=== PATIENT | male | born 1930 | race Caucasian/White ===

== ENCOUNTER → 2016-07-23 | Outpatient (CLI) | payer MEDICARE, BC ==
[2016-07-23 09:01] LABS: Basophils % (A) 0 %; CH 31.9; CHCM 34.8; Eosinophils # (A) 0.3 k/uL (0-0.7); Eosinophils % (A) 4 %; HDW 2.54; HGB 10.5 gm/dL (13.0-17.5); Luc # (Auto) 0.16; Luc % (Auto) 3; Lymphocytes # (A) 1.7 k/uL (1.0-4.8); Lymphocytes % (A) 27 %; MCH 31.1 pg (25.0-35.0); MCHC 33.8 g/dL (31.0-37.0); Mean Platelet Volume 7.4; Monocytes # (A) 0.5 k/uL (0-1.0); Monocytes % (A) 8 %; Neutrophils # (A) 3.8 k/uL (1.3-7.7); Neutrophils % (A) 58 %; RBC 3.37 m/uL (4.30-5.90); RDW 11.9 % (11.5-15.5); WBC 6.5 k/uL (3.8-10.6); WBC (Perox) 6.16
[2016-07-23 13:14] LABS: Calcium 9.3 mg/dL (8.4-10.2); Magnesium 2.8 mg/dL (1.6-2.3); Phosphorous 4.6 mg/dL (2.5-4.5); Potassium 5.2 mmol/L (3.5-5.1); Uric Acid 7.5 mg/dL (3.5-8.5)
[2016-07-23 15:35] LABS: % Iron Saturation 24.5 % (20-50)
== END | disposition home or self-care (01) ==
LOC: LABWHC1 08:16
PROVIDERS: ATTEND Nurse Practitioner Family
DX: N18.4 Chronic kidney disease, stage 4 (severe) (principal); D64.9 Anemia, unspecified; E55.9 Vitamin D deficiency, unspecified; E21.3 Hyperparathyroidism, unspecified; M10.9 Gout, unspecified
CPT/HCPCS: 36415; 80048; 82306; 82728; 83540; 83550; 83735; 83970; 84100; 84550; 85025

== ENCOUNTER → 2016-08-23 | Outpatient (CLI) | payer MEDICARE, BC ==
[2016-08-23 12:37] LABS: Calcium 9.4 mg/dL (8.4-10.2); Potassium 4.9 mmol/L (3.5-5.1); Total Bilirubin 0.6 mg/dL (0.2-1.3); Total Protein 7.2 g/dL (6.3-8.2)
== END | disposition home or self-care (01) ==
LOC: LABWHC1 11:37
PROVIDERS: ATTEND Family Medicine
DX: N19 Unspecified kidney failure (principal)
CPT/HCPCS: 36415; 80053

== ENCOUNTER → 2017-03-30 | Outpatient (CLI) | payer MEDICARE, BC ==
[2017-03-30 10:37] LABS: Basophils % (A) 0 %; CH 31.3; CHCM 32.9; Eosinophils # (A) 0.3 k/uL (0-0.7); Eosinophils % (A) 5 %; HGB 10.8 gm/dL (13.0-17.5); Luc # (Auto) 0.12; Luc % (Auto) 2; Lymphocytes # (A) 1.1 k/uL (1.0-4.8); Lymphocytes % (A) 18 %; MCH 32.3 pg (25.0-35.0); MCHC 33.8 g/dL (31.0-37.0); MCV 95.5 fL (80.0-100.0); Mean Platelet Volume 7.5; Monocytes # (A) 0.4 k/uL (0-1.0); Monocytes % (A) 7 %; Neutrophils % (A) 67 %; RBC 3.35 m/uL (4.30-5.90); RDW 12.5 % (11.5-15.5); WBC 5.9 k/uL (3.8-10.6); WBC (Perox) 6.12
[2017-03-30 12:15] LABS: Appearance,Urine Clear (Clear); Bilirubin,Urine Negative (Negative); Glucose,Urine (UA) Negative (Negative); Ketones,Urine Negative (Negative); Leukocyte Esterase,Urine Negative (Negative); Nitrite,Urine Negative (Negative); PH, Urine 5.5 (5.0-8.0); Particle Count 828; Protein,Urine 1+ (Negative); Specific Gravity,Urine 1.008 (1.001-1.035); UA Billing (MACRO vs. MICRO) MICRO; Urobilinogen,Urine <2.0 mg/dL (<2.0); WBC,Urine 1 /hpf (0-5)
== END | disposition home or self-care (01) ==
LOC: LABPAT 09:59
PROVIDERS: ATTEND Urology
DX: Z01.810 Encounter for preprocedural cardiovascular examination (principal); N28.9 Disorder of kidney and ureter, unspecified; R35.0 Frequency of micturition; I10 Essential (primary) hypertension
CPT/HCPCS: 81001; 85025; 87086; 93005

== ENCOUNTER 2017-08-12 13:21 | Inpatient (IN) | payer MEDICARE, BC ==
--- NOTE | 2017-08-12 14:07 | ED ---
General Adult HPI - General Chief complaint: Fall Stated complaint: Knee pain/ Fall Time Seen by Provider: 08/12/17 13:50 Source: patient, EMS, RN notes reviewed Mode of arrival: EMS Limitations: physical limitation - History of Present Illness Initial comments: Patient 87-year-old male who presents emergency room today with multiple complaints. Patient does admit that he's had some right knee and right hip pain over the last 3 weeks since a fall. States he fell coming out of her house missing a step falling down onto the right knee jamming it back up into the right hip area. He does admit that he saw orthopedics had x-rays obtained week ago. States he still experiencing the pain. He states is worse with movements. He states he was walking with a walker prior to the fall. The last few weeks she's had to use a walker and feels that he's having a difficult time with any ambulation at this time. Patient also admits that he's had some thoughts of hurting himself. He does admit that he has a shot, house. He states that his 3 years ago cancer. States another son at the age 21 from a car accident. States the main reason that keeps him from the doing anything is acting as an insurance policy that will not pale to his living son committed suicide. Patient denies any other complaints or symptoms. Patient denies any recent fever, chills, shortness of breath, chest pain, back pain, abdominal pain, nausea or vomiting, headaches or visual changes, or any other complaints. - Related Data Home Medications Medication Instructions Recorded Confirmed ALPRAZolam [Xanax] 0.5 mg PO QID@,,,09/23/14 08/12/17 Aspirin EC [Ecotrin] 325 mg PO DAILY 09/23/14 08/12/17 Clopidogrel [Plavix] 75 mg PO DAILY@1600 08/06/15 08/12/17 Isosorbide Mononitrate ER [Imdur] 60 mg PO BID@09/01/15 08/12/17 Docusate [Colace] 50 mg PO BID@04/01/17 08/12/17 Gabapentin [Neurontin] 300 mg PO TID 04/01/17 08/12/17 Ipratropium-Albuterol Nebulize 3 ml INHALATION RT-QID PRN 04/01/17 08/12/17 [Duoneb 0.5 mg-3 mg/3 ml Soln] Loratadine [Claritin] 10 mg PO QAM 04/01/17 08/12/17 amLODIPine [Norvasc] 10 mg PO DAILY@1200 04/01/17 08/12/17 Colace 50mg 50 mg PO TID PRN 08/12/17 08/12/17 Pravastatin Sodium [Pravachol] 40 mg PO HS 08/12/17 08/12/17 hydrALAZINE HCL [Apresoline] 25 mg PO TID@05,16,20 08/12/17 08/12/17 Allergies Allergy/AdvReac Type Severity Reaction Status Date / Time No Known Allergies Allergy Verified 08/12/17 14:14 Review of Systems ROS Statement: Those systems with pertinent positive or pertinent negative responses have been documented in the HPI. ROS Other: All systems not noted in ROS Statement are negative. Past Medical History Past Medical History: Coronary Artery Disease (CAD), Chest Pain / Angina, Heart Failure, COPD, Hypertension, Myocardial Infarction ([place]), Osteoarthritis (OA), Pneumonia, Sleep Apnea/CPAP/BIPAP Additional Past Medical History / Comment(s): NSTEMI, EF 50% Last Myocardial Infarction Date:: 2010 History of Any Multi-Drug Resistant Organisms: None Reported Past Surgical History: Heart Catheterization With Stent, Joint Replacement, Tonsillectomy Additional Past Surgical History / Comment(s): Rt carotid [id number], cataract removed with lens implant bilat., Rt. knee replacement Past Anesthesia/Blood Transfusion Reactions: No Reported Reaction Date of Last Stent Placement:: 2010, ( OM) Past Psychological History: Anxiety, Depression Smoking Status: Never smoker Past Alcohol Use History: None Reported Past Drug Use History: None Reported - Past Family History Father Family Medical History: Chest Pain / Angina, Coronary Artery Disease (CAD), Myocardial Infarction ([place]) Mother Family Medical History: Dementia General Exam - General Exam Comments Initial Comments: General: The patient is awake and alert, in no distress, and does not appear acutely ill. Eye: Pupils are equal, round and reactive to light, extra-ocular movements are intact. No nystagmus. There is normal conjunctiva bilaterally. No signs of icterus. Ears, nose, mouth and throat: There are moist mucous membranes and no oral lesions. Neck: The neck is supple, there is no tenderness or JVD. Cardiovascular: There is a regular rate and rhythm. No murmur, rub or gallop is appreciated. Respiratory: Lungs are clear to auscultation, respirations are non-labored, breath sounds are equal. No wheezes, stridor, rales, or rhonchi. Musculoskeletal: Patient shows limited range of motion of the right knee, right hip. Does have tenderness over the both lateral and medial aspect of the right hip. Tender with a logroll maneuver. Does have mild tenderness to the anterior aspect of the right knee. There is mild effusion to the right knee. Strength 5/5. Sensation intact. Pulses equal bilaterally 2+. Neurological: A&O x 3. CN II-XII intact, There are no obvious motor or sensory deficits. Coordination appears grossly intact. Speech is normal. Skin: Skin is warm and dry and no rashes or lesions are noted. Psychiatric: Cooperative, appropriate mood & affect. Limitations: physical limitation Course Vital Signs 08/12/17 08/12/17 08/12/17 13:24 14:44 15:19 Temperature 97.4 F L Pulse Rate 72 72 72 Respiratory 19 19 Rate Blood Pressure 205/93 186/107 175/72 O2 Sat by Pulse 95 95 Oximetry Medical Decision Making - Medical Decision Making Patient's labs been reviewed. Creatinine elevated shows similar findings on previous labs. Patient's x-rays reviewed show a right femoral neck fracture. 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 Orellana. Will be admitted to his service with consults medicine and also psych services for thoughts of hurting himself - Lab Data Result diagrams: 08/12/17 14:14 08/12/17 14:14 Lab Results 08/12/17 08/12/17 08/12/17 Range/Units 14:14 14:14 14:14 WBC 8.7 (3.8-10.6) k/uL RBC 3.60 L (4.30-5.90) m/uL Hgb 10.8 L (13.0-17.5) gm/dL Hct 32.6 L (39.0-53.0) % MCV 90.3 (80.0-100.0) fL MCH 29.9 (25.0-35.0) pg MCHC 33.2 (31.0-37.0) g/dL RDW 12.5 (11.5-15.5) % Plt Count 174 (150-450) k/uL Neutrophils % 80 % Lymphocytes % 12 % Monocytes % 5 % Eosinophils % 1 % Basophils % 0 % Neutrophils # 7.0 (1.3-7.7) k/uL Lymphocytes # 1.1 (1.0-4.8) k/uL Monocytes # 0.5 (0-1.0) k/uL Eosinophils # 0.1 (0-0.7) k/uL Basophils # 0.0 (0-0.2) k/uL PT 10.4 (9.0-12.0) sec INR 1.1 (<1.2) APTT 23.4 (22.0-30.0) sec Sodium 142 (137-145) mmol/L Potassium 5.0 (3.5-5.1) mmol/L Chloride 109 H (98-107) mmol/L Carbon Dioxide 20 L (22-30) mmol/L Anion Gap 13 mmol/L BUN 52 H (9-20) mg/dL Creatinine 3.02 H (0.66-1.25) mg/dL Est GFR (MDRD) Af Amer 24 (>60 ml/min/1.73 sqM) Est GFR (MDRD) Non-Af 20 (>60 ml/min/1.73 sqM) Glucose 104 H (74-99) mg/dL Calcium 9.2 (8.4-10.2) mg/dL Total Bilirubin 0.4 (0.2-1.3) mg/dL AST 15 L (17-59) U/L ALT 26 (21-72) U/L Alkaline Phosphatase 76 (38-126) U/L Total Protein 6.6 (6.3-8.2) g/dL Albumin 3.8 (3.5-5.0) g/dL Urine Opiates Screen (NotDetected) Ur Oxycodone Screen (NotDetected) Urine Methadone Screen (NotDetected) Ur Propoxyphene Screen (NotDetected) Ur Barbiturates Screen (NotDetected) U Tricyclic Antidepress (NotDetected) Ur Phencyclidine Scrn (NotDetected) Ur Amphetamines Screen (NotDetected) U Methamphetamines Scrn (NotDetected) U Benzodiazepines Scrn (NotDetected) Urine Cocaine Screen (NotDetected) U Marijuana (THC) Screen (NotDetected) 08/12/17 Range/Units 14:42 WBC (3.8-10.6) k/uL RBC (4.30-5.90) m/uL Hgb (13.0-17.5) gm/dL Hct (39.0-53.0) % MCV (80.0-100.0) fL MCH (25.0-35.0) pg MCHC (31.0-37.0) g/dL RDW (11.5-15.5) % Plt Count (150-450) k/uL Neutrophils % % Lymphocytes % % Monocytes % % Eosinophils % % Basophils % % Neutrophils # (1.3-7.7) k/uL Lymphocytes # (1.0-4.8) k/uL Monocytes # (0-1.0) k/uL Eosinophils # (0-0.7) k/uL Basophils # (0-0.2) k/uL PT (9.0-12.0) sec INR (<1.2) APTT (22.0-30.0) sec Sodium (137-145) mmol/L Potassium (3.5-5.1) mmol/L Chloride (98-107) mmol/L Carbon Dioxide (22-30) mmol/L Anion Gap mmol/L BUN (9-20) mg/dL Creatinine (0.66-1.25) mg/dL Est GFR (MDRD) Af Amer (>60 ml/min/1.73 sqM) Est GFR (MDRD) Non-Af (>60 ml/min/1.73 sqM) Glucose (74-99) mg/dL Calcium (8.4-10.2) mg/dL Total Bilirubin (0.2-1.3) mg/dL AST (17-59) U/L ALT (21-72) U/L Alkaline Phosphatase (38-126) U/L Total Protein (6.3-8.2) g/dL Albumin (3.5-5.0) g/dL Urine Opiates Screen Detected H (NotDetected) Ur Oxycodone Screen Not Detected (NotDetected) Urine Methadone Screen Not Detected (NotDetected) Ur Propoxyphene Screen Not Detected (NotDetected) Ur Barbiturates Screen Not Detected (NotDetected) U Tricyclic Antidepress Not Detected (NotDetected) Ur Phencyclidine Scrn Not Detected (NotDetected) Ur Amphetamines Screen Not Detected (NotDetected) U Methamphetamines Scrn Not Detected (NotDetected) U Benzodiazepines Scrn Detected H (NotDetected) Urine Cocaine Screen Not Detected (NotDetected) U Marijuana (THC) Screen Not Detected (NotDetected) Disposition Clinical Impression: Closed right hip fracture Disposition: [facility] Condition: Stable Referrals: Benoit Fatima MD [Primary Care Provider] - 1-2 days Time of Disposition: 16:02
[2017-08-12] MEDS ORDERED: hydrALAZINE HCL 20 MG/ML 1 ML VIAL IVP STA (14:18)
[2017-08-12 14:33] LABS: Partial Thromboplastin Time 23.4 sec (22.0-30.0)
[2017-08-12 14:35] LABS: Albumin 3.8 g/dL (3.5-5.0); Calcium 9.2 mg/dL (8.4-10.2); Total Bilirubin 0.4 mg/dL (0.2-1.3); Total Protein 6.6 g/dL (6.3-8.2)
[2017-08-12 14:36] LABS: INR 1.1 (<1.2); Prothrombin Time 10.4 sec (9.0-12.0)
[2017-08-12 14:43] LABS: Basophils % (A) 0 %; Eosinophils # (A) 0.1 k/uL (0-0.7); Eosinophils % (A) 1 %; HCT 32.6 % (39.0-53.0); HGB 10.8 gm/dL (13.0-17.5); Lymphocytes # (A) 1.1 k/uL (1.0-4.8); Lymphocytes % (A) 12 %; MCH 29.9 pg (25.0-35.0); MCHC 33.2 g/dL (31.0-37.0); MCV 90.3 fL (80.0-100.0); Mean Platelet Volume 7.4; Monocytes # (A) 0.5 k/uL (0-1.0); Monocytes % (A) 5 %; Neutrophils % (A) 80 %; Platelet Count 174 k/uL (150-450); RDW 12.5 % (11.5-15.5); WBC 8.7 k/uL (3.8-10.6)
[2017-08-12 15:00] LABS: Amphetamine Screen,Urine Not Detected (NotDetected); Barbiturate Screen,Urine Not Detected (NotDetected); Benzodiazepines Screen,Urine Detected (NotDetected); Cocaine Screen,Urine Not Detected (NotDetected); Methadone Screen, Urine Not Detected (NotDetected); Opiate Screen,Urine Detected (NotDetected); Oxycodone Screen, Urine Not Detected (NotDetected); Phencyclidine Screen,Urine Not Detected (NotDetected); Tricyclic Antidepressant,Urine Not Detected (NotDetected); Urn Cannabinoid Scrn Not Detected (NotDetected)
[2017-08-12] MEDS ORDERED: HYDROmorphone 0.5 MG/0.5 ML SYRINGE IVP STA ×2 (15:10→17:33)
--- NOTE | 2017-08-12 15:16 | XR ---
EXAMINATION TYPE: XR Hip RT and AP Pelvis DATE OF EXAM: 08/12/2017 COMPARISON: NONE HISTORY: Pain, fall TECHNIQUE: AP pelvis and right hip FINDINGS: There is a right femoral neck fracture which is nearly intertrochanteric. There is some sli ght angulation. Femoral heads articulate with the acetabulum. No additional fractures are evident. Nonspecific bowel gas present. IMPRESSION: 1. Right femoral neck fracture
--- NOTE | 2017-08-12 15:17 | XR ---
EXAMINATION TYPE: XR knee limited RT DATE OF EXAM: 08/12/2017 COMPARISON: NONE HISTORY: Pain, fall TECHNIQUE: 2 views right knee FINDINGS: Tibial and femoral components are present. No joint effusion is evident. No acute fractures are evident. IMPRESSION: 1. No fractures right knee
[2017-08-12] MEDS ORDERED: ONDANSETRON 4 MG/2 ML VIAL IVP STA (15:23)
[2017-08-12] MEDS ORDERED: ONDANSETRON 4 MG/2 ML VIAL IVP PRN (16:17)
[2017-08-12] MEDS ORDERED: NALOXONE 0.4 MG/ML 1 ML VIAL IV PRN (16:17)
--- NOTE | 2017-08-12 16:37 | CT ---
EXAMINATION TYPE: CT hip RT wo con DATE OF EXAM: 08/12/2017 COMPARISON: Right hip images same date HISTORY: 609 CT DLP: Fall x3 weeks ago, right hip pain. mGycm Automated exposure control for dose reduction was used. FINDINGS: There is a lucency within the femoral neck. Femoral neck fracture is evident. There is some rotation of the femoral head in relation to the femoral neck. No additional fractures are evident. This may b e a pathologic fracture, correlation with the patient's history is recommended. Three-D reconstructed images through the right hip fracture are performed separately on the dateIITiansuter by the technologist and presented. IMPRESSION: RIGHT FEMORAL NECK FRACTURE MAY BE A PATHOLOGIC FRACTURE. CORRELATE WITH HISTORY.
[2017-08-12] MEDS ORDERED: HYDROcodone/APAP 5-325MG 1 EACH TAB PO PRN (17:28)
--- NOTE | 2017-08-12 17:43 | XR ---
EXAMINATION TYPE: XR chest 1V portable DATE OF EXAM: 08/12/2017 COMPARISON: 09/01/2015 INDICATION: Preop evaluation TECHNIQUE: Single frontal view of the chest is obtained. FINDINGS: The heart size is normal. The pulmonary vasculature is somewhat prominent. There is mild increased lung markings into the right upper lung field. Correlate for atelectasis. Dane e volume overload may be present IMPRESSION: 1. Right upper lobe atelectasis and/or volume overload with cephalization vascular structures. Overt pulmonary edema is not present.
[2017-08-12] MEDS ORDERED: DOCUSATE ORAL SOLN 100 MG/10 ML CUP PO PRN (20:54)
[2017-08-12] MEDS ORDERED: IPRATROPIUM-ALBUTEROL 3 ML NEB INHALATION PRN (20:54)
[2017-08-12] MEDS ORDERED: amLODIPine 10 MG TAB PO STA (20:58)
[2017-08-12] MEDS: PRAVASTATIN SODIUM 40 MG TAB PO SCH (21:12)
[2017-08-12] MEDS: GABAPENTIN 300 MG CAP PO SCH (21:12)
[2017-08-12] MEDS: HYDROmorphone 0.5 MG/0.5 ML SYRINGE IVP PRN (22:57)
[2017-08-12 23:15] LABS: Appearance,Urine Clear (Clear); Bacteria,Urine Rare /hpf; Bilirubin,Urine Negative (Negative); Blood,Urine Negative (Negative); Color,Urine Light Yellow; Glucose,Urine (UA) Negative (Negative); Ketones,Urine Negative (Negative); Leukocyte Esterase,Urine Negative (Negative); Nitrite,Urine Negative (Negative); PH, Urine 5.5 (5.0-8.0); Protein,Urine 2+ (Negative); RBC,Urine 1 /hpf (0-5); Urobilinogen,Urine <2.0 mg/dL (<2.0); WBC,Urine 4 /hpf (0-5)
--- NOTE | 2017-08-13 00:09 | CT ---
EXAMINATION TYPE: CT chest wo con DATE OF EXAM: 08/12/2017 COMPARISON: 06/27/2015 HISTORY: f/u abnormal CXR CT DLP: 656.20 mGycm. Automated Exposure Control for Dose Reduction was Utilized. TECHNIQUE: CT scan of the thorax is performed without IV contrast. FINDINGS: The heart is enlarged. There is small pericardial effusion. There are small bilateral pleural effusio ns. Thoracic aorta is atheromatous. There is no evidence of aortic aneurysm. There are paratracheal l ymph nodes that measure up to 1.8 cm. There are atherosclerotic vascular calcifications in the great vessels. There is coronary artery calcification. I see no evidence of a pulmonary mass. Exam is limit ed by lack of contrast. I see no bony destructive process. There are some spondylotic changes in the thoracic spine. There is some fluid in the right major fissure. There is some mild atelectasis at the posterior lung bases. CONCLUSION: Cardiomegaly. Atherosclerotic vascular disease. Heart is increased in size compared to old exam. Ther e is decrease in the pericardial effusion compared to old exam. There are new bilateral pleural effus ions. This could relate to mild heart failure. There are nonspecific mediastinal paratracheal lymph n odes that are increased very slightly compared to old exam. Mild atelectasis noted at the lung bases.
[2017-08-13] MEDS: HYDROmorphone 0.5 MG/0.5 ML SYRINGE IVP PRN ×5 (01:53→23:55)
[2017-08-13] MEDS: hydrALAZINE HCL 25 MG TAB PO SCH ×3 (05:25→20:23)
[2017-08-13] MEDS: ISOSORBIDE MONONITRATE ER 60 MG TAB.ER.24H PO SCH ×2 (05:25→20:23)
[2017-08-13] MEDS: DOCUSATE ORAL SOLN 100 MG/10 ML CUP PO SCH ×2 (05:26→20:22)
[2017-08-13] MEDS: ALPRAZolam 0.5 MG TAB PO SCH ×4 (05:26→20:23)
[2017-08-13 07:38] LABS: Basophils % (A) 0 %; Eosinophils # (A) 0.1 k/uL (0-0.7); Eosinophils % (A) 2 %; HCT 29.5 % (39.0-53.0); HGB 9.4 gm/dL (13.0-17.5); Lymphocytes # (A) 1.2 k/uL (1.0-4.8); Lymphocytes % (A) 19 %; MCH 30.1 pg (25.0-35.0); MCHC 31.7 g/dL (31.0-37.0); MCV 94.9 fL (80.0-100.0); Mean Platelet Volume 7.8; Monocytes # (A) 0.6 k/uL (0-1.0); Monocytes % (A) 9 %; Neutrophils # (A) 4.4 k/uL (1.3-7.7); Neutrophils % (A) 69 %; Platelet Count 143 k/uL (150-450); RBC 3.11 m/uL (4.30-5.90); RDW 12.7 % (11.5-15.5); WBC 6.4 k/uL (3.8-10.6)
[2017-08-13 07:45] LABS: Albumin 3.1 g/dL (3.5-5.0); Calcium 8.6 mg/dL (8.4-10.2); Potassium 5.2 mmol/L (3.5-5.1); Total Bilirubin 0.3 mg/dL (0.2-1.3); Total Protein 5.6 g/dL (6.3-8.2)
[2017-08-13] MEDS: HYDROcodone/APAP 5-325MG 1 EACH TAB PO PRN ×2 (08:16→13:43)
[2017-08-13] MEDS: GABAPENTIN 300 MG CAP PO SCH ×3 (08:17→22:47)
[2017-08-13] MEDS: LORATADINE 10 MG TAB PO SCH (08:17)
--- NOTE | 2017-08-13 09:17 | P.HPOR ---
History of Present Illness H&P Date: 08/13/17 Chief Complaint: Right hip fracture The patient is an 87-year-old male with multiple medical problems who presented to the emergency department yesterday with ongoing right hip pain. The patient was seen in our office by Dr. Orellana last week after sustaining a fall at home, x -rays were taken and no fracture was seen. The patient was encouraged to walk with a walker with protective weightbearing to the right lower extremity. The patient continued to have right hip pain and he presented to the emergency department for further evaluation. X-rays were taken and he was found to have a displaced femoral neck fracture right. He was admitted to orthopedics for surgical intervention. A hip CT was obtained due to irregularity in the intertrochanteric area. CT revealed possible pathologic etiology with the fracture. Internal medicine has been consulted for surgical clearance and further evaluation for metastatic disease. Today, the patient states that he is having right hip pain as expected. He is also experiencing right foot pain. He states that he does have numbness and tingling to the bilateral feet which is chronic in nature. He denies fever, chills, rigors, abdominal pain, shortness of breath, and chest pain at this time. The patient did express some depression and suicidal thoughts in the emergency department. The patient will also be evaluated by psychiatry. Review of Systems Constitutional: Denies chills, Denies fever, Denies lethargy Cardiovascular: Denies chest pain, Denies shortness of breath Respiratory: Reports sleep apnea, Denies cough Gastrointestinal: Denies diarrhea, Denies nausea, Denies vomiting Musculoskeletal: Reports leg numbness/tingling Musculoskeletal: right: foot pain, hip pain, hip stiffness Past Medical History Past Medical History: Coronary Artery Disease (CAD), Chest Pain / Angina, Heart Failure, COPD, Hypertension, Myocardial Infarction ([place]), Osteoarthritis (OA), Pneumonia, Sleep Apnea/CPAP/BIPAP Additional Past Medical History / Comment(s): NSTEMI, EF 50% Last Myocardial Infarction Date:: 2010 History of Any Multi-Drug Resistant Organisms: None Reported Past Surgical History: Heart Catheterization With Stent, Joint Replacement, Tonsillectomy Additional Past Surgical History / Comment(s): Rt carotid [id number], cataract removed with lens implant bilat., Rt. 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 PT STATES HE'S DEPRESSED EVERY DAY BUT NOT SUICIDAL-NO THOUGHTS OF HARMING HIMSELF. APPETITE GOOD, NOT SLEPING WELL D/T NOSIE OF CPAP MACHINE- FEELS TIRED ALL THE TIME. DENIES LOSS OF INTEREST IN THINGS. Smoking Status: Never smoker Past Alcohol Use History: None Reported Past Drug Use History: None Reported - Past Family History Father Family Medical History: Chest Pain / Angina, Coronary Artery Disease (CAD), Myocardial Infarction ([place]) Mother Family Medical History: Dementia Medications and Allergies Home Medications Medication Instructions Recorded Confirmed Type ALPRAZolam [Xanax] 0.5 mg PO QID@05,12,,09/23/14 08/12/17 History Aspirin EC [Ecotrin] 325 mg PO DAILY 09/23/14 08/12/17 History Clopidogrel [Plavix] 75 mg PO DAILY@1600 08/06/15 08/12/17 History Isosorbide Mononitrate ER [Imdur] 60 mg PO BID@,09/01/15 08/12/17 History Docusate [Colace] 50 mg PO BID@,04/01/17 08/12/17 History Gabapentin [Neurontin] 300 mg PO TID 04/01/17 08/12/17 History Ipratropium-Albuterol Nebulize 3 ml INHALATION RT-QID PRN 04/01/17 08/12/17 History [Duoneb 0.5 mg-3 mg/3 ml Soln] Loratadine [Claritin] 10 mg PO QAM 04/01/17 08/12/17 History amLODIPine [Norvasc] 10 mg PO DAILY@1200 04/01/17 08/12/17 History Colace 50mg 50 mg PO TID PRN 08/12/17 08/12/17 History Pravastatin Sodium [Pravachol] 40 mg PO HS 08/12/17 08/12/17 History hydrALAZINE HCL [Apresoline] 25 mg PO TID@05,16,20 08/12/17 08/12/17 History Allergies Allergy/AdvReac Type Severity Reaction Status Date / Time No Known Allergies Allergy Verified 08/12/17 14:14 Physical Examination The patient is an 87 year old male that is no acute distress. He is alert and oriented x3. The patient's head is normocephalic and atraumatic. Exam of the cervical spine reveals no pain upon palpation or range of motion. Exam of the bilateral upper extremities reveal no obvious deformities or pain upon range of motion. Exam of the left lower extremity reveals no pain upon palpation. Exam of the right lower extremity reveals a externally rotated and shortened leg. There is pain upon palpation to the lateral hip. There is pain upon logrolling and any range of motion of the leg. Bilateral calves are soft and nontender. Patient has good foot and ankle motion bilaterally. There is numbness to the bilateral feet which is chronic in nature. Patient states there is pain the dorsal aspect of the right foot. No pain to palpation. Circulatory status is intact. Results - Labs Labs: Abnormal Lab Results - Last 24 Hours (Table) 08/12/17 08/12/17 08/12/17 Range/Units 14:14 14:14 14:42 RBC 3.60 L (4.30-5.90) m/uL Hgb 10.8 L (13.0-17.5) gm/dL Hct 32.6 L (39.0-53.0) % Plt Count (150-450) k/uL Potassium (3.5-5.1) mmol/L Chloride 109 H (98-107) mmol/L Carbon Dioxide 20 L (22-30) mmol/L BUN 52 H (9-20) mg/dL Creatinine 3.02 H (0.66-1.25) mg/dL Glucose 104 H (74-99) mg/dL AST 15 L (17-59) U/L Total Protein (6.3-8.2) g/dL Albumin (3.5-5.0) g/dL Urine Protein (Negative) Urine Bacteria (None) /hpf Urine Opiates Screen Detected H (NotDetected) U Benzodiazepines Scrn Detected H (NotDetected) 08/12/17 08/13/17 08/13/17 Range/Units 23:00 07:19 07:19 RBC 3.11 L (4.30-5.90) m/uL Hgb 9.4 L (13.0-17.5) gm/dL Hct 29.5 L (39.0-53.0) % Plt Count 143 L (150-450) k/uL Potassium 5.2 H (3.5-5.1) mmol/L Chloride 109 H (98-107) mmol/L Carbon Dioxide (22-30) mmol/L BUN 49 H (9-20) mg/dL Creatinine 3.00 H (0.66-1.25) mg/dL Glucose (74-99) mg/dL AST 13 L (17-59) U/L Total Protein 5.6 L (6.3-8.2) g/dL Albumin 3.1 L (3.5-5.0) g/dL Urine Protein 2+ H (Negative) Urine Bacteria Rare H (None) /hpf Urine Opiates Screen (NotDetected) U Benzodiazepines Scrn (NotDetected) H & H 08/12/17 08/13/17 Range/Units 14:14 07:19 Hgb 10.8 L 9.4 L (13.0-17.5) gm/dL Hct 32.6 L 29.5 L (39.0-53.0) % Coagulation 08/12/17 Range/Units 14:14 INR 1.1 (<1.2) Result Diagrams: 08/13/17 07:19 08/13/17 07:19 - Diagnostic results Hip x-ray: image reviewed (Displaced femoral neck fracture) Hip CT: image reviewed (Confirmed femoral neck fracture with possible pathologic etiology. No other fractures seen.) Assessment and Plan (1) Closed right hip fracture Current Visit: Yes Status: Acute Code(s): S72.001A - FRACTURE OF UNSP PART OF NECK OF RIGHT FEMUR, INIT SNOMED Code(s): 445637038 Plan: The clinical and x-ray findings were discussed with the patient. No family is at the bedside today. The case was also discussed with Dr. Orellana. The patient will undergo a right hip hemiarthroplasty tomorrow at 8 AM. The patient will be nothing by mouth at midnight tonight. We will await internal medicine clearance. We will obtain full femur x-rays and right foot x-rays. The patient will also be evaluated by psych for suicidal ideations. Surgical risks were discussed at length with the patient. Possible risks and complications including but not limited to risk of bleeding, infection, dislocation, DVT, stroke, heart attack, and were discussed. We will continue to follow patient closely and make further recommendations as needed.
--- NOTE | 2017-08-13 09:38 | XR ---
EXAMINATION TYPE: XR femur RT , 2 VIEWS DATE OF EXAM ORDERED: 08/13/2017 HISTORY: rule out fracture. COMPARISON: None. FINDINGS: There is a right knee arthroplasty in place. The entire femur is not visualized on this dawood dy. Visualized portions of the femur show no fracture or dislocation.. IMPRESSION: 1. INCOMPLETE STUDY. 2. STATUS POST RIGHT KNEE ARTHROPLASTY.
--- NOTE | 2017-08-13 09:39 | XR ---
EXAMINATION TYPE: XR foot limited RT , 2 VIEWS DATE OF EXAM ORDERED: 08/13/2017 HISTORY: foot pain. COMPARISON: None. FINDINGS: There has been a previous amputation of the right second digit at the metatarsophalangeal joint. No fracture, dislocation or other acute osseous lesion is seen. There are degenerative changes in the intertarsal and tarsometatarsal joints. There is a small, plantar calcaneal spur. IMPRESSION: 1. NO ACUTE OSSEOUS LESION. 2. POSTSURGICAL CHANGE. 3. DEGENERATIVE CHANGE. 4. SMALL, PLANTAR CALCANEAL SPUR.
[2017-08-13] MEDS: amLODIPine 10 MG TAB PO SCH (11:51)
--- NOTE | 2017-08-13 14:47 | CONS ---
CONSULTATION Zen Leonardo is an 87-year-old male who presented to the ED when he fell down. He fell down, fell on the concrete, injured his right hip. He was seen 4 days ago as an outpatient, was thought to not have a fracture. He subsequently came back into the hospital because of right hip pain and was found to have a fracture of the right hip. He is to undergo surgery tomorrow. He denies any fever, chills or rigors. He did not have any dizziness, but fell when he had an unexpected step that he had encountered. PAST MEDICAL HISTORY: Positive for coronary artery disease, congestive heart failure, COPD, osteoarthritis, sleep apnea for which he is on CPAP, non-STEMI with an ejection fraction of 50% in the past, history of cardiac cath with stent placement, right carotid endarterectomy, cataract removal, right knee replacement, previous lens implants, anxiety, depression. FAMILY HISTORY: Positive for coronary artery disease and MT in his father, dementia in his mother. SOCIAL HISTORY: Patient is a never smoker. 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 H MEDICATIONS: Prior to admission were hydralazine, Norvasc, Pravachol, Claritin, Imdur, DuoNeb, Neurontin, Colace, Plavix, Ecotrin, Xanax. REVIEW OF SYSTEMS: Positive for obesity. PHYSICAL EXAMINATION: Temperature is 99.3, respiratory rate is 17, pulse rate of 60, blood pressure 146/61, O2 sat on room air is 97%. HEENT reveals redundant tissue in the posterior pharynx. Chest reveals decreased breath sounds. No clear wheeze. Cardiovascular system is S1, S2. Abdomen is soft, there is shortening of the right lower extremity. There is trace edema. White count of 6.4, hemoglobin of 9.4, platelet count of 143,000, sodium 139, potassium 5.2, chloride 109, bicarb 23, BUN 49, creatinine of 3. Urine opiates and benzodiazepines are positive. Chest CT shows cardiomegaly with small pleural effusions, nonspecific mediastinal, paratracheal lymph nodes. Foot x-ray shows a small plantar calcaneal spur. Hip CT shows right femoral neck fracture, which may be pathologic. IMPRESSION: 1. Right hip fracture. 2. Chronic kidney disease. 3. Obstructive sleep apnea. 4. Doubt chronic obstructive pulmonary disease. 5. Coronary artery disease. 6. Carotid artery disease. 7. Obesity. At this point in time from a pulmonary standpoint, the patient is at slightly higher risk for proposed surgery. Would recommend Cardiology evaluation, would watch his electrolytes closely. Would keep him on GI and DVT prophylaxis. Have him seen by Cardiology prior to his surgery. Depending on how he does, we should make further changes to his care. He was counseled regarding his condition and this approach. SANTO / IJN: [id number] /
--- NOTE | 2017-08-13 15:16 | ECHOF ---
Referral Reason:surgery MEASUREMENTS -------- HEIGHT: 188.0 cm WEIGHT: 113.4 kg BP: 146/61 IVSd: 2.1 cm (0.6 - 1.1) LVIDd: 4.5 cm (3.9 - 5.3) LVPWd: 2.0 cm (0.6 - 1.1) IVSs: 2.9 cm LVIDs: 2.7 cm LVPWs: 2.5 cm LAESV Index (A-L): 50.88 ml/m Ao Diam: 4.3 cm (2.0 - 3.7) AV Cusp: 1.2 cm (1.5 - 2.6) LA Diam: 4.4 cm (2.7 - 3.8) MV EXCURSION: 13.189 mm (> 18.000) MV EF SLOPE: 72 mm/s (70 - 150) EPSS: 0.7 cm MV E Kee: 1.39 m/s MV DecT: 240 ms MV A Kee: 0.56 m/s MV E/A Ratio: 2.47 AV maxP.59 mmHg AV meanP.00 mmHg AR PHT: 373 ms RAP: 5.00 mmHg RVSP: 41.84 mmHg FINDINGS -------- Sinus rhythm. This was a technically good study. The left ventricular size is normal. There is severe concentric left ventricular hypertrophy. Ove rall left ventricular systolic function is low-normal with, an EF between 50 - 55 %. The right ventricle is normal in size and function. LA is severely dilated >40 ml/m2 The right atrium is normal in size. Aortic valve is trileaflet and is moderately thickened. There is mild aortic regurgitation. There is moderate aortic stenosis present. The mitral valve leaflets are mildly thickened. Exxg-[id number] mitral regurgitation is present. Mild tricuspid regurgitation present. There is mild pulmonary hypertension. The right ventricular systolic pressure, as measured by Doppler, is 41.84mmHg. Pulmonic valve appears structurally normal. The aortic root is mildy dilated. The pericardium is normal. CONCLUSIONS -------- 1. Sinus rhythm. 2. This was a technically good study. 3. The left ventricular size is normal. 4. There is severe concentric left ventricular hypertrophy. 5. Overall left ventricular systolic function is low-normal with, an EF between 50 - 55 %. 6. The right ventricle is normal in size and function. 7. LA is severely dilated >40 ml/m2 8. The right atrium is normal in size. 9. Aortic valve is trileaflet and is moderately thickened. 10. There is mild aortic regurgitation. 11. There is moderate aortic stenosis present. 12. The mitral valve leaflets are mildly thickened. 13. Louo-zw-lvxwdfie mitral regurgitation is present. 14. Mild tricuspid regurgitation present. 15. There is mild pulmonary hypertension. 16. The right ventricular systolic pressure, as measured by Doppler, is 41.84mmHg. 17. Pulmonic valve appears structurally normal. 18. The aortic root is mildy dilated. 19. The pericardium is normal. RURAL SERVICE ENGINEER: Jessica Mancera RDCS
--- NOTE | 2017-08-13 15:26 | CONS ---
CONSULTATION DATE OF SERVICE: 08/13/2017 IDENTIFYING DATA: This patient is an 87-year-old who was admitted to the surgical floor after discovering he has a fracture of his right femoral neck. HISTORY OF PRESENT ILLNESS: The patient apparently made a statement that he had suicidal ideation at times when he was asked in the emergency room. He currently is on the surgical floor with a sitter at bedside. The patient states that he was asked questions about depression and suicidal ideation in the emergency room. He indicated that he will have a suicidal thought at times. When asked what he would do, he told them he would shoot himself, but he indicates he has no plan or intent of acting on those thoughts. He states he has had thoughts of not wanting to live for numerous years ever since the loss of his 5 years ago and his son being killed numerous years ago. He states that he would never kill himself because then his surviving son would not get life insurance money as it would void the policy. The patient states that he also answered that question in the emergency room while experiencing significant pain in his hip. He is scheduled to undergo surgery tomorrow. It appears there is some concern that it may be a pathologic fracture. The patient states that his sleep has been off and on. Appetite is adequate. Energy level is low. He attributes that to his age. He states that he does have good days. He does have a significant other who resides with him and he feels that she helps oversee his care. No history of hypomanic or manic episodes. No reported symptoms of psychosis. He is in endorsing a long history of anxiety. Apparently, he is prescribed Xanax. PAST PSYCHIATRIC HISTORY: No prior inpatient psychiatric admissions. No suicide attempts. He does not work with a therapist or psychiatrist as an. OUTPATIENT: He is currently on Xanax 0.5 mg 4 times daily and he states he is on Prozac, but he is unsure of the dose. PAST MEDICAL HISTORY: Coronary artery disease. He states he has suffered three myocardial infarctions and has two stents, heart failure, COPD, hypertension, osteoarthritis, sleep apnea. ALLERGIES: No known drug allergies. CHEMICAL DEPENDENCY HISTORY: He states he does have a history of heavily drinking alcohol, but he quit several years ago. He now will have 1 glass of wine in the evening. He has never been placed in residential treatment for chemical dependency reasons. He reports no use of other illicit drugs. SOCIAL HISTORY: The patient is 87 years old. He resides with a Ms. Maryanne Zapata, a registered nurse. He has one living son. He is a retired mechanical engineering draftsperson. He graduated high school and earned his bachelor's from [employer]. He served in the [employer] for 4 years and was honorably discharged. MENTAL STATUS EXAM: The patient is a male appearing his stated age. She is lying in bed. He is alert. He is dressed in hospital attire. Eye contact is appropriate. He reports that he chronically has good days and bad days. He states he has no intent or plan of harming himself and he feels that this was all taken out of context. He is endorsing no homicidal ideation. He reports no auditory or visual hallucinations or specific delusions. There is no observed evidence of psychosis. He does not appear hypomanic or manic. He is oriented to person, place, and date. He is aware of his hip fracture and the plan of undergoing surgery tomorrow. He demonstrates no abnormal involuntary movements. He demonstrates no verbal or physical aggressiveness. IMPRESSIONS: 1. Depression, unspecified. Rule out major depressive disorder versus ongoing complicated bereavement, anxiety unspecified. 2. Medical comorbidities include recent fracture of his right femoral neck. 3. History of coronary artery disease, status post myocardial infarction and stent placement. 4. Hypertension,. 5. Heart failure. 6. Chronic obstructive pulmonary disease. 7. Osteoarthritis. 8. Sleep apnea. PLAN: The patient is not felt to be at acute risk for suicide. It appears he was expressing feelings of grief. He did give me permission to speak to his significant other, Ms Zapata; however. the phone call could not be completed despite several attempts. He does indicate that he has firearms at home and it would be our recommendation that the firearms be removed or secured from him. Nursing was asked to relay this to Social Work, so this can be addressed prior to his discharge from the hospital. Also speaking with her, it would be beneficial to clarify if he is in fact on Prozac and at what dose, so that we can continue the medication. The patient does not require admission to the mental health unit. Please call with any other questions or concerns. MMODL / IJN: [id number] /
--- NOTE | 2017-08-13 15:31 | P.CRDCN ---
History of Present Illness Consult date: 08/13/17 History of present illness: This is a 87-year-old gentleman with a history of ischemic heart disease and multiple stent placements in the LAD and also circumflex circumflex distribution. The last circumflex stent placement was done in 2014. Since then patient hasn't had any follow-up with gate person. For the last previous patient has had occasional chest pains. Patient has taken occasional nitroglycerin as needed. He claims that he did not have any chest pain over the last few weeks. Patient is now admitted to the hospital with a fracture of the hip. He was on aspirin and Plavix. He is also found to be in atrial fibrillation which seemed to be there since 2017. He was not on long-term anticoagulation. He seemed to be comfortable at rest without any orthopnea or paroxysmal nocturnal dyspnea. An echocardiogram showed good LV function with evidence of sclerosis of the right coronary leaflets which seemed to moderately stenotic. A mean gradient of about 27 was obtained on the Doppler study. Given his age, history of ischemic heart disease with ongoing angina, aortic stenosis, his risk for surgery is high. However, patient wants to undergo surgery and he understands the risks involved including myocardial infarction, congestive heart failure and cardiac arrhythmias. I'll continue his beta blockers. Close hemodynamic monitoring and avoiding hypotension and fluid overload are essential. Prognosis is guarded. Patient is also seen by medical technologist generalist and was cleared for the procedure Past Medical History Past Medical History: Coronary Artery Disease (CAD), Chest Pain / Angina, Heart Failure, COPD, Hypertension, Myocardial Infarction (ME), Osteoarthritis (OA), Pneumonia, Sleep Apnea/CPAP/BIPAP Additional Past Medical History / Comment(s): NSTEMI, EF 50% Last Myocardial Infarction Date:: 2010 History of Any Multi-Drug Resistant Organisms: None Reported Past Surgical History: Heart Catheterization With Stent, Joint Replacement, Tonsillectomy Additional Past Surgical History / Comment(s): Rt carotid [id number], cataract removed with lens implant bilat., Rt. 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 PT STATES HE'S DEPRESSED EVERY DAY BUT NOT SUICIDAL-NO THOUGHTS OF HARMING HIMSELF. APPETITE GOOD, NOT SLEPING WELL D/T NOSIE OF CPAP MACHINE- FEELS TIRED ALL THE TIME. DENIES LOSS OF INTEREST IN THINGS. Smoking Status: Never smoker Past Alcohol Use History: None Reported Past Drug Use History: None Reported - Past Family History Father Family Medical History: Chest Pain / Angina, Coronary Artery Disease (CAD), Myocardial Infarction (ME) Mother Family Medical History: Dementia Medications and Allergies Home Medications Medication Instructions Recorded Confirmed Type ALPRAZolam [Xanax] 0.5 mg PO QID@05,,,09/23/14 08/12/17 History Aspirin EC [Ecotrin] 325 mg PO DAILY 09/23/14 08/12/17 History Clopidogrel [Plavix] 75 mg PO DAILY@1600 08/06/15 08/12/17 History Isosorbide Mononitrate ER [Imdur] 60 mg PO BID@,09/01/15 08/12/17 History Docusate [Colace] 50 mg PO BID@,04/01/17 08/12/17 History Gabapentin [Neurontin] 300 mg PO TID 04/01/17 08/12/17 History Ipratropium-Albuterol Nebulize 3 ml INHALATION RT-QID PRN 04/01/17 08/12/17 History [Duoneb 0.5 mg-3 mg/3 ml Soln] Loratadine [Claritin] 10 mg PO QAM 04/01/17 08/12/17 History amLODIPine [Norvasc] 10 mg PO DAILY@1200 04/01/17 08/12/17 History Colace 50mg 50 mg PO TID PRN 08/12/17 08/12/17 History Pravastatin Sodium [Pravachol] 40 mg PO HS 08/12/17 08/12/17 History hydrALAZINE HCL [Apresoline] 25 mg PO TID@,,08/12/17 08/12/17 History Allergies Allergy/AdvReac Type Severity Reaction Status Date / Time No Known Allergies Allergy Verified 08/12/17 14:14 Physical Exam Vitals: Vital Signs Temp Pulse Pulse Resp BP BP Pulse Ox 08/13/17 08:00 60 08/13/17 07:00 99.3 F 60 17 146/61 97 08/13/17 00:30 98.1 F 79 18 155/74 93 L 08/12/17 20:30 98.1 F 74 18 176/73 95 08/12/17 18:12 98.6 F 71 20 168/71 95 08/12/17 16:15 75 20 165/79 94 L Intake and Output 08/13/17 08/13/17 08/13/17 06:59 14:59 22:59 Intake Total 480 840 Output Total 2500 Balance -2019 840 Intake: Oral 480 840 Output: Urine 1250 Uretheral (Costello) 1250 Post Void Residual 1250 GENERAL EXAM: Patient is alert and oriented and doesn't appear to be in any acute distress HEENT: Normocephalic. Normal reaction of pupils, equal size, normal range of extraocular motion. No erythema or exudates in the throat. NECK: No masses, no nuchal rigidity. CHEST: No chest wall deformity. LUNGS: Diminished breath sounds. HEART: S1 and S2 normal. Distant heart sounds. No significant murmur could be appreciated ABDOMEN: No hepatosplenomegaly, normal bowel sounds, no guarding or rigidity. SKIN: No rashes CENTRAL NERVOUS SYSTEM: No focal deficits. EXTREMITIES: No cyanosis, clubbing or edema. Results 08/13/17 07:19 08/13/17 07:19 Cardiac Enzymes 08/13/17 Range/Units 07:19 AST 13 L (17-59) U/L CBC 08/13/17 Range/Units 07:19 WBC 6.4 (3.8-10.6) k/uL RBC 3.11 L (4.30-5.90) m/uL Hgb 9.4 L (13.0-17.5) gm/dL Hct 29.5 L (39.0-53.0) % Plt Count 143 L (150-450) k/uL Comprehensive Metabolic Panel 08/13/17 Range/Units 07:19 Sodium 139 (137-145) mmol/L Potassium 5.2 H (3.5-5.1) mmol/L Chloride 109 H (98-107) mmol/L Carbon Dioxide 23 (22-30) mmol/L BUN 49 H (9-20) mg/dL Creatinine 3.00 H (0.66-1.25) mg/dL Glucose 84 (74-99) mg/dL Calcium 8.6 (8.4-10.2) mg/dL AST 13 L (17-59) U/L ALT 21 (21-72) U/L Alkaline Phosphatase 63 (38-126) U/L Total Protein 5.6 L (6.3-8.2) g/dL Albumin 3.1 L (3.5-5.0) g/dL Current Medications Generic Name Dose Route Start Last Admin Trade Name Freq PRN Reason Stop Dose Admin Hydrocodone Bitart/Acetaminophen 1 each 08/12/17 17:28 [place] 5-325 PO Q4HR PRN Pain Scale 1 to 5 Hydrocodone Bitart/Acetaminophen 2 each 08/12/17 17:28 08/13/17 13:43 [place] 5-325 PO 2 each Q6HR PRN Administration Pain Scale 6 to 10 Albuterol/Ipratropium 3 ml 08/12/17 20:54 Duoneb 0.5 Mg-3 Mg/3 Ml Soln INHALATION RT-QID PRN Shortness Of Breath Alprazolam 0.5 mg 08/13/17 05:00 08/13/17 11:39 Xanax PO 0.5 mg QID@05,12,16,20 ALICIA Administration Amlodipine Besylate 10 mg 08/13/17 12:00 08/13/17 11:51 Norvasc PO 10 mg DAILY@1200 ALICIA Administration Docusate Sodium 50 mg 08/12/17 20:54 Colace Oral Soln PO TID PRN Constipation Docusate Sodium 50 mg 08/13/17 05:00 08/13/17 05:26 Colace Oral Soln PO 50 mg BID@05,20 ALICIA Administration Famotidine 20 mg 08/13/17 21:00 Pepcid PO HS ALICIA Gabapentin 300 mg 08/12/17 22:00 08/13/17 08:17 Neurontin PO 300 mg TID ALICIA Administration Hydralazine HCl 25 mg 08/13/17 05:00 08/13/17 05:25 Apresoline PO 25 mg TID@05,16,20 ALICIA Administration Hydromorphone HCl 0.5 mg 08/12/17 16:17 08/13/17 09:23 Dilaudid IVP 0.5 mg Q3HR PRN Administration Moderate Pain Isosorbide Mononitrate 60 mg 08/13/17 05:00 08/13/17 05:25 Imdur PO 60 mg BID@05,20 ALICIA Administration Loratadine 10 mg 08/13/17 09:00 08/13/17 08:17 Claritin PO 10 mg QAM ALICIA Administration Naloxone HCl 0.2 mg 08/12/17 16:17 Narcan IV Q2M PRN Opioid Reversal Ondansetron HCl 4 mg 08/12/17 16:17 Zofran IVP Q8HR PRN Nausea And Vomiting Pravastatin Sodium 40 mg 08/12/17 21:00 08/12/17 21:12 Pravachol PO 40 mg HS ALICIA Administration Intake and Output 08/13/17 08/13/17 08/13/17 06:59 14:59 22:59 Intake Total 480 840 Output Total 2500 Balance -2019 840 Intake: Oral 480 840 Output: Urine 1250 Uretheral (Costello) 1250 Post Void Residual 1250 08/13/17 07:19 08/13/17 07:19 EKG Interpretations (text) Atrial fibrillation with controlled and corresponds Assessment and Plan (1) Closed right hip fracture Current Visit: Yes Status: Acute Code(s): S72.001A - FRACTURE OF UNSP PART OF NECK OF RIGHT FEMUR, INIT SNOMED Code(s): 242480218 (2) CAD (coronary artery disease) Current Visit: No Status: Acute Code(s): I25.10 - ATHSCL HEART DISEASE OF CIRCLE CORONARY ARTERY W/O ANG PCTRS SNOMED Code(s): 15429702 (3) Chest pain Current Visit: No Status: Acute Code(s): R07.9 - CHEST PAIN, UNSPECIFIED SNOMED Code(s): 39791777 (4) HTN (hypertension) Current Visit: No Status: Acute Code(s): I10 - ESSENTIAL (PRIMARY) HYPERTENSION SNOMED Code(s): 19753655 (5) Renal insufficiency Current Visit: No Status: Acute Code(s): N28.9 - DISORDER OF KIDNEY AND URETER, UNSPECIFIED SNOMED Code(s): 360120518 Plan: This patient is admitted with a hip fracture requiring surgery. He has multiple comorbidities including coronary artery disease, atrial fibrillation, renal failure, chronic angina and anemia. His risk for surgery is definitely high. Patient fully understands but wants to proceed with surgery. I will continue current medical therapy. Close hemodynamic monitoring and avoiding hypotension and also fluid overloaded are suggested. Prognosis is guarded
[2017-08-13] MEDS: FAMOTIDINE 20 MG TAB PO SCH (20:22)
[2017-08-13] MEDS: METOPROLOL TARTRATE 12.5 MG TAB PO SCH (20:22)
[2017-08-13] MEDS: PRAVASTATIN SODIUM 40 MG TAB PO SCH (20:23)
[2017-08-13] MEDS ORDERED: FAMOTIDINE 20 MG TAB PO SCH (21:00)
[2017-08-14] MEDS: ISOSORBIDE MONONITRATE ER 60 MG TAB.ER.24H PO SCH ×2 (05:29→21:26)
[2017-08-14] MEDS: DOCUSATE ORAL SOLN 100 MG/10 ML CUP PO SCH ×2 (05:29→21:27)
[2017-08-14] MEDS: HYDROmorphone 0.5 MG/0.5 ML SYRINGE IVP PRN ×3 (05:29→21:26)
[2017-08-14] MEDS: hydrALAZINE HCL 25 MG TAB PO SCH ×3 (05:29→21:26)
[2017-08-14] MEDS: ALPRAZolam 0.5 MG TAB PO SCH ×3 (05:30→22:37)
[2017-08-14] MEDS ORDERED: fentaNYL (PF) 50 MCG/ML 2 ML AMP ONE (08:33)
[2017-08-14] MEDS ORDERED: PROPOFOL 10 MG/ML 20 ML VIAL IV ONE (08:33)
[2017-08-14] MEDS ORDERED: ceFAZolin 1,000 MG/50 ML BAG (PMX) ONE (08:33)
[2017-08-14] MEDS ORDERED: SODIUM CHLORIDE 0.9% 100 ML BAG ONE (08:33)
[2017-08-14] MEDS ORDERED: SODIUM CHLORIDE 0.9% 1,000 ML BAG ONE (08:33)
[2017-08-14] MEDS ORDERED: SUCCINYLCHOLINE CHLORIDE 100 MG/5 ML SYR IV ONE (08:33)
[2017-08-14] MEDS ORDERED: LACTATED RINGERS 1,000 ML BAG IV ONE (08:33)
[2017-08-14] MEDS ORDERED: ceFAZolin 1,000 MG VIAL ONE (08:33)
[2017-08-14] MEDS ORDERED: PHENYLEPHRINE-0.9% NACL SYG 1 MG/10 ML SYRINGE ONE (08:33)
[2017-08-14] MEDS ORDERED: TRANEXAMIC ACID 1,000 MG/10 ML VIAL ONE (08:33)
[2017-08-14] MEDS ORDERED: TRANEXAMIC ACID 1,000 MG in SODIUM CHLORIDE 0.9% 50 ML IVPB ONE ×4 (09:00)
[2017-08-14] MEDS ORDERED: hydrOXYzine PAMOATE 25 MG CAP PO PRN (09:04)
[2017-08-14] MEDS ORDERED: HYDROmorphone 0.5 MG/0.5 ML SYRINGE IVP PRN ×2 (09:04)
--- NOTE | 2017-08-14 10:19 | P.OP ---
Date of Procedure: 08/14/17 Procedure(s) Performed: PREOPERATIVE DIAGNOSIS: Right hip femoral neck fracture POSTOPERATIVE DIAGNOSIS: Right hip femoral neck fracture OPERATION: Right hip cemented unipolar hemiarthroplasty. ANESTHESIA: Gen. ESTIMATED BLOOD LOSS: 200 ml. BANK COURIER: Beverly Landeros PA-C (assistance with: patient positioning, retraction , exposure, hemostasis, leg positioning, implantation, irrigation, closure, dressing) COMPLICATIONS: None apparent. COMPONENTS IMPLANTED: Yobani LDFx cemented femoral stem; unipolar femoral head; neck extension augments as needed. INDICATIONS: Mr. Leonardo is an 87-year-old male with multiple medical problems with a history of falling and sustaining a femoral neck fracture. I have recommended surgical treatment with a cemented unipolar hemiarthroplasty. I have discussed this procedure in detail and explained the potential risks and complications as being inclusive of, but not limited to: Bleeding, infection, scarring, discomfort, blood vessel and/or nerve damage, limb length inequality, gait disturbance, blood clot, pulmonary embolism, , and other risks. The consent form has been signed. PROCEDURE: After appropriate consent was obtained, the patient was taken to the operating room and placed in supine position. General anesthetic was administered and after confirmation of adequate anesthesia, the patient was placed into the lateral decubitus position with the affected side up. Care was taken to make sure that all pressure points were adequately padded and a Víctor hip positioner was utilized for positioning. The hip was prepped and draped in the usual aseptic fashion using a combination of Chloraprep and alcohol. [place]an drape was used for the case and the patient received intravenous antibiotics prior to the incision. 1 g intravenous tranexamic acid was administered around the time of the prepping and draping, and another 1 g was administered at the time of closure. The incision was created directly over the greater trochanter and carried slightly posteriorly for a posterior approach to the hip. The incision was then deepened down to subcutaneous tissue and fascia alba. Fascia alba was split in line with the incision and split proximally along the fibers of the gluteus [id number]. The underlying fibers of the muscle were teased apart using finger dissection and bleeding vessels were picked up and coagulated. Retractor was then placed posteriorly consisting of a blunt [place]. The short external rotators and capsule were exposed and good visualization of the attachment of the external rotators to the femur was established. The short external rotators and capsule were released using electrocautery from their femoral attachments. A hockey stick shaped incision was created in the capsule. Joint fluid and hemarthrosis was evacuated and the patient's hip was internally rotated to expose the fracture site. The femoral neck cut was created approximately 1 cm superior to the lesser trochanter using a reciprocating saw. The femoral head and neck fragment was removed and visualization and palpation of the acetabular vault showed intact hyaline cartilage with no bone exposure or significant degeneration. Attention was then directed back to the proximal femur. Retractors were placed around the proximal femur and box osteotome was used followed by canal finder and trochanteric reamer. Cylindrical reaming was performed. Progressive broaching was then performed starting with a #10 broach and progressing final size, in a position of 10-15 degrees anteversion. [place] anteversion was within 5 degrees of stem position. The final size broach had excellent fit and fill of the patient's metaphysis and diaphysis. Calcar planing was performed. Trial reduction was then performed starting with appropriately sized femoral head and various neck extensions to evaluate stability, limb length equality, and soft tissue tension. Once these parameters were satisfactory, the corresponding final components were then called for. Trial components were removed. The femoral canal was sized for the centralizer and cement plug. Once the cement plug had been inserted distal to the planned length of the femoral component, the canal was pulse lavaged and brushed to remove any unstable bone. It was then dried with a lap sponge. Antibiotic containing cement was mixed under vacuum conditions to decrease porosity and inserted into a cement gun. Distal centralizer was placed onto the femoral component with a bit of cement. The cement was allowed to reach a slightly doughy consistency and then the canal was filled retrograde with the cement gun. Thumb pressurization was performed three times. The femoral component was then inserted with the previously determined degree of anteversion. Excess cement was removed before it hardened completely. The femoral head was then impacted onto the Cohen taper. Blood and debris were removed from the acetabular socket and the hip was then reduced and checked for stability, limb length and soft tissue tension. These parameters were found to be satisfactory; the wound was then thoroughly irrigated with normal saline. Final hemostasis was obtained using electrocautery. Closure of the capsule was performed meticulously using #3 Vicryl suture. Four [id number] sutures were placed in the posterior capsule along with repair of the external rotators. The fascia alba was then repaired using combination of #3 Vicryl suture in interrupted fashion and Quill in running fashion. 2-0 Vicryl suture was used for the subcutaneous tissues and 3-0 Quill for the skin. Dermabond tape was then applied. The patient tolerated the procedure well. There were no complications and the wound bed was dry and there was no need for drain placement. Sterile dressing was then applied and the patient was carefully removed from the operating room table, placed on the stretcher and was taken to the recovery room in stable condition. Sponge and needle counts were correct.
--- NOTE | 2017-08-14 11:08 | XR ---
EXAMINATION TYPE: XR Hip Limited RT , ONE VIEW DATE OF EXAM ORDERED: 08/14/2017 HISTORY: Status post hip surgery, assess surgical alignment. COMPARISON: None. FINDINGS: The right hip hemiarthroplasty has been performed. Prosthetic elements appear in good posi tion in this single frontal projection. IMPRESSION: STATUS POST RIGHT HIP HEMIARTHROPLASTY.
[2017-08-14] MEDS: LORATADINE 10 MG TAB PO SCH (13:26)
[2017-08-14] MEDS: METOPROLOL TARTRATE 12.5 MG TAB PO SCH ×2 (13:26→21:26)
[2017-08-14] MEDS: amLODIPine 10 MG TAB PO SCH (13:26)
[2017-08-14] MEDS: HYDROcodone/APAP 5-325MG 1 EACH TAB PO PRN (14:27)
[2017-08-14 16:44] LABS: INR 1.1 (<1.2)
[2017-08-14] MEDS: GABAPENTIN 300 MG CAP PO SCH ×3 (16:54→21:26)
[2017-08-14] MEDS: ceFAZolin IN SWFI 2 GM/20 ML SYRINGE IVP SCH (16:55)
[2017-08-14] MEDS: LACTATED RINGERS 1,000 ML IV SCH ×2 (17:03→22:38)
[2017-08-14] MEDS ORDERED: WARFARIN 5 MG TAB PO ONE (18:00)
[2017-08-14 18:11] LABS: Glucose,Whole Blood 115 mg/dL (75-99)
[2017-08-14] MEDS ORDERED: traMADol 50 MG TAB PO PRN (18:33)
[2017-08-14] MEDS: PRAVASTATIN SODIUM 40 MG TAB PO SCH (21:26)
[2017-08-14] MEDS: FAMOTIDINE 20 MG TAB PO SCH (21:27)
[2017-08-14] MEDS: SENNOSIDES-DOCUSATE SODIUM 1 EACH TAB PO SCH (22:37)
[2017-08-15] MEDS: TEMAZEPAM 15 MG CAP PO PRN ×2 (00:12→21:43)
[2017-08-15] MEDS: traMADol 50 MG TAB PO PRN ×3 (00:13→21:43)
[2017-08-15] MEDS: ALPRAZolam 0.5 MG TAB PO SCH ×5 (00:19→21:43)
[2017-08-15] MEDS: ceFAZolin IN SWFI 2 GM/20 ML SYRINGE IVP SCH (01:30)
[2017-08-15] MEDS: DOCUSATE ORAL SOLN 100 MG/10 ML CUP PO SCH ×2 (05:08→21:44)
[2017-08-15] MEDS: ISOSORBIDE MONONITRATE ER 60 MG TAB.ER.24H PO SCH ×2 (05:08→21:43)
[2017-08-15] MEDS: hydrALAZINE HCL 25 MG TAB PO SCH ×3 (05:09→21:43)
[2017-08-15 06:49] LABS: Basophils % (A) 0 %; Eosinophils % (A) 1 %; HCT 25.9 % (39.0-53.0); HGB 8.2 gm/dL (13.0-17.5); Lymphocytes # (A) 0.9 k/uL (1.0-4.8); Lymphocytes % (A) 10 %; MCH 29.5 pg (25.0-35.0); MCHC 31.6 g/dL (31.0-37.0); MCV 93.1 fL (80.0-100.0); Monocytes # (A) 0.8 k/uL (0-1.0); Monocytes % (A) 9 %; Neutrophils % (A) 79 %; Platelet Count 131 k/uL (150-450); RBC 2.78 m/uL (4.30-5.90); RDW 12.3 % (11.5-15.5); WBC 8.9 k/uL (3.8-10.6)
--- NOTE | 2017-08-15 06:58 | P.CONS ---
History of Present Illness - Chief Complaint Walking difficulty and confusion - History of Present Illness I had the opportunity to see patient for inpatient rehab consultation with regard to walking difficulty. He was admitted to [facility] August 12 with right hip pain. X-ray and CT demonstrated femoral neck fracture. Evaluated by Dr. Orellana and underwent right SELIN. Seen by Dr. Morgan for known cardiac disease and hypertension. Chest x-ray demonstrates right upper lobe atelectasis. Chest CT with cardiomegaly and a stage II. Femur x-ray demonstrates right TKA. 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 A follow-up hip x-ray demonstrated hemiarthroplasty. PT and OT prescribed and I have added [employer]. Previous functional history as elicited from patient: 87-year-old right-handed white male who is single and lives in one floor home alone. Retired. Describes independent with own cooking, laundry, driving, sitdown shower. Unsure who his regular doctor is but may be Dr. Acosta. Review of Systems Review of systems: ENT: Denies sneezes or discharge. Eyes: Denies discharge or photophobia. Cardiac: Denies chest pain or palpitation. Pulmonary: Denies cough or shortness of breath. Gastrointestinal: Denies nausea, emesis, constipation, diarrhea. Genitourinary: Denies discharge or frequency. Musculoskeletal: Discomfort and right hip Neurologic: Weakness in legs due to discomfort and right hip Endocrine: Denies shakes or sweats. Oncology: Denies cancers. Dermatologic: Denies rash, itching, pruritus. ALLERGY/immunology: Denies sneezes, rashes. Past Medical History Past Medical History: Coronary Artery Disease (CAD), Chest Pain / Angina, Heart Failure, COPD, Hypertension, Myocardial Infarction (PR), Osteoarthritis (OA), Pneumonia, Sleep Apnea/CPAP/BIPAP Additional Past Medical History / Comment(s): NSTEMI, EF 50% Last Myocardial Infarction Date:: 2010 History of Any Multi-Drug Resistant Organisms: None Reported Past Surgical History: Heart Catheterization With Stent, Joint Replacement, Tonsillectomy Additional Past Surgical History / Comment(s): Rt carotid [id number], cataract removed with lens implant bilat., Rt. 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 PT STATES HE'S DEPRESSED EVERY DAY BUT NOT SUICIDAL-NO THOUGHTS OF HARMING HIMSELF. APPETITE GOOD, NOT SLEPING WELL D/T NOSIE OF CPAP MACHINE- FEELS TIRED ALL THE TIME. DENIES LOSS OF INTEREST IN THINGS. Smoking Status: Never smoker Past Alcohol Use History: None Reported Past Drug Use History: None Reported - Past Family History Father Family Medical History: Chest Pain / Angina, Coronary Artery Disease (CAD), Myocardial Infarction (PR) Mother Family Medical History: Dementia Medications and Allergies Home Medications Medication Instructions Recorded Confirmed Type ALPRAZolam [Xanax] 0.5 mg PO QID@05,12,,09/23/14 08/12/17 History Aspirin EC [Ecotrin] 325 mg PO DAILY 09/23/14 08/12/17 History Clopidogrel [Plavix] 75 mg PO DAILY@1600 08/06/15 08/12/17 History Isosorbide Mononitrate ER [Imdur] 60 mg PO BID@,09/01/15 08/12/17 History Docusate [Colace] 50 mg PO BID@,04/01/17 08/12/17 History Gabapentin [Neurontin] 300 mg PO TID 04/01/17 08/12/17 History Ipratropium-Albuterol Nebulize 3 ml INHALATION RT-QID PRN 04/01/17 08/12/17 History [Duoneb 0.5 mg-3 mg/3 ml Soln] Loratadine [Claritin] 10 mg PO QAM 04/01/17 08/12/17 History amLODIPine [Norvasc] 10 mg PO DAILY@1200 04/01/17 08/12/17 History Colace 50mg 50 mg PO TID PRN 08/12/17 08/12/17 History Pravastatin Sodium [Pravachol] 40 mg PO HS 08/12/17 08/12/17 History hydrALAZINE HCL [Apresoline] 25 mg PO TID@05,16,20 08/12/17 08/12/17 History Allergies Allergy/AdvReac Type Severity Reaction Status Date / Time No Known Allergies Allergy Verified 08/12/17 14:14 Physical Exam Vitals: Vital Signs Temp Pulse Resp BP Pulse Ox 08/15/17 01:30 98.9 F 75 17 145/70 95 08/14/17 19:13 99.5 F 75 16 155/67 97 08/14/17 16:51 99.4 F 78 22 163/68 96 08/14/17 15:00 97.6 F 72 20 157/72 95 08/14/17 13:31 72 20 157/72 95 08/14/17 13:00 66 20 149/73 92 L 08/14/17 12:45 63 20 165/70 97 08/14/17 12:30 64 20 169/75 93 L 08/14/17 12:15 73 20 149/71 86 L 08/14/17 12:00 67 20 167/74 88 L 08/14/17 11:45 66 20 153/68 94 L 08/14/17 11:30 98.6 F 71 18 170/71 89 L 08/14/17 07:46 99.1 F 60 20 128/54 92 L 08/14/17 07:00 99.1 F 62 20 128/54 93 L Intake and Output 08/14/17 08/14/17 08/15/17 14:59 22:59 06:59 Intake Total 1520 650 Output Total 250 800 325 Balance 1270 -800 325 Intake: Intake, IV Titration 560 170 Amount Lactated Ringers 1,000 ml 560 170 @ 70 mls/hr IV .[id number] [facility] Rx#:[id number] Oral 960 480 Output: Urine 250 800 325 Other: Voiding Method Indwelling Catheter Indwelling Catheter Skin: Atrophic, intact. General: Medium build and comfortable appearance. Head: Normocephalic, atraumatic. Eyes: Symmetric. Pupils equal round. Ears: Symmetric. Hearing within normal limits. Mouth: Clear. Neck: Supple. Carotid without bruit. Cardiac: Regular rate and rhythm. Lungs: Clear anteriorly and posteriorly. Abdomen: Soft active nontender. Extremities: Normal tone. Mild edema lowers. Arthritic changes throughout. Did not examine right hip closely is currently followed by surgeon. Neurological: Mental status: Alert, cooperative, pleasant. Cranial nerves: Symmetric facial tone and trapezius. Motor: Can actively elevate arms off of bed but poor movement in legs and more so right. Sensation: Intact throughout. DTRs: Symmetric and equal throughout. Mobility: Would require definite physical assistance for bed mobility and sitting. Results CBC & Chem 7: 08/15/17 06:28 08/13/17 07:19 Labs: Abnormal Lab Results - Last 24 Hours (Table) 08/14/17 08/15/17 Range/Units 18:07 06:28 RBC 2.78 L (4.30-5.90) m/uL Hgb 8.2 L (13.0-17.5) gm/dL Hct 25.9 L (39.0-53.0) % Plt Count 131 L (150-450) k/uL Lymphocytes # 0.9 L (1.0-4.8) k/uL POC Glucose (mg/dL) 115 H (75-99) mg/dL Chest x-ray: report reviewed (Right upper lobe atelectasis) CT scan - chest: report reviewed (Cardiomegaly and ASHD.) Assessment and Plan (1) Closed right hip fracture Current Visit: Yes Status: Acute Code(s): S72.001A - FRACTURE OF UNSP PART OF NECK OF RIGHT FEMUR, INIT SNOMED Code(s): 773194130 Plan: Impression: 1. Walking ability. 2. Right hip fracture status post hemiarthroplasty.. 3. Non-STEMI. 4. Confusion. Comments and plan: At this time PT and OT prescribed and I have added [employer]. We will follow closely with yourself. Unsure of a supports for discharge planning. Noted rehab unit fall today.
[2017-08-15 07:00] LABS: INR 1.2 (<1.2); Prothrombin Time 11.3 sec (9.0-12.0)
--- NOTE | 2017-08-15 08:15 | P.PN ---
Subjective Progress Note Date: 08/15/17 Principal diagnosis: Right femoral neck fracture. Status post hemiarthroplasty right hip. This is an 87-year-old male who is status post hemiarthroplasty of the right hip for femoral neck fracture. He is stable from an orthopedic standpoint. He has no new complaints or concerns today. He does have slight confusion this morning according to his son. Objective - Vital Signs Vital signs: Vital Signs Temp 98.6 F 08/15/17 07:00 Pulse 69 08/15/17 07:00 Resp 18 08/15/17 07:00 BP 132/61 08/15/17 07:00 Pulse Ox 95 08/15/17 07:05 Intake & Output 08/14/17 08/15/17 08/15/17 18:59 06:59 18:59 Intake Total 1520 650 Output Total 250 1125 Balance 1270 -475 Intake: Intake, IV Titration 560 170 Amount Lactated Ringers 1,000 ml 560 170 @ 70 mls/hr IV .[id number] [facility] Rx#:[id number] Oral 960 480 Output: Urine 250 1125 Other: Voiding Method Indwelling Catheter Indwelling Catheter - Exam This is a pleasant 87-year-old male in no acute distress. He is alert with slight confusion as to where he is this morning. Exam of the right hip reveals that the dressing is clean, dry and intact. He has difficulty lifting the right leg off the bed independently. He has full foot and ankle motion and toe motion without difficulty or pain. Neurovascular status to the lower extremity is intact. - Labs CBC & Chem 7: 08/15/17 06:28 08/13/17 07:19 Labs: Abnormal Lab Results - Last 24 Hours (Table) 08/14/17 08/15/17 08/15/17 Range/Units 18:07 06:28 06:28 RBC 2.78 L (4.30-5.90) m/uL Hgb 8.2 L (13.0-17.5) gm/dL Hct 25.9 L (39.0-53.0) % Plt Count 131 L (150-450) k/uL Lymphocytes # 0.9 L (1.0-4.8) k/uL INR 1.2 H (<1.2) POC Glucose (mg/dL) 115 H (75-99) mg/dL Assessment and Plan (1) Closed right hip fracture Current Visit: Yes Status: Acute Code(s): S72.001A - FRACTURE OF UNSP PART OF NECK OF RIGHT FEMUR, INIT SNOMED Code(s): 688769181 (2) History of right hip hemiarthroplasty Current Visit: Yes Status: Acute Code(s): Z96.641 - PRESENCE OF RIGHT ARTIFICIAL HIP JOINT SNOMED Code(s): 799441753 Plan: The clinical findings are discussed the patient and his son. We will begin physical therapy today. We are planning inpatient rehab at discharge.
[2017-08-15] MEDS: LORATADINE 10 MG TAB PO SCH (08:33)
[2017-08-15] MEDS: GABAPENTIN 300 MG CAP PO SCH ×3 (08:33→21:43)
[2017-08-15] MEDS: METOPROLOL TARTRATE 12.5 MG TAB PO SCH ×2 (08:33→21:43)
[2017-08-15] MEDS: amLODIPine 10 MG TAB PO SCH (12:23)
--- NOTE | 2017-08-15 13:31 | P.PN ---
Subjective Progress Note Date: 08/15/17 Mr. Leonardo is a pleasant 87-year-old male past medical history significant for coronary artery disease, ischemic cardiomyopathy, paroxysmal atrial fibrillation, COPD, hypertension, right carotid endarterectomy and sleep apnea. He underwent right hip hemiarthroplasty yesterday for a right femoral neck fracture. He was seen and examined this morning resting comfortably in bed. He denies symptoms of chest pain, shortness of breath, palpitations, dizziness, nausea or vomiting. He continues to be in atrial fibrillation with controlled ventricular response. Home medications have all been resumed with the exception of aspirin and Plavix. He was also started on Coumadin. Prior to this admission he was not taking any anticoagulation for his A. fib. Coumadin can be used for dual purpose in this instance. Objective - Vital Signs Vital signs: Vital Signs Temp 98.6 F 08/15/17 07:00 Pulse 69 08/15/17 07:00 Resp 18 08/15/17 07:00 BP 132/61 08/15/17 07:00 Pulse Ox 95 08/15/17 07:05 Intake & Output 08/14/17 08/15/17 08/15/17 18:59 06:59 18:59 Intake Total 2571.5 650 Output Total 600 1125 Balance 1971.5 -475 Intake: IV 1051.5 Intake, IV Titration 560 170 Amount Lactated Ringers 1,000 ml 560 170 @ 70 mls/hr IV .[id number] [facility] Rx#:[id number] Oral 960 480 Output: Urine 400 1125 Estimated Blood Loss 200 Other: Voiding Method Indwelling Catheter Indwelling Catheter - Labs CBC & Chem 7: 08/15/17 06:28 08/13/17 07:19 Labs: Abnormal Lab Results - Last 24 Hours (Table) 08/14/17 08/15/17 08/15/17 Range/Units 18:07 06:28 06:28 RBC 2.78 L (4.30-5.90) m/uL Hgb 8.2 L (13.0-17.5) gm/dL Hct 25.9 L (39.0-53.0) % Plt Count 131 L (150-450) k/uL Lymphocytes # 0.9 L (1.0-4.8) k/uL INR 1.2 H (<1.2) POC Glucose (mg/dL) 115 H (75-99) mg/dL Assessment and Plan Assessment: ASSESSMENT 1. Right hip fracture status post right hip hemiarthroplasty postoperative day #1 2. History of coronary artery disease, most recent cardiac catheterization 2014 where he underwent stenting of the LAD and circumflex. 3. Atrial fibrillation with controlled ventricular response 4. Hypertension 5. Chronic kidney disease PLAN Continue current medications as was previously ordered with exception of plavix. Coumadin to be utilized for anti-coagulation for atrial fibrillation. We will continue to see him as needed. Please feel free to call with questions or concerns. Follow-up in 2-3 weeks. Nurse Practitioner note has been reviewed, I agree with a documented findings and plan of care. Patient was seen and examined.
--- NOTE | 2017-08-15 14:31 | CDI ---
Last Revision, June 2017 Documentation Clarification Form Date: 08/15/2017 2:18:00 PM From: Tabatha BrownCollinsEZIO gil, CCDS Admit Date: 08/12/2017 4:02:00 PM Patient Name: Zen Leonardo Visit Number: [id number] Discharge Date: ATTENTION: The Clinical Documentation Specialists (CDI) and [facility] Coding Staff appreciate your assistance in clarifying documentation. Please respond to the clarification below the line at the bottom and electronically sign. The CDI & [facility] Coding staff will review the response and follow-up if needed. Please note: Queries are made part of the Legal Health Record. If you have any questions, please contact the author of this message via ITS. Dr. Elidia Morgan: History/Risk Factors: CAD, Ischemic cardiomyopathy, Paroxysmal Atrial fibrillation, COPD, Hypertension and Heart Failure. Clinical Indicators: Presented after a fall at home with a right hip fracture, found to be in Atrial Fib. VS: P 72, BP 205/93, PO 95 ra Echocardiogram Results (08/13): EF 50-55% systolic low normal, severe LVH, Mild AR, Mod aortic stenosis, Mild-mod MR, Mild TR, Mild pulmonary hypertension Chest X Ray: RUL atelectasis and/or volume overload. CT Chest: Cardiomegaly, Atherosclerotic vascular disease, new bilateral pleural effusions, could relate to mild heart failure. Treatment: IV Apresoline, Albuterol INH, O2 2Lnc, IV Pain meds Home meds: Apresoline, Norvasc, Imdur, Duoneg txs, Colace, Plavix, Ecotrin In your professional opinion, can you please clarify if there is CHF present & if so please document the acuity and type of CHF if known? Systolic Heart Failure: Acute Chronic Acute on Chronic Diastolic Heart Failure: Acute Chronic Acute on Chronic Systolic & Diastolic Heart Failure: Acute Chronic Acute on Chronic Heart Failure Unable to Determine Other, please specify Please continue to document in your progress notes and discharge summary in order to capture severity of illness and risk of mortality. Include clinical findings that support your diagnosis. MTDD
--- NOTE | 2017-08-15 14:43 | CDI ---
Last Revision, June 2017 Documentation Clarification Form Date: 08/15/2017 2:34:00 PM From: Tabatha BrownCollinsEZIO gil, CCDS Admit Date: 08/12/2017 4:02:00 PM Patient Name: Zen Leonardo Visit Number: [id number] Discharge Date: ATTENTION: The Clinical Documentation Specialists (CDI) and [facility] Coding Staff appreciate your assistance in clarifying documentation. Please respond to the clarification below the line at the bottom and electronically sign. The CDI & [facility] Coding staff will review the response and follow-up if needed. Please note: Queries are made part of the Legal Health Record. If you have any questions, please contact the author of this message via ITS. Dr. Lorne Borges: History/Risk Factors: CAD, CHF, COPD, OA, Sleep Apnea, AK and Chronic Kidney Disease. Clinical Indicators: Presented with a right hip fracture after a fall at home. CXR: Possible fluid overload Admission BUN 52, Creatinine 3.02, GFR 20 Current BUN 49, Creatinine 3.00, GFR 20 Treatment: IV Dilaudid, IV Zofran, IV Apresoline, Albuterol INH, O2 2Lnc In your professional opinion, please clarify the patient's renal failure including the severity of condition: Acute Renal Failure Acute on Chronic Renal Failure If Chronic, please specify the stage if known: CKD Stage 1 (GFR > 90) CKD Stage 2 (GFR 60-89) CKD Stage 3 (GFR 30-59) CKD Stage 4 (GFR 15-29) CKD Stage 5 (GFR <15) ESRD Other, please specify Unable to determine Please continue to document in your progress notes and discharge summary in order to capture severity of illness and risk of mortality. Include clinical findings that support your diagnosis. MTDD
[2017-08-15] MEDS: LACTATED RINGERS 1,000 ML IV SCH (15:22)
[2017-08-15] MEDS ORDERED: WARFARIN 5 MG TAB PO ONE (18:00)
[2017-08-15] MEDS: PRAVASTATIN SODIUM 40 MG TAB PO SCH (21:43)
[2017-08-15] MEDS: FAMOTIDINE 20 MG TAB PO SCH (21:43)
[2017-08-15] MEDS: SENNOSIDES-DOCUSATE SODIUM 1 EACH TAB PO SCH (21:44)
[2017-08-16] MEDS: LACTATED RINGERS 1,000 ML IV SCH ×2 (03:37→18:44)
[2017-08-16] MEDS: ALPRAZolam 0.5 MG TAB PO SCH ×4 (04:19→21:04)
[2017-08-16] MEDS: traMADol 50 MG TAB PO PRN (04:19)
[2017-08-16] MEDS: ISOSORBIDE MONONITRATE ER 60 MG TAB.ER.24H PO SCH ×2 (04:19→21:10)
[2017-08-16] MEDS: hydrALAZINE HCL 25 MG TAB PO SCH ×3 (04:19→21:10)
[2017-08-16] MEDS: DOCUSATE ORAL SOLN 100 MG/10 ML CUP PO SCH ×2 (04:20→21:10)
--- NOTE | 2017-08-16 07:04 | PN ---
PROGRESS NOTE SUBJECTIVE: An 87-year-old white male admitted to the hospital with status post right hip fracture. Postop day 3. Cleared for cardiology on discharge. VITAL SIGNS: Stable, Afebrile. CARDIOVASCULAR: S1, S2. LUNGS: Clear. GI: Soft. HEMATOLOGY: Negative Homans. ASSESSMENT: 1. Status post right hip fracture. 2. History of coronary artery disease. 3. Atrial fibrillation. 4. Hypertension. Continue current treatments. Follow up in next 24 to 48 hours. MMODL / IJN: [id number] /
--- NOTE | 2017-08-16 09:18 | P.PN ---
Subjective Progress Note Date: 08/16/17 Principal diagnosis: Right hip hemiarthroplasty This is a 87 year-old male post right hip hemiarthroplasty. This is post-op day 2. The patient was evaluated at the bedside today. The patient denies nausea, vomiting, abdominal pain, shortness of breath, and chest pain this morning. He states his pain is controlled at this time. The patient has been up with physical therapy but is moving. Objective - Vital Signs Vital signs: Vital Signs Temp 98.2 F 08/16/17 07:47 Pulse 63 08/16/17 07:47 Resp 20 08/16/17 07:47 BP 145/67 08/16/17 07:47 Pulse Ox 96 08/16/17 08:02 Intake & Output 08/15/17 08/16/17 08/16/17 18:59 06:59 18:59 Intake Total 1500 120 Output Total 400 500 Balance 1100 -380 Intake: Oral 1500 120 Output: Urine 400 500 Uretheral (Costello) 400 500 Other: Voiding Method Indwelling Catheter - Exam The patient does not appear in acute distress. Alert and orientated x3. Dressing is clean dry and intact. Incision appears fine with no erythema or active drainage. Calf is soft and nontender. Good foot and ankle motion without difficulty. Sensation and circulatory status is intact. - Labs CBC & Chem 7: 08/15/17 06:28 08/13/17 07:19 Assessment and Plan (1) Closed right hip fracture Current Visit: Yes Status: Acute Code(s): S72.001A - FRACTURE OF UNSP PART OF NECK OF RIGHT FEMUR, INIT SNOMED Code(s): 722145082 (2) S/P hip hemiarthroplasty Current Visit: Yes Status: Acute Code(s): Z96.649 - PRESENCE OF UNSPECIFIED ARTIFICIAL HIP JOINT SNOMED Code(s): 958046679 Plan: 1. Continue pain control 2. Anticoagulation with Coumadin per internal medicine 3. Continue physical therapy and ambulation 4. Anticipate discharge to skilled rehab when medically cleared.
[2017-08-16] MEDS: METOPROLOL TARTRATE 12.5 MG TAB PO SCH ×2 (10:02→21:10)
[2017-08-16] MEDS: GABAPENTIN 300 MG CAP PO SCH ×3 (10:02→21:06)
[2017-08-16] MEDS: LORATADINE 10 MG TAB PO SCH (10:02)
[2017-08-16] MEDS: amLODIPine 10 MG TAB PO SCH (13:05)
[2017-08-16 15:01] LABS: Appearance,Urine Turbid (Clear); Bacteria,Urine Rare /hpf; Bilirubin,Urine Negative (Negative); Blood,Urine Small (Negative); Color,Urine Yellow; Glucose,Urine (UA) Negative (Negative); Ketones,Urine Negative (Negative); Leukocyte Esterase,Urine Large (Negative); Mucus,Urine Rare /hpf; Nitrite,Urine Negative (Negative); PH, Urine 5.5 (5.0-8.0); Protein,Urine 2+ (Negative); RBC,Urine 30 /hpf (0-5); Specific Gravity,Urine 1.013 (1.001-1.035); Urobilinogen,Urine <2.0 mg/dL (<2.0); WBC,Urine 130 /hpf (0-5)
[2017-08-16 15:20] LABS: INR 1.4 (<1.2)
[2017-08-16 15:27] LABS: Albumin 2.8 g/dL (3.5-5.0); Basophils % (A) 0 %; Calcium 8.1 mg/dL (8.4-10.2); Eosinophils # (A) 0.1 k/uL (0-0.7); Eosinophils % (A) 1 %; HCT 22.6 % (39.0-53.0); HGB 7.4 gm/dL (13.0-17.5); Lymphocytes # (A) 1.1 k/uL (1.0-4.8); Lymphocytes % (A) 12 %; MCH 29.7 pg (25.0-35.0); MCHC 32.6 g/dL (31.0-37.0); MCV 91.1 fL (80.0-100.0); Magnesium 2.6 mg/dL (1.6-2.3); Mean Platelet Volume 7.9; Monocytes # (A) 0.9 k/uL (0-1.0); Monocytes % (A) 10 %; Neutrophils # (A) 7.1 k/uL (1.3-7.7); Neutrophils % (A) 75 %; Platelet Count 148 k/uL (150-450); Potassium 5.1 mmol/L (3.5-5.1); RBC 2.48 m/uL (4.30-5.90); RDW 12.6 % (11.5-15.5); Total Bilirubin 0.3 mg/dL (0.2-1.3); Total Protein 5.2 g/dL (6.3-8.2); WBC 9.4 k/uL (3.8-10.6)
[2017-08-16] MEDS: SODIUM CHLORIDE 0.9% 1,000 ML IV SCH (17:01)
[2017-08-16] MEDS: cefTRIAXone IN SWFI 1,000 MG/10 ML SYRINGE IVP SCH (18:23)
[2017-08-16] MEDS: PRAVASTATIN SODIUM 40 MG TAB PO SCH (21:10)
[2017-08-16] MEDS: FAMOTIDINE 20 MG TAB PO SCH (21:10)
[2017-08-16] MEDS: SENNOSIDES-DOCUSATE SODIUM 1 EACH TAB PO SCH (21:10)
--- NOTE | 2017-08-17 01:22 | PN ---
PROGRESS NOTE SUBJECTIVE: 87-year-old white male, right hip fracture. He is more confused today. Electrolytes have been drawn. He has got elevated BUN 30 up to 80. We will start IV fluids at this time normal saline at 75 mL an hour overnight and increase his hydration. He probably has some confusion from anesthesia and pain medications due to worsening creatinine may be prolonging medication time in his system. PHYSICAL EXAM: Vital signs reviewed. Cardiovascular S1-S2. Lungs clear. GI soft. Psych: He is giving appropriate answers to me. Appears a little groggy. ASSESSMENT: 1. Acute delirium secondary to possibly anesthesia pain medications with worsening renal function. 2. Dehydration, status post surgery. 3. Anemia, status post surgery, possible transfusion 1 unit of blood. Increase fluid, now with normal saline at 75 mL an hour. Possible blood transfusion. 4. If confusion clears up we will check an UA for urinary tract infection and possible treatment for UTI. Possible send him to [facility] in the next few days. MMODL / IJN: [id number] /
[2017-08-17] MEDS: ALPRAZolam 0.5 MG TAB PO SCH ×4 (05:10→21:58)
[2017-08-17] MEDS: DOCUSATE ORAL SOLN 100 MG/10 ML CUP PO SCH ×2 (05:11→21:58)
[2017-08-17] MEDS: hydrALAZINE HCL 25 MG TAB PO SCH ×3 (05:11→21:59)
[2017-08-17] MEDS: ISOSORBIDE MONONITRATE ER 60 MG TAB.ER.24H PO SCH ×2 (05:12→21:59)
[2017-08-17 07:46] LABS: Basophils % (A) 0 %; Eosinophils # (A) 0.2 k/uL (0-0.7); Eosinophils % (A) 2 %; HGB 8.2 gm/dL (13.0-17.5); Lymphocytes # (A) 1.1 k/uL (1.0-4.8); Lymphocytes % (A) 11 %; MCH 29.9 pg (25.0-35.0); MCHC 31.7 g/dL (31.0-37.0); MCV 94.3 fL (80.0-100.0); Mean Platelet Volume 8.1; Monocytes # (A) 0.9 k/uL (0-1.0); Monocytes % (A) 9 %; Neutrophils # (A) 7.5 k/uL (1.3-7.7); Neutrophils % (A) 77 %; Platelet Count 152 k/uL (150-450); RBC 2.76 m/uL (4.30-5.90); RDW 12.9 % (11.5-15.5); WBC 9.7 k/uL (3.8-10.6)
[2017-08-17] MEDS: cefTRIAXone IN SWFI 1,000 MG/10 ML SYRINGE IVP SCH (09:07)
[2017-08-17] MEDS: GABAPENTIN 300 MG CAP PO SCH ×3 (09:08→21:59)
[2017-08-17] MEDS: METOPROLOL TARTRATE 12.5 MG TAB PO SCH ×2 (09:08→21:59)
[2017-08-17] MEDS: LORATADINE 10 MG TAB PO SCH (09:08)
--- NOTE | 2017-08-17 10:29 | P.PN ---
Subjective Progress Note Date: 08/17/17 Principal diagnosis: Right femoral neck fracture. Status post hemiarthroplasty right hip. This is an 87-year-old male who is status post hemiarthroplasty of the right hip for femoral neck fracture. He is stable from an orthopedic standpoint. He continues to have confusion. His is present at bedside. Objective - Vital Signs Vital signs: Vital Signs Temp 98.2 F 08/17/17 02:28 Pulse 62 08/17/17 02:28 Resp 18 08/17/17 02:28 BP 121/66 08/17/17 02:28 Pulse Ox 93 L 08/17/17 02:28 Intake & Output 08/16/17 08/17/17 08/17/17 18:59 06:59 18:59 Intake Total 200 1510 Output Total 400 150 Balance 200 1110 -150 Intake: Intake, IV Titration 1200 Amount Sodium Chloride 0.9% 1, 1200 000 ml @ 75 mls/hr IV . [id number] [facility] Rx#:[id number] Oral 200 Blood Product 310 Rc As-3 Unit 310 [id number] Output: Urine 400 150 Uretheral (Costello) 400 150 Other: Voiding Method Indwelling Catheter Indwelling Catheter - Exam This is a pleasant 87-year-old male in no acute distress. He is alert with confusion. Exam of the right hip reveals that the dressing is clean, dry and intact. He has difficulty lifting the right leg off the bed independently. He has full foot and ankle motion and toe motion without difficulty or pain. Neurovascular status to the lower extremity is intact. - Labs CBC & Chem 7: 08/17/17 07:15 08/16/17 14:53 Labs: Abnormal Lab Results - Last 24 Hours (Table) 08/16/17 08/16/17 08/16/17 Range/Units 14:45 14:53 14:53 RBC 2.48 L (4.30-5.90) m/uL Hgb 7.4 L (13.0-17.5) gm/dL Hct 22.6 L (39.0-53.0) % Plt Count 148 L (150-450) k/uL PT (9.0-12.0) sec INR (<1.2) Sodium 131 L (137-145) mmol/L Carbon Dioxide 19 L (22-30) mmol/L BUN 78 H (9-20) mg/dL Creatinine 4.20 H (0.66-1.25) mg/dL Glucose 115 H (74-99) mg/dL Calcium 8.1 L (8.4-10.2) mg/dL Magnesium 2.6 H (1.6-2.3) mg/dL ALT 15 L (21-72) U/L Total Protein 5.2 L (6.3-8.2) g/dL Albumin 2.8 L (3.5-5.0) g/dL Urine Protein 2+ H (Negative) Urine Blood Small H (Negative) Ur Leukocyte Esterase Large H (Negative) Urine RBC 30 H (0-5) /hpf Urine WBC 130 H (0-5) /hpf Urine Bacteria Rare H (None) /hpf Urine Mucus Rare H (None) /hpf Crossmatch 08/16/17 08/16/17 08/17/17 Range/Units 15:00 17:43 07:15 RBC 2.76 L (4.30-5.90) m/uL Hgb 8.2 L (13.0-17.5) gm/dL Hct 26.0 L (39.0-53.0) % Plt Count (150-450) k/uL PT 13.0 H (9.0-12.0) sec INR 1.4 H (<1.2) Sodium (137-145) mmol/L Carbon Dioxide (22-30) mmol/L BUN (9-20) mg/dL Creatinine (0.66-1.25) mg/dL Glucose (74-99) mg/dL Calcium (8.4-10.2) mg/dL Magnesium (1.6-2.3) mg/dL ALT (21-72) U/L Total Protein (6.3-8.2) g/dL Albumin (3.5-5.0) g/dL Urine Protein (Negative) Urine Blood (Negative) Ur Leukocyte Esterase (Negative) Urine RBC (0-5) /hpf Urine WBC (0-5) /hpf Urine Bacteria (None) /hpf Urine Mucus (None) /hpf Crossmatch See Detail Microbiology - Last 24 Hours (Table) 08/16/17 14:45 Urine Culture - Preliminary Urine,Catheterized Assessment and Plan (1) Closed right hip fracture Current Visit: Yes Status: Acute Code(s): S72.001A - FRACTURE OF UNSP PART OF NECK OF RIGHT FEMUR, INIT SNOMED Code(s): 238430532 (2) History of right hip hemiarthroplasty Current Visit: Yes Status: Acute Code(s): Z96.641 - PRESENCE OF RIGHT ARTIFICIAL HIP JOINT SNOMED Code(s): 698798244 Plan: The clinical findings are discussed the patient and his . Continue current care. Physical therapy as tolerated. We are planning inpatient rehab at discharge.
--- NOTE | 2017-08-17 12:03 | CDI ---
Last Revision, June 2017 Documentation Clarification Form Date: 08/15/2017 2:34:00 PM From: Tabatha BrownCollinsEZIO gil, CCDS Admit Date: 08/12/2017 4:02:00 PM Patient Name: Zen Leonardo Visit Number: [id number] Discharge Date: ATTENTION: The Clinical Documentation Specialists (CDI) and [facility] Coding Staff appreciate your assistance in clarifying documentation. Please respond to the clarification below the line at the bottom and electronically sign. The CDI & [facility] Coding staff will review the response and follow-up if needed. Please note: Queries are made part of the Legal Health Record. If you have any questions, please contact the author of this message via ITS. Dr. Lorne Borges: History/Risk Factors: CAD, CHF, COPD, OA, Sleep Apnea, PR and Chronic Kidney Disease. Clinical Indicators: Presented with a right hip fracture after a fall at home. Admission BUN 52, Creatinine 3.02, GFR 20 Current BUN 49, Creatinine 3.00, GFR 20 Treatment: IV Dilaudid, IV Zofran, IV Apresoline, Albuterol INH, O2 2Lnc In your professional opinion, please clarify the patient's renal failure including the severity of condition: Acute Renal Failure Acute on Chronic Renal Failure If Chronic, please speficy the stage if known: CKD Stage 1 (GFR > 90) CKD Stage 2 (GFR 60-89) CKD Stage 3 (GFR 30-59) CKD Stage 4 (GFR 15-29) CKD Stage 5 (GFR <15) ESRD Other, please specify Unable to determine Please continue to document in your progress notes and discharge summary in order to capture severity of illness and risk of mortality. Include clinical findings that support your diagnosis. _acute on chronic stage 4 MTDD
--- NOTE | 2017-08-17 12:14 | CDI ---
Last Revision, June 2017 Documentation Clarification Form Date: 08/17/2017 12:04:00 PM From: Tabatha Collins Admit Date: 08/12/2017 4:02:00 PM Patient Name: Zen Leonardo Visit Number: [id number] Discharge Date: ATTENTION: The Clinical Documentation Specialists (CDI) and [facility] Coding Staff appreciate your assistance in clarifying documentation. Please respond to the clarification below the line at the bottom and electronically sign. The CDI & [facility] Coding staff will review the response and follow-up if needed. Please note: Queries are made part of the Legal Health Record. If you have any questions, please contact the author of this message via ITS. Dr. Benoit Fatima: Per the 08/17 progress note: " Anemia, status post surgery, possible transfusion 1 unit of blood. Increase fluid, now with normal saline at 75 mL an hour. Possible blood transfusion. Patients Admitting Diagnosis: Right Displaced Femoral Neck Fracture Post-Operative Diagnosis: Same. Documented anemia. Procedure performed: Rt Hip Hemiarthroplasty on 06/14. History/Risk Factors: CAD, CHF, COPD, CKD (per pulmonary), Hypertension, Sleep Apnea, Previous MS & right knee replacement. Clinical Indicators: Presented after a fall & right hip pain, diagnosed with rt hip fracture. Treatment: Rt hip surgery as above. Transfused 1 unit PRBCs, Coumadin resumed, IV fluid rate 75, IV Rocephin. Consults: Pulmonary, Psych, Cardiology, Medical management. In order to accurately reflect this patients severity of illness, please clarify if the post-operative diagnosis, anemia is: An expected post-procedural or post-surgical condition; Integral to the procedure Inherent to the procedure An unexpected post-procedural or post-surgical condition related to surgical care; Other, please specify Unable to determine Please continue to document in your progress notes and discharge summary in order to capture severity of illness and risk of mortality. Include clinical findings that support your diagnosis. MTDD
[2017-08-17] MEDS ORDERED: FUROSEMIDE 10 MG/ML 4 ML VIAL IV STA (12:39)
[2017-08-17 13:02] LABS: Calcium 8.6 mg/dL (8.4-10.2); Potassium 5.4 mmol/L (3.5-5.1)
--- NOTE | 2017-08-17 13:12 | XR ---
EXAMINATION TYPE: XR chest 1V portable DATE OF EXAM: 08/17/2017 COMPARISON: Prior chest x-ray and chest CT 08/12/2017 HISTORY: Shortness of breath TECHNIQUE: Single frontal view of the chest is obtained. FINDINGS: The heart is enlarged. Patient is rotated in technique is apical lordotic. No evident airs pace disease, pneumothorax, or pleural effusion. Widened mediastinum is again noted. Aorta is aneurys mal and dense as noted on prior exam. Perihilar patchy density on the right shows a similar appearanc e, there may be some local atelectasis or scarring. IMPRESSION: Cardiomegaly, aortic aneurysm, rotated exam. Consider follow-up PA and lateral chest x-r ay.
[2017-08-17 13:24] LABS: Albumin 2.9 g/dL (3.5-5.0); Total Bilirubin 0.3 mg/dL (0.2-1.3); Total Protein 5.6 g/dL (6.3-8.2)
[2017-08-17] MEDS: IPRATROPIUM-ALBUTEROL 3 ML NEB INHALATION SCH ×3 (14:16→19:32)
[2017-08-17] MEDS: amLODIPine 10 MG TAB PO SCH (14:18)
--- NOTE | 2017-08-17 14:26 | P.CNPUL ---
History of Present Illness Consult date: 08/17/17 Reason for consult: dyspnea, cough, hypoxemia, pneumonia, obstructive sleep apnea Chief complaint: Shortness of breath History of present illness: I was asked to evaluate Mr. Zen simon who is a 87-year-old male seen and evaluated examined on third floor, patient has been on his CPAP which he uses at home for obstructive sleep apnea not much history history can be obtained from the patient as patient is confused state of predominantly has been obtained from the chart as well as the RN, this patient has been admitted into the hospital after a fall and right hip fracture which was closed patient underwent right hip hemiarthroplasty and he is postop day # 3, patient has been short of breath has been confused I was asked to evaluate this patient further His past medical history is significant for coronary artery disease ischemic cardiomyopathy proximal atrial fibrillation severe COPD hypertension hypertensive cardiovascular disease right carotid artery stenosis status post endarterectomy as well as obstructive sleep apnea, Data has been obtained that patient has been confused off all along also has been developed been progressive renal failure prior to the surgery mental status was fairly clear him a chest x-ray performed today reviewed cardiomegaly is seen along with aortic aneurysm otherwise no active infiltrate identified Review of Systems ROS unobtainable: due to mental status All systems: negative Past Medical History Past Medical History: Coronary Artery Disease (CAD), Chest Pain / Angina, Heart Failure, COPD, Hypertension, Myocardial Infarction (OR), Osteoarthritis (OA), Pneumonia, Sleep Apnea/CPAP/BIPAP Additional Past Medical History / Comment(s): NSTEMI, EF 50% Last Myocardial Infarction Date:: 2010 History of Any Multi-Drug Resistant Organisms: None Reported Past Surgical History: Heart Catheterization With Stent, Joint Replacement, Tonsillectomy Additional Past Surgical History / Comment(s): Rt carotid [id number], cataract removed with lens implant bilat., Rt. 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 PT STATES HE'S DEPRESSED EVERY DAY BUT NOT SUICIDAL-NO THOUGHTS OF HARMING HIMSELF. APPETITE GOOD, NOT SLEPING WELL D/T NOSIE OF CPAP MACHINE- FEELS TIRED ALL THE TIME. DENIES LOSS OF INTEREST IN THINGS. Smoking Status: Never smoker Past Alcohol Use History: None Reported Past Drug Use History: None Reported - Past Family History Father Family Medical History: Chest Pain / Angina, Coronary Artery Disease (CAD), Myocardial Infarction (OR) Mother Family Medical History: Dementia Medications and Allergies Home Medications Medication Instructions Recorded Confirmed Type ALPRAZolam [Xanax] 0.5 mg PO QID@05,12,16,20 09/23/14 08/12/17 History Aspirin EC [Ecotrin] 325 mg PO DAILY 09/23/14 08/12/17 History Clopidogrel [Plavix] 75 mg PO DAILY@1600 08/06/15 08/12/17 History Isosorbide Mononitrate ER [Imdur] 60 mg PO BID@,09/01/15 08/12/17 History Docusate [Colace] 50 mg PO BID@,04/01/17 08/12/17 History Gabapentin [Neurontin] 300 mg PO TID 04/01/17 08/12/17 History Ipratropium-Albuterol Nebulize 3 ml INHALATION RT-QID PRN 04/01/17 08/12/17 History [Duoneb 0.5 mg-3 mg/3 ml Soln] Loratadine [Claritin] 10 mg PO QAM 04/01/17 08/12/17 History amLODIPine [Norvasc] 10 mg PO DAILY@1200 04/01/17 08/12/17 History Colace 50mg 50 mg PO TID PRN 08/12/17 08/12/17 History Pravastatin Sodium [Pravachol] 40 mg PO HS 08/12/17 08/12/17 History hydrALAZINE HCL [Apresoline] 25 mg PO TID@,,08/12/17 08/12/17 History Sennosides-Docusate Sodium 2 tab PO DAILY #30 tablet 08/16/17 Rx [Senokot-S] traMADol HCl [Ultram] 50 - 100 mg PO Q4-6H PRN #90 tab 08/16/17 Rx Allergies Allergy/AdvReac Type Severity Reaction Status Date / Time No Known Allergies Allergy Verified 08/12/17 14:14 Physical Exam Vitals: Vital Signs Temp Pulse Pulse Resp BP BP Pulse Ox 08/17/17 02:28 98.2 F 62 18 121/66 93 L 08/16/17 23:41 98.2 F 60 18 132/70 08/16/17 23:11 98.3 F 61 18 123/60 08/16/17 23:01 98.3 F 63 16 111/63 92 L 08/16/17 20:00 97.8 F 68 16 134/67 92 L 08/16/17 19:19 60 08/16/17 14:59 97.4 F L 53 L 15 130/67 96 Intake and Output 08/16/17 08/17/17 08/17/17 22:59 06:59 14:59 Intake Total 600 910 Output Total 400 150 Balance 600 510 -150 Intake: Intake, IV Titration 600 600 Amount Sodium Chloride 0.9% 1, 600 600 000 ml @ 75 mls/hr IV . [id number] [facility] Rx#:[id number] Blood Product 310 Rc As-3 Unit 310 [id number] Output: Urine 400 150 Uretheral (Costello) 400 150 Other: Voiding Method Indwelling Catheter - Constitutional General appearance: disheveled, morbidly obese - EENT Eyes: PERRLA, normal appearance ENT: hard of hearing, normal oropharynx Ears: bilateral: normal - Neck Neck: normal ROM Thyroid: bilateral: normal size - Respiratory Respiratory: bilateral: diminished, negative: dullness, rales, rhonchi, wheezing , prolonged expiration, prolonged inspiration - Cardiovascular Rhythm: regular Heart sounds: normal: S1, S2 - Gastrointestinal General gastrointestinal: decreased bowel sounds, normal bowel sounds, soft - Integumentary Integumentary: normal, normal turgor - Neurologic Neurologic: CNII-XII intact - Musculoskeletal Musculoskeletal: generalized weakness, strength equal bilaterally Patient is awake but oriented 1 only does follow simple commands moving extremity mumbles cannot give a detailed description Results - Laboratory Findings CBC and BMP: 08/17/17 07:15 08/17/17 07:15 PT/INR, D-dimer PT 13.0 sec (9.0-12.0) H 08/16/17 15:00 INR 1.4 (<1.2) H 08/16/17 15:00 Abnormal lab findings: Abnormal Labs 08/12/17 08/12/17 08/12/17 14:14 14:14 14:42 RBC 3.60 L Hgb 10.8 L Hct 32.6 L Plt Count Lymphocytes # PT INR Sodium Potassium Chloride 109 H Carbon Dioxide 20 L BUN 52 H Creatinine 3.02 H Glucose 104 H POC Glucose (mg/dL) Calcium Magnesium AST 15 L ALT Total Protein Albumin Urine Protein Urine Blood Ur Leukocyte Esterase Urine RBC Urine WBC Urine Bacteria Urine Mucus Urine Opiates Screen Detected H U Benzodiazepines Scrn Detected H Crossmatch 08/12/17 08/13/17 08/13/17 23:00 07:19 07:19 RBC 3.11 L Hgb 9.4 L Hct 29.5 L Plt Count 143 L Lymphocytes # PT INR Sodium Potassium 5.2 H Chloride 109 H Carbon Dioxide BUN 49 H Creatinine 3.00 H Glucose POC Glucose (mg/dL) Calcium Magnesium AST 13 L ALT Total Protein 5.6 L Albumin 3.1 L Urine Protein 2+ H Urine Blood Ur Leukocyte Esterase Urine RBC Urine WBC Urine Bacteria Rare H Urine Mucus Urine Opiates Screen U Benzodiazepines Scrn Crossmatch 08/14/17 08/15/17 08/15/17 18:07 06:28 06:28 RBC 2.78 L Hgb 8.2 L Hct 25.9 L Plt Count 131 L Lymphocytes # 0.9 L PT INR 1.2 H Sodium Potassium Chloride Carbon Dioxide BUN Creatinine Glucose POC Glucose (mg/dL) 115 H Calcium Magnesium AST ALT Total Protein Albumin Urine Protein Urine Blood Ur Leukocyte Esterase Urine RBC Urine WBC Urine Bacteria Urine Mucus Urine Opiates Screen U Benzodiazepines Scrn Crossmatch 08/16/17 08/16/17 08/16/17 14:45 14:53 14:53 RBC 2.48 L Hgb 7.4 L Hct 22.6 L Plt Count 148 L Lymphocytes # PT INR Sodium 131 L Potassium Chloride Carbon Dioxide 19 L BUN 78 H Creatinine 4.20 H Glucose 115 H POC Glucose (mg/dL) Calcium 8.1 L Magnesium 2.6 H AST ALT 15 L Total Protein 5.2 L Albumin 2.8 L Urine Protein 2+ H Urine Blood Small H Ur Leukocyte Esterase Large H Urine RBC 30 H Urine WBC 130 H Urine Bacteria Rare H Urine Mucus Rare H Urine Opiates Screen U Benzodiazepines Scrn Crossmatch 08/16/17 08/16/17 08/17/17 15:00 17:43 07:15 RBC 2.76 L Hgb 8.2 L Hct 26.0 L Plt Count Lymphocytes # PT 13.0 H INR 1.4 H Sodium Potassium Chloride Carbon Dioxide BUN Creatinine Glucose POC Glucose (mg/dL) Calcium Magnesium AST ALT Total Protein Albumin Urine Protein Urine Blood Ur Leukocyte Esterase Urine RBC Urine WBC Urine Bacteria Urine Mucus Urine Opiates Screen U Benzodiazepines Scrn Crossmatch See Detail 08/17/17 07:15 RBC Hgb Hct Plt Count Lymphocytes # PT INR Sodium 132 L Potassium 5.4 H Chloride Carbon Dioxide 17 L BUN 89 H* Creatinine 4.58 H Glucose 100 H POC Glucose (mg/dL) Calcium Magnesium AST ALT 16 L Total Protein 5.6 L Albumin 2.9 L Urine Protein Urine Blood Ur Leukocyte Esterase Urine RBC Urine WBC Urine Bacteria Urine Mucus Urine Opiates Screen U Benzodiazepines Scrn Crossmatch - Diagnostic Findings Chest x-ray: report reviewed, image reviewed Assessment and Plan Assessment: Postoperative delirium with altered mental status and confusion Evaluated for hypercapnic hypoxic respirator failure Severe COPD emphysema Acute renal failure Status post fall with right hip close fracture Electrolyte imbalance with hyponatremia and hyperkalemia Severe morbid obesity Coronary artery disease and acute on chronic systolic heart failure Plan: Continue breathing treatments Continue CPAP Optimize cardiac medications Agree with antibiotics for now Maintain patient on DVT and peptic ulcer disease prophylaxis Avoid narcotics and benzodiazepine as best possible Will get a ABG patient might need a BiPAP support Continue gentle hydration If arterial blood gas are abnormal consider moving patient to selective or ICU we'll follow closely Time with Patient: Greater than 30
[2017-08-17 14:33] LABS: ABG Base Excess -10.2 mmol/L; ABG HCO3 18 mmol/L (21-25); ABG Oxygen Saturation 93.3 % (94-97); ABG PCO2 48 mmHg (35-45); ABG PO2 73 mmHg (83-108); ABG TCO2 20 mmol/L (19-24)
[2017-08-17 14:37] LABS: ABG PH 7.19 (7.35-7.45)
[2017-08-17 15:18] LABS: Amorphous Sediment,Urine Moderate /hpf; Appearance,Urine Turbid (Clear); Bilirubin,Urine Negative (Negative); Blood,Urine Small (Negative); Color,Urine Yellow; Glucose,Urine (UA) Negative (Negative); Granular Casts,Urine 38 /lpf (0); Hyaline Casts,Urine 30 /lpf (0-2); Ketones,Urine Negative (Negative); Leukocyte Esterase,Urine Large (Negative); Nitrite,Urine Negative (Negative); PH, Urine 5.5 (5.0-8.0); Protein,Urine 2+ (Negative); RBC,Urine 30 /hpf (0-5); Specific Gravity,Urine 1.012 (1.001-1.035); Squamous Epithelial Cell,Urine 2 /hpf (0-4); Urobilinogen,Urine <2.0 mg/dL (<2.0); WBC,Urine >182 /hpf (0-5)
[2017-08-17] MEDS ORDERED: IPRATROPIUM-ALBUTEROL 3 ML NEB INHALATION SCH (16:00)
[2017-08-17 16:02] LABS: INR 1.6 (<1.2); Prothrombin Time 14.8 sec (9.0-12.0)
[2017-08-17 16:36] LABS: Magnesium 2.8 mg/dL (1.6-2.3); Potassium 5.3 mmol/L (3.5-5.1)
[2017-08-17 16:49] LABS: Phosphorus 8.1 mg/dL (2.5-4.5)
[2017-08-17 16:51] LABS: Glucose,Whole Blood 139 mg/dL (75-99)
[2017-08-17] MEDS: SODIUM CHLORIDE 0.9% 1,000 ML IV SCH (17:00)
[2017-08-17] MEDS ORDERED: Potassium Replacement Protocol 1 EACH MISC MISCELLANE PRN (17:13)
[2017-08-17] MEDS ORDERED: Phosphorus Replacement Protoco 1 EACH MISC MISCELLANE PRN (17:13)
[2017-08-17] MEDS ORDERED: Magnesium Replacement Protocol 1 EACH MISC MISCELLANE PRN (17:13)
[2017-08-17] MEDS ORDERED: IPRATROPIUM-ALBUTEROL 3 ML NEB INHALATION PRN (17:13)
[2017-08-17 17:39] LABS: Albumin 3.1 g/dL (3.5-5.0); Calcium 8.4 mg/dL (8.4-10.2); Total Bilirubin 0.3 mg/dL (0.2-1.3); Total Protein 5.7 g/dL (6.3-8.2)
[2017-08-17 17:50] LABS: Basophils % (A) 0 %; Eosinophils # (A) 0.1 k/uL (0-0.7); Eosinophils % (A) 1 %; HCT 27.2 % (39.0-53.0); HGB 8.8 gm/dL (13.0-17.5); Lymphocytes # (A) 0.9 k/uL (1.0-4.8); Lymphocytes % (A) 9 %; MCH 29.6 pg (25.0-35.0); MCHC 32.3 g/dL (31.0-37.0); MCV 91.5 fL (80.0-100.0); Mean Platelet Volume 7.8; Monocytes # (A) 0.9 k/uL (0-1.0); Monocytes % (A) 9 %; Neutrophils % (A) 79 %; Platelet Count 172 k/uL (150-450); RBC 2.97 m/uL (4.30-5.90); RDW 12.9 % (11.5-15.5)
[2017-08-17] MEDS ORDERED: DEXTROSE 5% IN WATER 1,000 ML with SODIUM BICARB (1 MEQ/ML) 150 ML IV SCH (19:00)
[2017-08-17] MEDS ORDERED: ACETAMINOPHEN IV (For NPO) 1,000 MG in EMPTY BAG 1 BAG IVPB ONE (19:00)
[2017-08-17] MEDS: DEXTROSE 5% IN WATER 1,000 ML with SODIUM BICARB (1 MEQ/ML) 150 ML IV SCH (19:00)
[2017-08-17] MEDS ORDERED: ACETAMINOPHEN IV (For NPO) 1,000 MG in EMPTY BAG 1 BAG IVPB PRN (19:30)
[2017-08-17] MEDS: LACTATED RINGERS 1,000 ML IV SCH (20:18)
[2017-08-17] MEDS: CALCIUM ACETATE 667 MG CAP PO SCH (20:18)
[2017-08-17] MEDS: INSULIN ASPART 100 UNIT/ML 1 ML 10 ML VIAL SQ SCH (20:19)
[2017-08-17 21:03] LABS: ABG Base Excess -10.8 mmol/L; ABG HCO3 18 mmol/L (21-25); ABG Oxygen Saturation 96.7 % (94-97); ABG PCO2 49 mmHg (35-45); ABG PO2 107 mmHg (83-108); ABG TCO2 19 mmol/L (19-24)
[2017-08-17 21:07] LABS: ABG PH 7.17 (7.35-7.45)
[2017-08-17] MEDS: PRAVASTATIN SODIUM 40 MG TAB PO SCH (21:59)
[2017-08-17] MEDS: SENNOSIDES-DOCUSATE SODIUM 1 EACH TAB PO SCH (21:59)
--- NOTE | 2017-08-17 22:32 | CONS ---
CONSULTATION DATE OF SERVICE: 08/17/2017 REASON FOR CONSULTATION: Urinary tract infection. HISTORY OF PRESENT ILLNESS: The patient is an 87-year-old male who was brought into the ER at [facility] on August 12, 2017, after apparently the patient had a fall. He was noted to have a right hip fracture. The patient was taken to the OR by Orthopedics and is status post right hip hemiarthroplasty. Since then the patient has been on the surgical floor. Patient did have a Costello catheter post surgery. It was discontinued this morning. Prior to discontinuation of the Costello catheter, a UA was obtained which is significantly positive. He was started on Rocephin. ID was consulted for further recommendations regarding antibiotic therapy. Apparently per Nursing the patient seems to have been getting more lethargic and confused. He was more confused yesterday compared to today, as the patient was able to answer some simple questions. He knows he is in the hospital. Denied any headache. No nausea or vomiting. No chest pain. Some shortness of breath but no cough. No abdominal pain. No diarrhea. Apparently the patient has not voided since the Costello catheter was removed, and RN was in the process of checking a residual and possible reinsertion of the Costello if the patient did have retention. The patient overall remains to be not a very good historian, so most of the information has been obtained from review of the chart and talking to nursing staff. REVIEW OF SYSTEMS: Review of systems could not be reliably obtained because of his mental status. PAST MEDICAL HISTORY: 1. Coronary artery disease. 2. COPD. 3. Hypertension. 4. SD. 5. Osteoarthritis. 6. Pneumonia. 7. Sleep apnea. PAST SURGICAL HISTORY: 1. PTCA with stent. 2. Joint replacement. 3. Tonsillectomy. 4. Right carotid endarterectomy. 5. Cataract removal. 6. Right knee replacement. SOCIAL HISTORY: No history of smoking, drinking or drug use. FAMILY HISTORY: Father with a history of colon disease. Mother with history of dementia. ALLERGIES: NO KNOWN DRUG ALLERGIES. CURRENT MEDICATIONS: 1. Tylenol. 2. DuoNeb. 3. Xanax. 4. Norvasc. 5. PhosLo. 6. Rocephin. 7. Colace. 8. Neurontin. 9. Hydralazine. 10.Dilaudid. 11.Restoril. 12.NovoLog. 13.Imdur. 14.Lactated Ringer. 15.Milk of Magnesia. 16.Lopressor. 17.Narcan. 18.Zofran. 19.Protonix. 20.Pravachol. 21.Senokot. PHYSICAL EXAMINATION: Blood pressure is 135/65 with a pulse of 50, temperature of 98. He is 99% on BiPAP. General description is an elderly male lying in bed in no distress. No tachypnea or accessory muscle of respiration use. HEENT examination shows slight pallor. There is no scleral icterus. Oral mucosa membrane is dry. No pharyngeal erythema or thrush. NECK: Trachea is central. No thyromegaly. LUNGS: Unlabored breathing with decreased intensity of breath sounds. No wheeze or crackle noted. HEART: S1, S2. Regular rate and rhythm. No loud murmur. ABDOMEN: Soft. No tenderness. No organomegaly. EXTREMITIES: Some trace edema of feet. SKIN EXAMINATION: No rash or mass palpable. Neurologically patient is awake, alert, oriented x2. Mood and affect normal. LABS: Hemoglobin 8.8 with a white count of 10.0. BUN of 95, creatinine 4.80. Potassium was 5.3. Urine has been positive with large leukocyte esterase, with 130 WBCs with bacteruria. Patient did have a chest x-ray that shows cardiomegaly with no active infiltrate. DIAGNOSTIC IMPRESSION AND PLAN: Patient with a significantly positive UA in a patient who has been admitted to hospital after he did have a fall with a right hip fracture. Sample has been obtained from the Costello catheter that was there for more than 72 hours with subsequent removal of the same in a patient who did not have any fever or elevated white count. He did have some mental status changes and lethargy which could be related to his worsening kidney failure plus or minus underlying COPD exacerbation with CO2 narcosis, for which the patient is currently being evaluated by Pulmonary Services. However, UTI is not entirely excluded. PLAN: 1. RN has been advised to repeat UA and culture, especially straight catheterization if the patient needs to be. 2. We will keep the patient on Rocephin at this point while waiting for the cultures to finalize. 3. Gentle IV fluid. 4. We will follow up on the clinical condition and cultures to further adjust medication if needed. Thank you for this consultation. Will follow this patient along with you. MMODL / IJN: [id number] / MTDReza
--- NOTE | 2017-08-17 23:26 | PN ---
PROGRESS NOTE SUBJECTIVE: Dyspnea, cough, hypoxemia, pneumonia, obstructive sleep apnea, worsening mental status and confusion. Worsening renal function. Creatinine is up to 4. BUN is up to 87. Status post right hip vanessa arthroscopy, right hip fracture. Ischemic cardiomyopathy. CARDIOVASCULAR: S1 and S2. OPHTHALMOLOGIC: Pupils equal, round and reactive to light and accommodation. INTEGUMENT: Normal turgor. Cranial nerves intact. Sodium 132, potassium 5.4, hemoglobin 8.2, white count 9.7. Hemoglobin was 9.4. BUN 78, creatinine 4.2. ASSESSMENT: 1. Postoperative delirium. 2. Altered mental status. 3. Hypercapnic hypoxemic respiratory failure, on 4 L oxygen. 4. Severe chronic obstructive pulmonary disease. 5. Emphysema. 6. Acute on chronic renal insufficiency. 7. Status post fall with right hip closed fracture. 8. Electrolyte imbalance. 9. Hyponatremia. 10.Hyperkalemia. 11.Severe morbid obesity. 12.Coronary artery disease. 13.Chronic systolic heart failure. Patient on CPAP, breathing treatments, IV Lasix, IV antibiotics for UTI. Infectious disease consultation, pulmonary consultation. Suspect worsening confusion is due to worsening renal function. Gentle rehydration. Await pulmonary and infectious disease consultations. MMODL / IJN: [id number] /
--- NOTE | 2017-08-18 00:12 | CT ---
EXAMINATION TYPE: CT brain wo con DATE OF EXAM: 08/18/2017 COMPARISON: 09/01/2015 HISTORY: ams confusion CT DLP: 1106.90 mGycm Automated exposure control for dose reduction was used. FINDINGS: There is some cerebral cortical atrophy. There is no mass effect nor midline shift. There is no sign of intracranial hemorrhage. The calvarium is intact. IMPRESSION: MILD ATROPHY. NO ACUTE INTRACRANIAL ABNORMALITY. NO CHANGE.
[2017-08-18] MEDS: INSULIN ASPART 100 UNIT/ML 1 ML 10 ML VIAL SQ SCH ×4 (01:00→18:38)
[2017-08-18 01:03] LABS: Glucose,Whole Blood 124 mg/dL (75-99)
[2017-08-18] MEDS: SODIUM CHLORIDE 0.9% 1,000 ML IV SCH ×2 (04:50→08:32)
[2017-08-18] MEDS: DOCUSATE ORAL SOLN 100 MG/10 ML CUP PO SCH ×2 (04:51→20:04)
[2017-08-18] MEDS: hydrALAZINE HCL 25 MG TAB PO SCH ×3 (04:51→20:08)
[2017-08-18] MEDS: ALPRAZolam 0.5 MG TAB PO SCH ×4 (04:51→21:48)
[2017-08-18] MEDS: ISOSORBIDE MONONITRATE ER 60 MG TAB.ER.24H PO SCH ×2 (04:54→20:08)
[2017-08-18 05:20] LABS: Basophils % (A) 0 %; Eosinophils # (A) 0.1 k/uL (0-0.7); Eosinophils % (A) 2 %; HCT 25.5 % (39.0-53.0); HGB 8.2 gm/dL (13.0-17.5); Lymphocytes # (A) 0.9 k/uL (1.0-4.8); Lymphocytes % (A) 13 %; MCH 29.4 pg (25.0-35.0); MCHC 32.1 g/dL (31.0-37.0); MCV 91.7 fL (80.0-100.0); Monocytes # (A) 0.7 k/uL (0-1.0); Monocytes % (A) 10 %; Neutrophils # (A) 5.2 k/uL (1.3-7.7); Neutrophils % (A) 73 %; Platelet Count 158 k/uL (150-450); RBC 2.78 m/uL (4.30-5.90); RDW 12.8 % (11.5-15.5); WBC 7.1 k/uL (3.8-10.6)
[2017-08-18 05:36] LABS: Albumin 2.9 g/dL (3.5-5.0); Calcium 8.3 mg/dL (8.4-10.2); Magnesium 2.7 mg/dL (1.6-2.3); Potassium 5.2 mmol/L (3.5-5.1); Total Bilirubin 0.2 mg/dL (0.2-1.3); Total Protein 5.3 g/dL (6.3-8.2)
[2017-08-18 05:37] LABS: Phosphorus 8.3 mg/dL (2.5-4.5)
[2017-08-18 05:54] LABS: Glucose,Whole Blood 119 mg/dL (75-99)
[2017-08-18 07:24] LABS: ABG Base Excess -9.3 mmol/L; ABG HCO3 18 mmol/L (21-25); ABG Oxygen Saturation 98.5 % (94-97); ABG PCO2 45 mmHg (35-45); ABG PH 7.22 (7.35-7.45); ABG PO2 99 mmHg (83-108); ABG TCO2 20 mmol/L (19-24)
[2017-08-18] MEDS: IPRATROPIUM-ALBUTEROL 3 ML NEB INHALATION SCH ×4 (07:27→21:31)
[2017-08-18] MEDS: HYDROmorphone 0.5 MG/0.5 ML SYRINGE IVP PRN (08:31)
[2017-08-18] MEDS: GABAPENTIN 300 MG CAP PO SCH (08:32)
[2017-08-18] MEDS: LORATADINE 10 MG TAB PO SCH (08:32)
[2017-08-18] MEDS: CALCIUM ACETATE 667 MG CAP PO SCH ×3 (08:32→14:41)
[2017-08-18] MEDS: PANTOPRAZOLE 40 MG/10 ML VIAL IV SCH (08:32)
[2017-08-18] MEDS: METOPROLOL TARTRATE 12.5 MG TAB PO SCH ×2 (08:32→21:48)
[2017-08-18] MEDS: cefTRIAXone IN SWFI 1,000 MG/10 ML SYRINGE IVP SCH (08:35)
--- NOTE | 2017-08-18 09:08 | XR ---
EXAMINATION TYPE: XR chest 1V DATE OF EXAM: 08/18/2017 COMPARISON: 08/17/2017 HISTORY: Shortness of breath TECHNIQUE: Single frontal view of the chest is obtained. FINDINGS: Bilateral infiltrate and small effusion. Atherosclerotic change aorta. Arthropathy of the right shoulder. No pneumothorax. Heart is enlarged. IMPRESSION: Bilateral infiltrate and small effusion. Mild central venous congestion not excluded.
[2017-08-18 09:40] VITALS: BMI 30.7
[2017-08-18] MEDS: FUROSEMIDE 10 MG/ML 4 ML VIAL IV SCH ×2 (10:28→22:39)
--- NOTE | 2017-08-18 10:51 | P.PN ---
Subjective Progress Note Date: 08/18/17 Principal diagnosis: Right femoral neck fracture. Status post hemiarthroplasty right hip. This is an 87-year-old male who is status post hemiarthroplasty of the right hip for femoral neck fracture. He has been transferred to intensive care unit for altered mental status and respiratory distress. The patient is alert at this time but continues to have confusion. Objective - Vital Signs Vital signs: Vital Signs Temp 97.4 F L 08/18/17 08:00 Pulse 52 L 08/18/17 10:00 Resp 14 08/18/17 10:00 BP 127/56 08/18/17 10:00 Pulse Ox 99 08/18/17 10:00 Intake & Output 08/17/17 08/18/17 08/18/17 18:59 06:59 18:59 Intake Total 300 1725 375 Output Total 315 880 120 Balance -15 845 255 Weight 114.4 kg 114.4 kg Intake: IV 1450 375 Dextrose 5% in Water 1, 550 150 000 ml @ 50 mls/hr IV . Q23H ALICIA with Sodium Bicarb (1 Meq/ml) 150 ml Rx#:[id number] Sodium Chloride 0.9% 1, 900 225 000 ml @ 75 mls/hr IV . [id number] ALICIA Rx#:[id number] Intake, IV Titration 300 225 Amount Dextrose 5% in Water 1, 75 150 000 ml @ 50 mls/hr IV . Q23H ALICIA with Sodium Bicarb (1 Meq/ml) 150 ml Rx#:[id number] Sodium Chloride 0.9% 1, 225 75 000 ml @ 75 mls/hr IV . [id number] ALICIA Rx#:[id number] Lipid 50 Dextrose 5% in Water 1, 50 000 ml @ 50 mls/hr IV . Q23H ALICIA with Sodium Bicarb (1 Meq/ml) 150 ml Rx#:[id number] Output: Urine 315 880 120 Uretheral (Costello) 300 150 Other: Voiding Method Indwelling Catheter Indwelling Catheter Indwelling Catheter # Voids 400 - Exam This is a pleasant 87-year-old male in no acute distress. He is on O2 per mask. He is alert with confusion. Exam of the right hip reveals that the dressing is clean, dry and intact. He has difficulty lifting the right leg off the bed independently. He has full foot and ankle motion and toe motion without difficulty or pain. Neurovascular status to the lower extremity is intact. - Labs CBC & Chem 7: 08/18/17 04:51 08/18/17 04:51 Labs: Abnormal Lab Results - Last 24 Hours (Table) 08/17/17 08/17/17 08/17/17 Range/Units 07:15 13:24 13:24 RBC (4.30-5.90) m/uL Hgb (13.0-17.5) gm/dL Hct (39.0-53.0) % Neutrophils # (1.3-7.7) k/uL Lymphocytes # (1.0-4.8) k/uL PT 14.8 H (9.0-12.0) sec INR 1.6 H (<1.2) ABG pH (7.35-7.45) ABG pCO2 (35-45) mmHg ABG pO2 (83-108) mmHg ABG HCO3 (21-25) mmol/L ABG O2 Saturation (94-97) % Sodium 132 L (137-145) mmol/L Potassium 5.4 H (3.5-5.1) mmol/L Carbon Dioxide 17 L (22-30) mmol/L BUN 89 H* (9-20) mg/dL Creatinine 4.58 H (0.66-1.25) mg/dL Glucose 100 H (74-99) mg/dL POC Glucose (mg/dL) (75-99) mg/dL Plasma Lactic Acid Keshawn (0.7-2.0) mmol/L Calcium (8.4-10.2) mg/dL Phosphorus (2.5-4.5) mg/dL Magnesium (1.6-2.3) mg/dL ALT 16 L (21-72) U/L Troponin I 0.038 H* (0.000-0.034) ng/mL Total Protein 5.6 L (6.3-8.2) g/dL Albumin 2.9 L (3.5-5.0) g/dL Urine Protein (Negative) Urine Blood (Negative) Ur Leukocyte Esterase (Negative) Urine RBC (0-5) /hpf Urine WBC (0-5) /hpf Urine WBC Clumps (None) /hpf Amorphous Sediment (None) /hpf Hyaline Casts (0-2) /lpf 08/17/17 08/17/17 08/17/17 Range/Units 14:25 14:58 16:02 RBC (4.30-5.90) m/uL Hgb (13.0-17.5) gm/dL Hct (39.0-53.0) % Neutrophils # (1.3-7.7) k/uL Lymphocytes # (1.0-4.8) k/uL PT (9.0-12.0) sec INR (<1.2) ABG pH 7.19 L* (7.35-7.45) ABG pCO2 48 H (35-45) mmHg ABG pO2 73 L (83-108) mmHg ABG HCO3 18 L (21-25) mmol/L ABG O2 Saturation 93.3 L (94-97) % Sodium 131 L (137-145) mmol/L Potassium 5.3 H (3.5-5.1) mmol/L Carbon Dioxide 17 L (22-30) mmol/L BUN 95 H* (9-20) mg/dL Creatinine 4.80 H (0.66-1.25) mg/dL Glucose 121 H (74-99) mg/dL POC Glucose (mg/dL) (75-99) mg/dL Plasma Lactic Acid Keshawn (0.7-2.0) mmol/L Calcium (8.4-10.2) mg/dL Phosphorus 8.1 H* (2.5-4.5) mg/dL Magnesium 2.8 H (1.6-2.3) mg/dL ALT 16 L (21-72) U/L Troponin I (0.000-0.034) ng/mL Total Protein 5.7 L (6.3-8.2) g/dL Albumin 3.1 L (3.5-5.0) g/dL Urine Protein 2+ H (Negative) Urine Blood Small H (Negative) Ur Leukocyte Esterase Large H (Negative) Urine RBC 30 H (0-5) /hpf Urine WBC >182 H (0-5) /hpf Urine WBC Clumps Many H (None) /hpf Amorphous Sediment Moderate H (None) /hpf Hyaline Casts 30 H (0-2) /lpf 08/17/17 08/17/17 08/17/17 Range/Units 16:02 16:02 16:47 RBC 2.97 L (4.30-5.90) m/uL Hgb 8.8 L (13.0-17.5) gm/dL Hct 27.2 L (39.0-53.0) % Neutrophils # 8.0 H (1.3-7.7) k/uL Lymphocytes # 0.9 L (1.0-4.8) k/uL PT (9.0-12.0) sec INR (<1.2) ABG pH (7.35-7.45) ABG pCO2 (35-45) mmHg ABG pO2 (83-108) mmHg ABG HCO3 (21-25) mmol/L ABG O2 Saturation (94-97) % Sodium (137-145) mmol/L Potassium (3.5-5.1) mmol/L Carbon Dioxide (22-30) mmol/L BUN (9-20) mg/dL Creatinine (0.66-1.25) mg/dL Glucose (74-99) mg/dL POC Glucose (mg/dL) 139 H (75-99) mg/dL Plasma Lactic Acid Keshawn <0.5 L (0.7-2.0) mmol/L Calcium (8.4-10.2) mg/dL Phosphorus (2.5-4.5) mg/dL Magnesium (1.6-2.3) mg/dL ALT (21-72) U/L Troponin I (0.000-0.034) ng/mL Total Protein (6.3-8.2) g/dL Albumin (3.5-5.0) g/dL Urine Protein (Negative) Urine Blood (Negative) Ur Leukocyte Esterase (Negative) Urine RBC (0-5) /hpf Urine WBC (0-5) /hpf Urine WBC Clumps (None) /hpf Amorphous Sediment (None) /hpf Hyaline Casts (0-2) /lpf 08/17/17 08/17/17 08/18/17 Range/Units 19:58 20:40 01:00 RBC (4.30-5.90) m/uL Hgb (13.0-17.5) gm/dL Hct (39.0-53.0) % Neutrophils # (1.3-7.7) k/uL Lymphocytes # (1.0-4.8) k/uL PT (9.0-12.0) sec INR (<1.2) ABG pH 7.17 L* (7.35-7.45) ABG pCO2 49 H (35-45) mmHg ABG pO2 (83-108) mmHg ABG HCO3 18 L (21-25) mmol/L ABG O2 Saturation (94-97) % Sodium (137-145) mmol/L Potassium (3.5-5.1) mmol/L Carbon Dioxide (22-30) mmol/L BUN (9-20) mg/dL Creatinine (0.66-1.25) mg/dL Glucose (74-99) mg/dL POC Glucose (mg/dL) 124 H (75-99) mg/dL Plasma Lactic Acid Keshawn (0.7-2.0) mmol/L Calcium (8.4-10.2) mg/dL Phosphorus (2.5-4.5) mg/dL Magnesium (1.6-2.3) mg/dL ALT (21-72) U/L Troponin I 0.038 H* (0.000-0.034) ng/mL Total Protein (6.3-8.2) g/dL Albumin (3.5-5.0) g/dL Urine Protein (Negative) Urine Blood (Negative) Ur Leukocyte Esterase (Negative) Urine RBC (0-5) /hpf Urine WBC (0-5) /hpf Urine WBC Clumps (None) /hpf Amorphous Sediment (None) /hpf Hyaline Casts (0-2) /lpf 08/18/17 08/18/17 08/18/17 Range/Units 01:54 04:51 04:51 RBC 2.78 L (4.30-5.90) m/uL Hgb 8.2 L (13.0-17.5) gm/dL Hct 25.5 L (39.0-53.0) % Neutrophils # (1.3-7.7) k/uL Lymphocytes # 0.9 L (1.0-4.8) k/uL PT (9.0-12.0) sec INR (<1.2) ABG pH (7.35-7.45) ABG pCO2 (35-45) mmHg ABG pO2 (83-108) mmHg ABG HCO3 (21-25) mmol/L ABG O2 Saturation (94-97) % Sodium 132 L (137-145) mmol/L Potassium 5.2 H (3.5-5.1) mmol/L Carbon Dioxide 19 L (22-30) mmol/L BUN 98 H* (9-20) mg/dL Creatinine 4.80 H (0.66-1.25) mg/dL Glucose 105 H (74-99) mg/dL POC Glucose (mg/dL) (75-99) mg/dL Plasma Lactic Acid Keshawn (0.7-2.0) mmol/L Calcium 8.3 L (8.4-10.2) mg/dL Phosphorus 8.3 H* (2.5-4.5) mg/dL Magnesium 2.7 H (1.6-2.3) mg/dL ALT 17 L (21-72) U/L Troponin I 0.044 H* (0.000-0.034) ng/mL Total Protein 5.3 L (6.3-8.2) g/dL Albumin 2.9 L (3.5-5.0) g/dL Urine Protein (Negative) Urine Blood (Negative) Ur Leukocyte Esterase (Negative) Urine RBC (0-5) /hpf Urine WBC (0-5) /hpf Urine WBC Clumps (None) /hpf Amorphous Sediment (None) /hpf Hyaline Casts (0-2) /lpf 08/18/17 08/18/17 Range/Units 05:52 07:21 RBC (4.30-5.90) m/uL Hgb (13.0-17.5) gm/dL Hct (39.0-53.0) % Neutrophils # (1.3-7.7) k/uL Lymphocytes # (1.0-4.8) k/uL PT (9.0-12.0) sec INR (<1.2) ABG pH 7.22 L (7.35-7.45) ABG pCO2 (35-45) mmHg ABG pO2 (83-108) mmHg ABG HCO3 18 L (21-25) mmol/L ABG O2 Saturation 98.5 H (94-97) % Sodium (137-145) mmol/L Potassium (3.5-5.1) mmol/L Carbon Dioxide (22-30) mmol/L BUN (9-20) mg/dL Creatinine (0.66-1.25) mg/dL Glucose (74-99) mg/dL POC Glucose (mg/dL) 119 H (75-99) mg/dL Plasma Lactic Acid Keshawn (0.7-2.0) mmol/L Calcium (8.4-10.2) mg/dL Phosphorus (2.5-4.5) mg/dL Magnesium (1.6-2.3) mg/dL ALT (21-72) U/L Troponin I (0.000-0.034) ng/mL Total Protein (6.3-8.2) g/dL Albumin (3.5-5.0) g/dL Urine Protein (Negative) Urine Blood (Negative) Ur Leukocyte Esterase (Negative) Urine RBC (0-5) /hpf Urine WBC (0-5) /hpf Urine WBC Clumps (None) /hpf Amorphous Sediment (None) /hpf Hyaline Casts (0-2) /lpf Microbiology - Last 24 Hours (Table) 08/17/17 14:52 Urine Culture - Preliminary Urine,Catheterized 08/16/17 14:45 Urine Culture - Final Urine,Catheterized Assessment and Plan (1) Closed right hip fracture Current Visit: Yes Status: Acute Code(s): S72.001A - FRACTURE OF UNSP PART OF NECK OF RIGHT FEMUR, INIT SNOMED Code(s): 270039391 (2) History of right hip hemiarthroplasty Current Visit: Yes Status: Acute Code(s): Z96.641 - PRESENCE OF RIGHT ARTIFICIAL HIP JOINT SNOMED Code(s): 442000234 Plan: The clinical findings are discussed the patient and his family. Continue current care. Physical therapy as tolerated. I recommend transferring attending to internal medicine at this point.
--- NOTE | 2017-08-18 11:07 | CDI ---
Last Revision, June 2017 Documentation Clarification Form Date: 08/17/2017 12:04:00 PM From: Tabatha BrownCollinsEZIO gil, CCDS Admit Date: 08/12/2017 4:02:00 PM Patient Name: Zen Leonardo Visit Number: [id number] Discharge Date: ATTENTION: The Clinical Documentation Specialists (CDI) and [facility] Coding Staff appreciate your assistance in clarifying documentation. Please respond to the clarification below the line at the bottom and electronically sign. The CDI & [facility] Coding staff will review the response and follow-up if needed. Please note: Queries are made part of the Legal Health Record. If you have any questions, please contact the author of this message via ITS. Dr. Benoit Fatima: Per the 08/17 progress note: " Anemia, status post surgery, possible transfusion 1 unit of blood. Increase fluid, now with normal saline at 75 mL an hour. Possible blood transfusion. Patients Admitting Diagnosis: Right Displaced Femoral Neck Fracture Post-Operative Diagnosis: Same. Documented anemia. Procedure performed: Rt Hip Hemiarthroplasty on 06/14. History/Risk Factors: CAD, CHF, COPD, CKD (per pulmonary), Hypertension, Sleep Apnea, Previous ME & right knee replacement. Clinical Indicators: Presented after a fall & right hip pain, diagnosed with rt hip fracture. Treatment: Rt hip surgery as above. Transfused 1 unit PRBCs, Coumadin resumed, IV fluid rate 75, IV Rocephin. Consults: Pulmonary, Psych, Cardiology, Medical management. In order to accurately reflect this patients severity of illness, please clarify if the post-operative diagnosis, anemia is: An expected post-procedural or post-surgical condition; Integral to the procedure; Inherent to the procedure; An unexpected post-procedural or post-surgical condition related to surgical care; Other, please specify Unable to determine Please continue to document in your progress notes and discharge summary in order to capture severity of illness and risk of mortality. Include clinical findings that support your diagnosis. MTDD
--- NOTE | 2017-08-18 11:10 | CDI ---
Last Revision, June 2017 Documentation Clarification Form Date: 08/15/2017 2:34:00 PM From: Tabatha BrownCollinsEZIO, CCDS Admit Date: 08/12/2017 4:02:00 PM Patient Name: Zen Leonardo Visit Number: [id number] Discharge Date: ATTENTION: The Clinical Documentation Specialists (CDI) and [facility] Coding Staff appreciate your assistance in clarifying documentation. Please respond to the clarification below the line at the bottom and electronically sign. The CDI & [facility] Coding staff will review the response and follow-up if needed. Please note: Queries are made part of the Legal Health Record. If you have any questions, please contact the author of this message via ITS. Dr. Lorne Borges: History/Risk Factors: CAD, CHF, COPD, OA, Sleep Apnea, PR and Chronic Kidney Disease. Clinical Indicators: Presented with a right hip fracture after a fall at home. Admission BUN 52, Creatinine 3.02, GFR 20 Current BUN 49, Creatinine 3.00, GFR 20 Treatment: IV Dilaudid, IV Zofran, IV Apresoline, Albuterol INH, O2 2Lnc In your professional opinion, please clarify the patient's renal failure including the severity of condition: Acute Renal Failure (per Dr. Watts in 08/17 critical care consult)* Acute on Chronic Renal Failure If Chronic, please speficy the stage if known: CKD Stage 1 (GFR > 90) CKD Stage 2 (GFR 60-89) CKD Stage 3 (GFR 30-59) CKD Stage 4 (GFR 15-29) CKD Stage 5 (GFR <15) ESRD Other, please specify Unable to determine Please continue to document in your progress notes and discharge summary in order to capture severity of illness and risk of mortality. Include clinical findings that support your diagnosis. __acute on chronic stage 4 MTDD
[2017-08-18] MEDS: LACTATED RINGERS 1,000 ML IV SCH (11:17)
[2017-08-18 12:04] LABS: Glucose,Whole Blood 119 mg/dL (75-99)
--- NOTE | 2017-08-18 14:15 | CONS ---
CONSULTATION REASONS FOR CONSULT: Renal failure. HISTORY OF PRESENT ILLNESS: Patient is an 87-year-old man who has a history of chronic kidney disease, NKF stage IV, secondary to nephrosclerosis with baseline creatinine about 3 mg/dL. He was admitted to the hospital on 08/12/2017 with a history of falls. He was found to have a displaced femoral neck fracture on the right hip. Patient had right hip hemiarthroplasty on 08/15/2017. It appears that his mentation has slowly declined over the last 2 to 3 days. Patient was also increasingly short of breath. Yesterday , he was transferred to the ICU. His renal function has been deteriorating. His serum creatinine was at 3.02 mg/dL on initial admission. It did go up to 4.5 yesterday and it is at 4.8 mg/dL now. Blood pressure has not been significantly low. Patient was maintained on IV fluids yesterday. However, x-ray this morning shows some pulmonary vascular congestion and pleural effusion. Patient has also been on BiPAP. He was quite acidotic with pH of 7.19 on blood gases. The CO2 is 19 on electrolytes today. The patient was started on a bicarb drip yesterday. He is running D5W with 3 amps at 50 mL an hour, along with normal saline. He remains with much decreased mentation and requiring the bypass. Urine output has pain at about 40 to 60 mL an hours. Patient has an indwelling Costello catheter. PAST MEDICAL HISTORY: CKD stage 4, being considered for peritoneal dialysis; however, review of office records shows that patient was not to keen on hemodialysis. Past medical history is also significant for CKD mineral bone disorder, anemia of chronic disease, coronary artery disease, COPD, osteoarthritis, obstructive sleep apnea, cardiomyopathy, history of NV, ejection fraction about 60%, cataracts, anxiety, depression. PAST SURGICAL HISTORY: Right carotid endarterectomy, cataracts removed, right knee arthroplasty. SOCIAL HISTORY: Negative for smoking, drug abuse or alcohol abuse. MEDICATIONS: Medications at home include Xanax, Ecotrin, Plavix, Imdur, Colace, Neurontin, Claritin, Norvasc, Colace, Pravachol, hydralazine, Senokot, tramadol. ALLERGIES: None. REVIEW OF SYSTEMS: Negative for fevers, chills. No drainage from wounds. No diarrhea. No bleeding. Rest of review of systems negative, others as per HPI. PHYSICAL EXAMINATION: Currently, patient is arousable. He remains on BiPAP. Blood pressure was 127/56 , heart rate of 53 per minute, patient is afebrile. Examination of the heart, S1, S2. Examination of the lungs, bilateral breath sounds are heard. Decreased breath sounds at the bases. No wheezing is heard, occasional crackles are heard. Abdomen is soft, nontender, obese. Examination of the lower extremities shows no significant edema. The right hip wound is currently dressed. LABS: Show sodium 132, potassium 5.2, chloride 101, CO2 is 19, BUN 98, serum creatinine 4.8, calcium was 8.3, magnesium 2.7. UA shows 2+ protein, large leukocyte esterase, WBC clumps were noted. Chest x-ray from today shows pulmonary vascular congestion and bilateral infiltrates. ASSESSMENT: 1. Acute kidney injury, most likely acute tubular necrosis, currently nonoliguric. Patient has not been hypotensive, he appears to be mildly fluid overloaded. I will give him 2 doses of Lasix today, there are no nephrotoxic agents on board and if his renal function does not improve,we will need to consider renal replacement therapy. 2. Encephalopathy may be a component of uremia. The Neurontin will be discontinued. However, patient has not been getting it because recently with decreased mentation and we will discuss with the family regarding starting dialysis if renal function continues to deteriorate. 3. CKD mineral bone disorder maintained on PhosLo, but patient is not eating currently. 4. Non gap metabolic acidosis secondary to renal failure, maintained on IV bicarb, which could be discontinued. 5. Status post right hip arthroplasty for fracture after a fall. 6. Pyuria, with urine cultures currently negative. Currently maintained on Rocephin being followed by ID. PLAN: DC normal saline 2 doses of Lasix today. Repeat labs in a.m. If renal function continues to deteriorate with decreased mentation, we will need to start renal replacement therapy. It appears that as outpatient, patient did not want hemodialysis but was more interested in peritoneal dialysis. However, at this time we decided to proceed with dialysis. We will need to start with hemodialysis. We will discuss this further with the family as well. Thank you for this consultation. Will continue to follow the patient with you during his hospitalization. MMODL / IJN: [id number] / ALEX
[2017-08-18] MEDS: amLODIPine 10 MG TAB PO SCH (14:40)
[2017-08-18 16:06] LABS: Hemoglobin A1C 5.1 % (4.0-6.0)
[2017-08-18 16:56] LABS: ABG Base Excess -7.4 mmol/L; ABG HCO3 20 mmol/L (21-25); ABG Oxygen Saturation 98.4 % (94-97); ABG PCO2 48 mmHg (35-45); ABG PH 7.23 (7.35-7.45); ABG PO2 112 mmHg (83-108); ABG TCO2 22 mmol/L (19-24)
[2017-08-18] MEDS: DEXTROSE 5% IN WATER 1,000 ML with SODIUM BICARB (1 MEQ/ML) 150 ML IV SCH (17:41)
[2017-08-18] MEDS: SENNOSIDES-DOCUSATE SODIUM 1 EACH TAB PO SCH (20:07)
[2017-08-18] MEDS: PRAVASTATIN SODIUM 40 MG TAB PO SCH (20:08)
--- NOTE | 2017-08-18 21:36 | PN ---
PROGRESS NOTE DATE OF SERVICE: 08/18/2017. REASON FOR FOLLOW UP: Urinary tract infection. INTERVAL HISTORY: The patient is afebrile. He seems to be improving, stable. Still remains to be lethargic and was on BiPAP when he was seen on rounds this morning. Unable to provide any history. No nausea, vomiting or any diarrhea present as per nursing staff. EXAMINATION: Blood pressure is 150/70 with a pulse of 59, temperature of 97.4. He is 99% on BiPAP. General description is an elderly male in the bed, up in no distress. RESPIRATORY SYSTEM: Unlabored breathing with decreased breath sounds. No wheeze. HEART: S1, S2. Regular rate and rhythm. ABDOMEN: Soft. No tenderness. LABS: Hemoglobin 8.2, white count 7 point: Blood culture so far negative. Urine is currently pending. DIAGNOSTIC IMPRESSION AND PLAN: Patient with a urinary tract infection, significantly positive UA. Costello has been discontinued. Keep the patient on Rocephin while waiting for the culture to finalize. Continue supportive care. MMODL / IJN: [id number] /
[2017-08-18 23:59] LABS: Glucose,Whole Blood 114 mg/dL (75-99)
--- NOTE | 2017-08-19 00:09 | PN ---
PROGRESS NOTE SUBJECTIVE: This is an 87-year-old white male with history of chronic kidney disease stage 4 with creatinine baseline around 3. His creatinine is up to 4.88 today with a BUN in the high 80s to low 90s. He is status post hip arthroscopy, still in place on BiPAP with some improvement with his ABGs, as he had CO2 retention. Chest x-ray did show some pleural effusion and pulmonary vascular congestion. He was acidotic on admit to the ICU at 7.19 on blood gas, CO2 of 19 today. Bicarb drip yesterday. He is on D5W with 3 amps at 50 mL an hour. He has decreased mentation. Urine output is 40-60 mL an hour. CARDIOVASCULAR: S1-S2. LUNGS: Decreased breath sounds at the bases. GI is soft, nontender. HEMATOLOGY: Negative Homans'. NEURO: He is responding to questions, but very limited. He is very sleepy, but he is arousable. Blood pressure 120s/50s, heart rate in the 50s. Right hip wound was dressed. ASSESSMENT: 1. Acute kidney injury, possible congestive heart failure. He is given 2 doses of Lasix today. Bicarb has been continued. 2. Encephalopathy due to uremia. Neurontin is discontinued. Possible dialysis will be needed if he continues to worsen with his renal function. 3. Chronic kidney disease stage 4. 4. Metabolic acidosis. IV bicarb has been given. 5. Status post hip arthroscopy. 6. Pyuria. Continue on Rocephin per Dr. Gomez's recommendation. Lasix is being given x2. Possible dialysis if the patient does not improve. MMODL / IJN: [id number] /
--- NOTE | 2017-08-19 01:09 | CONS ---
CONSULTATION DATE OF CONSULTATION: 08/18/2017. CHIEF COMPLAINT: Altered mental status. HISTORY OF PRESENT ILLNESS: The patient is a 87-year-old male, who is being evaluated by the neurology service per the request of Dr. Fatima for altered mental status. The patient was initially brought into [facility] on 08/12/2017 due to a recent fall. He was complaining of right hip pain. X-rays were done and he was found to have a displaced femoral neck fracture on the right side. He did undergo orthopedic surgery on 08/15/2017. Since the surgery, he has been having worsening shortness of breath and worsening mental status. He was initially placed on oxygen supplementation and then on a non-rebreather. He then was placed on BiPAP and transferred to the intensive care unit. The patient was quite drowsy but these symptoms would wax and wane in intensity. A CT scan of the brain was done, which showed generalized atrophy and no acute intracranial abnormalities. His CBC showed a significant anemia with a hemoglobin of 8.2 and hematocrit of 25% Blood gases were done yesterday and his PO2 was quite low at 73 and his pH was acidic at 7.19. Today, these numbers have improved to 99 and 7.22 respectively. His comprehensive metabolic profile showed hyponatremia at 132 and significant renal insufficiency with a BUN of 98 and creatinine of 4.8. He also had hypocalcemia at 8.3. The patient does have history of a chronic renal failure and has been seeing nephrology prior to this admission. Nephrology did evaluate the patient which recommended discontinuing IV hydration and starting the patient on Lasix. He is still producing a good amount of urine. At the time of my evaluation, the patient is lying in his bed and continues to be on BiPAP. He is awake and follows commands appropriately. He also answers questions appropriately. He denies any pain at this time. The rest of his laboratory workup was reviewed and a urinalysis showed greater than 182 WBCs with large leukocyte esterase. The patient has been started on Rocephin IV. PAST MEDICAL HISTORY: Chronic renal insufficiency, chronic obstructive pulmonary disease, chronic anemia, coronary artery disease, arthritis, obstructive sleep apnea, cardiomyopathy, history of myocardial infarction, cataracts, anxiety disorder, depression, history of right carotid endarterectomy, cataract surgery, knee surgery. SOCIAL HISTORY: He denies any tobacco or alcohol or drug use. FAMILY HISTORY: Noncontributory. HOME MEDICATIONS: Reviewed in the chart. ALLERGIES: No known drug allergies. REVIEW OF SYSTEM: CONSTITUTIONAL: Positive for fatigue. EYES: Negative. ENT: Negative. CARDIOVASCULAR: As mentioned above. RESPIRATORY: As mentioned above. NEUROLOGICAL: As mentioned above. GASTROINTESTINAL: Negative. GENITOURINARY: As mentioned above. PSYCHIATRIC: Positive for history of depression and anxiety disorder. DERMATOLOGICAL: Negative. MUSCULOSKELETAL: Positive for frequent joint pain. ENDOCRINE: Negative. PHYSICAL EXAM: Vital signs show a temperature of 97.4, pulse 64, respiration 13, blood pressure 127/60. GENERAL APPEARANCE: The patient is a mildly obese male who appears to be in no acute distress. HEENT: Normocephalic, atraumatic, BiPAP mask is intact, no obvious facial asymmetry is seen. NECK: Supple with no masses felt. CARDIOVASCULAR: Regular rate and rhythm, S2. ABDOMEN: Nontender nondistended. Extremities showed edema with no clubbing seen. Neurological exam the patient is awake, alert, and oriented x3. He does appear to be drowsy. He does move all 4 extremities to command with no lateralizing weakness is seen. Sensory exam appears to be normal to light touch in all 4 extremities. No tremors or seizure-like activity is seen. No obvious facial asymmetry is seen on cranial nerve testing. IMPRESSION: 1. Altered mental status. 2. Acute multifactorial encephalopathy. 3. Chronic renal failure. 4. Acute urinary tract infection. 5. Hypoxia. RECOMMENDATION: The patient was having significant drowsiness and altered mental status which is likely multifactorial, given his renal status, respiratory status, and infectious status. Nephrology is following the patient and if his kidney function does not improve over the next 24 hours, they are contemplating starting hemodialysis. Continue antibiotic therapy for his urinary tract infection. The patient's oxygen saturation is improving on BiPAP as well. An EEG could not be performed due to his continued need of BiPAP. I did review his CT scan of the brain which showed no acute abnormalities. Continue neuro checks. I will continue to follow with you. Further recommendations to follow. Thank you, Dr. Fatima, for allowing me to participate in the care of your patient. If you have any questions, please feel free to contact me. Please send a copy this dictation to Dr. Fatima. MMODL / IJN: [id number] /
[2017-08-19 05:15] LABS: Basophils % (A) 0 %; Eosinophils # (A) 0.2 k/uL (0-0.7); Eosinophils % (A) 3 %; HCT 24.1 % (39.0-53.0); HGB 7.9 gm/dL (13.0-17.5); Lymphocytes # (A) 0.7 k/uL (1.0-4.8); Lymphocytes % (A) 10 %; MCH 29.7 pg (25.0-35.0); MCHC 32.7 g/dL (31.0-37.0); MCV 90.8 fL (80.0-100.0); Mean Platelet Volume 7.8; Monocytes # (A) 0.6 k/uL (0-1.0); Monocytes % (A) 10 %; Neutrophils # (A) 4.7 k/uL (1.3-7.7); Neutrophils % (A) 75 %; Platelet Count 173 k/uL (150-450); RBC 2.65 m/uL (4.30-5.90); RDW 12.7 % (11.5-15.5); WBC 6.3 k/uL (3.8-10.6)
[2017-08-19] MEDS: ALPRAZolam 0.5 MG TAB PO SCH ×4 (05:21→20:59)
[2017-08-19] MEDS: DOCUSATE ORAL SOLN 100 MG/10 ML CUP PO SCH ×2 (05:21→20:59)
[2017-08-19] MEDS: hydrALAZINE HCL 25 MG TAB PO SCH ×3 (05:22→20:58)
[2017-08-19] MEDS: ISOSORBIDE MONONITRATE ER 60 MG TAB.ER.24H PO SCH ×2 (05:22→20:59)
[2017-08-19 05:26] LABS: Albumin 2.7 g/dL (3.5-5.0); Calcium 7.9 mg/dL (8.4-10.2); Magnesium 2.6 mg/dL (1.6-2.3); Phosphorus 7.5 mg/dL (2.5-4.5); Potassium 4.5 mmol/L (3.5-5.1); Total Bilirubin 0.3 mg/dL (0.2-1.3)
[2017-08-19 06:44] LABS: Glucose,Whole Blood 114 mg/dL (75-99)
--- NOTE | 2017-08-19 07:54 | XR ---
EXAMINATION TYPE: XR chest 1V DATE OF EXAM: 08/19/2017 COMPARISON: Prior chest x-ray 08/18/2017 HISTORY: Difficulty breathing TECHNIQUE: Single frontal view of the chest is obtained. FINDINGS: The heart remains enlarged. Interval improved visualization of the right hemidiaphragm not ed. No pneumothorax. There are overlying cardiac leads. IMPRESSION: There is some improvement in aeration. Marked cardiomegaly. Follow-up PA and lateral addy st x-ray recommended.
--- NOTE | 2017-08-19 08:54 | P.PN ---
Subjective Progress Note Date: 08/18/17 (Late entry note, critical care time 35 minutes) Principal diagnosis: Altered mental status encephalopathy, acute hypoxic and hypercapnic respiratory failure, severe COPD and likely component of severe obstructive sleep apnea, status post fall with right hip fracture status post hemiarthroplasty 08/18/2017, patient transferred to the ICU because of altered mental status confusion and increased lethargy patient has been placed on BiPAP 50% oxygen with IPAP of 15 and EPAP of 10 multiple gas on obtained for details please effort to the laboratory data slight improvement in oxygenation ventilation and pH has been noted patient remains nothing by mouth as cannot take by mouth given her poor mental status patient is being kept off of benzodiazepine and narcotics neurology consultation has been initiated given that patient has prior history of TIA, care plan discussed with the primary service as well as staff at length given slight improvement will hold on intubation continue BiPAP keep nothing by mouth and observe patient closely in ICU, laboratory and radiographic studies reviewed X-ray appeared to have chronic bilateral nodularity, basal atelectasis noted as well I was asked to evaluate Mr. Zen simon who is a 87-year-old male seen and evaluated examined on third floor, patient has been on his CPAP which he uses at home for obstructive sleep apnea not much history history can be obtained from the patient as patient is confused state of predominantly has been obtained from the chart as well as the RN, this patient has been admitted into the hospital after a fall and right hip fracture which was closed patient underwent right hip hemiarthroplasty and he is postop day # 3, patient has been short of breath has been confused I was asked to evaluate this patient further His past medical history is significant for coronary artery disease ischemic cardiomyopathy proximal atrial fibrillation severe COPD hypertension hypertensive cardiovascular disease right carotid artery stenosis status post endarterectomy as well as obstructive sleep apnea, Data has been obtained that patient has been confused off all along also has been developed been progressive renal failure prior to the surgery mental status was fairly clear him a chest x-ray performed today reviewed cardiomegaly is seen along with aortic aneurysm otherwise no active infiltrate identified Objective - Vital Signs Vital signs: Vital Signs Temp 99.1 F 08/19/17 04:00 Pulse 71 08/19/17 07:00 Resp 16 08/19/17 07:00 BP 120/58 08/19/17 07:00 Pulse Ox 97 08/19/17 07:00 Intake & Output 08/18/17 08/19/17 08/19/17 18:59 06:59 18:59 Intake Total 925 1100 50 Output Total 810 1325 125 Balance 115 -225 -75 Weight 114.4 kg 116.4 kg Intake: IV 925 600 50 Dextrose 5% in Water 1, 550 600 50 000 ml @ 50 mls/hr IV . Q23H ALICIA with Sodium Bicarb (1 Meq/ml) 150 ml Rx#:[id number] Sodium Chloride 0.9% 1, 375 000 ml @ 75 mls/hr IV . [id number] ALICIA Rx#:[id number] Oral 500 Output: Urine 810 1325 125 Other: Voiding Method Indwelling Catheter Indwelling Catheter - Exam - Constitutional General appearance: disheveled, morbidly obese - EENT Eyes: PERRLA, normal appearance ENT: hard of hearing, normal oropharynx Ears: bilateral: normal - Neck Neck: normal ROM Thyroid: bilateral: normal size - Respiratory Respiratory: bilateral: diminished, negative: dullness, rales, rhonchi, wheezing , prolonged expiration, prolonged inspiration - Cardiovascular Rhythm: regular Heart sounds: normal: S1, S2 - Gastrointestinal General gastrointestinal: decreased bowel sounds, normal bowel sounds, soft - Integumentary Integumentary: normal, normal turgor - Neurologic Neurologic: CNII-XII intact - Musculoskeletal Musculoskeletal: generalized weakness, strength equal bilaterally Patient is awake but oriented 1 only does follow simple commands moving extremity mumbles cannot give a detailed description, patient appears to be tolerating BiPAP machine very well he is slightly more responsive arousable compared to yesterday exam - Labs CBC & Chem 7: 08/19/17 04:27 08/19/17 04:27 Labs: Abnormal Lab Results - Last 24 Hours (Table) 08/18/17 08/18/17 08/18/17 Range/Units 12:02 16:55 23:40 RBC (4.30-5.90) m/uL Hgb (13.0-17.5) gm/dL Hct (39.0-53.0) % Lymphocytes # (1.0-4.8) k/uL ABG pH 7.23 L (7.35-7.45) ABG pCO2 48 H (35-45) mmHg ABG pO2 112 H (83-108) mmHg ABG HCO3 20 L (21-25) mmol/L ABG O2 Saturation 98.4 H (94-97) % Sodium (137-145) mmol/L BUN (9-20) mg/dL Creatinine (0.66-1.25) mg/dL Glucose (74-99) mg/dL POC Glucose (mg/dL) 119 H 114 H (75-99) mg/dL Calcium (8.4-10.2) mg/dL Phosphorus (2.5-4.5) mg/dL Magnesium (1.6-2.3) mg/dL ALT (21-72) U/L Total Protein (6.3-8.2) g/dL Albumin (3.5-5.0) g/dL 08/19/17 08/19/17 08/19/17 Range/Units 04:27 04:27 06:33 RBC 2.65 L (4.30-5.90) m/uL Hgb 7.9 L (13.0-17.5) gm/dL Hct 24.1 L (39.0-53.0) % Lymphocytes # 0.7 L (1.0-4.8) k/uL ABG pH (7.35-7.45) ABG pCO2 (35-45) mmHg ABG pO2 (83-108) mmHg ABG HCO3 (21-25) mmol/L ABG O2 Saturation (94-97) % Sodium 133 L (137-145) mmol/L BUN 106 H* (9-20) mg/dL Creatinine 4.80 H (0.66-1.25) mg/dL Glucose 111 H (74-99) mg/dL POC Glucose (mg/dL) 114 H (75-99) mg/dL Calcium 7.9 L (8.4-10.2) mg/dL Phosphorus 7.5 H (2.5-4.5) mg/dL Magnesium 2.6 H (1.6-2.3) mg/dL ALT 19 L (21-72) U/L Total Protein 5.0 L (6.3-8.2) g/dL Albumin 2.7 L (3.5-5.0) g/dL Microbiology - Last 24 Hours (Table) 08/17/17 14:52 Urine Culture - Final Urine,Catheterized 08/17/17 16:02 Blood Culture - Preliminary Blood No Growth after 24 hours Assessment and Plan Assessment: Postoperative delirium with altered mental status and confusion Altered mental status Acute hypercapnic hypoxic respirator failure Severe COPD emphysema Acute renal failure Status post fall with right hip close fracture Electrolyte imbalance with hyponatremia and hyperkalemia Severe morbid obesity Coronary artery disease and acute on chronic systolic heart failure Plan: Continue breathing treatments Continue BiPAP 15/10 with oxygen to keep saturation 88% Optimize cardiac medications Agree with antibiotics for now Maintain patient on DVT and peptic ulcer disease prophylaxis Avoid narcotics and benzodiazepine as best possible Will get a ABG as needed Continue gentle hydration Observe and monitor patient in ICU Time with Patient: Greater than 30 (Critical care time spent 35 minutes)
--- NOTE | 2017-08-19 08:58 | P.PN ---
Subjective Progress Note Date: 08/19/17 Principal diagnosis: Altered mental status encephalopathy, acute hypoxic and hypercapnic respiratory failure, severe COPD and likely component of severe obstructive sleep apnea, status post fall with right hip fracture status post hemiarthroplasty 08/19/2017, patient seen and evaluated examined in the ICU compared to yesterday mental status and weakness and alert masses improved however patient remains confused he is sitting upright on the bed he is on supplemental oxygen he has been on BiPAP 15/10 all night along with 50% oxygen, chest x-ray from today reviewed and compared with the prior x-ray the radiation has improved basal atelectasis has improved as well Ammann labs from today reviewed and compared with the prior significant improvement and oxygenation ventilation and pH has been noted however BUN continued to rise creatinine is higher range but stable, patient sitting upright on the bed oriented 1-2 fully awake though, patient has been asking for family members especially not fully aware about orientation in time and place 08/18/2017, patient transferred to the ICU because of altered mental status confusion and increased lethargy patient has been placed on BiPAP 50% oxygen with IPAP of 15 and EPAP of 10 multiple gas on obtained for details please effort to the laboratory data slight improvement in oxygenation ventilation and pH has been noted patient remains nothing by mouth as cannot take by mouth given her poor mental status patient is being kept off of benzodiazepine and narcotics neurology consultation has been initiated given that patient has prior history of TIA, care plan discussed with the primary service as well as staff at length given slight improvement will hold on intubation continue BiPAP keep nothing by mouth and observe patient closely in ICU, laboratory and radiographic studies reviewed X-ray appeared to have chronic bilateral nodularity, basal atelectasis noted as well I was asked to evaluate Mr. Zen simon who is a 87-year-old male seen and evaluated examined on third floor, patient has been on his CPAP which he uses at home for obstructive sleep apnea not much history history can be obtained from the patient as patient is confused state of predominantly has been obtained from the chart as well as the RN, this patient has been admitted into the hospital after a fall and right hip fracture which was closed patient underwent right hip hemiarthroplasty and he is postop day # 3, patient has been short of breath has been confused I was asked to evaluate this patient further His past medical history is significant for coronary artery disease ischemic cardiomyopathy proximal atrial fibrillation severe COPD hypertension hypertensive cardiovascular disease right carotid artery stenosis status post endarterectomy as well as obstructive sleep apnea, Data has been obtained that patient has been confused off all along also has been developed been progressive renal failure prior to the surgery mental status was fairly clear him a chest x-ray performed today reviewed cardiomegaly is seen along with aortic aneurysm otherwise no active infiltrate identified Objective - Vital Signs Vital signs: Vital Signs Temp 99.1 F 08/19/17 04:00 Pulse 71 08/19/17 07:00 Resp 16 08/19/17 07:00 BP 120/58 08/19/17 07:00 Pulse Ox 97 08/19/17 07:00 Intake & Output 08/18/17 08/19/17 08/19/17 18:59 06:59 18:59 Intake Total 925 1100 50 Output Total 810 1325 125 Balance 115 -225 -75 Weight 114.4 kg 116.4 kg Intake: IV 925 600 50 Dextrose 5% in Water 1, 550 600 50 000 ml @ 50 mls/hr IV . Q23H ALICIA with Sodium Bicarb (1 Meq/ml) 150 ml Rx#:[id number] Sodium Chloride 0.9% 1, 375 000 ml @ 75 mls/hr IV . [id number] ALICIA Rx#:[id number] Oral 500 Output: Urine 810 1325 125 Other: Voiding Method Indwelling Catheter Indwelling Catheter - Exam - Constitutional General appearance: disheveled, morbidly obese - EENT Eyes: PERRLA, normal appearance ENT: hard of hearing, normal oropharynx Ears: bilateral: normal - Neck Neck: normal ROM Thyroid: bilateral: normal size - Respiratory Respiratory: bilateral: diminished, negative: dullness, rales, rhonchi, wheezing , prolonged expiration, prolonged inspiration, wheezing as noted previously has improved significantly - Cardiovascular Rhythm: regular Heart sounds: normal: S1, S2 - Gastrointestinal General gastrointestinal: decreased bowel sounds, normal bowel sounds, soft - Integumentary Integumentary: normal, normal turgor - Neurologic Neurologic: CNII-XII intact - Musculoskeletal Musculoskeletal: generalized weakness, strength equal bilaterally Patient is awake much alert than previous exam but oriented 1 only does follow simple commands moving extremity mumbles cannot give a detailed description, patient appears to be tolerating BiPAP machine very well he is slightly more responsive arousable compared to yesterday exam - Labs CBC & Chem 7: 08/19/17 04:27 08/19/17 04:27 Labs: Abnormal Lab Results - Last 24 Hours (Table) 08/18/17 08/18/17 08/18/17 Range/Units 12:02 16:55 23:40 RBC (4.30-5.90) m/uL Hgb (13.0-17.5) gm/dL Hct (39.0-53.0) % Lymphocytes # (1.0-4.8) k/uL ABG pH 7.23 L (7.35-7.45) ABG pCO2 48 H (35-45) mmHg ABG pO2 112 H (83-108) mmHg ABG HCO3 20 L (21-25) mmol/L ABG O2 Saturation 98.4 H (94-97) % Sodium (137-145) mmol/L BUN (9-20) mg/dL Creatinine (0.66-1.25) mg/dL Glucose (74-99) mg/dL POC Glucose (mg/dL) 119 H 114 H (75-99) mg/dL Calcium (8.4-10.2) mg/dL Phosphorus (2.5-4.5) mg/dL Magnesium (1.6-2.3) mg/dL ALT (21-72) U/L Total Protein (6.3-8.2) g/dL Albumin (3.5-5.0) g/dL 08/19/17 08/19/17 08/19/17 Range/Units 04:27 04:27 06:33 RBC 2.65 L (4.30-5.90) m/uL Hgb 7.9 L (13.0-17.5) gm/dL Hct 24.1 L (39.0-53.0) % Lymphocytes # 0.7 L (1.0-4.8) k/uL ABG pH (7.35-7.45) ABG pCO2 (35-45) mmHg ABG pO2 (83-108) mmHg ABG HCO3 (21-25) mmol/L ABG O2 Saturation (94-97) % Sodium 133 L (137-145) mmol/L BUN 106 H* (9-20) mg/dL Creatinine 4.80 H (0.66-1.25) mg/dL Glucose 111 H (74-99) mg/dL POC Glucose (mg/dL) 114 H (75-99) mg/dL Calcium 7.9 L (8.4-10.2) mg/dL Phosphorus 7.5 H (2.5-4.5) mg/dL Magnesium 2.6 H (1.6-2.3) mg/dL ALT 19 L (21-72) U/L Total Protein 5.0 L (6.3-8.2) g/dL Albumin 2.7 L (3.5-5.0) g/dL Microbiology - Last 24 Hours (Table) 08/17/17 14:52 Urine Culture - Final Urine,Catheterized 08/17/17 16:02 Blood Culture - Preliminary Blood No Growth after 24 hours Assessment and Plan Assessment: Postoperative delirium with altered mental status and confusion Altered mental status Acute hypercapnic hypoxic respirator failure Severe COPD emphysema Acute renal failure Status post fall with right hip close fracture Electrolyte imbalance with hyponatremia and hyperkalemia Severe morbid obesity Coronary artery disease and acute on chronic systolic heart failure Plan: Continue breathing treatments Continue BiPAP 15/10 with oxygen to keep saturation 88% Optimize cardiac medications Agree with antibiotics for now Maintain patient on DVT and peptic ulcer disease prophylaxis Avoid narcotics and benzodiazepine as best possible Will get a ABG as needed Continue gentle hydration Observe and monitor patient in ICU Time with Patient: Greater than 30 (Critical care time spent 35 minutes)
[2017-08-19] MEDS: IPRATROPIUM-ALBUTEROL 3 ML NEB INHALATION SCH ×4 (09:17→21:16)
[2017-08-19] MEDS: METOPROLOL TARTRATE 12.5 MG TAB PO SCH ×2 (09:33→20:59)
[2017-08-19] MEDS: PANTOPRAZOLE 40 MG/10 ML VIAL IV SCH (09:33)
[2017-08-19] MEDS: CALCIUM ACETATE 667 MG CAP PO SCH ×3 (09:34→17:01)
[2017-08-19] MEDS: FUROSEMIDE 10 MG/ML 4 ML VIAL IV SCH (09:35)
[2017-08-19] MEDS: LORATADINE 10 MG TAB PO SCH (09:35)
[2017-08-19] MEDS: cefTRIAXone IN SWFI 1,000 MG/10 ML SYRINGE IVP SCH (09:36)
--- NOTE | 2017-08-19 09:55 | P.PN ---
Subjective Progress Note Date: 08/19/17 Principal diagnosis: Right hip hemiarthroplasty This is an 87 year-old male post right hip hemiarthroplasty. This is post-op day 5. The patient was evaluated at the bedside today in ICU. The patient was transferred to ICU due to altered mental status and abnormal ABGs. His mental status has improved and he will most likely be transferred out of ICU today. The patient denies nausea, vomiting, abdominal pain, shortness of breath , and chest pain this morning. He states his pain is controlled at this time. Objective - Vital Signs Vital signs: Vital Signs Temp 99.2 F 08/19/17 08:00 Pulse 73 08/19/17 09:28 Resp 19 08/19/17 09:00 BP 122/55 08/19/17 09:00 Pulse Ox 96 08/19/17 09:00 Intake & Output 08/18/17 08/19/17 08/19/17 18:59 06:59 18:59 Intake Total 925 1100 150 Output Total 810 1325 385 Balance 115 -225 -235 Weight 114.4 kg 116.4 kg Intake: IV 925 600 150 Dextrose 5% in Water 1, 550 600 150 000 ml @ 50 mls/hr IV . Q23H ALICIA with Sodium Bicarb (1 Meq/ml) 150 ml Rx#:[id number] Sodium Chloride 0.9% 1, 375 000 ml @ 75 mls/hr IV . [id number] ALICIA Rx#:[id number] Oral 500 Output: Urine 810 1325 385 Other: Voiding Method Indwelling Catheter Indwelling Catheter Indwelling Catheter - Exam The patient does not appear in acute distress. Alert and orientated x3. Dressing is clean dry and intact. Incision appears fine with no erythema or active drainage. Calf is soft and nontender. Good foot and ankle motion without difficulty. Sensation and circulatory status is intact. - Labs CBC & Chem 7: 08/19/17 04:27 08/19/17 04:27 Labs: Abnormal Lab Results - Last 24 Hours (Table) 08/18/17 08/18/17 08/18/17 Range/Units 12:02 16:55 23:40 RBC (4.30-5.90) m/uL Hgb (13.0-17.5) gm/dL Hct (39.0-53.0) % Lymphocytes # (1.0-4.8) k/uL ABG pH 7.23 L (7.35-7.45) ABG pCO2 48 H (35-45) mmHg ABG pO2 112 H (83-108) mmHg ABG HCO3 20 L (21-25) mmol/L ABG O2 Saturation 98.4 H (94-97) % Sodium (137-145) mmol/L BUN (9-20) mg/dL Creatinine (0.66-1.25) mg/dL Glucose (74-99) mg/dL POC Glucose (mg/dL) 119 H 114 H (75-99) mg/dL Calcium (8.4-10.2) mg/dL Phosphorus (2.5-4.5) mg/dL Magnesium (1.6-2.3) mg/dL ALT (21-72) U/L Total Protein (6.3-8.2) g/dL Albumin (3.5-5.0) g/dL 08/19/17 08/19/17 08/19/17 Range/Units 04:27 04:27 06:33 RBC 2.65 L (4.30-5.90) m/uL Hgb 7.9 L (13.0-17.5) gm/dL Hct 24.1 L (39.0-53.0) % Lymphocytes # 0.7 L (1.0-4.8) k/uL ABG pH (7.35-7.45) ABG pCO2 (35-45) mmHg ABG pO2 (83-108) mmHg ABG HCO3 (21-25) mmol/L ABG O2 Saturation (94-97) % Sodium 133 L (137-145) mmol/L BUN 106 H* (9-20) mg/dL Creatinine 4.80 H (0.66-1.25) mg/dL Glucose 111 H (74-99) mg/dL POC Glucose (mg/dL) 114 H (75-99) mg/dL Calcium 7.9 L (8.4-10.2) mg/dL Phosphorus 7.5 H (2.5-4.5) mg/dL Magnesium 2.6 H (1.6-2.3) mg/dL ALT 19 L (21-72) U/L Total Protein 5.0 L (6.3-8.2) g/dL Albumin 2.7 L (3.5-5.0) g/dL Microbiology - Last 24 Hours (Table) 08/17/17 14:52 Urine Culture - Final Urine,Catheterized 08/17/17 16:02 Blood Culture - Preliminary Blood No Growth after 24 hours Assessment and Plan (1) Closed right hip fracture Current Visit: Yes Status: Acute Code(s): S72.001A - FRACTURE OF UNSP PART OF NECK OF RIGHT FEMUR, INIT SNOMED Code(s): 042301988 (2) S/P hip hemiarthroplasty Current Visit: Yes Status: Acute Code(s): Z96.649 - PRESENCE OF UNSPECIFIED ARTIFICIAL HIP JOINT SNOMED Code(s): 103775526 Plan: 1. Continue pain control 2. Anticoagulation with Coumadin per internal medicine 3. Continue physical therapy and ambulation 4. Anticipate discharge to skilled rehab when medically cleared.
[2017-08-19 12:14] LABS: Glucose,Whole Blood 118 mg/dL (75-99)
[2017-08-19] MEDS: amLODIPine 10 MG TAB PO SCH (12:33)
--- NOTE | 2017-08-19 16:10 | PN ---
PROGRESS NOTE Patient is seen for followup for chronic kidney disease and acute kidney injury. His mentation has improved since yesterday. He did recognize me as well. Renal function is about the same with creatinine staying at 4.8. Patient has good urine output. He is currently maintained on Lasix 40 mg IV q.12 hours. The patient's respiratory status has improved as well. He is not on the BiPAP anymore and there are plans to move him down to the surgical floor from the ICU. I did discuss again renal replacement therapy with the patient and he states that he prefers PD, but if he has to start hemodialysis initially he is agreeable to it. At this time, I have told him that I have discussed with him that his renal function is stable and in view of improving mentation, there is no need to initiate dialysis. We will continue to monitor on a daily basis. PHYSICAL EXAMINATION: On examination today, blood pressure is 120/55, heart rate 70 per minute. Patient is afebrile. Examination of the heart: S1, S2. Examination lungs: Bilateral breath sounds are heard. Decreased breath sounds at bases. Abdomen is soft, morbidly obese. Examination lower extremity shows trace edema bilaterally. [employer] exam is grossly intact. Patient moving all 4 extremities. Right hip wound is currently dressed. LAB: Show sodium 133, potassium 4.5, BUN 106, serum creatinine 4.8, glucose of 111, hemoglobin 7.9 g/dL. ASSESSMENT: 1. Acute kidney injury on top of chronic kidney disease, most likely acute tubular necrosis, currently nonoliguric and may be a component of cardiorenal syndrome as well. The patient is currently maintained on Lasix. His respiratory status has improved. I will decrease the Lasix to once a day. There is improvement on his chest x-ray as well. No need to start renal replacement therapy. We will continue to monitor on a daily basis particularly in view of improved mentation. 2. Encephalopathy, currently improved. 3. 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 4. Non gap metabolic acidosis secondary to renal failure, currently on IV bicarb which can be discontinued. 5. Status post right hip arthroplasty for fracture after a fall. 6. Chronic kidney disease and NKF stage IV secondary to nephrosclerosis with baseline creatinine about 3 mg/dL with plans for peritoneal dialysis down the road. 7. Coronary artery disease with ejection fraction 60%. 8. Obstructive sleep apnea. PLAN: Decrease Lasix. DC IV bicarb. Will maintain patient on Aranesp and continue with the PhosLo. Patient is stable for transfer out of the ICU. ROMAL / IJN: [id number] /
--- NOTE | 2017-08-19 16:41 | P.PN ---
Subjective Progress Note Date: 08/19/17 Principal diagnosis: Altered mental status This is an 87-year-old male continuing to be evaluated by the neurology service for altered mental status. Recall that he is status post right sided orthopedic surgery for a hip fracture. Since the surgery he had been having worsening shortness of breath and mental status changes. He was transferred to the intensive care unit and placed on BiPAP. Computed tomography scan of the brain was done and showed generalized atrophy and no acute intracranial abnormalities. He did have some significant anemia. He also had some fairly significant metabolic abnormalities which are being reversed. He had a creatinine of 4.8 and BUN of 98 and this is improving. He has a history of chronic renal.. At the time of my evaluation he is laying in the ICU bed in no acute distress. Objective - Vital Signs Vital signs: Vital Signs Temp 99.1 F 08/19/17 16:00 Pulse 76 08/19/17 16:02 Resp 17 08/19/17 16:00 BP 142/62 08/19/17 16:00 Pulse Ox 100 08/19/17 16:00 Intake & Output 08/18/17 08/19/17 08/19/17 18:59 06:59 18:59 Intake Total 925 1100 400 Output Total 810 1325 1045 Balance 115 -225 -645 Weight 114.4 kg 116.4 kg Intake: IV 925 600 400 Dextrose 5% in Water 1, 550 600 400 000 ml @ 50 mls/hr IV . Q23H ALICIA with Sodium Bicarb (1 Meq/ml) 150 ml Rx#:[id number] Sodium Chloride 0.9% 1, 375 000 ml @ 75 mls/hr IV . [id number] ALICIA Rx#:[id number] Oral 500 Output: Urine 810 1325 1045 Other: Voiding Method Indwelling Catheter Indwelling Catheter Indwelling Catheter - Constitutional General appearance: Present: cooperative, mild distress, obese - EENT Eyes: Present: EOMI, PERRLA. Absent: abnormal pupil, ptosis ENT: Present: hearing grossly normal - Neck Neck: Present: normal ROM. Absent: rigidity - Respiratory Respiratory: negative: prolonged expiration, prolonged inspiration - Cardiovascular Rhythm: regular - Gastrointestinal General gastrointestinal: Absent: distended, tenderness - Neurologic Neurologic Comment(s): Is alert awake and oriented 3. Speech and language are normal. There is no facial asymmetry. There is no lateralizing weakness. There is no sensory deficit in any extremity. No tremors or seizure-like activities are seen. - Labs CBC & Chem 7: 08/19/17 04:27 08/19/17 04:27 Labs: Abnormal Lab Results - Last 24 Hours (Table) 08/18/17 08/18/17 08/19/17 Range/Units 16:55 23:40 04:27 RBC 2.65 L (4.30-5.90) m/uL Hgb 7.9 L (13.0-17.5) gm/dL Hct 24.1 L (39.0-53.0) % Lymphocytes # 0.7 L (1.0-4.8) k/uL ABG pH 7.23 L (7.35-7.45) ABG pCO2 48 H (35-45) mmHg ABG pO2 112 H (83-108) mmHg ABG HCO3 20 L (21-25) mmol/L ABG O2 Saturation 98.4 H (94-97) % Sodium (137-145) mmol/L BUN (9-20) mg/dL Creatinine (0.66-1.25) mg/dL Glucose (74-99) mg/dL POC Glucose (mg/dL) 114 H (75-99) mg/dL Calcium (8.4-10.2) mg/dL Phosphorus (2.5-4.5) mg/dL Magnesium (1.6-2.3) mg/dL ALT (21-72) U/L Total Protein (6.3-8.2) g/dL Albumin (3.5-5.0) g/dL 08/19/17 08/19/17 08/19/17 Range/Units 04:27 06:33 11:54 RBC (4.30-5.90) m/uL Hgb (13.0-17.5) gm/dL Hct (39.0-53.0) % Lymphocytes # (1.0-4.8) k/uL ABG pH (7.35-7.45) ABG pCO2 (35-45) mmHg ABG pO2 (83-108) mmHg ABG HCO3 (21-25) mmol/L ABG O2 Saturation (94-97) % Sodium 133 L (137-145) mmol/L BUN 106 H* (9-20) mg/dL Creatinine 4.80 H (0.66-1.25) mg/dL Glucose 111 H (74-99) mg/dL POC Glucose (mg/dL) 114 H 118 H (75-99) mg/dL Calcium 7.9 L (8.4-10.2) mg/dL Phosphorus 7.5 H (2.5-4.5) mg/dL Magnesium 2.6 H (1.6-2.3) mg/dL ALT 19 L (21-72) U/L Total Protein 5.0 L (6.3-8.2) g/dL Albumin 2.7 L (3.5-5.0) g/dL Microbiology - Last 24 Hours (Table) 08/17/17 14:52 Urine Culture - Final Urine,Catheterized 08/17/17 16:02 Blood Culture - Preliminary Blood No Growth after 24 hours Assessment and Plan (1) Altered mental status Current Visit: Yes Status: Acute Code(s): R41.82 - ALTERED MENTAL STATUS, UNSPECIFIED SNOMED Code(s): 419972368 (2) Metabolic encephalopathy Current Visit: Yes Status: Acute Code(s): G93.41 - METABOLIC ENCEPHALOPATHY SNOMED Code(s): 53490157 (3) Hypoxemia Current Visit: Yes Status: Acute Code(s): R09.02 - HYPOXEMIA SNOMED Code(s ): 074644490 (4) Closed right hip fracture Current Visit: Yes Status: Acute Code(s): S72.001A - FRACTURE OF UNSP PART OF NECK OF RIGHT FEMUR, INIT SNOMED Code(s): 688829662 (5) Dyspnea Current Visit: No Status: Resolved Code(s): R06.00 - DYSPNEA, UNSPECIFIED SNOMED Code(s): 498005399 (6) Renal insufficiency Current Visit: No Status: Chronic Code(s): N28.9 - DISORDER OF KIDNEY AND URETER, UNSPECIFIED SNOMED Code(s): 855264451 Plan: His mental status is likely from multifactorial encephalopathy. Mostly from his hypoxemia, renal status, and possible infectious etiology. He is improving. Nephrology will continue to follow. Orthopedics will continue to follow. Continue antibiotics. Recall that an EEG cannot be performed due to his BiPAP. They did retry in were able to complete the test. We will see if on data was obtained for interpretation. Continue neurological checks. No further neurological workup is warranted at this time. Barring any unforeseen abnormalities on his EEG he would be cleared from a neurological standpoint, and we can be contacted on as-needed basis for any changes in his neurological status. I have performed a history and physical on the above patient. I have reviewed the above note, and agree.
[2017-08-19] MEDS: WARFARIN 5 MG TAB PO SCH (17:01)
[2017-08-19] MEDS ORDERED: DARBEPOETIN ALFA 40 MCG/0.4 ML SYRINGE SQ SCH (18:00)
--- NOTE | 2017-08-19 20:07 | PN ---
PROGRESS NOTE DATE OF SERVICE: 08/19/2017 REASON FOR FOLLOW UP: Urinary tract infection. INTERVAL HISTORY: The patient is afebrile. He seems to be more awake alert today. He is breathing comfortably. Denies having any chest pain. No cough. No abdominal pain or any diarrhea. PHYSICAL EXAMINATION: Blood pressure is 152/82 with a pulse of 81, temperature of 97. He is 96% on 2 L nasal cannula. General description is an elderly male lying in bed in no distress. RESPIRATORY SYSTEM: Unlabored breathing. Clear to auscultation anteriorly. HEART: S1, S2. Regular rate and rhythm. ABDOMEN: Soft. No tenderness. LABS: Hemoglobin is 7.9, white count 6.3 with a BUN of 106, creatinine 4.80. UA is so far negative. DIAGNOSTIC IMPRESSION AND PLAN: Patient with mental status changes, likely multifactorial, in this patient who did have evidence of acute renal failure in addition to the chronic obstructive pulmonary disease exacerbation plus-minus a component of urinary tract infection, currently covered with Rocephin. Cultures have been negative so far. Hopefully will continue with a short course of antibiotic therapy ,while waiting for his condition to stabilize. Continue supportive care. Family present at bedside. Their questions were answered. MMODL / IJN: [id number] / ALEX
[2017-08-19] MEDS: PRAVASTATIN SODIUM 40 MG TAB PO SCH (20:59)
[2017-08-19] MEDS: SENNOSIDES-DOCUSATE SODIUM 1 EACH TAB PO SCH (21:03)
[2017-08-20] MEDS: SODIUM FERRIC GLUCONAT-SUCROSE 125 MG in SODIUM CHLORIDE 0.9% 100 ML IVPB SCH ×2 (00:15→10:07)
--- NOTE | 2017-08-20 02:42 | PN ---
PROGRESS NOTE ICU time: 30 minutes. SUBJECTIVE: 87-year-old, white male admitted to the hospital with right hip fracture, delirium due to worsening renal function, acute hypoxemic respiratory failure secondary to CO2 retention is improving with BiPAP. He is more alert today and will be able to be transferred out of the ICU today. His hemoglobin is 7.9, white count 6.3, sodium was 133, BUN 106, creatinine is 4.8. His sugars are low 100s. Albumin is 2.7. ASSESSMENT: 1. End-stage renal failure, chronic kidney disease stage 4. Plan: The patient is refusing dialysis. He is more alert, improving. He is recognizing people today. 2. Acute tubular necrosis. 3. Cardiorenal syndrome. He is on Lasix. His Lasix is being cut down to once a day from twice a day. Chest x-ray shows improvement. Continue to monitor current mentation and possible rehab next 24 to 48 hours over to the rehab unit. 4. Encephalopathy is improved. 5. Possible for chronic kidney disease. 6. Non-anion gap metabolic acidosis secondary to renal failure, on IV bicarb. 7. Status post right hip arthroscopy. 8. Chronic kidney disease stage 4. 9. Coronary artery disease, ejection fraction 60%. 10.Obstructive sleep apnea. The patient will be improved to get PT, OT, and possible discharge home. Hemoglobin is stabilized. Some iron infusion will be given today. ICU time 30 minutes. MMWESTL / HELEN: [id number] /
[2017-08-20] MEDS: ALPRAZolam 0.5 MG TAB PO SCH ×4 (05:36→20:47)
[2017-08-20] MEDS: ISOSORBIDE MONONITRATE ER 60 MG TAB.ER.24H PO SCH ×2 (05:36→20:47)
[2017-08-20] MEDS: hydrALAZINE HCL 25 MG TAB PO SCH ×3 (05:36→20:47)
[2017-08-20] MEDS: DOCUSATE ORAL SOLN 100 MG/10 ML CUP PO SCH ×2 (05:36→20:46)
[2017-08-20] MEDS: IPRATROPIUM-ALBUTEROL 3 ML NEB INHALATION SCH ×4 (07:12→19:58)
--- NOTE | 2017-08-20 07:29 | XR ---
EXAMINATION TYPE: XR chest 1V DATE OF EXAM: 08/20/2017 HISTORY: difficulty breathing. REFERENCE: Previous study dated 08/19/2017. FINDINGS: The heart is enlarged. The study is rotated. This gives increased opacity to the right ches t. The lungs appear clear. Pleural spaces are clear. IMPRESSION: 1. ROTATED STUDY. 2. CARDIOMEGALY.
[2017-08-20 08:11] LABS: Basophils % (A) 0 %; Eosinophils # (A) 0.2 k/uL (0-0.7); Eosinophils % (A) 3 %; HCT 26.1 % (39.0-53.0); HGB 8.1 gm/dL (13.0-17.5); Lymphocytes # (A) 0.8 k/uL (1.0-4.8); Lymphocytes % (A) 11 %; MCH 28.7 pg (25.0-35.0); MCHC 30.9 g/dL (31.0-37.0); MCV 93.1 fL (80.0-100.0); Mean Platelet Volume 7.2; Monocytes # (A) 0.8 k/uL (0-1.0); Monocytes % (A) 11 %; Neutrophils # (A) 5.5 k/uL (1.3-7.7); Neutrophils % (A) 73 %; Platelet Count 202 k/uL (150-450); RDW 12.6 % (11.5-15.5); WBC 7.5 k/uL (3.8-10.6)
[2017-08-20 08:13] LABS: INR 1.5 (<1.2); Prothrombin Time 13.7 sec (9.0-12.0)
[2017-08-20 08:33] LABS: Albumin 2.8 g/dL (3.5-5.0); Calcium 8.3 mg/dL (8.4-10.2); Magnesium 2.5 mg/dL (1.6-2.3); Phosphorus 6.7 mg/dL (2.5-4.5); Potassium 4.4 mmol/L (3.5-5.1); Total Bilirubin 0.3 mg/dL (0.2-1.3); Total Protein 5.2 g/dL (6.3-8.2)
--- NOTE | 2017-08-20 09:11 | DS ---
DISCHARGE SUMMARY ADDENDUM: DIAGNOSES: 1. Severe anemia. Postoperative anemia as expected postprocedural postsurgical anemia combined with worsening renal failure, anemia secondary to worsening renal failure. MMODL / IJN: [id number] / [facility]#: [id number]
[2017-08-20] MEDS: FUROSEMIDE 10 MG/ML 4 ML VIAL IV SCH (09:22)
[2017-08-20] MEDS: CALCIUM ACETATE 667 MG CAP PO SCH ×3 (09:22→17:36)
[2017-08-20] MEDS: LORATADINE 10 MG TAB PO SCH (09:22)
[2017-08-20] MEDS: METOPROLOL TARTRATE 12.5 MG TAB PO SCH ×2 (09:23→20:46)
[2017-08-20] MEDS: PANTOPRAZOLE 40 MG/10 ML VIAL IV SCH (09:23)
[2017-08-20] MEDS: cefTRIAXone IN SWFI 1,000 MG/10 ML SYRINGE IVP SCH (10:07)
--- NOTE | 2017-08-20 12:13 | P.PN ---
Subjective Progress Note Date: 08/20/17 Principal diagnosis: Altered mental status encephalopathy, acute delirium postoperative, acute hypoxic and hypercapnic respiratory failure, severe COPD and likely component of severe obstructive sleep apnea, status post fall with right hip fracture status post hemiarthroplasty 08/20/2017, patient seen and evaluated examined in fourth floor patient is out of ICU now slightly more awake today oriented almost 2 now able to follow simple commands moving all 4 extremity but however does get anxious and slightly agitated breathing relatively more comfortably off note that patient did not use the BiPAP machine last night I feel that patient would be better off using the BiPAP is slight less pressure compared to used in ICU will use 10/ 5 BiPAP with supplemental oxygen keep saturation over 88-90% each night and when necessary during the day care plan discussed with the respiratory therapy as well as RN at length, maintain patient on DVT prophylaxis and peptic ulcer disease prophylaxis in addition patient will benefit off getting up and moving around with aggressive physical therapy but needs to be monitor observe for fall precautions 08/19/2017, patient seen and evaluated examined in the ICU compared to yesterday mental status and weakness and alert masses improved however patient remains confused he is sitting upright on the bed he is on supplemental oxygen he has been on BiPAP 15/10 all night along with 50% oxygen, chest x-ray from today reviewed and compared with the prior x-ray the radiation has improved basal atelectasis has improved as well Ammann labs from today reviewed and compared with the prior significant improvement and oxygenation ventilation and pH has been noted however BUN continued to rise creatinine is higher range but stable, patient sitting upright on the bed oriented 1-2 fully awake though, patient has been asking for family members especially not fully aware about orientation in time and place 08/18/2017, patient transferred to the ICU because of altered mental status confusion and increased lethargy patient has been placed on BiPAP 50% oxygen with IPAP of 15 and EPAP of 10 multiple gas on obtained for details please effort to the laboratory data slight improvement in oxygenation ventilation and pH has been noted patient remains nothing by mouth as cannot take by mouth given her poor mental status patient is being kept off of benzodiazepine and narcotics neurology consultation has been initiated given that patient has prior history of TIA, care plan discussed with the primary service as well as staff at length given slight improvement will hold on intubation continue BiPAP keep nothing by mouth and observe patient closely in ICU, laboratory and radiographic studies reviewed X-ray appeared to have chronic bilateral nodularity, basal atelectasis noted as well I was asked to evaluate Mr. Zen simon who is a 87-year-old male seen and evaluated examined on third floor, patient has been on his CPAP which he uses at home for obstructive sleep apnea not much history history can be obtained from the patient as patient is confused state of predominantly has been obtained from the chart as well as the RN, this patient has been admitted into the hospital after a fall and right hip fracture which was closed patient underwent right hip hemiarthroplasty and he is postop day # 3, patient has been short of breath has been confused I was asked to evaluate this patient further His past medical history is significant for coronary artery disease ischemic cardiomyopathy proximal atrial fibrillation severe COPD hypertension hypertensive cardiovascular disease right carotid artery stenosis status post endarterectomy as well as obstructive sleep apnea, Data has been obtained that patient has been confused off all along also has been developed been progressive renal failure prior to the surgery mental status was fairly clear him a chest x-ray performed today reviewed cardiomegaly is seen along with aortic aneurysm otherwise no active infiltrate identified Objective - Vital Signs Vital signs: Vital Signs Temp 97.5 F L 08/20/17 06:15 Pulse 68 08/20/17 11:24 Resp 16 08/20/17 06:15 BP 171/72 08/20/17 06:15 Pulse Ox 95 08/20/17 06:15 Intake & Output 08/19/17 08/20/17 08/20/17 18:59 06:59 18:59 Intake Total 400 Output Total 1045 2500 Balance -645 -2500 Intake: IV 400 Dextrose 5% in Water 1, 400 000 ml @ 50 mls/hr IV . Q23H ALICIA with Sodium Bicarb (1 Meq/ml) 150 ml Rx#:[id number] Output: Urine 1045 2500 Other: Voiding Method Indwelling Catheter Indwelling Catheter Indwelling Catheter - Exam - Constitutional General appearance: disheveled, morbidly obese - EENT Eyes: PERRLA, normal appearance ENT: hard of hearing, normal oropharynx Ears: bilateral: normal - Neck Neck: normal ROM Thyroid: bilateral: normal size - Respiratory Respiratory: bilateral: diminished, negative: dullness, rales, rhonchi, wheezing , prolonged expiration, prolonged inspiration, wheezing as noted previously has improved significantly - Cardiovascular Rhythm: regular Heart sounds: normal: S1, S2 - Gastrointestinal General gastrointestinal: decreased bowel sounds, normal bowel sounds, soft - Integumentary Integumentary: normal, normal turgor - Neurologic Neurologic: CNII-XII intact - Musculoskeletal Musculoskeletal: generalized weakness, strength equal bilaterally Patient is awake much alert than previous exam but oriented 2 only does follow simple commands moving extremity mumbles cannot give a detailed description, patient appears to be tolerating current therapy and interventions very well he is slightly more responsive arousable compared to yesterday exam - Labs CBC & Chem 7: 08/20/17 07:20 08/20/17 07:20 Labs: Abnormal Lab Results - Last 24 Hours (Table) 08/19/17 08/20/17 08/20/17 Range/Units 11:54 07:20 07:20 RBC 2.80 L (4.30-5.90) m/uL Hgb 8.1 L (13.0-17.5) gm/dL Hct 26.1 L (39.0-53.0) % MCHC 30.9 L (31.0-37.0) g/dL Lymphocytes # 0.8 L (1.0-4.8) k/uL PT (9.0-12.0) sec INR (<1.2) Sodium 136 L (137-145) mmol/L BUN 108 H* (9-20) mg/dL Creatinine 4.47 H (0.66-1.25) mg/dL Glucose 104 H (74-99) mg/dL POC Glucose (mg/dL) 118 H (75-99) mg/dL Calcium 8.3 L (8.4-10.2) mg/dL Phosphorus 6.7 H (2.5-4.5) mg/dL Magnesium 2.5 H (1.6-2.3) mg/dL Total Protein 5.2 L (6.3-8.2) g/dL Albumin 2.8 L (3.5-5.0) g/dL 08/20/17 Range/Units 07:20 RBC (4.30-5.90) m/uL Hgb (13.0-17.5) gm/dL Hct (39.0-53.0) % MCHC (31.0-37.0) g/dL Lymphocytes # (1.0-4.8) k/uL PT 13.7 H (9.0-12.0) sec INR 1.5 H (<1.2) Sodium (137-145) mmol/L BUN (9-20) mg/dL Creatinine (0.66-1.25) mg/dL Glucose (74-99) mg/dL POC Glucose (mg/dL) (75-99) mg/dL Calcium (8.4-10.2) mg/dL Phosphorus (2.5-4.5) mg/dL Magnesium (1.6-2.3) mg/dL Total Protein (6.3-8.2) g/dL Albumin (3.5-5.0) g/dL Microbiology - Last 24 Hours (Table) 08/17/17 16:02 Blood Culture - Preliminary Blood No Growth after 48 hours - Imaging and Cardiology Chest x-ray: report reviewed, image reviewed (Cardiomegaly along with COPD-like changes, renal functions overall remains stable renal failure is stage V) Assessment and Plan Assessment: Postoperative delirium with altered mental status and confusion Altered mental status Acute hypercapnic hypoxic respirator failure Severe COPD emphysema Acute renal failure stage V overall stable at the start no further worsening has been noted Status post fall with right hip close fracture Electrolyte imbalance with hyponatremia and hyperkalemia Severe morbid obesity Coronary artery disease and acute on chronic systolic heart failure Plan: Continue breathing treatments Continue BiPAP 10/5 with oxygen to keep saturation 88% each night and when necessary during the day Optimize cardiac medications Agree with antibiotics for now Maintain patient on DVT and peptic ulcer disease prophylaxis Avoid narcotics and benzodiazepine as best possible Increase physical activity as tolerated Observe and monitor patient in medical floor Time with Patient: Greater than 30
[2017-08-20] MEDS: amLODIPine 10 MG TAB PO SCH (12:41)
[2017-08-20] MEDS: MAGNESIUM HYDROXIDE 2,400 MG/10 ML CUP PO PRN (12:54)
[2017-08-20] MEDS ORDERED: traMADol 50 MG TAB PO PRN (14:23)
[2017-08-20] MEDS: WARFARIN 5 MG TAB PO SCH (17:36)
--- NOTE | 2017-08-20 17:41 | PN ---
PROGRESS NOTE DATE OF SERVICE: 08/20/2017. REASON FOR FOLLOWUP: Possible UTI. INTERVAL HISTORY: The patient is afebrile. He is currently seems more sleepy today per the family members present at bedside. However, easily arousable, seemed to be pleasantly confused. No nausea or vomiting has been noticed or any diarrhea. EXAMINATION: Blood pressure 140/70 with a pulse of 58, temperature 97.1. He is 96% on 2 L nasal cannula. General description is a elderly male lying in bed in no distress. RESPIRATORY SYSTEM: Unlabored breathing. Clear to auscultation anteriorly. HEART: S1, S2. Regular rate and rhythm. ABDOMEN: Soft, no tenderness. LABS: Hemoglobin 8.1, white count 7.5 with a BUN of 108, creatinine 4.47. DIAGNOSTIC IMPRESSION AND PLAN: Patient with mental status changes multifactorial in this patient with possible urinary tract infection. Underlying infection has been adequately treated with repeat urinalysis so far negative. Recommend to discontinue Rocephin at time of discharge. Continue supportive care. Son was present at bedside. His questions were answered. MMODL / IJN: [id number] /
--- NOTE | 2017-08-20 18:38 | PN ---
PROGRESS NOTE Patient is seen for followup for chronic kidney disease and acute kidney injury. Patient's serum creatinine is slightly better with creatinine down to 4.47 from 4.8 yesterday. He has been transferred out of the ICU. His mentation has also improved. EXAMINATION: Blood pressure is 140/70, heart rate 68 per minute. He is afebrile. Examination of the heart S1, S2. Examination of the lungs bilateral breath sounds are heard. ABDOMEN: Soft, nontender, distended. Examination lower extremities shows no significant edema. LAB: Show sodium 136, potassium 4.4, chloride 100, BUN 108, serum creatinine 4.47, phosphorus is 6.7 mg/dL. ASSESSMENT: 1. Chronic kidney disease, NKF stage IV secondary to diabetic nephropathy and nephrosclerosis. 2. Acute kidney injury. Nonoliguric acute tubular necrosis with some improvement in serum creatinine today. Patient has good urine output. He is maintained on Lasix, which was decreased to once a day yesterday. 3. Volume overload, currently improved. 4. Metabolic acidosis, now resolved. 5. Status post right hip arthroplasty for fracture after a fall. 6. Coronary artery disease with ejection fraction 60%. 7. Obstructive sleep apnea. 8. Chronic kidney disease mineral bone disorder and hyperphosphatemia, maintained on PhosLo. 9. Iron deficiency currently on IV iron. PLAN: 1. No plans for initiating dialysis this admission unless mentation worsens again or renal function deteriorates. 2. Continue to encourage increased oral intake. 3. Continue current dose of Lasix. MMODL / IJN: [id number] /
--- NOTE | 2017-08-20 20:03 | P.PN ---
Subjective Progress Note Date: 08/20/17 Principal diagnosis: s/p right hip fracture repair with hemiarthroplasty This is an 87 year-old male post right hip hemiarthroplasty. This is post-op day 6. The patient was evaluated at the bedside today. His mental status has improved but continues to have some confusion. He denies new complaints. The patient denies nausea, vomiting, abdominal pain, shortness of breath, and chest pain this morning. He states his pain is controlled at this time. Objective - Vital Signs Vital signs: Vital Signs Temp 97.1 F L 08/20/17 15:00 Pulse 71 08/20/17 16:47 Resp 16 08/20/17 16:47 BP 140/70 08/20/17 15:00 Pulse Ox 98 08/20/17 16:36 Intake & Output 08/20/17 08/20/17 08/21/17 06:59 18:59 06:59 Intake Total 1000 Output Total 2500 2450 Balance -2500 -1450 Intake: Oral 1000 Output: Urine 2500 2450 Other: Voiding Method Indwelling Catheter Indwelling Catheter # Voids 2 - Exam Inspection reveals a benign surgical wound. There is no active bleeding or drainage. Neurovascular status is intact throughout the lower extremity with motor and sensation fully intact. Calf is soft and nontender. 2+ dorsalis pedis pulse and less than 2 second cap refill is present - Constitutional General appearance: Present: no acute distress - Labs CBC & Chem 7: 08/20/17 07:20 08/20/17 07:20 Labs: Abnormal Lab Results - Last 24 Hours (Table) 08/20/17 08/20/17 08/20/17 Range/Units 07:20 07:20 07:20 RBC 2.80 L (4.30-5.90) m/uL Hgb 8.1 L (13.0-17.5) gm/dL Hct 26.1 L (39.0-53.0) % MCHC 30.9 L (31.0-37.0) g/dL Lymphocytes # 0.8 L (1.0-4.8) k/uL PT 13.7 H (9.0-12.0) sec INR 1.5 H (<1.2) Sodium 136 L (137-145) mmol/L BUN 108 H* (9-20) mg/dL Creatinine 4.47 H (0.66-1.25) mg/dL Glucose 104 H (74-99) mg/dL Calcium 8.3 L (8.4-10.2) mg/dL Phosphorus 6.7 H (2.5-4.5) mg/dL Magnesium 2.5 H (1.6-2.3) mg/dL Total Protein 5.2 L (6.3-8.2) g/dL Albumin 2.8 L (3.5-5.0) g/dL Microbiology - Last 24 Hours (Table) 08/17/17 16:02 Blood Culture - Preliminary Blood No Growth after 72 hours Assessment and Plan (1) S/P hip hemiarthroplasty Narrative/Plan: He will continue with routine postop orthopedic protocol including pain management, wound care, physical therapy, DVT prophylaxis and medical management. He may be transferred to an ECF from an orthopedic standpoint Current Visit: Yes Status: Acute Priority: Medium Code(s): Z96.649 - PRESENCE OF UNSPECIFIED ARTIFICIAL HIP JOINT SNOMED Code(s): 613068456 Time with Patient: Less than 30
--- NOTE | 2017-08-20 20:38 | PN ---
PROGRESS NOTE SUBJECTIVE: This is an 87-year-old white male status post right hip fracture, right hip arthroscopy. With delirium postop with acute hypoxemic respiratory failure and CO2 retention, obstructive sleep apnea, improved with BiPAP. Creatinine is improving and he is more alert. He has been treated with IV antibiotics for UTI. His creatinine dropped from 4.8 down to 4.22 today. His BUN shows over 100. Cardiovascular S1-S2. Neurologic alert and oriented x3. Psych he is alert, mood and affect. GI soft, distended. Hematology negative Homans. ASSESSMENT: 1. Acute on chronic hypoxemic respiratory failure. 2. Acute on chronic renal failure. 3. Systolic congestive heart failure. 4. Chronic obstructive pulmonary disease. Continue current treatments. Lasix has been decreased. Fluids are continuing. Diet will be advanced. Physical therapy will advanced. Possible discharge home to rehab center on Tuesday in 2 days. MMODL / IJN: [id number] /
[2017-08-20] MEDS: PRAVASTATIN SODIUM 40 MG TAB PO SCH (20:46)
[2017-08-20] MEDS: SENNOSIDES-DOCUSATE SODIUM 1 EACH TAB PO SCH (22:13)
[2017-08-21] MEDS: DOCUSATE ORAL SOLN 100 MG/10 ML CUP PO SCH ×2 (05:54→20:13)
[2017-08-21] MEDS: ISOSORBIDE MONONITRATE ER 60 MG TAB.ER.24H PO SCH ×2 (05:54→20:15)
[2017-08-21] MEDS: ALPRAZolam 0.5 MG TAB PO SCH ×4 (05:54→20:15)
[2017-08-21] MEDS: hydrALAZINE HCL 25 MG TAB PO SCH ×3 (05:54→20:15)
[2017-08-21] MEDS: PANTOPRAZOLE 40 MG TABLET PO SCH (08:14)
[2017-08-21] MEDS: CALCIUM ACETATE 667 MG CAP PO SCH ×3 (08:14→16:24)
[2017-08-21] MEDS: LORATADINE 10 MG TAB PO SCH (08:15)
[2017-08-21] MEDS: METOPROLOL TARTRATE 12.5 MG TAB PO SCH ×2 (08:15→22:11)
[2017-08-21] MEDS: cefTRIAXone IN SWFI 1,000 MG/10 ML SYRINGE IVP SCH (08:15)
[2017-08-21] MEDS: FUROSEMIDE 10 MG/ML 4 ML VIAL IV SCH (08:15)
[2017-08-21] MEDS: traMADol 50 MG TAB PO PRN ×2 (08:16→20:14)
[2017-08-21] MEDS: MAGNESIUM HYDROXIDE 2,400 MG/10 ML CUP PO PRN ×2 (08:17→20:13)
[2017-08-21] MEDS: IPRATROPIUM-ALBUTEROL 3 ML NEB INHALATION SCH ×4 (08:30→19:56)
[2017-08-21 09:16] LABS: Basophils % (A) 0 %; Eosinophils # (A) 0.3 k/uL (0-0.7); Eosinophils % (A) 4 %; HCT 24.8 % (39.0-53.0); Lymphocytes % (A) 12 %; MCHC 32.1 g/dL (31.0-37.0); MCV 90.4 fL (80.0-100.0); Mean Platelet Volume 7.2; Monocytes % (A) 12 %; Neutrophils # (A) 5.9 k/uL (1.3-7.7); Neutrophils % (A) 71 %; Platelet Count 223 k/uL (150-450); RBC 2.74 m/uL (4.30-5.90); RDW 12.4 % (11.5-15.5); WBC 8.3 k/uL (3.8-10.6)
[2017-08-21 09:33] LABS: INR 1.9 (<1.2); Prothrombin Time 17.4 sec (9.0-12.0)
[2017-08-21 09:43] LABS: Albumin 2.7 g/dL (3.5-5.0); Calcium 8.5 mg/dL (8.4-10.2); Magnesium 2.5 mg/dL (1.6-2.3); Potassium 4.5 mmol/L (3.5-5.1); Total Bilirubin 0.4 mg/dL (0.2-1.3); Total Protein 5.3 g/dL (6.3-8.2)
[2017-08-21] MEDS: SODIUM FERRIC GLUCONAT-SUCROSE 125 MG in SODIUM CHLORIDE 0.9% 100 ML IVPB SCH (10:23)
[2017-08-21] MEDS: amLODIPine 10 MG TAB PO SCH (13:39)
--- NOTE | 2017-08-21 13:42 | P.PN ---
Subjective Progress Note Date: 08/21/17 Principal diagnosis: s/p right hip fracture repair with hemiarthroplasty This is an 87 year-old male post right hip hemiarthroplasty. This is post-op day 7. The patient was evaluated at the bedside today. His mental status has improved. He denies new complaints. The patient denies nausea, vomiting, abdominal pain, shortness of breath, and chest pain this morning. He states his pain is controlled at this time. Objective - Vital Signs Vital signs: Vital Signs Temp 98.2 F 08/21/17 05:30 Pulse 88 08/21/17 12:17 Resp 16 08/21/17 12:17 BP 151/66 08/21/17 05:30 Pulse Ox 95 08/21/17 08:32 Intake & Output 08/20/17 08/21/17 08/21/17 18:59 06:59 18:59 Intake Total 1000 240 Output Total 2450 1600 Balance -1450 -1360 Intake: Oral 1000 240 Output: Urine 2450 1600 Other: Voiding Method Indwelling Catheter Indwelling Catheter Indwelling Catheter # Voids 2 - Exam Inspection reveals a benign surgical wound. There is no active bleeding or drainage. Neurovascular status is intact throughout the lower extremity with motor and sensation fully intact. Calf is soft and nontender. 2+ dorsalis pedis pulse and less than 2 second cap refill is present - Constitutional General appearance: Present: no acute distress - Psychiatric Psychiatric: Present: A&O x's 3, appropriate affect, intact judgment & insight - Labs CBC & Chem 7: 08/21/17 08:04 08/21/17 08:04 Labs: Abnormal Lab Results - Last 24 Hours (Table) 08/21/17 08/21/17 08/21/17 Range/Units 08:04 08:04 08:04 RBC 2.74 L (4.30-5.90) m/uL Hgb 8.0 L (13.0-17.5) gm/dL Hct 24.8 L (39.0-53.0) % PT 17.4 H (9.0-12.0) sec INR 1.9 H (<1.2) BUN 110 H* (9-20) mg/dL Creatinine 3.99 H (0.66-1.25) mg/dL Phosphorus 6.0 H (2.5-4.5) mg/dL Magnesium 2.5 H (1.6-2.3) mg/dL ALT 20 L (21-72) U/L Total Protein 5.3 L (6.3-8.2) g/dL Albumin 2.7 L (3.5-5.0) g/dL Microbiology - Last 24 Hours (Table) 08/17/17 16:02 Blood Culture - Preliminary Blood No Growth after 72 hours Assessment and Plan (1) S/P hip hemiarthroplasty Narrative/Plan: He will continue with routine postop orthopedic protocol including pain management, wound care, physical therapy, DVT prophylaxis and medical management. He may be transferred to an ECF from an orthopedic standpoint. Current Visit: Yes Status: Acute Priority: Medium Code(s): Z96.649 - PRESENCE OF UNSPECIFIED ARTIFICIAL HIP JOINT SNOMED Code(s): 182924713 Time with Patient: Less than 30
--- NOTE | 2017-08-21 14:55 | PN ---
PROGRESS NOTE SUBJECTIVE: 87-year-old white male status post right hip surgery, CO2 narcosis, obstructive sleep apnea, acute on chronic renal failure. His creatinine continues to improve. His diet is fair. His PT mobility is very poor. He is to going to rehab in the morning. His creatinine is down to 3.99, BUN of 110. CARDIOVASCULAR: S1, S2. His phosphorus is down from 6.7 to 6. ASSESSMENT: 1. 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 2. Hyperphosphatemia. 3. Status post right hip fracture. 4. History of coronary artery disease. 5. Chronic obstructive pulmonary disease. 6. Protein calorie malnutrition, moderate. 7. Obesity. 8. Hypertension. PLAN: Continue with [facility] for hypertension, PhosLo 667 t.i.d. for his renal function. Aranesp shots every week, Lasix 40 mg daily, hydralazine 25 mg t.i.d., DuoNeb updrafts q.2 hours p.r.n. otherwise q.i.d. Continue on Lopressor 12.5 b.i.d. Possible discharge home tomorrow to a half-way. MMODL / IJN: [id number] /
[2017-08-21] MEDS: WARFARIN 5 MG TAB PO SCH (16:25)
--- NOTE | 2017-08-21 16:46 | PN ---
PROGRESS NOTE Patient is seen for followup for chronic kidney disease and acute kidney injury. He had developed mental status changes and significant encephalopathy post right hip arthroplasty. Serum creatinine had peaked about 4.4 to about 4.8 mg/dL. However, his renal function started to improve and serum creatinine is now down to 3.9 mg/dL. The patient was diuresed gently. He remains on Lasix 40 mg IV daily. EXAMINATION: Blood pressure is 150/70, heart rate 88 per minute. Patient is afebrile. Examination of the heart: S1, S2. Examination lungs: Bilateral breath sounds are heard. Abdomen is soft, non-tender, obese. Examination lower extremity shows trace edema bilaterally. COMMUNICATION ANALYST exam is grossly intact. LABS: Sodium 137, potassium 4.5, chloride 110, CO2 is 24, serum creatinine 3.99, hemoglobin 8.0 g/dL. ASSESSMENT: 1. Acute kidney injury on top of chronic kidney disease, acute tubular necrosis, currently nonoliguric. Patient with improving renal function. Continue with current dose of Lasix. We can switch to p.o. Lasix in a.m. 2. Volume overload, currently improved. 3. Metabolic acidosis, now resolved. 4. Chronic kidney disease stage IV secondary to diabetic nephropathy and nephrosclerosis with baseline creatinine close to 3-3.5 mg/dL. 5. CKD mineral bone disorder and hyperphosphatemia, maintained on PhosLo. 6. Iron deficiency currently on IV iron. 7. Coronary artery disease with ejection fraction 60%. 8. Status post fall and fracture of right hip status post right hip arthroplasty this admission. PLAN: The plan is to switch to oral Lasix in a.m. Repeat labs in a.m. Avoid nephrotoxic agents. MMODL / IJN: [id number] /
[2017-08-21] MEDS: SENNOSIDES-DOCUSATE SODIUM 1 EACH TAB PO SCH (20:13)
[2017-08-21] MEDS: PRAVASTATIN SODIUM 40 MG TAB PO SCH (20:15)
--- NOTE | 2017-08-21 23:16 | PN ---
PROGRESS NOTE DATE OF SERVICE: 08/21/2017. REASON FOR FOLLOWUP: Urinary tract infection. INTERVAL HISTORY: The patient is afebrile. He has been breathing comfortably. He seems to be slightly weak, lethargic and sleepy though responds to the questions appropriately. Denies significant chest pain. No cough, No diarrhea per RN. EXAMINATION: Blood pressure is 151/60 with a pulse of 70, temperature of 98. He is 95% on 2 L nasal cannula. GENERAL DESCRIPTION: An elderly male when lying in bed in no distress. RESPIRATORY SYSTEM: Unlabored breathing. Clear to auscultation anteriorly. HEART: S1, S2. Regular rate and rhythm., ABDOMEN: No tenderness. LABS: Hemoglobin 8, white count 8.3, BUN of 110, creatinine 3.9. Cultures remain negative. DIAGNOSTIC IMPRESSION AND PLAN: Patient with a urinary tract infection, adequately treated. He did have significant positive UA, but the culture has been negative,. Afebrile. White count normal. RECOMMEND: Discontinuation of Rocephin and watch closely off antibiotic therapy. Continue supportive care. MMODL / IJN: [id number] /
[2017-08-22] MEDS: ISOSORBIDE MONONITRATE ER 60 MG TAB.ER.24H PO SCH ×2 (06:20→20:16)
[2017-08-22] MEDS: DOCUSATE ORAL SOLN 100 MG/10 ML CUP PO SCH ×2 (06:20→20:16)
[2017-08-22] MEDS: hydrALAZINE HCL 25 MG TAB PO SCH ×3 (06:20→20:16)
[2017-08-22] MEDS: ALPRAZolam 0.5 MG TAB PO SCH ×4 (06:20→20:16)
[2017-08-22 08:30] LABS: INR 2.8 (<1.2); Prothrombin Time 24.9 sec (9.0-12.0)
[2017-08-22 08:40] LABS: Albumin 2.9 g/dL (3.5-5.0); Calcium 8.6 mg/dL (8.4-10.2); Potassium 4.5 mmol/L (3.5-5.1); Total Bilirubin 0.3 mg/dL (0.2-1.3); Total Protein 5.4 g/dL (6.3-8.2)
[2017-08-22] MEDS: FUROSEMIDE 10 MG/ML 4 ML VIAL IV SCH (08:42)
[2017-08-22] MEDS: CALCIUM ACETATE 667 MG CAP PO SCH ×3 (08:42→17:36)
[2017-08-22] MEDS: PANTOPRAZOLE 40 MG TABLET PO SCH (08:42)
[2017-08-22] MEDS: LORATADINE 10 MG TAB PO SCH (08:42)
[2017-08-22] MEDS: METOPROLOL TARTRATE 12.5 MG TAB PO SCH ×2 (08:43→20:16)
[2017-08-22] MEDS: SODIUM FERRIC GLUCONAT-SUCROSE 125 MG in SODIUM CHLORIDE 0.9% 100 ML IVPB SCH (08:49)
[2017-08-22] MEDS: IPRATROPIUM-ALBUTEROL 3 ML NEB INHALATION SCH ×4 (09:03→19:30)
[2017-08-22 09:12] LABS: Basophils % (A) 0 %; Eosinophils # (A) 0.3 k/uL (0-0.7); Eosinophils % (A) 3 %; HCT 25.9 % (39.0-53.0); HGB 8.6 gm/dL (13.0-17.5); Lymphocytes # (A) 0.9 k/uL (1.0-4.8); Lymphocytes % (A) 10 %; MCH 29.9 pg (25.0-35.0); MCHC 33.1 g/dL (31.0-37.0); MCV 90.4 fL (80.0-100.0); Mean Platelet Volume 7.1; Monocytes # (A) 0.9 k/uL (0-1.0); Monocytes % (A) 10 %; Neutrophils # (A) 6.4 k/uL (1.3-7.7); Neutrophils % (A) 75 %; Platelet Count 238 k/uL (150-450); RBC 2.86 m/uL (4.30-5.90); RDW 12.3 % (11.5-15.5); WBC 8.6 k/uL (3.8-10.6)
--- NOTE | 2017-08-22 09:35 | P.PN ---
Subjective Progress Note Date: 08/22/17 Principal diagnosis: Right hip hemiarthroplasty This is an 87 year-old male post right hip hemiarthroplasty. This is post-op day 9. The patient was evaluated at the bedside today. His mental status has improved but does have some confusion at times. The patient denies nausea, vomiting, abdominal pain, shortness of breath, and chest pain this morning. He states his pain is controlled at this time. Nursing states that nephrology is now on consult due to an increase in BUN and creatinine. Objective - Vital Signs Vital signs: Vital Signs Temp 97.7 F 08/22/17 06:30 Pulse 76 08/22/17 09:14 Resp 16 08/22/17 06:30 BP 163/73 08/22/17 06:30 Pulse Ox 92 L 08/22/17 06:30 Intake & Output 08/21/17 08/22/17 08/22/17 18:59 06:59 18:59 Intake Total 750 Output Total 1500 1150 Balance -750 -1150 Intake: Oral 750 Output: Urine 1500 1150 Other: Voiding Method Indwelling Catheter Indwelling Catheter - Exam The patient does not appear in acute distress. Alert and orientated x3. Dressing is clean dry and intact. Incision appears fine with no erythema or active drainage. Calf is soft and nontender. Good foot and ankle motion without difficulty. Sensation and circulatory status is intact. - Labs CBC & Chem 7: 08/22/17 08:02 08/22/17 08:02 Labs: Abnormal Lab Results - Last 24 Hours (Table) 08/21/17 08/21/17 08/22/17 Range/Units 08:04 08:04 08:02 RBC (4.30-5.90) m/uL Hgb (13.0-17.5) gm/dL Hct (39.0-53.0) % Lymphocytes # (1.0-4.8) k/uL PT 17.4 H 24.9 H (9.0-12.0) sec INR 1.9 H 2.8 H (<1.2) BUN 110 H* (9-20) mg/dL Creatinine 3.99 H (0.66-1.25) mg/dL Glucose (74-99) mg/dL Phosphorus 6.0 H (2.5-4.5) mg/dL Magnesium 2.5 H (1.6-2.3) mg/dL ALT 20 L (21-72) U/L Total Protein 5.3 L (6.3-8.2) g/dL Albumin 2.7 L (3.5-5.0) g/dL 08/22/17 08/22/17 Range/Units 08:02 08:02 RBC 2.86 L (4.30-5.90) m/uL Hgb 8.6 L (13.0-17.5) gm/dL Hct 25.9 L (39.0-53.0) % Lymphocytes # 0.9 L (1.0-4.8) k/uL PT (9.0-12.0) sec INR (<1.2) BUN 105 H* (9-20) mg/dL Creatinine 3.83 H (0.66-1.25) mg/dL Glucose 129 H (74-99) mg/dL Phosphorus (2.5-4.5) mg/dL Magnesium (1.6-2.3) mg/dL ALT (21-72) U/L Total Protein 5.4 L (6.3-8.2) g/dL Albumin 2.9 L (3.5-5.0) g/dL Microbiology - Last 24 Hours (Table) 08/17/17 16:02 Blood Culture - Preliminary Blood No Growth after 96 hours Assessment and Plan (1) Closed right hip fracture Current Visit: Yes Status: Acute Code(s): S72.001A - FRACTURE OF UNSP PART OF NECK OF RIGHT FEMUR, INIT SNOMED Code(s): 224920172 (2) S/P hip hemiarthroplasty Current Visit: Yes Status: Acute Priority: Medium Code(s): Z96.649 - PRESENCE OF UNSPECIFIED ARTIFICIAL HIP JOINT SNOMED Code(s): 398056723 Plan: 1. Continue pain control 2. Anticoagulation with Coumadin per internal medicine 3. Continue physical therapy and ambulation 4. Discontinue honeycutt catheter 5. Anticipate discharge to skilled rehab when medically cleared.
--- NOTE | 2017-08-22 10:39 | P.PN ---
Subjective Patient is seen in follow-up for acute kidney injury on chronic kidney disease. 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 Renal function has been improving with creatinine down to 3.83 today. He is nonoliguric. Oral intake is good. No vomiting or diarrhea. Denies chest pain or shortness of breath. Vital signs are stable. General: The patient appeared well nourished and normally developed. HEENT: Head exam is unremarkable. Neck is without jugular venous distension. LUNGS: Lungs are clear to auscultation and percussion. Breath sounds decreased. HEART: Rate and Rhythm are regular. First and second heart sounds normal. No murmurs, rubs or gallops. ABDOMEN: Abdominal exam reveals normal bowel sounds. Non-tender and non- distended. No evidence of peritonitis. EXTREMITITES: No clubbing, cyanosis, or edema. Objective - Vital Signs Vital signs: Vital Signs Temp 97.7 F 08/22/17 06:30 Pulse 76 08/22/17 09:14 Resp 16 08/22/17 06:30 BP 163/73 08/22/17 06:30 Pulse Ox 92 L 08/22/17 06:30 Intake & Output 08/21/17 08/22/17 08/22/17 18:59 06:59 18:59 Intake Total 750 Output Total 1500 1150 Balance -750 -1150 Intake: Oral 750 Output: Urine 1500 1150 Other: Voiding Method Indwelling Catheter Indwelling Catheter - Labs CBC & Chem 7: 08/22/17 08:02 08/22/17 08:02 Labs: Abnormal Lab Results - Last 24 Hours (Table) 08/22/17 08/22/17 08/22/17 Range/Units 08:02 08:02 08:02 RBC 2.86 L (4.30-5.90) m/uL Hgb 8.6 L (13.0-17.5) gm/dL Hct 25.9 L (39.0-53.0) % Lymphocytes # 0.9 L (1.0-4.8) k/uL PT 24.9 H (9.0-12.0) sec INR 2.8 H (<1.2) BUN 105 H* (9-20) mg/dL Creatinine 3.83 H (0.66-1.25) mg/dL Glucose 129 H (74-99) mg/dL Total Protein 5.4 L (6.3-8.2) g/dL Albumin 2.9 L (3.5-5.0) g/dL Microbiology - Last 24 Hours (Table) 08/17/17 16:02 Blood Culture - Preliminary Blood No Growth after 96 hours Assessment and Plan Plan: Assessment: #1. Nonoliguric acute kidney injury secondary to ATN secondary to cardiorenal syndrome. Renal function improved with creatinine down to 3.83 today. #2. 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 #3. Volume overload. Improving. #4. Anemia of chronic kidney disease maintained on Aranesp. Also on IV iron for iron deficiency. #5. Chronic kidney disease mineral bone disease maintained on PhosLo. Plan: I will change Lasix to 40 mg orally once daily. Avoid nephrotoxic agents and hypotensive episodes. Encourage oral intake. Repeat electrolytes the morning.
[2017-08-22] MEDS ORDERED: BISACODYL 10 MG SUPP RECTAL STA (10:59)
[2017-08-22] MEDS: FUROSEMIDE 40 MG TAB PO SCH (11:12)
[2017-08-22] MEDS: amLODIPine 10 MG TAB PO SCH (11:29)
--- NOTE | 2017-08-22 12:49 | P.PN ---
Subjective Progress Note Date: 08/21/17 (Late entry note) Principal diagnosis: Altered mental status encephalopathy, acute delirium postoperative, acute hypoxic and hypercapnic respiratory failure, severe COPD and likely component of severe obstructive sleep apnea, status post fall with right hip fracture status post hemiarthroplasty 08/21/2017, patient seen eval examined during the rounds on fourth floor from respiratory standpoint overall doing well but has not been using BiPAP machine cuff congestion shortness of breath is stable patient has been getting breathing treatments however he has declined the BiPAP machine he, he remains a oriented 2 confused but fairly awake, he is undergoing physical therapy 08/20/2017, patient seen and evaluated examined in fourth floor patient is out of ICU now slightly more awake today oriented almost 2 now able to follow simple commands moving all 4 extremity but however does get anxious and slightly agitated breathing relatively more comfortably off note that patient did not use the BiPAP machine last night I feel that patient would be better off using the BiPAP is slight less pressure compared to used in ICU will use 10/ 5 BiPAP with supplemental oxygen keep saturation over 88-90% each night and when necessary during the day care plan discussed with the respiratory therapy as well as RN at length, maintain patient on DVT prophylaxis and peptic ulcer disease prophylaxis in addition patient will benefit off getting up and moving around with aggressive physical therapy but needs to be monitor observe for fall precautions 08/19/2017, patient seen and evaluated examined in the ICU compared to yesterday mental status and weakness and alert masses improved however patient remains confused he is sitting upright on the bed he is on supplemental oxygen he has been on BiPAP 15/10 all night along with 50% oxygen, chest x-ray from today reviewed and compared with the prior x-ray the radiation has improved basal atelectasis has improved as well Ammann labs from today reviewed and compared with the prior significant improvement and oxygenation ventilation and pH has been noted however BUN continued to rise creatinine is higher range but stable, patient sitting upright on the bed oriented 1-2 fully awake though, patient has been asking for family members especially not fully aware about orientation in time and place 08/18/2017, patient transferred to the ICU because of altered mental status confusion and increased lethargy patient has been placed on BiPAP 50% oxygen with IPAP of 15 and EPAP of 10 multiple gas on obtained for details please effort to the laboratory data slight improvement in oxygenation ventilation and pH has been noted patient remains nothing by mouth as cannot take by mouth given her poor mental status patient is being kept off of benzodiazepine and narcotics neurology consultation has been initiated given that patient has prior history of TIA, care plan discussed with the primary service as well as staff at length given slight improvement will hold on intubation continue BiPAP keep nothing by mouth and observe patient closely in ICU, laboratory and radiographic studies reviewed X-ray appeared to have chronic bilateral nodularity, basal atelectasis noted as well I was asked to evaluate Mr. Zen simon who is a 87-year-old male seen and evaluated examined on third floor, patient has been on his CPAP which he uses at home for obstructive sleep apnea not much history history can be obtained from the patient as patient is confused state of predominantly has been obtained from the chart as well as the RN, this patient has been admitted into the hospital after a fall and right hip fracture which was closed patient underwent right hip hemiarthroplasty and he is postop day # 3, patient has been short of breath has been confused I was asked to evaluate this patient further His past medical history is significant for coronary artery disease ischemic cardiomyopathy proximal atrial fibrillation severe COPD hypertension hypertensive cardiovascular disease right carotid artery stenosis status post endarterectomy as well as obstructive sleep apnea, Data has been obtained that patient has been confused off all along also has been developed been progressive renal failure prior to the surgery mental status was fairly clear him a chest x-ray performed today reviewed cardiomegaly is seen along with aortic aneurysm otherwise no active infiltrate identified Objective - Vital Signs Vital signs: Vital Signs Temp 97.7 F 08/22/17 06:30 Pulse 76 08/22/17 09:14 Resp 16 08/22/17 06:30 BP 163/73 08/22/17 06:30 Pulse Ox 92 L 08/22/17 06:30 Intake & Output 08/21/17 08/22/17 08/22/17 18:59 06:59 18:59 Intake Total 750 Output Total 1500 1150 Balance -750 -1150 Intake: Oral 750 Output: Urine 1500 1150 Other: Voiding Method Indwelling Catheter Indwelling Catheter - Exam - Constitutional General appearance: disheveled, morbidly obese - EENT Eyes: PERRLA, normal appearance ENT: hard of hearing, normal oropharynx Ears: bilateral: normal - Neck Neck: normal ROM Thyroid: bilateral: normal size - Respiratory Respiratory: bilateral: diminished, negative: dullness, rales, rhonchi, wheezing , prolonged expiration, prolonged inspiration, wheezing as noted previously has improved significantly - Cardiovascular Rhythm: regular Heart sounds: normal: S1, S2 - Gastrointestinal General gastrointestinal: decreased bowel sounds, normal bowel sounds, soft - Integumentary Integumentary: normal, normal turgor - Neurologic Neurologic: CNII-XII intact - Musculoskeletal Musculoskeletal: generalized weakness, strength equal bilaterally Patient is awake much alert than previous exam but oriented 2 only does follow simple commands moving extremity tolerating food well able to swallow fairly well, mumbles cannot give a detailed description, patient appears to be tolerating current therapy and interventions very well he is slightly more responsive arousable compared to yesterday exam - Labs CBC & Chem 7: 08/22/17 08:02 08/22/17 08:02 Labs: Abnormal Lab Results - Last 24 Hours (Table) 08/22/17 08/22/17 08/22/17 Range/Units 08:02 08:02 08:02 RBC 2.86 L (4.30-5.90) m/uL Hgb 8.6 L (13.0-17.5) gm/dL Hct 25.9 L (39.0-53.0) % Lymphocytes # 0.9 L (1.0-4.8) k/uL PT 24.9 H (9.0-12.0) sec INR 2.8 H (<1.2) BUN 105 H* (9-20) mg/dL Creatinine 3.83 H (0.66-1.25) mg/dL Glucose 129 H (74-99) mg/dL Total Protein 5.4 L (6.3-8.2) g/dL Albumin 2.9 L (3.5-5.0) g/dL Microbiology - Last 24 Hours (Table) 08/17/17 16:02 Blood Culture - Preliminary Blood No Growth after 96 hours Assessment and Plan Assessment: Postoperative delirium with altered mental status and confusion Altered mental status Acute hypercapnic hypoxic respirator failure Severe COPD emphysema Acute renal failure stage V overall stable at the start no further worsening has been noted Status post fall with right hip close fracture Electrolyte imbalance with hyponatremia and hyperkalemia Severe morbid obesity Coronary artery disease and acute on chronic systolic heart failure Plan: Continue breathing treatments Continue BiPAP 10/5 with oxygen to keep saturation 88% each night and when necessary during the day Optimize cardiac medications Agree with antibiotics for now Maintain patient on DVT and peptic ulcer disease prophylaxis Avoid narcotics and benzodiazepine as best possible Increase physical activity as tolerated Observe and monitor patient in medical floor Time with Patient: Greater than 30
--- NOTE | 2017-08-22 12:52 | P.PN ---
Subjective Progress Note Date: 08/22/17 Principal diagnosis: Altered mental status encephalopathy, acute delirium postoperative, acute hypoxic and hypercapnic respiratory failure, severe COPD and likely component of severe obstructive sleep apnea, status post fall with right hip fracture status post hemiarthroplasty 08/22/2017, patient seen eval examined during the round on fourth floor care plan discussed with the RN overall patient remains oriented and awake 2 but however remains confused family is present at the bedside patient is still not using the BiPAP machine have discussed with the RN as well as the respiratory therapist and family the BiPAP as patient was on CPAP at home that should improve the quality of sleep and daytime alertness and orientation, neurology is also following no evidence of stroke or TIA however has been noted 08/21/2017, patient seen eval examined during the rounds on fourth floor from respiratory standpoint overall doing well but has not been using BiPAP machine cuff congestion shortness of breath is stable patient has been getting breathing treatments however he has declined the BiPAP machine he, he remains a oriented 2 confused but fairly awake, he is undergoing physical therapy 08/20/2017, patient seen and evaluated examined in fourth floor patient is out of ICU now slightly more awake today oriented almost 2 now able to follow simple commands moving all 4 extremity but however does get anxious and slightly agitated breathing relatively more comfortably off note that patient did not use the BiPAP machine last night I feel that patient would be better off using the BiPAP is slight less pressure compared to used in ICU will use 10/ 5 BiPAP with supplemental oxygen keep saturation over 88-90% each night and when necessary during the day care plan discussed with the respiratory therapy as well as RN at length, maintain patient on DVT prophylaxis and peptic ulcer disease prophylaxis in addition patient will benefit off getting up and moving around with aggressive physical therapy but needs to be monitor observe for fall precautions 08/19/2017, patient seen and evaluated examined in the ICU compared to yesterday mental status and weakness and alert masses improved however patient remains confused he is sitting upright on the bed he is on supplemental oxygen he has been on BiPAP 15/10 all night along with 50% oxygen, chest x-ray from today reviewed and compared with the prior x-ray the radiation has improved basal atelectasis has improved as well Ammann labs from today reviewed and compared with the prior significant improvement and oxygenation ventilation and pH has been noted however BUN continued to rise creatinine is higher range but stable, patient sitting upright on the bed oriented 1-2 fully awake though, patient has been asking for family members especially not fully aware about orientation in time and place 08/18/2017, patient transferred to the ICU because of altered mental status confusion and increased lethargy patient has been placed on BiPAP 50% oxygen with IPAP of 15 and EPAP of 10 multiple gas on obtained for details please effort to the laboratory data slight improvement in oxygenation ventilation and pH has been noted patient remains nothing by mouth as cannot take by mouth given her poor mental status patient is being kept off of benzodiazepine and narcotics neurology consultation has been initiated given that patient has prior history of TIA, care plan discussed with the primary service as well as staff at length given slight improvement will hold on intubation continue BiPAP keep nothing by mouth and observe patient closely in ICU, laboratory and radiographic studies reviewed X-ray appeared to have chronic bilateral nodularity, basal atelectasis noted as well I was asked to evaluate Mr. Zne simon who is a 87-year-old male seen and evaluated examined on third floor, patient has been on his CPAP which he uses at home for obstructive sleep apnea not much history history can be obtained from the patient as patient is confused state of predominantly has been obtained from the chart as well as the RN, this patient has been admitted into the hospital after a fall and right hip fracture which was closed patient underwent right hip hemiarthroplasty and he is postop day # 3, patient has been short of breath has been confused I was asked to evaluate this patient further His past medical history is significant for coronary artery disease ischemic cardiomyopathy proximal atrial fibrillation severe COPD hypertension hypertensive cardiovascular disease right carotid artery stenosis status post endarterectomy as well as obstructive sleep apnea, Data has been obtained that patient has been confused off all along also has been developed been progressive renal failure prior to the surgery mental status was fairly clear him a chest x-ray performed today reviewed cardiomegaly is seen along with aortic aneurysm otherwise no active infiltrate identified Objective - Vital Signs Vital signs: Vital Signs Temp 97.7 F 08/22/17 06:30 Pulse 76 08/22/17 09:14 Resp 16 08/22/17 06:30 BP 163/73 08/22/17 06:30 Pulse Ox 92 L 08/22/17 06:30 Intake & Output 08/21/17 08/22/17 08/22/17 18:59 06:59 18:59 Intake Total 750 Output Total 1500 1150 Balance -750 -1150 Intake: Oral 750 Output: Urine 1500 1150 Other: Voiding Method Indwelling Catheter Indwelling Catheter - Exam - Constitutional General appearance: disheveled, morbidly obese - EENT Eyes: PERRLA, normal appearance ENT: hard of hearing, normal oropharynx Ears: bilateral: normal - Neck Neck: normal ROM Thyroid: bilateral: normal size - Respiratory Respiratory: bilateral: diminished, negative: dullness, rales, rhonchi, wheezing , prolonged expiration, prolonged inspiration, wheezing as noted previously has improved significantly - Cardiovascular Rhythm: regular Heart sounds: normal: S1, S2 - Gastrointestinal General gastrointestinal: decreased bowel sounds, normal bowel sounds, soft - Integumentary Integumentary: normal, normal turgor - Neurologic Neurologic: CNII-XII intact - Musculoskeletal Musculoskeletal: generalized weakness, strength equal bilaterally Patient is awake much alert than previous exam but oriented 2 only does follow simple commands moving extremity tolerating food well able to swallow fairly well, mumbles cannot give a detailed description, patient appears to be tolerating current therapy and interventions very well he is slightly more responsive arousable compared to yesterday exam - Labs CBC & Chem 7: 08/22/17 08:02 08/22/17 08:02 Labs: Abnormal Lab Results - Last 24 Hours (Table) 08/22/17 08/22/17 08/22/17 Range/Units 08:02 08:02 08:02 RBC 2.86 L (4.30-5.90) m/uL Hgb 8.6 L (13.0-17.5) gm/dL Hct 25.9 L (39.0-53.0) % Lymphocytes # 0.9 L (1.0-4.8) k/uL PT 24.9 H (9.0-12.0) sec INR 2.8 H (<1.2) BUN 105 H* (9-20) mg/dL Creatinine 3.83 H (0.66-1.25) mg/dL Glucose 129 H (74-99) mg/dL Total Protein 5.4 L (6.3-8.2) g/dL Albumin 2.9 L (3.5-5.0) g/dL Microbiology - Last 24 Hours (Table) 08/17/17 16:02 Blood Culture - Preliminary Blood No Growth after 96 hours Assessment and Plan Assessment: Postoperative delirium with altered mental status and confusion, patient is more awake oriented 2 now Altered mental status Acute hypercapnic hypoxic respirator failure Severe COPD emphysema Acute renal failure stage V overall stable at the start no further worsening has been noted, in fact renal function continued to improve progressively, also appeared to be contributing for mental status changes Status post fall with right hip close fracture Electrolyte imbalance with hyponatremia and hyperkalemia Severe morbid obesity Coronary artery disease and acute on chronic systolic heart failure Plan: Continue breathing treatments Continue BiPAP 10/5 with oxygen to keep saturation 88% each night and when necessary during the day Optimize cardiac medications Agree with antibiotics for now Maintain patient on DVT and peptic ulcer disease prophylaxis Avoid narcotics and benzodiazepine as best possible Increase physical activity as tolerated Observe and monitor patient in medical floor, maintain fall and aspiration precautions Time with Patient: Greater than 30
[2017-08-22] MEDS: WARFARIN 5 MG TAB PO SCH (17:36)
--- NOTE | 2017-08-22 19:59 | EEG ---
ELECTROENCEPHALOGRAM REPORT DATE OF SERVICE: 08/19/2017 REASON FOR TESTING: Altered mental status. DESCRIPTION OF THE PROCEDURE: This EEG was performed using a 21-channel digital electroencephalograph, following international 10-20 system. DESCRIPTION OF THE RECORDING: From the beginning of the tracing, and with patient's eyes closed, the background rhythm was mostly consisting of 7 Hz theta frequency in the posterior occipital leads. No obvious asymmetry is seen. Photic stimulation was performed with no driving response seen. No pathological waves were elicited. Hyperventilation was not performed. Occasional movement and lead artifacts are seen. No epileptiform discharges were seen. The patient remains awake throughout the tracing. INTERPRETATION: This awake EEG is abnormal due to the presence of generalized slowing of the background rhythm, mostly in the theta range. This is consistent with mild encephalopathy. No epileptiform discharges were seen. The absence of epileptiform discharges does not rule out the diagnosis of epilepsy; therefore clinical correlation is recommended. MMWESTL / IJN: [id number] /
[2017-08-22] MEDS: SENNOSIDES-DOCUSATE SODIUM 1 EACH TAB PO SCH (20:16)
[2017-08-22] MEDS: PRAVASTATIN SODIUM 40 MG TAB PO SCH (20:16)
--- NOTE | 2017-08-22 22:38 | PN ---
PROGRESS NOTE SUBJECTIVE: This is a white male, status post right hip fracture, status post right hip ORIF, acute on chronic renal failure. Creatinine is 3.88, down from 4.2. Still remains confused with some delirium. He has been getting Lasix for systolic CHF and COPD treatment. CARDIOVASCULAR: S1, S2. Lungs show scattered wheeze x4. HEMATOLOGY: Negative Homans. VASCULAR: Normal dorsalis pedis, posterior tibial and radial pulses. ASSESSMENT: 1. Right hip fracture. 2. Delirium, slowly improving. 3. Acute on chronic hypoxemic respiratory failure. 4. Obstructive sleep apnea. 5. Systolic congestive heart failure. 6. Acute on chronic renal failure, improving. Please see further orders. Possible discharge to the long term in the next 24-48 hours. MMODL / IJN: [id number] /
--- NOTE | 2017-08-22 22:53 | PN ---
PROGRESS NOTE DATE OF SERVICE: 08/22/2017 REASON FOR FOLLOWUP: UTI. INTERVAL HISTORY: The patient is afebrile. He seems to be awake and alert today. He is breathing comfortably. No chest pain or cough. No abdominal pain. No diarrhea has been noted. PHYSICAL EXAMINATION: Blood pressure is 165/72 with a pulse of 72, temperature of 98. He is 93% on 2 L nasal cannula. General description is an elderly male up in the chair in no distress. RESPIRATORY SYSTEM: Unlabored breathing. Clear to auscultation anteriorly. HEART: S1, S2. Regular rate and rhythm. ABDOMEN: Soft. No tenderness. LABS: Hemoglobin 8.6, white count of 8.6 with a BUN of 105, creatinine 3.83. Blood and urine cultures have been negative. DIAGNOSTIC IMPRESSION AND PLAN: Patient with mild urinary tract infection, adequately treated, currently off antibiotic therapy. We will monitor him closely for any signs or symptoms of infection and need for antibiotic therapy. Continue with supportive care. MMODL / IJN: [id number] /
[2017-08-23] MEDS: ALPRAZolam 0.5 MG TAB PO SCH ×3 (04:15→15:40)
[2017-08-23] MEDS: hydrALAZINE HCL 25 MG TAB PO SCH ×2 (04:15→15:40)
[2017-08-23] MEDS: ISOSORBIDE MONONITRATE ER 60 MG TAB.ER.24H PO SCH (04:15)
[2017-08-23] MEDS: DOCUSATE ORAL SOLN 100 MG/10 ML CUP PO SCH (04:34)
[2017-08-23] MEDS: PANTOPRAZOLE 40 MG TABLET PO SCH (08:04)
[2017-08-23] MEDS: CALCIUM ACETATE 667 MG CAP PO SCH ×3 (08:04→17:33)
[2017-08-23] MEDS: METOPROLOL TARTRATE 12.5 MG TAB PO SCH (08:04)
[2017-08-23] MEDS: FUROSEMIDE 40 MG TAB PO SCH (08:04)
[2017-08-23] MEDS: LORATADINE 10 MG TAB PO SCH (08:04)
[2017-08-23] MEDS: IPRATROPIUM-ALBUTEROL 3 ML NEB INHALATION SCH ×3 (08:37→15:03)
[2017-08-23 08:51] LABS: INR 2.9 (<1.2); Prothrombin Time 26.1 sec (9.0-12.0)
[2017-08-23 09:12] LABS: Calcium 8.7 mg/dL (8.4-10.2); Magnesium 2.7 mg/dL (1.6-2.3); Potassium 4.5 mmol/L (3.5-5.1)
[2017-08-23] MEDS: SODIUM FERRIC GLUCONAT-SUCROSE 125 MG in SODIUM CHLORIDE 0.9% 100 ML IVPB SCH (09:18)
[2017-08-23] MEDS: amLODIPine 10 MG TAB PO SCH (11:12)
[2017-08-23] MEDS ORDERED: LACTULOSE 20 GM/30 ML CUP PO PRN (11:59)
--- NOTE | 2017-08-23 12:36 | P.PN ---
Subjective Patient is seen in follow-up for acute kidney injury on chronic kidney disease. 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 Renal function has been improving with creatinine down to 3.58 today. He is nonoliguric. Oral intake is good. No vomiting or diarrhea. Denies chest pain or shortness of breath. Vital signs are stable. General: The patient appeared well nourished and normally developed. HEENT: Head exam is unremarkable. Neck is without jugular venous distension. LUNGS: Lungs are clear to auscultation and percussion. Breath sounds decreased. HEART: Rate and Rhythm are regular. First and second heart sounds normal. No murmurs, rubs or gallops. ABDOMEN: Abdominal exam reveals normal bowel sounds. Non-tender and non- distended. No evidence of peritonitis. EXTREMITITES: No clubbing, cyanosis, or edema. Objective - Vital Signs Vital signs: Vital Signs Temp 96.6 F L 08/23/17 07:00 Pulse 76 08/23/17 08:51 Resp 18 08/23/17 07:00 BP 153/67 08/23/17 07:00 Pulse Ox 93 L 08/23/17 07:00 Intake & Output 08/22/17 08/23/17 08/23/17 18:59 06:59 18:59 Other: Voiding Method Indwelling Catheter Urinal Urinal Diaper Diaper Incontinent Incontinent # Voids 1 # Bowel Movements 1 1 - Labs CBC & Chem 7: 08/22/17 08:02 08/23/17 07:56 Labs: Abnormal Lab Results - Last 24 Hours (Table) 08/23/17 08/23/17 Range/Units 07:56 07:56 PT 26.1 H (9.0-12.0) sec INR 2.9 H (<1.2) BUN 100 H* (9-20) mg/dL Creatinine 3.58 H (0.66-1.25) mg/dL Glucose 109 H (74-99) mg/dL Magnesium 2.7 H (1.6-2.3) mg/dL Microbiology - Last 24 Hours (Table) 08/17/17 16:02 Blood Culture - Preliminary Blood No Growth after 120 hours Assessment and Plan Plan: Assessment: #1. Nonoliguric acute kidney injury secondary to ATN secondary to cardiorenal syndrome. Renal function improved with creatinine down to 3.58 today. #2. 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 #3. Volume overload. Improving. #4. Anemia of chronic kidney disease maintained on Aranesp. Also on IV iron for iron deficiency. #5. Chronic kidney disease mineral bone disease maintained on PhosLo. Plan: Maintain Lasix 40 mg orally once daily. Avoid nephrotoxic agents and hypotensive episodes. Encourage oral intake. Repeat electrolytes the morning. Anticipated discharge to rehab soon. He will need to follow-up as an outpatient in the next 1-2 weeks. He will need a basic metabolic panel checked within 2-3 days of discharge.
--- NOTE | 2017-08-23 14:25 | P.PN ---
Subjective Progress Note Date: 08/23/17 Principal diagnosis: Altered mental status encephalopathy, acute delirium postoperative, acute hypoxic and hypercapnic respiratory failure, severe COPD and likely component of severe obstructive sleep apnea, status post fall with right hip fracture status post hemiarthroplasty 08/23/2017, patient seen eval reexamined during the rounds confusion is slightly better patient remains oriented 2 but very awake tolerating by mouth well no obvious distress present patient is recovering from hip surgery fairly well undergoing physical therapy patient has Using BiPAP but however agree able for a CPAP machine patient likely will be placed at the [facility], for respiratory standpoint would continue CPAP machine along with bronchodilators 08/22/2017, patient seen eval examined during the round on fourth floor care plan discussed with the RN overall patient remains oriented and awake 2 but however remains confused family is present at the bedside patient is still not using the BiPAP machine have discussed with the RN as well as the respiratory therapist and family the BiPAP as patient was on CPAP at home that should improve the quality of sleep and daytime alertness and orientation, neurology is also following no evidence of stroke or TIA however has been noted 08/21/2017, patient seen eval examined during the rounds on fourth floor from respiratory standpoint overall doing well but has not been using BiPAP machine cuff congestion shortness of breath is stable patient has been getting breathing treatments however he has declined the BiPAP machine he, he remains a oriented 2 confused but fairly awake, he is undergoing physical therapy 08/20/2017, patient seen and evaluated examined in fourth floor patient is out of ICU now slightly more awake today oriented almost 2 now able to follow simple commands moving all 4 extremity but however does get anxious and slightly agitated breathing relatively more comfortably off note that patient did not use the BiPAP machine last night I feel that patient would be better off using the BiPAP is slight less pressure compared to used in ICU will use 10/ 5 BiPAP with supplemental oxygen keep saturation over 88-90% each night and when necessary during the day care plan discussed with the respiratory therapy as well as RN at length, maintain patient on DVT prophylaxis and peptic ulcer disease prophylaxis in addition patient will benefit off getting up and moving around with aggressive physical therapy but needs to be monitor observe for fall precautions 08/19/2017, patient seen and evaluated examined in the ICU compared to yesterday mental status and weakness and alert masses improved however patient remains confused he is sitting upright on the bed he is on supplemental oxygen he has been on BiPAP 15/10 all night along with 50% oxygen, chest x-ray from today reviewed and compared with the prior x-ray the radiation has improved basal atelectasis has improved as well Ammann labs from today reviewed and compared with the prior significant improvement and oxygenation ventilation and pH has been noted however BUN continued to rise creatinine is higher range but stable, patient sitting upright on the bed oriented 1-2 fully awake though, patient has been asking for family members especially not fully aware about orientation in time and place 08/18/2017, patient transferred to the ICU because of altered mental status confusion and increased lethargy patient has been placed on BiPAP 50% oxygen with IPAP of 15 and EPAP of 10 multiple gas on obtained for details please effort to the laboratory data slight improvement in oxygenation ventilation and pH has been noted patient remains nothing by mouth as cannot take by mouth given her poor mental status patient is being kept off of benzodiazepine and narcotics neurology consultation has been initiated given that patient has prior history of TIA, care plan discussed with the primary service as well as staff at length given slight improvement will hold on intubation continue BiPAP keep nothing by mouth and observe patient closely in ICU, laboratory and radiographic studies reviewed X-ray appeared to have chronic bilateral nodularity, basal atelectasis noted as well I was asked to evaluate Mr. Zen simon who is a 87-year-old male seen and evaluated examined on third floor, patient has been on his CPAP which he uses at home for obstructive sleep apnea not much history history can be obtained from the patient as patient is confused state of predominantly has been obtained from the chart as well as the RN, this patient has been admitted into the hospital after a fall and right hip fracture which was closed patient underwent right hip hemiarthroplasty and he is postop day # 3, patient has been short of breath has been confused I was asked to evaluate this patient further His past medical history is significant for coronary artery disease ischemic cardiomyopathy proximal atrial fibrillation severe COPD hypertension hypertensive cardiovascular disease right carotid artery stenosis status post endarterectomy as well as obstructive sleep apnea, Data has been obtained that patient has been confused off all along also has been developed been progressive renal failure prior to the surgery mental status was fairly clear him a chest x-ray performed today reviewed cardiomegaly is seen along with aortic aneurysm otherwise no active infiltrate identified Objective - Vital Signs Vital signs: Vital Signs Temp 96.6 F L 08/23/17 07:00 Pulse 76 08/23/17 08:51 Resp 18 08/23/17 07:00 BP 153/67 08/23/17 07:00 Pulse Ox 93 L 08/23/17 07:00 Intake & Output 08/22/17 08/23/17 08/23/17 18:59 06:59 18:59 Intake Total 100 Balance 100 Intake: Intake, IV Titration 100 Amount Sodium Ferric Gluconat- 100 Sucrose 125 mg In Sodium Chloride 0.9% 100 ml @ 100 mls/hr IVPB DAILY [facility] Rx#:[id number] Other: Voiding Method Indwelling Catheter Urinal Urinal Diaper Diaper Incontinent Incontinent # Voids 1 # Bowel Movements 1 1 - Exam - Constitutional General appearance: disheveled, morbidly obese - EENT Eyes: PERRLA, normal appearance ENT: hard of hearing, normal oropharynx Ears: bilateral: normal - Neck Neck: normal ROM Thyroid: bilateral: normal size - Respiratory Respiratory: bilateral: diminished, negative: dullness, rales, rhonchi, wheezing , prolonged expiration, prolonged inspiration, wheezing as noted previously has improved significantly - Cardiovascular Rhythm: regular Heart sounds: normal: S1, S2 - Gastrointestinal General gastrointestinal: decreased bowel sounds, normal bowel sounds, soft - Integumentary Integumentary: normal, normal turgor - Neurologic Neurologic: CNII-XII intact - Musculoskeletal Musculoskeletal: generalized weakness, strength equal bilaterally Patient is awake much alert than previous exam but oriented 2 only does follow simple commands moving extremity tolerating food well able to swallow fairly well, mumbles cannot give a detailed description, patient appears to be tolerating current therapy and interventions very well he is slightly more responsive arousable compared to yesterday exam - Labs CBC & Chem 7: 08/22/17 08:02 08/23/17 07:56 Labs: Abnormal Lab Results - Last 24 Hours (Table) 08/23/17 08/23/17 Range/Units 07:56 07:56 PT 26.1 H (9.0-12.0) sec INR 2.9 H (<1.2) BUN 100 H* (9-20) mg/dL Creatinine 3.58 H (0.66-1.25) mg/dL Glucose 109 H (74-99) mg/dL Magnesium 2.7 H (1.6-2.3) mg/dL Microbiology - Last 24 Hours (Table) 08/17/17 16:02 Blood Culture - Preliminary Blood No Growth after 120 hours Assessment and Plan Assessment: Postoperative delirium with altered mental status and confusion, patient is more awake oriented 2 now Altered mental status Acute hypercapnic hypoxic respirator failure Severe COPD emphysema Acute renal failure stage V overall stable at the start no further worsening has been noted, in fact renal function continued to improve progressively, also appeared to be contributing for mental status changes Status post fall with right hip close fracture Electrolyte imbalance with hyponatremia and hyperkalemia Severe morbid obesity Coronary artery disease and acute on chronic systolic heart failure Plan: Continue breathing treatments Continue BiPAP 10/5 with oxygen to keep saturation 88% each night and when necessary during the day, if continued to decline BiPAP can be placed back on CPAP machine as using at home Optimize cardiac medications Agree with observing off of antibiotics for now Maintain patient on DVT and peptic ulcer disease prophylaxis Avoid narcotics and benzodiazepine as best possible Increase physical activity as tolerated Observe and monitor patient in medical floor, maintain fall and aspiration precautions Okay to be placed in extended care facility follow-up in outpatient setting Time with Patient: Greater than 30
--- NOTE | 2017-08-23 15:33 | DS ---
DISCHARGE SUMMARY DISCHARGE DIAGNOSES: 1. Right hip fracture. 2. CO2 retention. 3. Obstructive sleep apnea. 4. Acute on chronic diastolic heart failure. 5. Systolic heart failure. 6. Congestive heart failure. 7. Delirium. 8. Acute on chronic renal insufficiency. 9. End-stage renal disease stage IV. HOME MEDICATIONS: 1. Senokot 2 tabs daily. 2. Tramadol 50 mg q.6 4-6 hours. 3. PhosLo 667 t.i.d. 4. Lasix 40 mg daily. 5. DuoNeb q.i.d. for COPD. 6. Lopressor 12.5 b.i.d. 7. Coumadin 2.5 mg daily. 8. Aspirin 325 daily. 9. Plavix 75 mg daily. 10.Xanax 0.5 mg q.i.d. 11.Imdur 60 mg b.i.d. 12.Norvasc 10 mg daily. 13.Claritin 10 mg daily. 14.Colace 50 mg b.i.d. 15.Pravachol 40 daily. 16.Apresoline 25 t.i.d. 17.Colace 50 b.i.d. CONDITION: Stable. PROGNOSIS: Guarded. Ambulate as tolerated. HOSPITAL COURSE OF EVENTS: 87-year-old white male came to the hospital with right hip fracture, underwent surgery. Postop, he had delirium, worsening renal function and CO2 retention and he had respiratory distress and was placed in ICU for the night and is improved with BiPAP and Lasix. His renal function, creatinine went up to mid 4's on the creatinine and slowly improved to the mid threes on discharge. He is stable. Will follow up as an outpatient at Dr. Benoit Fatima at rehab for rehabilitation and monitoring of his renal function at [facility]. MMODL / IJN: [id number] /
[2017-08-23 15:44] VITALS: BP 149/68; PULSE 71; RESP 20; TEMP 96.9
--- NOTE | 2017-08-23 16:51 | PN ---
PROGRESS NOTE DATE OF SERVICE: 08/23/2017. REASON FOR FOLLOWUP VISIT: UTI. INTERVAL HISTORY: The patient is afebrile. He has been more awake, alert, however, the family members did mentioned he still has some confusion. Denies any chest pain, abdominal pain and no diarrhea. EXAMINATION: Blood pressure 149/68 with a pulse of 71, temperature 96.9. He is 95% on 2 L nasal cannula. General description is an elderly male lying in bed in no distress. Respiratory system: Unlabored breathing. Clear to auscultation anteriorly. HEART: S1, S2. Regular rate and rhythm. Abdomen soft, no tenderness. LABS: No CBC was done today. His creatinine is down to 3.5. DIAGNOSTIC IMPRESSION AND PLAN: Patient with confusion, mental status changes, multifactorial with question of possible urinary tract infection that has been adequately treated. Repeat culture has been negative. He is off antibiotic therapy for the last 48 hours and no changes in clinical condition and no fever. Hence, we will continue monitoring closely off antibiotic therapy. Family present at bedside, their questions were answered. MMODL / IJN: [id number] /
[2017-08-23] MEDS: WARFARIN 5 MG TAB PO SCH (17:33)
== END 2017-08-23 19:45 | DRG 469 ==
LOC: EC 13:21 → 3SUR 16:02 → 6ICU 08-17 16:45 → 4MS4W 08-19 17:35
PROVIDERS: ADMIT Orthopaedic Surgery; ATTEND Family Medicine
PROC: 0SRR0J9 Replacement of Right Hip Joint, Femoral Surface with Synthetic Substitute, Cemented, Open Approach (ICD-10-PCS; principal; 2017-08-14 08:00)
DX: S72.001A Fracture of unspecified part of neck of right femur, initial encounter for closed fracture (principal); I50.23 Acute on chronic systolic (congestive) heart failure; N17.0 Acute kidney failure with tubular necrosis; J96.21 Acute and chronic respiratory failure with hypoxia; G93.41 Metabolic encephalopathy; I13.2 Hypertensive heart and chronic kidney disease with heart failure and with stage 5 chronic kidney disease, or end stage renal disease; E44.0 Moderate protein-calorie malnutrition; I48.0 Paroxysmal atrial fibrillation; E11.21 Type 2 diabetes mellitus with diabetic nephropathy; E66.01 Morbid (severe) obesity due to excess calories; J96.22 Acute and chronic respiratory failure with hypercapnia; N18.5 Chronic kidney disease, stage 5; R45.851 Suicidal ideations; N39.0 Urinary tract infection, site not specified; F05 Delirium due to known physiological condition; E87.1 Hypo-osmolality and hyponatremia; E87.2 Acidosis; J98.11 Atelectasis; M25.00 Hemarthrosis, unspecified joint; J43.9 Emphysema, unspecified; E11.22 Type 2 diabetes mellitus with diabetic chronic kidney disease; F32.9 Major depressive disorder, single episode, unspecified; M19.90 Unspecified osteoarthritis, unspecified site; G47.33 Obstructive sleep apnea (adult) (pediatric); F41.9 Anxiety disorder, unspecified; M77.30 Calcaneal spur, unspecified foot; D63.1 Anemia in chronic kidney disease; E61.1 Iron deficiency; M89.9 Disorder of bone, unspecified; E87.5 Hyperkalemia; E83.51 Hypocalcemia; E86.0 Dehydration; I25.5 Ischemic cardiomyopathy; R26.2 Difficulty in walking, not elsewhere classified; E87.6 Hypokalemia; I71.9 Aortic aneurysm of unspecified site, without rupture; E87.70 Fluid overload, unspecified; I35.0 Nonrheumatic aortic (valve) stenosis; I25.10 Atherosclerotic heart disease of native coronary artery without angina pectoris; I25.2 Old myocardial infarction; Z68.31 Body mass index [BMI] 31.0-31.9, adult; Z87.01 Personal history of pneumonia (recurrent); Z98.41 Cataract extraction status, right eye; Z98.42 Cataract extraction status, left eye; Z96.651 Presence of right artificial knee joint; Z82.49 Family history of ischemic heart disease and other diseases of the circulatory system; Z81.8 Family history of other mental and behavioral disorders; Z79.82 Long term (current) use of aspirin; Z79.02 Long term (current) use of antithrombotics/antiplatelets; Z79.899 Other long term (current) drug therapy; W17.89XA Other fall from one level to another, initial encounter; Z96.1 Presence of intraocular lens; Z95.5 Presence of coronary angioplasty implant and graft; Z91.15 Patient's noncompliance with renal dialysis; Z86.73 Personal history of transient ischemic attack (TIA), and cerebral infarction without residual deficits; Z89.421 Acquired absence of other right toe(s); Z91.81 History of falling
CPT/HCPCS: 36415; 36600; 70450; 71045; 71250; 73501; 73502; 80048; 80053; 80306; 81001; 82075; 82805; 83036; 83605; 83735; 83880; 84100; 84443; 84484; 85025; 85610; 85730; 86850; 86900; 86901; 86920; 87040; 87086; 88305; 88311; 93005; 93306; 94640; 94660; 94760; 95816; 96374; 96375; 96376; 99285

== ENCOUNTER → 2017-09-27 | Outpatient (CLI) | payer MEDICARE, BC ==
--- NOTE | 2017-09-28 08:15 | USB ---
Reason for exam: clinical finding. Indicated problem(s): palpable abnormality in the right breast. Physical Findings: Nurse Summary: 2cm firm nodule at nipple (nurse dw). US Breast Limited RT Right breast ultrasound demonstrates a 2.9 x 1.7 x 0.9cm solid, hypoechoic lesion at the posterior nipple. Scanned left for comparison. These results were verbally communicated with the patient and result sheet given to the patient on 09/27/17. ASSESSMENT: Benign, BI-RAD 2 RECOMMENDATION: Clinical management of the right breast. Manage patient on a clinical basis. Consistent with gynecomastia.
== END | disposition home or self-care (01) ==
LOC: RADUSWWP 14:11
PROVIDERS: ATTEND Family Medicine
DX: N62 Hypertrophy of breast (principal)

== ENCOUNTER 2018-05-11 16:48 | Inpatient (IN) | payer MEDICARE, BC ==
[2018-05-11] MEDS ORDERED: methylPREDNISolone SOD SUCCI 125 MG/2 ML VIAL IV STA (17:49)
[2018-05-11] MEDS ORDERED: ALBUTEROL NEBULIZED 2.5 MG/3 ML INHALATION STA (17:49)
[2018-05-11] MEDS ORDERED: IPRATROPIUM 0.5 MG/2.5 ML NEBU INHALATION STA (17:49)
[2018-05-11] MEDS ORDERED: ENALAPRILAT 1.25 MG/ML 1 ML VIAL IVP STA (17:49)
--- NOTE | 2018-05-11 18:35 | ED ---
SOB HPI - General Chief Complaint: Shortness of Breath Stated Complaint: SOB high blood pressure Time Seen by Provider: 05/11/18 17:48 Source: patient, RN notes reviewed, old records reviewed Mode of arrival: wheelchair Limitations: no limitations - History of Present Illness Initial Comments: This is an 80-year-old male to the ER for evaluation. Patient with significant shortness of breath weakness. Patient abnormal outpatient lab test showing positive low hemoglobin, anemia that was dropped 3 points from prior outpatient laboratory testing. Patient does admit to weakness of his fatigue, consider anxiety is on Coumadin. Denies blood in his stool denies vomiting of blood MD Complaint: shortness of breath, cough -: days(s) Radiation: back Severity scale (1-10): 1 Quality: dull Consistency: constant Improves With: nothing Worsens With: nothing Known History Of: COPD Associated Symptoms: denies other symptoms Treatments Prior to Arrival: none - Related Data Home Medications Medication Instructions Recorded Confirmed ALPRAZolam [Xanax] 0.5 mg PO QID 09/23/14 05/11/18 Aspirin EC [Ecotrin] 325 mg PO DAILY@39909/23/14 05/11/18 Clopidogrel [Plavix] 75 mg PO DAILY@99908/06/15 05/11/18 Docusate [Colace] 100 mg PO HS@199904/01/17 05/11/18 Loratadine [Claritin] 10 mg PO DAILY@39904/01/17 05/11/18 amLODIPine [Norvasc] 10 mg PO DAILY@99904/01/17 05/11/18 Furosemide [Lasix] 20 mg PO DAILY@39905/11/18 05/11/18 Gabapentin [Neurontin] 100 mg PO TID PRN 05/11/18 05/11/18 Isosorbide Mononitrate [Imdur] 120 mg PO HS@199905/11/18 05/11/18 Metoprolol Tartrate [Lopressor] 25 mg PO DAILY@39905/11/18 05/11/18 Omeprazole [PriLOSEC] 20 mg PO DAILY@39905/11/18 05/11/18 Pravastatin Sodium [Pravachol] 40 mg PO HS@199905/11/18 05/11/18 Vitamin E (Dl,Tocopheryl Acet) 400 unit PO HS@199905/11/18 05/11/18 [Vitamin E] Warfarin [Coumadin] 3 mg PO DAILY@1600 05/11/18 05/11/18 Allergies Allergy/AdvReac Type Severity Reaction Status Date / Time No Known Allergies Allergy Verified 05/11/18 17:55 Review of Systems ROS Statement: Those systems with pertinent positive or pertinent negative responses have been documented in the HPI. ROS Other: All systems not noted in ROS Statement are negative. Past Medical History Past Medical History: Atrial Fibrillation, Coronary Artery Disease (CAD), Chest Pain / Angina, Heart Failure, COPD, Hypertension, Myocardial Infarction ([place]), Osteoarthritis (OA), Pneumonia, Sleep Apnea/CPAP/BIPAP Additional Past Medical History / Comment(s): NSTEMI, EF 50% Last Myocardial Infarction Date:: 2010 History of Any Multi-Drug Resistant Organisms: None Reported Past Surgical History: Heart Catheterization With Stent, Joint Replacement, Tonsillectomy Additional Past Surgical History / Comment(s): Rt carotid [id number], cataract removed with lens implant bilat., Rt. knee replacement Past Anesthesia/Blood Transfusion Reactions: No Reported Reaction Date of Last Stent Placement:: 2010, ( 1ST OM) Past Psychological History: Anxiety, Depression Smoking Status: Never smoker Past Alcohol Use History: None Reported Past Drug Use History: None Reported - Past Family History Father Family Medical History: Chest Pain / Angina, Coronary Artery Disease (CAD), Myocardial Infarction ([place]) Mother Family Medical History: Dementia General Exam Limitations: no limitations General appearance: alert, in no apparent distress, anxious Head exam: Present: atraumatic, normocephalic, normal inspection Eye exam: Present: normal appearance, PERRL, EOMI. Absent: scleral icterus, conjunctival injection, periorbital swelling ENT exam: Present: normal exam, mucous membranes moist Neck exam: Present: normal inspection. Absent: tenderness, meningismus, lymphadenopathy Respiratory exam: Present: normal lung sounds bilaterally, wheezes, accessory muscle use, decreased breath sounds, prolonged expiratory. Absent: respiratory distress, rales, rhonchi, stridor Cardiovascular Exam: Present: regular rate, normal rhythm, normal heart sounds. Absent: systolic murmur, diastolic murmur, rubs, gallop, clicks GI/Abdominal exam: Present: soft, normal bowel sounds. Absent: distended, tenderness, guarding, rebound, rigid Extremities exam: Present: normal inspection, full ROM, normal capillary refill. Absent: tenderness, pedal edema, joint swelling, calf tenderness Back exam: Present: normal inspection Neurological exam: Present: alert, oriented X3, CN II-XII intact Psychiatric exam: Present: normal affect, normal mood Skin exam: Present: warm, dry, intact, normal color. Absent: rash Course Vital Signs 05/11/18 05/11/18 05/11/18 16:51 18:24 18:30 Temperature 97.5 F L Pulse Rate 71 60 Respiratory 22 18 Rate Blood Pressure 187/69 181/84 O2 Sat by Pulse 99 91 L Oximetry 05/11/18 05/11/18 05/11/18 18:34 18:39 19:03 Temperature Pulse Rate 61 78 Respiratory 20 Rate Blood Pressure O2 Sat by Pulse Oximetry 05/11/18 05/11/18 19:04 19:35 Temperature Pulse Rate 79 Respiratory 15 16 Rate Blood Pressure 183/90 O2 Sat by Pulse 100 Oximetry - Reevaluation(s) Reevaluation #1: 05/11/18 20:08 Clinical record is reviewed Reevaluation #2: 05/11/18 20:08 Patient does admit to improve symptoms Medical Decision Making - Medical Decision Making 88 male the ER for evaluation patient resents today for evaluation regards to shortness of breath, shortness of breath, by COPD and anemia. Will do for breathing treatments and monitoring of hemoglobin, patient is on Coumadin - Lab Data Result diagrams: 05/11/18 18:17 05/11/18 18:17 Lab Results 05/11/18 05/11/18 05/11/18 Range/Units 18:17 18:17 18:17 WBC 7.1 (3.8-10.6) k/uL RBC 2.90 L (4.30-5.90) m/uL Hgb 8.9 L (13.0-17.5) gm/dL Hct 26.8 L (39.0-53.0) % MCV 92.5 (80.0-100.0) fL MCH 30.9 (25.0-35.0) pg MCHC 33.4 (31.0-37.0) g/dL RDW 13.1 (11.5-15.5) % Plt Count 142 L (150-450) k/uL Neutrophils % 69 % Lymphocytes % 17 % Monocytes % 8 % Eosinophils % 4 % Basophils % 0 % Neutrophils # 4.9 (1.3-7.7) k/uL Lymphocytes # 1.2 (1.0-4.8) k/uL Monocytes # 0.6 (0-1.0) k/uL Eosinophils # 0.3 (0-0.7) k/uL Basophils # 0.0 (0-0.2) k/uL PT (9.0-12.0) sec INR (<1.2) APTT (22.0-30.0) sec Sodium 144 (137-145) mmol/L Potassium 5.8 H (3.5-5.1) mmol/L Chloride 117 H (98-107) mmol/L Carbon Dioxide 21 L (22-30) mmol/L Anion Gap 6 mmol/L BUN 64 H (9-20) mg/dL Creatinine 3.33 H (0.66-1.25) mg/dL Est GFR (CKD-EPI)AfAm 18 (>60 ml/min/1.73 sqM) Est GFR (CKD-EPI)NonAf 16 (>60 ml/min/1.73 sqM) Glucose 98 (74-99) mg/dL Calcium 9.1 (8.4-10.2) mg/dL Magnesium 2.2 (1.6-2.3) mg/dL Total Bilirubin 0.3 (0.2-1.3) mg/dL AST 18 (17-59) U/L ALT 24 (21-72) U/L Alkaline Phosphatase 58 (38-126) U/L Total Creatine Kinase 77 (55-170) U/L CK-MB (CK-2) 2.0 (0.0-2.4) ng/mL CK-MB (CK-2) Rel Index 2.6 Troponin I <0.012 (0.000-0.034) ng/mL NT-Pro-B Natriuret Pep pg/mL Total Protein 6.6 (6.3-8.2) g/dL Albumin 3.8 (3.5-5.0) g/dL 05/11/18 05/11/18 Range/Units 18:17 18:17 WBC (3.8-10.6) k/uL RBC (4.30-5.90) m/uL Hgb (13.0-17.5) gm/dL Hct (39.0-53.0) % MCV (80.0-100.0) fL MCH (25.0-35.0) pg MCHC (31.0-37.0) g/dL RDW (11.5-15.5) % Plt Count (150-450) k/uL Neutrophils % % Lymphocytes % % Monocytes % % Eosinophils % % Basophils % % Neutrophils # (1.3-7.7) k/uL Lymphocytes # (1.0-4.8) k/uL Monocytes # (0-1.0) k/uL Eosinophils # (0-0.7) k/uL Basophils # (0-0.2) k/uL PT 15.8 H (9.0-12.0) sec INR 1.7 H (<1.2) APTT 27.9 (22.0-30.0) sec Sodium (137-145) mmol/L Potassium (3.5-5.1) mmol/L Chloride (98-107) mmol/L Carbon Dioxide (22-30) mmol/L Anion Gap mmol/L BUN (9-20) mg/dL Creatinine (0.66-1.25) mg/dL Est GFR (CKD-EPI)AfAm (>60 ml/min/1.73 sqM) Est GFR (CKD-EPI)NonAf (>60 ml/min/1.73 sqM) Glucose (74-99) mg/dL Calcium (8.4-10.2) mg/dL Magnesium (1.6-2.3) mg/dL Total Bilirubin (0.2-1.3) mg/dL AST (17-59) U/L ALT (21-72) U/L Alkaline Phosphatase (38-126) U/L Total Creatine Kinase (55-170) U/L CK-MB (CK-2) (0.0-2.4) ng/mL CK-MB (CK-2) Rel Index Troponin I (0.000-0.034) ng/mL NT-Pro-B Natriuret Pep 7820 pg/mL Total Protein (6.3-8.2) g/dL Albumin (3.5-5.0) g/dL - EKG Data -: EKG Interpreted by Me (EKG shows A. fib rate of 58, QRS 1:30, QTc 428) - Radiology Data Radiology results: report reviewed (Chest x-rays negative for acute disease), image reviewed Disposition Clinical Impression: Anemia, Acute exacerbation of chronic obstructive airways disease Disposition: HOME SELF-CARE Condition: Good Is patient prescribed a controlled substance at d/c from ED?: No Referrals: Benoit Fatima MD [Primary Care Provider] - 1-2 days
[2018-05-11 18:38] LABS: Basophils % (A) 0 %; Eosinophils # (A) 0.3 k/uL (0-0.7); Eosinophils % (A) 4 %; HCT 26.8 % (39.0-53.0); HGB 8.9 gm/dL (13.0-17.5); Lymphocytes # (A) 1.2 k/uL (1.0-4.8); Lymphocytes % (A) 17 %; MCH 30.9 pg (25.0-35.0); MCHC 33.4 g/dL (31.0-37.0); MCV 92.5 fL (80.0-100.0); Mean Platelet Volume 7.6; Monocytes # (A) 0.6 k/uL (0-1.0); Monocytes % (A) 8 %; Neutrophils # (A) 4.9 k/uL (1.3-7.7); Neutrophils % (A) 69 %; Platelet Count 142 k/uL (150-450); RDW 13.1 % (11.5-15.5); WBC 7.1 k/uL (3.8-10.6)
[2018-05-11 18:42] LABS: INR 1.7 (<1.2); Partial Thromboplastin Time 27.9 sec (22.0-30.0); Prothrombin Time 15.8 sec (9.0-12.0)
[2018-05-11 18:52] LABS: Albumin 3.8 g/dL (3.5-5.0); Calcium 9.1 mg/dL (8.4-10.2); Creatine Kinase 77 U/L (55-170); Magnesium 2.2 mg/dL (1.6-2.3); Potassium 5.8 mmol/L (3.5-5.1); Total Bilirubin 0.3 mg/dL (0.2-1.3); Total Protein 6.6 g/dL (6.3-8.2)
[2018-05-11 19:06] LABS: Troponin I <0.012 ng/mL (0.000-0.034)
--- NOTE | 2018-05-11 19:45 | XR ---
EXAMINATION TYPE: XR chest 2V DATE OF EXAM: 05/11/2018 COMPARISON: 08/20/2017 HISTORY: Short of breath TECHNIQUE: Frontal and lateral views of the chest are obtained. FINDINGS: There is mild blunting of left costophrenic angle. There is minimal coarse density at the left lateral lung base. Heart size is normal. There is no heart failure. Thoracic aorta is atheromato us. IMPRESSION: Minimal pleural reaction at the left lung base. No heart failure.
[2018-05-11] MEDS ORDERED: LORazepam 2 MG/ML INJ IV PRN (20:09)
[2018-05-11] MEDS ORDERED: GABAPENTIN 100 MG CAP PO PRN (23:18)
[2018-05-12] MEDS: PANTOPRAZOLE 40 MG TABLET PO SCH (04:12)
[2018-05-12] MEDS: METOPROLOL TARTRATE 25 MG TAB PO SCH (04:12)
[2018-05-12] MEDS: ASPIRIN 325 MG TAB PO SCH (04:12)
[2018-05-12] MEDS: SODIUM CHLORIDE 0.9% 1,000 ML IV SCH ×2 (04:12→07:06)
[2018-05-12] MEDS: LORATADINE 10 MG TAB PO SCH (04:12)
[2018-05-12] MEDS: FUROSEMIDE 20 MG TAB PO SCH (04:12)
[2018-05-12 08:08] LABS: Basophils % (A) 0 %; Eosinophils % (A) 0 %; HGB 7.9 gm/dL (13.0-17.5); Lymphocytes # (A) 0.6 k/uL (1.0-4.8); Lymphocytes % (A) 8 %; MCH 30.6 pg (25.0-35.0); MCHC 32.8 g/dL (31.0-37.0); MCV 93.2 fL (80.0-100.0); Mean Platelet Volume 7.7; Monocytes # (A) 0.2 k/uL (0-1.0); Monocytes % (A) 2 %; Neutrophils # (A) 6.3 k/uL (1.3-7.7); Neutrophils % (A) 90 %; Platelet Count 138 k/uL (150-450); RBC 2.57 m/uL (4.30-5.90); WBC 7.1 k/uL (3.8-10.6)
[2018-05-12] MEDS: IPRATROPIUM-ALBUTEROL 3 ML NEB INHALATION SCH ×4 (09:24→19:11)
[2018-05-12 09:25] LABS: Albumin 3.2 g/dL (3.5-5.0); Calcium 8.7 mg/dL (8.4-10.2); Total Bilirubin 0.3 mg/dL (0.2-1.3); Total Protein 5.8 g/dL (6.3-8.2)
[2018-05-12 09:36] LABS: Potassium 6.1 mmol/L (3.5-5.1)
[2018-05-12 10:16] LABS: INR 1.9 (<1.2); Prothrombin Time 17.4 sec (9.0-12.0)
[2018-05-12] MEDS ORDERED: DEXTROSE 50%-WATER 50 ML SYRINGE IVP STA ×2 (10:33→16:42)
[2018-05-12] MEDS ORDERED: INSULIN REGULAR 100 UNIT/ML VIAL IV ONE ×2 (10:33→16:41)
[2018-05-12] MEDS ORDERED: SODIUM BICARB 8.4% 50 ML SYR (1 MEQ/ML) IV STA (10:34)
--- NOTE | 2018-05-12 10:34 | P.NPCON ---
History of Present Illness - Reason for Consult acute renal failure, chronic renal failure - History of Present Illness Reason for consultation: Acute kidney injury on chronic kidney disease History of present illness: Patient is a 88-year-old male seen in renal consultation for acute kidney injury on chronic kidney disease. Patient has history of chronic kidney disease stage IV secondary to nephrosclerosis. His baseline creatinine from April 2017 was in the range of 2.8-3. This admission his creatinine was 3.33 and is stable at 3.32 today. Patient presented to the hospital with dyspnea. He was also told to come to the hospital due to low hemoglobin. Hemoglobin was 8.9 on admission and is 7.9 today. Patient denies any active bleeding. No melena or hematochezia. His potassium level is up to 6.1 this morning. He is noted to be acidotic with a bicarbonate level of 17. Denies vomiting or diarrhea. Oral intake is fair. Admits to good urine output. No hematuria or dysuria. Denies use of NSAIDs. He is receiving normal saline at 100 mL an hour. No edema. Chest x-ray was not suggestive of fluid overload. Vital signs are stable. General: The patient appeared well nourished and normally developed. HEENT: Head exam is unremarkable. Neck is without jugular venous distension. LUNGS: Lungs are clear to auscultation and percussion. Breath sounds decreased. HEART: Rate and Rhythm are regular. First and second heart sounds normal. No murmurs, rubs or gallops. ABDOMEN: Abdominal exam reveals normal bowel sounds. Non-tender and non- distended. No evidence of peritonitis. EXTREMITITES: No clubbing, cyanosis, or edema. Past Medical History Past Medical History: Atrial Fibrillation, Coronary Artery Disease (CAD), Chest Pain / Angina, Heart Failure, COPD, Hypertension, Myocardial Infarction ([place]), Osteoarthritis (OA), Pneumonia, Sleep Apnea/CPAP/BIPAP Additional Past Medical History / Comment(s): NSTEMI, EF 50% Last Myocardial Infarction Date:: 2010 History of Any Multi-Drug Resistant Organisms: None Reported Past Surgical History: Heart Catheterization With Stent, Joint Replacement, Tonsillectomy Additional Past Surgical History / Comment(s): Rt carotid [id number], cataract removed with lens implant bilat., Rt. 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 PT STATES HE'S DEPRESSED EVERY DAY BUT NOT SUICIDAL-NO THOUGHTS OF HARMING HIMSELF. APPETITE GOOD, NOT SLEPING WELL D/T NOSIE OF CPAP MACHINE- FEELS TIRED ALL THE TIME. DENIES LOSS OF INTEREST IN THINGS. Smoking Status: Never smoker Past Alcohol Use History: None Reported Past Drug Use History: None Reported - Past Family History Father Family Medical History: Chest Pain / Angina, Coronary Artery Disease (CAD), Myocardial Infarction ([place]) Mother Family Medical History: Dementia Medications and Allergies Home Medications Medication Instructions Recorded Confirmed Type ALPRAZolam [Xanax] 0.5 mg PO QID 09/23/14 05/11/18 History Aspirin EC [Ecotrin] 325 mg PO DAILY@0400 09/23/14 05/11/18 History Clopidogrel [Plavix] 75 mg PO DAILY@99908/06/15 05/11/18 History Docusate [Colace] 100 mg PO HS@199904/01/17 05/11/18 History Loratadine [Claritin] 10 mg PO DAILY@0 04/01/17 05/11/18 History amLODIPine [Norvasc] 10 mg PO DAILY@1000 04/01/17 05/11/18 History Furosemide [Lasix] 20 mg PO DAILY@0400 05/11/18 05/11/18 History Gabapentin [Neurontin] 100 mg PO TID PRN 05/11/18 05/11/18 History Isosorbide Mononitrate [Imdur] 120 mg PO HS@199905/11/18 05/11/18 History Metoprolol Tartrate [Lopressor] 25 mg PO DAILY@0 05/11/18 05/11/18 History Omeprazole [PriLOSEC] 20 mg PO DAILY@39905/11/18 05/11/18 History Pravastatin Sodium [Pravachol] 40 mg PO HS@199905/11/18 05/11/18 History Vitamin E (Dl,Tocopheryl Acet) 400 unit PO HS@199905/11/18 05/11/18 History [Vitamin E] Warfarin [Coumadin] 3 mg PO DAILY@159905/11/18 05/11/18 History Allergies Allergy/AdvReac Type Severity Reaction Status Date / Time No Known Allergies Allergy Verified 05/11/18 17:55 Physical Exam Vitals: Vital Signs Temp Pulse Pulse Resp BP BP Pulse Ox 05/12/18 09:39 72 05/12/18 09:24 76 05/12/18 09:01 155/65 05/12/18 04:53 98.2 F 66 18 142/65 99 05/11/18 20:54 97.1 F L 68 18 177/71 98 05/11/18 19:35 16 05/11/18 19:04 79 15 183/90 100 05/11/18 19:03 78 05/11/18 18:39 20 05/11/18 18:34 61 05/11/18 18:30 60 18 181/84 05/11/18 18:24 91 L 05/11/18 16:51 97.5 F L 71 22 187/69 99 Intake and Output 05/11/18 05/12/18 05/12/18 22:59 06:59 14:59 Other: Voiding Method Toilet Toilet # Voids 1 1 Weight 99.79 kg Results - Lab Results Most recent lab results Calcium 8.7 mg/dL (8.4-10.2) 05/12/18 07:48 Magnesium 2.2 mg/dL (1.6-2.3) 05/11/18 18:17 05/12/18 07:48 05/12/18 07:48 Assessment and Plan Plan: Assessment: 1. Acute kidney injury secondary to ATN secondary to poor oral intake and diuresis. This may very well be close to his baseline renal function as his renal function has been progressively declining over the past few months. 2. Chronic kidney disease stage IV secondary to nephrosclerosis with baseline creatinine near 3. 3. Anemia. No active bleeding. Rule out iron deficiency. 4. Hyperkalemia secondary to acute kidney injury and metabolic acidosis. Rule out obstructive process. 5. Metabolic acidosis secondary to acute kidney injury. Plan: Maintain normal saline at 100 mL an hour. 2 g of bicarb IV push along with 10 units of IV insulin with amp of D50. Add oral sodium bicarbonate as well. Low potassium diet. Monitor postvoid residuals. Straight cath if greater than 300 mL present. Hold diuretics for now. Check iron studies. Check urinalysis. Check renal ultrasound. Repeat potassium level this evening. Add Klaus. Thank you for the consultation. I will continue to follow the patient with you during his hospital stay.
[2018-05-12] MEDS ORDERED: DARBEPOETIN ALFA 40 MCG/0.4 ML SYRINGE SQ SCH (11:00)
[2018-05-12 11:20] LABS: Appearance,Urine Clear (Clear); Bilirubin,Urine Negative (Negative); Blood,Urine Negative (Negative); Color,Urine Light Yellow; Glucose,Urine (UA) Negative (Negative); Ketones,Urine Negative (Negative); Leukocyte Esterase,Urine Negative (Negative); Mucus,Urine Rare /hpf; Nitrite,Urine Negative (Negative); PH, Urine 5.5 (5.0-8.0); Protein,Urine 1+ (Negative); Specific Gravity,Urine 1.009 (1.001-1.035); Urobilinogen,Urine <2.0 mg/dL (<2.0); WBC,Urine 1 /hpf (0-5)
[2018-05-12] MEDS: SODIUM BICARBONATE TAB 650 MG TAB PO SCH ×3 (11:32→21:45)
[2018-05-12] MEDS: ALPRAZolam 0.5 MG TAB PO SCH ×3 (11:51→21:04)
[2018-05-12] MEDS: amLODIPine 10 MG TAB PO SCH (11:51)
[2018-05-12] MEDS: CLOPIDOGREL 75 MG TAB PO SCH (11:51)
--- NOTE | 2018-05-12 11:57 | US ---
EXAMINATION TYPE: US kidneys/renal and bladder DATE OF EXAM: 05/12/2018 COMPARISON: None CLINICAL HISTORY: adela. No pain. Hx of bilateral renal cysts. EXAM MEASUREMENTS: Right Kidney: 11.9 x 4.5 x 5.3 cm Left Kidney: 10.6 x 4.4 x 5.6 cm Right Kidney: Multiple hypoechoic nodules appearing lesions seen, largest lower pole= 0.9 x 1.2 x 1. 1 cm Left Kidney: Multiple hypoechoic nodules seen, largest lateral = 3.2 x 3.1 x 2.9 cm. Echogenic focu s seen in renal sinus with shadow= 0.5 cm Bladder: Thickened wall - 5.1 mm Right jet seen IMPRESSION: 1. Thickened bladder wall correlate for cystitis. Correlate clinically to exclude mucosal lesion. 2. Small hypoechoic lesions in the kidneys are too small to characterize. Renal cortex appears thin c orrelate for chronic medical renal disease. 3. There is a 5 mm left renal pelvic calcification suspected with no hydronephrosis.
[2018-05-12] MEDS ORDERED: FUROSEMIDE 10 MG/ML 4 ML VIAL IV STA (12:07)
[2018-05-12 14:13] LABS: Glucose,Whole Blood 129 mg/dL (75-99)
[2018-05-12] MEDS ORDERED: hydrALAZINE HCL 20 MG/ML 1 ML VIAL IVP PRN (15:48)
[2018-05-12] MEDS ORDERED: WARFARIN 3 MG TAB PO SCH (16:00)
[2018-05-12] MEDS ORDERED: METOPROLOL TARTRATE 50 MG TAB PO SCH (16:00)
[2018-05-12 16:09] LABS: Creatine Kinase MB 2.2 ng/mL (0.0-2.4); Troponin I 0.019 ng/mL (0.000-0.034)
[2018-05-12] MEDS: METOPROLOL TARTRATE 50 MG TAB PO SCH (16:14)
--- NOTE | 2018-05-12 17:23 | HP ---
HISTORY AND PHYSICAL CHIEF COMPLAINT: This patient is an 88-year-old due to acute kidney injury and kidney disease and severe weakness and worsening anemia. He has stage IV due to nephrosclerosis, came in with his hemoglobin down to around 7.9. It was up by 11 recently. On query, he has seen no blood in his stools or abdomen. His potassium was super high on admission at 7 and now down to 5.7 with insulin given and bicarb given. He has good urine output. No NSAIDs. He has been given fluids at 100/hour while he was here. Chest x-ray was negative for fluid overload. He had hypertension acceleration since he has been here, blood pressure very high despite his home medications being given. IV hydralazine has been ordered and an increase in his beta williams metoprolol. PAST MEDICAL HISTORY: 1. Atrial fibrillation. 2. Coronary artery disease. 3. Heart failure. 4. COPD. 5. Hypertension. 6. Myocardial infarction. 7. Osteoarthritis. 8. Pneumonia. 9. Sleep apnea. BiPAP. He did not wear CPAP last night. 10.He has a non-STEMI with ejection fraction 50%. 11.He has had right carotid endarterectomy. 12.Cataract removal with lens implants. 13.Right knee replacement. 14.History of anxiety and depression. He lost his to cancer 3-1/2 years ago. He is not suicidal. He is tired all the time despite wearing CPAP. FAMILY HISTORY: Father with coronary artery disease, myocardial infarction. Mother as mentioned above. HOME MEDICATIONS: Home medications include: 1. Plavix. 2. Ecotrin. 3. Xanax. 4. Colace. 5. Claritin. 6. Norvasc. 7. Lasix. 8. Neurontin. 9. Imdur. 10.Prilosec. 11.Lopressor. 12.Pravachol. 13.Coumadin. ALLERGIES: NEGATIVE. PHYSICAL EXAMINATION: Blood pressures 170s to 180s currently over 70s to 80s, pulses 86 to 70s, temperature 98.1. PSYCH: He appears weak and fatigued. He is giving appropriate answers. Lungs show scattered rales at the base; otherwise clear. CARDIOVASCULAR: S1, S2. HEMATOLOGY: Negative Homans except for 2+ pedal edema. GI: Soft, nontender. SKIN: No rash, excoriation, bruises. LABS: BUN 60, creatinine 3.32, hemoglobin 7.9. ASSESSMENT: 1. Acute kidney injury due to poor oral intake and diuresis. 2. Chronic kidney disease, stage IV. 3. Anemia. No active bleeding. Will get started on iron supplements and get Oncology consulted. 4. Hyperkalemia secondary to metabolic acidosis from acute kidney injury. 5. Metabolic acidosis. 6. Obstructive sleep apnea. Continue with fluids, oral bicarbonate. Hyperkalemia will need to be improved. Hold diuretics. Check iron studies. IV Venofer will be ordered. MMODL / IJN: [id number] /
[2018-05-12] MEDS: hydrALAZINE HCL 20 MG/ML 1 ML VIAL IVP PRN ×2 (17:34→23:48)
[2018-05-12 17:54] LABS: Iron Saturation 10.07 (15.00-50.00)
[2018-05-12] MEDS: ISOSORBIDE MONONITRATE ER 60 MG TAB.ER.24H PO SCH (21:44)
[2018-05-12] MEDS: PRAVASTATIN SODIUM 40 MG TAB PO SCH (21:44)
[2018-05-12] MEDS: DOCUSATE 100 MG CAP PO SCH (21:44)
[2018-05-12] MEDS: VITAMIN E (DL,TOCOPHERYL ACET) 400 UNIT CAP PO SCH (21:45)
[2018-05-13] MEDS ORDERED: METOPROLOL TARTRATE 50 MG TAB PO SCH (04:00)
[2018-05-13] MEDS: METOPROLOL TARTRATE 50 MG TAB PO SCH ×2 (05:24→17:24)
[2018-05-13] MEDS: FUROSEMIDE 20 MG TAB PO SCH (05:24)
[2018-05-13] MEDS: PANTOPRAZOLE 40 MG TABLET PO SCH (05:24)
[2018-05-13] MEDS: ASPIRIN 325 MG TAB PO SCH (05:24)
[2018-05-13] MEDS: LORATADINE 10 MG TAB PO SCH (05:24)
[2018-05-13] MEDS: ALPRAZolam 0.5 MG TAB PO SCH ×5 (05:26→22:41)
[2018-05-13] MEDS: SODIUM CHLORIDE 0.9% 1,000 ML IV SCH ×2 (07:25→17:25)
[2018-05-13 07:44] LABS: Basophils % (A) 0 %; Eosinophils # (A) 0.2 k/uL (0-0.7); Eosinophils % (A) 1 %; HGB 7.9 gm/dL (13.0-17.5); Lymphocytes # (A) 1.4 k/uL (1.0-4.8); Lymphocytes % (A) 13 %; MCH 30.7 pg (25.0-35.0); MCHC 32.9 g/dL (31.0-37.0); MCV 93.3 fL (80.0-100.0); Mean Platelet Volume 7.2; Monocytes # (A) 0.7 k/uL (0-1.0); Monocytes % (A) 7 %; Neutrophils # (A) 8.6 k/uL (1.3-7.7); Neutrophils % (A) 78 %; Platelet Count 152 k/uL (150-450); RBC 2.58 m/uL (4.30-5.90); RDW 13.2 % (11.5-15.5)
[2018-05-13 07:58] LABS: Albumin 3.3 g/dL (3.5-5.0); Magnesium 1.9 mg/dL (1.6-2.3); Phosphorus 3.7 mg/dL (2.5-4.5); Total Bilirubin 0.5 mg/dL (0.2-1.3); Total Protein 5.8 g/dL (6.3-8.2)
[2018-05-13] MEDS: CLOPIDOGREL 75 MG TAB PO SCH (07:59)
[2018-05-13] MEDS: SODIUM BICARBONATE TAB 650 MG TAB PO SCH ×3 (07:59→22:41)
[2018-05-13] MEDS: amLODIPine 10 MG TAB PO SCH (07:59)
[2018-05-13] MEDS: IPRATROPIUM-ALBUTEROL 3 ML NEB INHALATION SCH ×4 (08:05→21:27)
[2018-05-13] MEDS: BUDESONIDE 0.5 MG/2 ML NEBU INHALATION SCH ×2 (08:05→21:26)
--- NOTE | 2018-05-13 08:37 | CONS ---
CONSULTATION Zen Leonardo is 88-year-old male who presented to the ED at [facility] with weakness and some shortness of breath. He had gone to get some blood work done at the [facility] and subsequently was told that he had a low blood count and was brought into the ER for further treatment. When he came to the hospital, he had a hemoglobin down to 7.8. He denied having any known bleeding that he could see. He denied any melena or hematochezia. PAST MEDICAL HISTORY: Positive for COPD. However, he has no history of clear smoking. He has been exposed to diesel fumes and secondhand smoke. Has a history of atrial fibrillation, coronary artery disease, status post stent placement in the past, history of joint replacement, history of carotid endarterectomy, tonsillectomy, history of obstructive sleep apnea for which he uses CPAP. FAMILY HISTORY: Negative for COPD or asthma. Cardiac is negative for asthma. His father he believes may have had COPD. Mother had a history of dementia. SOCIAL HISTORY: Patient is a never smoker. Was exposed to secondhand smoke and diesel exhaust and may have been exposed to asbestos when he worked in the [employer]. REVIEW OF SYSTEMS: Noncontributory. MEDICATIONS: Prior to admission were amlodipine, warfarin, vitamin E, pravastatin, omeprazole, metoprolol, loratadine, Imdur, gabapentin, Lasix, Colace, Plavix, Ecotrin, Xanax. PHYSICAL EXAMINATION: Blood pressure is 170/77, respiratory rate of 18, pulse rate is 79. He is afebrile. His O2 saturation on room air is 95%. HEENT reveals pupils that are equal. No jugular venous distention. Chest reveals decreased breath sounds, but no clear wheeze. Cardiovascular system reveals an S1, S2. No S3, S4. Abdomen is soft. There is trace pedal edema. LABS: Reveal a white count of 7.1, hemoglobin of 7.9, PT/INR of 1.9. Sodium 141, potassium 6.1, chloride 117, bicarb 17, BUN 60, creatinine of 3.32. On admission, however, his potassium had been elevated at 5.8. IMPRESSION: At this time: 1. Anemia, etiology which is unclear but may be multifactorial. 2. History of chronic obstructive pulmonary disease, however, no clear history of smoking. Would need to further evaluate him as an outpatient with a PFT and decide on further workup. We will check an alpha-1 antitrypsin phenotype. 3. Atrial fibrillation with controlled ventricular response. 4. Hypertension. 5. Obstructive sleep apnea for which he will be wearing his CPAP at his home settings. 6. Chronic renal failure, which the patient is being seen by Nephrology. We will follow this patient closely. Keep him on his current medications which were reviewed. We will follow him closely during his hospital stay and appreciate the opportunity to participate in his care. MMSHAWN / JOSE ANTONION: [id number] /
[2018-05-13] MEDS ORDERED: FUROSEMIDE 10 MG/ML 10 ML VIAL IV STA (11:16)
--- NOTE | 2018-05-13 12:44 | P.PN ---
Subjective Progress Note Date: 05/13/18 Principal diagnosis: This is a 80-year-old male with chronic kidney disease who came in because of shortness of breath and has hemoglobin of 8.9. He does have obstructive sleep apnea and is on CPAP at home. His chronic kidney disease with creatinine of 3.3 on admission which is on on the better creatinines he has had. His previous creatinines are in the 4.2-4.8 range. The most recent creatinine prior to his admission was 3.58 on 08/23/2017. He was started on darbepoetin. His saturations 10% Since admission he is feeling little bit better less short of breath. Is able to walk. No dizziness good appetite no Objective - Vital Signs Vital signs: Vital Signs Temp 97.3 F L 05/13/18 05:00 Pulse 72 05/13/18 12:05 Resp 20 05/13/18 08:00 BP 175/79 05/13/18 05:00 Pulse Ox 98 05/13/18 05:00 Intake & Output 05/12/18 05/13/18 05/13/18 18:59 06:59 18:59 Intake Total 1580 1800 Output Total 900 900 Balance 680 900 Weight 99.79 kg Intake: Intake, IV Titration 800 Amount Sodium Chloride 0.9% 1, 800 000 ml @ 50 mls/hr IV . Q20H [facility] Rx#:[id number] Oral 1580 1000 Output: Urine 900 900 Other: Voiding Method Toilet Toilet Toilet Urinal Urinal # Voids 1 On examination awake alert oriented comfortable HEENT exam no JVP neck is supple no facial asymmetry Lungs are clear to auscultation good air entry bilaterally Heart sounds are unremarkable for any murmur rub gallop Abdomen soft nontender non-distended no masses felt Extremity exam was no edema Neurologically awake alert oriented - Labs CBC & Chem 7: 05/13/18 06:55 05/13/18 06:55 Labs: Abnormal Lab Results - Last 24 Hours (Table) 05/12/18 05/12/18 05/12/18 Range/Units 07:48 14:11 14:45 WBC (3.8-10.6) k/uL RBC (4.30-5.90) m/uL Hgb (13.0-17.5) gm/dL Hct (39.0-53.0) % Neutrophils # (1.3-7.7) k/uL Potassium 5.7 H (3.5-5.1) mmol/L Chloride (98-107) mmol/L Carbon Dioxide (22-30) mmol/L BUN (9-20) mg/dL Creatinine (0.66-1.25) mg/dL POC Glucose (mg/dL) 129 H (75-99) mg/dL Iron 29 L (65-175) ug/dL Iron Saturation 10.07 L (15.00-50.00) Ferritin 15.4 L (22.0-322.0) ng/mL AST (17-59) U/L Total Protein (6.3-8.2) g/dL Albumin (3.5-5.0) g/dL 05/13/18 05/13/18 Range/Units 06:55 06:55 WBC 11.0 H (3.8-10.6) k/uL RBC 2.58 L (4.30-5.90) m/uL Hgb 7.9 L (13.0-17.5) gm/dL Hct 24.0 L (39.0-53.0) % Neutrophils # 8.6 H (1.3-7.7) k/uL Potassium (3.5-5.1) mmol/L Chloride 113 H (98-107) mmol/L Carbon Dioxide 21 L (22-30) mmol/L BUN 63 H (9-20) mg/dL Creatinine 3.36 H (0.66-1.25) mg/dL POC Glucose (mg/dL) (75-99) mg/dL Iron (65-175) ug/dL Iron Saturation (15.00-50.00) Ferritin (22.0-322.0) ng/mL AST 16 L (17-59) U/L Total Protein 5.8 L (6.3-8.2) g/dL Albumin 3.3 L (3.5-5.0) g/dL Microbiology - Last 24 Hours (Table) 05/11/18 18:17 Blood Culture - Preliminary Blood No Growth after 24 hours Assessment and Plan Assessment: Impression 1. Chronic kidney disease stage III GFR is 16 mL per minute secondary to nephrosclerosis Baseline creatinine of 3.58 on 08/23/2017, his creatinine on admission was 3.3. 2. Admitted with shortness of breath possibly related to anemia in addition to his obstructive sleep apnea. Hemoglobin is 8 points 9 he is on darbepoetin 3. Iron deficiency with saturation 10%. 4. Hyperkalemia secondary to chronic kidney disease 5. 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 Blood pressure on target. Recommendation. 1. IV Ferrlecit 125 mg 1 dose today. 2. He can be discharged. Will follow-up with darbepoetin as needed. 3. Monitor CBC and iron saturation
[2018-05-13] MEDS ORDERED: SODIUM FERRIC GLUCONAT-SUCROSE 125 MG in SODIUM CHLORIDE 0.9% 100 ML IVPB ONE (13:00)
--- NOTE | 2018-05-13 16:04 | PN ---
PROGRESS NOTE He was seen again on 05/13/2018. He has been hemodynamically stable. He continues to have shortness of breath. On physical examination, his respiratory rate is 20, pulse rate of 67, temperature 97.3, blood pressure 175/79, O2 saturation on room air is 98%. HEENT is unremarkable. Chest reveals decreased breath sounds at bases. No clear wheeze. Cardiovascular system reveals an S1, S2. Abdomen is soft. There is 1+ to 2+ pedal edema. White count is 11, hemoglobin of 7.9. Sodium 142, potassium 5, chloride 113, bicarb 21, BUN 63, creatinine 3.36. IMPRESSION: At this time: 1. Anemia, etiology is due to iron deficiency. 2. Chronic kidney disease. 3. Mild fluid overload. 4. Obstructive sleep apnea. 5. Possible chronic obstructive pulmonary disease versus asthma. Give him a single dose of Lasix today increases activity level. Continue CPAP. Depending on how he does which make further changes to his care. He is counseled on his condition and this approach. MMODL / IJN: [id number] /
[2018-05-13 17:51] LABS: INR 2.1 (<1.2); Prothrombin Time 19.3 sec (9.0-12.0)
[2018-05-13] MEDS ORDERED: WARFARIN 3 MG TAB PO ONE (18:00)
[2018-05-13] MEDS: DOCUSATE 100 MG CAP PO SCH (19:56)
[2018-05-13] MEDS: ISOSORBIDE MONONITRATE ER 60 MG TAB.ER.24H PO SCH (19:57)
[2018-05-13] MEDS: PRAVASTATIN SODIUM 40 MG TAB PO SCH (19:57)
[2018-05-13] MEDS: VITAMIN E (DL,TOCOPHERYL ACET) 400 UNIT CAP PO SCH (19:57)
[2018-05-14] MEDS: METOPROLOL TARTRATE 50 MG TAB PO SCH (04:32)
[2018-05-14] MEDS: PANTOPRAZOLE 40 MG TABLET PO SCH (04:32)
[2018-05-14] MEDS: LORATADINE 10 MG TAB PO SCH (04:33)
[2018-05-14] MEDS: FUROSEMIDE 20 MG TAB PO SCH (04:33)
[2018-05-14] MEDS: ALPRAZolam 0.5 MG TAB PO SCH ×2 (04:34→11:44)
[2018-05-14] MEDS: BUDESONIDE 0.5 MG/2 ML NEBU INHALATION SCH (06:51)
[2018-05-14] MEDS: IPRATROPIUM-ALBUTEROL 3 ML NEB INHALATION SCH ×3 (06:51→17:11)
[2018-05-14 07:31] LABS: INR 2.4 (<1.2); Prothrombin Time 21.2 sec (9.0-12.0)
[2018-05-14] MEDS: amLODIPine 10 MG TAB PO SCH (08:18)
[2018-05-14] MEDS: SODIUM BICARBONATE TAB 650 MG TAB PO SCH (08:18)
[2018-05-14] MEDS: SODIUM CHLORIDE 0.9% 1,000 ML IV SCH (08:19)
--- NOTE | 2018-05-14 10:32 | PN ---
PROGRESS NOTE SUBJECTIVE: An 88-year-old white male, chronic kidney disease, shortness of breath. Hemoglobin 8.9. He has obstructive sleep apnea. He is feeling better today. He is up ambulating. His creatinine is better when he came in than he normally has. Saturation is better. OBJECTIVE: CARDIOVASCULAR: S1, S2. LUNGS: Clear. GI: Soft. HEMATOLOGY: Negative Homans. PSYCH: Fair mood and affect. ASSESSMENT: 1. Chronic kidney disease stage 3. 2. Obstructive sleep apnea. 3. Iron deficiency anemia. 4. Hyperkalemia. 5. Chronic kidney disease. 6. Metabolic acidosis. 7. Hypertension. PLAN: Continue current treatment. Follow up the next 24 to 48 hours. MMODL / IJN: [id number] /
[2018-05-14] MEDS: hydrALAZINE HCL 20 MG/ML 1 ML VIAL IVP PRN (12:06)
[2018-05-14 12:14] LABS: Calcium 8.7 mg/dL (8.4-10.2); Potassium 4.9 mmol/L (3.5-5.1)
[2018-05-14 12:35] LABS: Basophils % (A) 0 %; Eosinophils # (A) 0.3 k/uL (0-0.7); Eosinophils % (A) 3 %; HCT 24.9 % (39.0-53.0); HGB 8.3 gm/dL (13.0-17.5); Lymphocytes # (A) 1.2 k/uL (1.0-4.8); Lymphocytes % (A) 16 %; MCH 31.1 pg (25.0-35.0); MCHC 33.5 g/dL (31.0-37.0); MCV 92.8 fL (80.0-100.0); Mean Platelet Volume 8.5; Monocytes # (A) 0.6 k/uL (0-1.0); Monocytes % (A) 8 %; Neutrophils # (A) 5.2 k/uL (1.3-7.7); Neutrophils % (A) 70 %; Platelet Count 150 k/uL (150-450); RBC 2.68 m/uL (4.30-5.90); WBC 7.5 k/uL (3.8-10.6)
--- NOTE | 2018-05-14 12:53 | P.PN ---
Subjective Progress Note Date: 05/14/18 Principal diagnosis: This is a 80-year-old male with chronic kidney disease who came in because of shortness of breath and has hemoglobin of 8.9. He does have obstructive sleep apnea and is on CPAP at home. His chronic kidney disease with creatinine of 3.3 on admission which is on on the better creatinines he has had. His previous creatinines are in the 4.2-4.8 range. The most recent creatinine prior to his admission was 3.58 on 08/23/2017. He was started on darbepoetin. His saturations 10%, he received 1 dose of for illicit 125 mg yesterday 05/13/2018. Since admission he is feeling little bit better less short of breath. Is able to walk. No dizziness good appetite. Yesterday there was some concern regarding his blood pressure being up and down between 124 systolic to 187 systolic. Objective - Vital Signs Vital signs: Vital Signs Temp 98.7 F 05/14/18 11:41 Pulse 65 05/14/18 11:41 Resp 18 05/14/18 11:41 BP 187/81 05/14/18 11:41 Pulse Ox 99 05/14/18 11:41 Intake & Output 05/13/18 05/14/18 05/14/18 18:59 06:59 18:59 Intake Total 240 2000 Output Total 900 Balance -660 2000 Weight 99.79 kg Intake: Intake, IV Titration 800 Amount Sodium Chloride 0.9% 1, 800 000 ml @ 50 mls/hr IV . Q20H [facility] Rx#:[id number] Oral 240 1200 Output: Urine 900 Other: Voiding Method Toilet Toilet Urinal Urinal # Voids 2 2 # Bowel Movements 2 On examination is awake alert oriented comfortable HEENT exam no JVP neck is supple no facial asymmetry Lungs clear to auscultation good air entry bilaterally Heart sounds are unremarkable for any murmur rub gallop Abdomen soft nontender extremity examination reveals no edema Neurologically awake alert oriented. - Labs CBC & Chem 7: 05/14/18 12:20 05/14/18 06:21 Labs: Abnormal Lab Results - Last 24 Hours (Table) 05/13/18 05/14/18 05/14/18 Range/Units 17:12 06:21 06:33 RBC (4.30-5.90) m/uL Hgb (13.0-17.5) gm/dL Hct (39.0-53.0) % PT 19.3 H 21.2 H (9.0-12.0) sec INR 2.1 H 2.4 H (<1.2) Chloride 111 H (98-107) mmol/L BUN 60 H (9-20) mg/dL Creatinine 3.35 H (0.66-1.25) mg/dL 05/14/18 Range/Units 12:20 RBC 2.68 L (4.30-5.90) m/uL Hgb 8.3 L (13.0-17.5) gm/dL Hct 24.9 L (39.0-53.0) % PT (9.0-12.0) sec INR (<1.2) Chloride (98-107) mmol/L BUN (9-20) mg/dL Creatinine (0.66-1.25) mg/dL Microbiology - Last 24 Hours (Table) 05/11/18 18:17 Blood Culture - Preliminary Blood No Growth after 48 hours Assessment and Plan Assessment: Impression 1. Chronic kidney disease stage III GFR is 16 mL per minute secondary to nephrosclerosis Baseline creatinine of 3.58 on 08/23/2017, his creatinine on admission was 3.3. And it is stable at 3.5 this morning 2. Admitted with shortness of breath possibly related to anemia in addition to his obstructive sleep apnea. Hemoglobin is 8 points 9 he is on darbepoetin 3. Iron deficiency with saturation 10%. Status post Ferrlecit 125 mg 1 dose 4. Hyperkalemia secondary to chronic kidney disease 5. 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 Blood pressure not at target. Recommendation. 1. Stable from nephrological perspective but pressure slightly high. He is on multiple medication out like she just watch him for right now and allow for 3 days before changing any further blood pressure medications. 2. Watch hemoglobin and iron saturation. 3. Pending cardiology workup 4. He can be discharged. Will follow-up with darbepoetin as needed.
--- NOTE | 2018-05-14 15:39 | ECHOF ---
Referral Reason:chest pain MEASUREMENTS -------- HEIGHT: 193.0 cm WEIGHT: 99.8 kg BP: 124/58 RVIDd: 4.1 cm (< 3.3) IVSd: 1.5 cm (0.6 - 1.1) LVIDd: 3.6 cm (3.9 - 5.3) LVPWd: 1.6 cm (0.6 - 1.1) IVSs: 2.0 cm LVIDs: 2.6 cm LVPWs: 1.8 cm LAESV Index (A-L): 46.22 ml/m Ao Diam: 4.3 cm (2.0 - 3.7) AV Cusp: 1.3 cm (1.5 - 2.6) LA Diam: 4.3 cm (2.7 - 3.8) MV E Kee: 1.12 m/s MV DecT: 206 ms MV A Kee: 0.46 m/s MV E/A Ratio: 2.42 AV maxP.09 mmHg AV meanP.10 mmHg AR PHT: 468 ms RAP: 15.00 mmHg RVSP: 34.44 mmHg FINDINGS -------- Atrial fibrillation. This was a technically adequate study. The left ventricular size is normal. There is moderate concentric left ventricular hypertrophy. O verall left ventricular systolic function is low-normal with, an EF between 50 - 55 %. The right ventricle is moderately enlarged. LA is severely dilated >40 ml/m2 RA appears enlarged. Aortic valve is trileaflet and is moderately thickened. There is [id number] aortic regurgitat ion. There is moderate aortic stenosis present. Peak/mean gradient across the Aortic Valve is 44. 09mmHg / 27.10mmHg. The mitral valve leaflets are mildly thickened. Mild mitral annular calcification present. Modera te mitral regurgitation is present. Mild tricuspid regurgitation present. There is borderline pulmonary hypertension. The right ventr icular systolic pressure, as measured by Doppler, is 34.44mmHg. The pulmonic valve was not well visualized. The aortic root size is normal. The inferior vena cava is dilated with poor inspiratory collapse which is consistent with estimated r ight atrial pressure of 20 mmHg. There is no pericardial effusion. CONCLUSIONS -------- 1. Atrial fibrillation. 2. This was a technically adequate study. 3. The left ventricular size is normal. 4. There is moderate concentric left ventricular hypertrophy. 5. The right ventricle is moderately enlarged. 6. LA is severely dilated >40 ml/m2 7. RA appears enlarged. 8. Aortic valve is trileaflet and is moderately thickened. 9. There is vrej-vz-[id number] aortic regurgitation. 10. There is moderate aortic stenosis present. 11. Peak/mean gradient across the Aortic Valve is 44.09mmHg / 27.10mmHg. 12. The mitral valve leaflets are mildly thickened. 13. Mild mitral annular calcification present. 14. Moderate mitral regurgitation is present. 15. Mild tricuspid regurgitation present. 16. There is borderline pulmonary hypertension. 17. The right ventricular systolic pressure, as measured by Doppler, is 34.44mmHg. 18. The pulmonic valve was not well visualized. 19. The aortic root size is normal. 20. The inferior vena cava is dilated with poor inspiratory collapse which is consistent with estimat ed right atrial pressure of 20 mmHg. 21. There is no pericardial effusion. PHOTO FINISH PHOTOGRAPHER: Darrian Perez RDCS
[2018-05-14 16:57] VITALS: BP 151/67; PULSE 73; RESP 24; TEMP 97.9
[2018-05-14] MEDS ORDERED: WARFARIN 3 MG TAB PO SCH (18:00)
--- NOTE | 2018-05-14 18:32 | PN ---
PROGRESS NOTE He was seen on 05/14/2018. He has been hemodynamically stable. He is less short of breath and diuresed well. On physical examination, his blood pressure is 187/81, respiratory rate of 18, pulse rate 65, temperature 98.7, O2 saturation on 2 L by nasal cannula is 99%. HEENT reveals no new changes. Chest reveals decreased breath sounds. Cardiovascular system reveals an S1, S2. Abdomen is soft. There is trace to 1+ pedal edema. IMPRESSION: At this time: 1. Mild fluid overload with chronic kidney disease. 2. Chronic obstructive pulmonary disease versus asthma. 3. Obstructive sleep apnea. 4. Anemia. At this point in time from a pulmonary standpoint, continue him on his current medications which I reviewed. Increases activity level. Depending on how he does we shall make further changes to his care. He was counseled regarding his condition. MMSHAWN / HELEN: [id number] /
--- NOTE | 2018-05-14 21:23 | PN ---
PROGRESS NOTE SUBJECTIVE: 88-year-old white male, who is going to be discharged home today. He has been up ambulating without shortness of breath, but he had some possible ST elevation on the monitor. He had a troponin drawn which was negative. Cardiology awaiting their note to see if can be discharged. Blood pressure has been high. His blood pressure medicines have been increased. Cardiovascular: S1-S2. Lungs: Transmitted upper sounds. GI soft. Hematology: Negative Homans. BUN 60, creatinine 3.35, hemoglobin 8.3. ASSESSMENT: 1. Obstructive sleep apnea. 2. Chronic obstructive pulmonary disease. 3. Anemia due to renal insufficiency stage 3-4. 4. Non-anion gap acidosis. 5. Hyperkalemia. 6. Hypertension. Await Cardiology recommendations. Continue current blood pressure medicines at this point. Follow up next 24 to 48 hours. MMODL / IJN: [id number] /
[2018-05-17 11:55] LABS: Alpha 1 Anti-Trypsin 136 mg/dL (90 - 200)
--- NOTE | 2018-06-12 22:50 | DS ---
DISCHARGE SUMMARY DATE OF ADMISSION: 05/11/2018 DATE OF DISCHARGE: 05/14/2018. CONDITION: Stable. PROGNOSIS: Guarded. Ambulate as tolerated. HOME MEDICINES: 1. Aspirin 325 daily. 2. Xanax 0.5 q.i.d. 3. Plavix 75 daily. 4. Claritin 10 mg daily. 5. Colace 100 mg q.h.s. 6. Norvasc 10 mg daily. 7. Vitamin D 400 units daily. 8. Pravastatin 40 mg daily. 9. Imdur ER 120 mg daily. 10.Coumadin 3 mg daily. 11.Omeprazole 20 mg daily. 12.Lopressor 25 daily. 13.Lasix 20 mg daily. 14.Gabapentin 100 mg t.i.d. This patient was admitted with chronic kidney disease, shortness of breath, acute on chronic anemia, for low iron saturations. Obstructive sleep apnea. CPAP compliance discussed. Hemoglobin. Possible dialysis given. Iron deficiency anemia was treated, non anion gap acidosis secondary to RTA. Blood pressure, hypertension is not at target stabilized since his hemoglobin. Hypertension. Will follow up in the next 24 to 48 hours as an outpatient after being cleared by roll form operator and renal physician. MMODL / IJN: [id number] /
== END 2018-05-14 18:46 | disposition home or self-care (01) | DRG 812 ==
LOC: EC 16:48 → 3NMEDONC 20:07
PROVIDERS: ADMIT Family Medicine; ATTEND Family Medicine
DX: D50.9 Iron deficiency anemia, unspecified (principal); E87.2 Acidosis; I13.0 Hypertensive heart and chronic kidney disease with heart failure and stage 1 through stage 4 chronic kidney disease, or unspecified chronic kidney disease; N18.4 Chronic kidney disease, stage 4 (severe); E87.5 Hyperkalemia; G47.33 Obstructive sleep apnea (adult) (pediatric); I25.10 Atherosclerotic heart disease of native coronary artery without angina pectoris; I25.2 Old myocardial infarction; I48.91 Unspecified atrial fibrillation; I50.9 Heart failure, unspecified; Z77.090 Contact with and (suspected) exposure to asbestos; Z77.22 Contact with and (suspected) exposure to environmental tobacco smoke (acute) (chronic); Z79.01 Long term (current) use of anticoagulants; Z79.02 Long term (current) use of antithrombotics/antiplatelets; Z79.82 Long term (current) use of aspirin; Z82.49 Family history of ischemic heart disease and other diseases of the circulatory system; Z95.5 Presence of coronary angioplasty implant and graft; Z98.42 Cataract extraction status, left eye; Z98.41 Cataract extraction status, right eye; Z96.1 Presence of intraocular lens; Z96.651 Presence of right artificial knee joint; Z79.899 Other long term (current) drug therapy
CPT/HCPCS: 36415; 71046; 76770; 80048; 80053; 81001; 82103; 82104; 82550; 82553; 82728; 83540; 83550; 83735; 83880; 84100; 84132; 84484; 85025; 85610; 85730; 87040; 93005; 93306; 94640; 96374; 96375; 99285

== ENCOUNTER → 2018-07-07 | Outpatient (CLI) | payer MEDICARE, BC | LOC: RADCTMAIN 09:39 | PROVIDERS: ATTEND Thoracic Surgery (Cardiothoracic Vascular Surgery) | DX: I63.59 Cerebral infarction due to unspecified occlusion or stenosis of other cerebral artery (principal); Z53.09 Procedure and treatment not carried out because of other contraindication; Z01.812 Encounter for preprocedural laboratory examination | CPT/HCPCS: 82565; 84520 ==

== ENCOUNTER 2019-04-08 11:06 | Emergency (ER) | payer MEDICARE, BC ==
[2019-04-08] MEDS ORDERED: SODIUM CHLORIDE 0.9% 1,000 ML IV STA (11:38)
--- NOTE | 2019-04-08 11:44 | ED ---
General Adult HPI - General Chief complaint: Weakness Stated complaint: dizziness/weakness/headache/dehydrated Time Seen by Provider: 04/08/19 11:15 Source: patient, RN notes reviewed Mode of arrival: wheelchair Limitations: no limitations - History of Present Illness Initial comments: This is an 89-year-old male who presents emergency Department with a past medical history aortic valve replacement earlier this year. Patient comes in today because he states he feels weak all over in the past this is been an indication that he has been dehydrated. Patient states he had diarrhea for 3 days after having drank quite a bit of prune juice for constipation. Patient states he has had pain in his chest some pain in his abdomen and when he stands up he becomes very dizzy. Patient states he has had no vomiting and denies any fever off. Patient states he is mildly short of breath. Patient states she's also been told he has a gastrointestinal bleed but is bleeding very slowly so as not too concerning. Patient states she's also had occasional abdominal pain - Related Data Home Medications Medication Instructions Recorded Confirmed ALPRAZolam [Xanax] 0.5 mg PO TID 09/23/14 04/08/19 Docusate [Colace] 100 mg PO HS 04/01/17 04/08/19 Loratadine [Claritin] 10 mg PO DAILY 04/01/17 04/08/19 Furosemide [Lasix] 20 mg PO DAILY 05/11/18 04/08/19 Gabapentin [Neurontin] 100 mg PO BID PRN 05/11/18 04/08/19 Omeprazole [PriLOSEC] 20 mg PO DAILY 05/11/18 04/08/19 Pravastatin Sodium [Pravachol] 40 mg PO HS 05/11/18 04/08/19 Albuterol Nebulized [Ventolin 2.5 mg INHALATION RT-Q6H PRN 04/08/19 04/08/19 Nebulized] Aspirin EC [Ecotrin Low Dose] 81 mg PO DAILY 04/08/19 04/08/19 Budesonide [Pulmicort] 0.5 mg INHALATION RT-BID 04/08/19 04/08/19 Ferrous Sulfate [Feosol] 325 mg PO HS 04/08/19 04/08/19 Metoprolol Tartrate [Lopressor] 50 mg PO BID 04/08/19 04/08/19 Sertraline [Zoloft] 25 mg PO HS 04/08/19 04/08/19 Terbinafine [LamISIL] 250 mg PO HS 04/08/19 04/08/19 Warfarin [Coumadin] 2.5 mg PO HS 04/08/19 04/08/19 amLODIPine [Norvasc] 5 mg PO DAILY 04/08/19 04/08/19 Allergies Allergy/AdvReac Type Severity Reaction Status Date / Time No Known Allergies Allergy Verified 04/08/19 11:22 Review of Systems ROS Statement: Those systems with pertinent positive or pertinent negative responses have been documented in the HPI. ROS Other: All systems not noted in ROS Statement are negative. Past Medical History Past Medical History: Atrial Fibrillation, Coronary Artery Disease (CAD), Chest Pain / Angina, Heart Failure, COPD, Hypertension, Myocardial Infarction ([place]), Osteoarthritis (OA), Pneumonia, Sleep Apnea/CPAP/BIPAP Additional Past Medical History / Comment(s): NSTEMI, EF 50% Last Myocardial Infarction Date:: 2010 History of Any Multi-Drug Resistant Organisms: None Reported Past Surgical History: Heart Catheterization With Stent, Joint Replacement, Tonsillectomy Additional Past Surgical History / Comment(s): Rt carotid [id number], cataract removed with lens implant bilat., Rt. knee replacement, aortic valve replacement Past Anesthesia/Blood Transfusion Reactions: No Reported Reaction Date of Last Stent Placement:: 2010, ( OM) Past Psychological History: Anxiety, Depression Smoking Status: Never smoker Past Alcohol Use History: None Reported Past Drug Use History: None Reported - Past Family History Father Family Medical History: Chest Pain / Angina, Coronary Artery Disease (CAD), Myocardial Infarction ([place]) Mother Family Medical History: Dementia General Exam - General Exam Comments Initial Comments: GENERAL: Patient is well-developed and well-nourished. Patient is nontoxic and well- hydrated and is in mild distress. ENT: Neck is soft and supple. No significant lymphadenopathy is noted. Oropharynx is clear. Moist mucous membranes. Neck has full range of motion without eliciting any pain. EYES: The sclera were anicteric and conjunctiva were pink and moist. Extraocular movements were intact and pupils were equal round and reactive to light. Eyelids were unremarkable. PULMONARY: Unlabored respirations. Good breath sounds bilaterally. No audible rales r honchi or wheezing was noted. CARDIOVASCULAR: There is a regular rate and rhythm without any murmurs gallops or rubs. ABDOMEN: Soft and nontender with normal bowel sounds. No palpable organomegaly was noted. There is no palpable pulsatile mass. SKIN: Skin is clear with no lesions or rashes and otherwise unremarkable. NEUROLOGIC: Patient is alert and oriented x3. Cranial nerves II through XII are grossly intact. Motor and sensory are also intact. Normal speech, volume and content. Symmetrical smile. MUSCULOSKELETAL: Normal extremities with adequate strength and full range of motion. LYMPHATICS: No significant lymphadenopathy is noted PSYCHIATRIC: Normal psychiatric evaluation. Limitations: no limitations Course Vital Signs 04/08/19 04/08/19 04/08/19 11:15 12:55 14:00 Temperature 98.1 F Pulse Rate 59 L 50 L Pulse Rate [ 48 L Sitting] Pulse Rate [ 55 L Standing] Pulse Rate [ 55 L Supine] Respiratory 16 18 18 Rate Blood Pressure 203/77 203/96 Blood Pressure 203/83 [Sitting] Blood Pressure 163/73 [Standing] Blood Pressure 198/89 [Supine] O2 Sat by Pulse 96 97 Oximetry 04/08/19 04/08/19 14:47 15:30 Temperature Pulse Rate 53 L 57 L Pulse Rate [ Sitting] Pulse Rate [ Standing] Pulse Rate [ Supine] Respiratory 18 18 Rate Blood Pressure 216/95 213/119 Blood Pressure [Sitting] Blood Pressure [Standing] Blood Pressure [Supine] O2 Sat by Pulse 99 Oximetry Medical Decision Making - Medical Decision Making EKG shows atrial fibrillation at 58 bpm QRS is 136 QT interval is 472 QTC is 463. Patient's EKG shows no ST segment elevation or depression I'll begin the room the patient stated after the liter of fluid he felt considerably better. Patient got up and ambulate multiple times in the emerge ncy department without symptoms. He was comfortable going home in fact requesting to go home. Patient was given multiple doses of hydralazine for high blood pressure. - Lab Data Result diagrams: 04/08/19 11:45 04/08/19 11:45 Lab Results 04/08/19 04/08/19 04/08/19 Range/Units 11:45 11:45 11:45 WBC 8.3 (3.8-10.6) k/uL RBC 3.86 L (4.30-5.90) m/uL Hgb 12.0 L (13.0-17.5) gm/dL Hct 34.8 L (39.0-53.0) % MCV 90.2 (80.0-100.0) fL MCH 31.2 (25.0-35.0) pg MCHC 34.6 (31.0-37.0) g/dL RDW 12.2 (11.5-15.5) % Plt Count 133 L (150-450) k/uL Neutrophils % 80 % Lymphocytes % 11 % Monocytes % 6 % Eosinophils % 1 % Basophils % 0 % Neutrophils # 6.6 (1.3-7.7) k/uL Lymphocytes # 0.9 L (1.0-4.8) k/uL Monocytes # 0.5 (0-1.0) k/uL Eosinophils # 0.1 (0-0.7) k/uL Basophils # 0.0 (0-0.2) k/uL PT (9.0-12.0) sec INR (<1.2) APTT (22.0-30.0) sec Sodium 140 (137-145) mmol/L Potassium 4.7 (3.5-5.1) mmol/L Chloride 109 H (98-107) mmol/L Carbon Dioxide 22 (22-30) mmol/L Anion Gap 9 mmol/L BUN 45 H (9-20) mg/dL Creatinine 2.84 H (0.66-1.25) mg/dL Est GFR (CKD-EPI)AfAm 22 (>60 ml/min/1.73 sqM) Est GFR (CKD-EPI)NonAf 19 (>60 ml/min/1.73 sqM) Glucose 117 H (74-99) mg/dL Plasma Lactic Acid Keshawn 1.1 (0.7-2.0) mmol/L Calcium 9.0 (8.4-10.2) mg/dL Magnesium 2.0 (1.6-2.3) mg/dL Total Bilirubin 0.4 (0.2-1.3) mg/dL AST 20 (17-59) U/L ALT 19 L (21-72) U/L Alkaline Phosphatase 69 (38-126) U/L Troponin I (0.000-0.034) ng/mL Total Protein 6.5 (6.3-8.2) g/dL Albumin 3.7 (3.5-5.0) g/dL Urine Color Urine Appearance (Clear) Urine pH (5.0-8.0) Ur Specific [place] (1.001-1.035) Urine Protein (Negative) Urine Glucose (UA) (Negative) Urine Ketones (Negative) Urine Blood (Negative) Urine Nitrite (Negative) Urine Bilirubin (Negative) Urine Urobilinogen (<2.0) mg/dL Ur Leukocyte Esterase (Negative) Urine RBC (0-5) /hpf Urine WBC (0-5) /hpf Ur Squamous Epith Cells (0-4) /hpf Urine Mucus (None) /hpf 04/08/19 04/08/19 04/08/19 Range/Units 11:45 11:45 14:00 WBC (3.8-10.6) k/uL RBC (4.30-5.90) m/uL Hgb (13.0-17.5) gm/dL Hct (39.0-53.0) % MCV (80.0-100.0) fL MCH (25.0-35.0) pg MCHC (31.0-37.0) g/dL RDW (11.5-15.5) % Plt Count (150-450) k/uL Neutrophils % % Lymphocytes % % Monocytes % % Eosinophils % % Basophils % % Neutrophils # (1.3-7.7) k/uL Lymphocytes # (1.0-4.8) k/uL Monocytes # (0-1.0) k/uL Eosinophils # (0-0.7) k/uL Basophils # (0-0.2) k/uL PT 12.3 H (9.0-12.0) sec INR 1.2 H (<1.2) APTT 27.9 (22.0-30.0) sec Sodium (137-145) mmol/L Potassium (3.5-5.1) mmol/L Chloride (98-107) mmol/L Carbon Dioxide (22-30) mmol/L Anion Gap mmol/L BUN (9-20) mg/dL Creatinine (0.66-1.25) mg/dL Est GFR (CKD-EPI)AfAm (>60 ml/min/1.73 sqM) Est GFR (CKD-EPI)NonAf (>60 ml/min/1.73 sqM) Glucose (74-99) mg/dL Plasma Lactic Acid Keshawn (0.7-2.0) mmol/L Calcium (8.4-10.2) mg/dL Magnesium (1.6-2.3) mg/dL Total Bilirubin (0.2-1.3) mg/dL AST (17-59) U/L ALT (21-72) U/L Alkaline Phosphatase (38-126) U/L Troponin I 0.024 (0.000-0.034) ng/mL Total Protein (6.3-8.2) g/dL Albumin (3.5-5.0) g/dL Urine Color Colorless Urine Appearance Clear (Clear) Urine pH 6.0 (5.0-8.0) Ur Specific [place] 1.003 (1.001-1.035) Urine Protein 1+ H (Negative) Urine Glucose (UA) Negative (Negative) Urine Ketones Negative (Negative) Urine Blood Negative (Negative) Urine Nitrite Negative (Negative) Urine Bilirubin Negative (Negative) Urine Urobilinogen <2.0 (<2.0) mg/dL Ur Leukocyte Esterase Negative (Negative) Urine RBC <1 (0-5) /hpf Urine WBC <1 (0-5) /hpf Ur Squamous Epith Cells <1 (0-4) /hpf Urine Mucus Rare H (None) /hpf Disposition Clinical Impression: Generalized weakness, Lightheaded, Hypertension Disposition: HOME SELF-CARE Condition: Good Instructions (If sedation given, give patient instructions): Lightheadedness (ED) Is patient prescribed a controlled substance at d/c from ED?: No Referrals: Benoit Fatima MD [Primary Care Provider] - 1-2 days Time of Disposition: 15:00
[2019-04-08 12:08] LABS: Basophils % (A) 0 %; Eosinophils # (A) 0.1 k/uL (0-0.7); Eosinophils % (A) 1 %; HCT 34.8 % (39.0-53.0); Lymphocytes # (A) 0.9 k/uL (1.0-4.8); Lymphocytes % (A) 11 %; MCH 31.2 pg (25.0-35.0); MCHC 34.6 g/dL (31.0-37.0); MCV 90.2 fL (80.0-100.0); Mean Platelet Volume 6.4; Monocytes # (A) 0.5 k/uL (0-1.0); Monocytes % (A) 6 %; Neutrophils # (A) 6.6 k/uL (1.3-7.7); Neutrophils % (A) 80 %; Platelet Count 133 k/uL (150-450); RBC 3.86 m/uL (4.30-5.90); RDW 12.2 % (11.5-15.5); WBC 8.3 k/uL (3.8-10.6)
[2019-04-08 12:13] LABS: INR 1.2 (<1.2); Partial Thromboplastin Time 27.9 sec (22.0-30.0); Prothrombin Time 12.3 sec (9.0-12.0)
[2019-04-08 12:14] LABS: Albumin 3.7 g/dL (3.5-5.0); Potassium 4.7 mmol/L (3.5-5.1); Total Bilirubin 0.4 mg/dL (0.2-1.3); Total Protein 6.5 g/dL (6.3-8.2)
--- NOTE | 2019-04-08 12:18 | XR ---
EXAMINATION TYPE: XR chest 2V DATE OF EXAM: 04/08/2019 HISTORY: Weakness. REFERENCE: Previous study dated 05/11/2018. FINDINGS: The lungs are overinflated. The heart is enlarged. Pulmonary arteries are prominent and I s uspect some degree of pulmonary artery hypertension. I do not see evidence of pneumonia or edema. The re are chronic pleural reaction present bilaterally likely secondary to overinflation. IMPRESSION: 1. COPD. 2. CARDIOMEGALY. 3. I SUSPECT SOME DEGREE OF PULMONARY ARTERY HYPERTENSION.
[2019-04-08 13:26] VITALS: RESP 18
[2019-04-08 14:21] LABS: Appearance,Urine Clear (Clear); Bilirubin,Urine Negative (Negative); Blood,Urine Negative (Negative); Color,Urine Colorless; Glucose,Urine (UA) Negative (Negative); Ketones,Urine Negative (Negative); Leukocyte Esterase,Urine Negative (Negative); Mucus,Urine Rare /hpf; Nitrite,Urine Negative (Negative); Protein,Urine 1+ (Negative); RBC,Urine <1 /hpf (0-5); Specific Gravity,Urine 1.003 (1.001-1.035); Squamous Epithelial Cell,Urine <1 /hpf (0-4); Urobilinogen,Urine <2.0 mg/dL (<2.0)
[2019-04-08] MEDS ORDERED: hydrALAZINE HCL 20 MG/ML 1 ML VIAL IVP STA ×3 (14:39→15:36)
[2019-04-08 16:03] VITALS: PULSE 56
[2019-04-08 16:23] VITALS: BP 167/82; TEMP 98
== END 2019-04-08 16:33 | disposition home or self-care (01) ==
LOC: EC 11:06
DX: I11.0 Hypertensive heart disease with heart failure (principal); R53.1 Weakness; R42 Dizziness and giddiness; I48.91 Unspecified atrial fibrillation; R10.9 Unspecified abdominal pain; R07.9 Chest pain, unspecified; R06.02 Shortness of breath; K92.2 Gastrointestinal hemorrhage, unspecified; I25.119 Atherosclerotic heart disease of native coronary artery with unspecified angina pectoris; I50.9 Heart failure, unspecified; J44.9 Chronic obstructive pulmonary disease, unspecified; I25.2 Old myocardial infarction; M19.90 Unspecified osteoarthritis, unspecified site; G47.30 Sleep apnea, unspecified; F32.9 Major depressive disorder, single episode, unspecified; F41.9 Anxiety disorder, unspecified; Z79.01 Long term (current) use of anticoagulants; Z79.51 Long term (current) use of inhaled steroids; Z79.82 Long term (current) use of aspirin; Z79.899 Other long term (current) drug therapy; Z96.651 Presence of right artificial knee joint; Z95.2 Presence of prosthetic heart valve; Z95.5 Presence of coronary angioplasty implant and graft; Z98.890 Other specified postprocedural states; Z99.89 Dependence on other enabling machines and devices; Z82.49 Family history of ischemic heart disease and other diseases of the circulatory system
CPT/HCPCS: 36415; 93005; 80053; 83605; 83735; 84484; 85025; 85610; 85730; 81001; 71046; 99285; 96374; 96376; 96361; J0360

== ENCOUNTER 2019-04-18 10:18 | Inpatient (IN) | payer MEDICARE, BC ==
[2019-04-18] MEDS ORDERED: ENALAPRILAT 1.25 MG/ML 1 ML VIAL IVP PRN (11:51)
[2019-04-18] MEDS: guaiFENesin SYRUP 100MG/5ML 200 MG/10 ML CUP PO PRN ×2 (12:02→18:56)
[2019-04-18] MEDS: amLODIPine 5 MG TAB PO SCH (12:02)
[2019-04-18] MEDS: HYDROcodone/APAP 5-325MG 1 EACH TAB PO PRN ×2 (12:02→18:56)
[2019-04-18] MEDS: ASPIRIN 81 MG PO SCH (12:02)
[2019-04-18] MEDS: SERTRALINE 50 MG TAB PO SCH (12:02)
[2019-04-18] MEDS: TAMSULOSIN 0.4 MG CAP.ER.24H PO SCH (12:02)
[2019-04-18] MEDS: ATORVASTATIN 80 MG TAB PO SCH (12:02)
[2019-04-18 12:52] LABS: Basophils # (A) 0.2 k/uL (0-0.2); Basophils % (A) 2 %; Eosinophils % (A) 0 %; HCT 36.7 % (39.0-53.0); Lymphocytes # (A) 0.7 k/uL (1.0-4.8); Lymphocytes % (A) 7 %; MCH 30.2 pg (25.0-35.0); MCHC 32.7 g/dL (31.0-37.0); MCV 92.4 fL (80.0-100.0); Mean Platelet Volume 6.4; Monocytes # (A) 0.5 k/uL (0-1.0); Monocytes % (A) 5 %; Neutrophils # (A) 8.2 k/uL (1.3-7.7); Neutrophils % (A) 85 %; Platelet Count 150 k/uL (150-450); RBC 3.97 m/uL (4.30-5.90); RDW 12.6 % (11.5-15.5); WBC 9.7 k/uL (3.8-10.6)
[2019-04-18 12:54] LABS: Albumin 4.3 g/dL (3.5-5.0); Calcium 9.4 mg/dL (8.4-10.2); Potassium 5.1 mmol/L (3.5-5.1); Total Bilirubin 0.4 mg/dL (0.2-1.3); Total Protein 7.2 g/dL (6.3-8.2)
[2019-04-18] MEDS: hydrALAZINE HCL 20 MG/ML 1 ML VIAL IVP PRN ×2 (13:09→20:42)
[2019-04-18] MEDS: PANTOPRAZOLE 40 MG/10 ML VIAL IVP SCH (14:56)
[2019-04-18] MEDS: methylPREDNISolone SOD SUCCI 125 MG/2 ML VIAL IV SCH (14:56)
[2019-04-18 17:26] LABS: Glucose,Whole Blood 121 mg/dL (75-99)
[2019-04-18] MEDS: INSULIN ASPART (NovoLOG) 100 UNIT/ML VIAL SQ SCH ×2 (17:34→20:42)
[2019-04-18 17:52] LABS: Appearance,Urine Clear (Clear); Bacteria,Urine Rare /hpf; Bilirubin,Urine Negative (Negative); Blood,Urine Trace (Negative); Color,Urine Yellow; Glucose,Urine (UA) Negative (Negative); Ketones,Urine Negative (Negative); Leukocyte Esterase,Urine Negative (Negative); Mucus,Urine Rare /hpf; Nitrite,Urine Negative (Negative); Protein,Urine 3+ (Negative); RBC,Urine 2 /hpf (0-5); Specific Gravity,Urine 1.019 (1.001-1.035); Urobilinogen,Urine <2.0 mg/dL (<2.0); WBC,Urine 1 /hpf (0-5)
[2019-04-18] MEDS: BENZOCAINE/MENTHOL LOZENG 1 EACH LOZENGE MUCOUS MEM PRN (18:27)
--- NOTE | 2019-04-18 19:48 | ECHOF ---
Referral Reason:LV fx, CHF MEASUREMENTS -------- HEIGHT: 182.9 cm WEIGHT: 100.2 kg BP: RVIDd: 4.6 cm (< 3.3) IVSd: 2.3 cm (0.6 - 1.1) LVIDd: 4.2 cm (3.9 - 5.3) LVPWd: 2.5 cm (0.6 - 1.1) IVSs: 2.5 cm LVIDs: 3.5 cm LVPWs: 2.4 cm LA Diam: 5.8 cm (2.7 - 3.8) LAESV Index (A-L): 67.33 ml/m MV EXCURSION: 21.952 mm (> 18.000) MV EF SLOPE: 38 mm/s (70 - 150) EPSS: 1.1 cm AV maxP.47 mmHg AV meanP.96 mmHg AR PHT: 704 ms RAP: 5.00 mmHg RVSP: 35.77 mmHg FINDINGS -------- Undetermined rhythm. This was a technically adequate study. The left ventricular size is normal. There is severe concentric left ventricular hypertrophy. Ove rall left ventricular systolic function is normal with, an EF between 55 - 60 %. The right ventricle is normal in size. The left atrium is markedly dilated. LA is severely dilated >40 ml/m2 The right atrial size is normal. Peak/mean gradient across the Aortic Valve is 26.47mmHg / 12.96mmHg. There is mild scooter-prosthetic regurgitation of the bioprosthetic aortic valve. Mild mitral annular calcification present. Mild mitral regurgitation is present. Mild tricuspid regurgitation present. Right ventricular systolic pressure is normal at < 35 mmHg. There is mild pulmonary hypertension. There is no pulmonic regurgitation present. The aortic root size is normal. There is no pericardial effusion. CONCLUSIONS -------- 1. Undetermined rhythm. 2. This was a technically adequate study. 3. The left ventricular size is normal. 4. There is severe concentric left ventricular hypertrophy. 5. The right ventricle is normal in size. 6. The left atrium is markedly dilated. 7. LA is severely dilated >40 ml/m2 8. The right atrial size is normal. 9. Peak/mean gradient across the Aortic Valve is 26.47mmHg / 12.96mmHg. 10. There is mild scooter-prosthetic regurgitation of the bioprosthetic aortic valve. 11. Mild mitral annular calcification present. 12. Mild mitral regurgitation is present. 13. Mild tricuspid regurgitation present. 14. Right ventricular systolic pressure is normal at < 35 mmHg. 15. There is mild pulmonary hypertension. 16. There is no pulmonic regurgitation present. 17. The aortic root size is normal. 18. There is no pericardial effusion. KICKING MACHINE OPERATOR: Maggy Patterson RDCS
--- NOTE | 2019-04-18 19:51 | XR ---
EXAMINATION TYPE: XR chest 2V DATE OF EXAM: 04/18/2019 COMPARISON: 04/08/2019 INDICATION: Dyspnea TECHNIQUE: Frontal and lateral views of the chest are obtained. FINDINGS: The heart size is normal. The pulmonary vasculature is upper limits of normal. The lungs are clear. IMPRESSION: 1. Consider some early volume overload. 2. A suspicious peripheral consolidation is not evident.
[2019-04-18 20:36] LABS: Glucose,Whole Blood 180 mg/dL (75-99)
[2019-04-18] MEDS: FERROUS SULFATE 325 MG TAB PO SCH (20:41)
[2019-04-19] MEDS: BENZOCAINE/MENTHOL LOZENG 1 EACH LOZENGE MUCOUS MEM PRN ×5 (00:01→22:55)
[2019-04-19] MEDS: methylPREDNISolone SOD SUCCI 125 MG/2 ML VIAL IV SCH ×4 (00:01→22:56)
[2019-04-19 06:02] LABS: Glucose,Whole Blood 150 mg/dL (75-99)
[2019-04-19] MEDS: amLODIPine 5 MG TAB PO SCH (06:03)
[2019-04-19] MEDS: INSULIN ASPART (NovoLOG) 100 UNIT/ML VIAL SQ SCH ×4 (06:03→21:34)
[2019-04-19] MEDS: guaiFENesin SYRUP 100MG/5ML 200 MG/10 ML CUP PO PRN ×4 (06:04→22:56)
[2019-04-19] MEDS: HYDROcodone/APAP 5-325MG 1 EACH TAB PO PRN ×4 (06:04→20:41)
[2019-04-19 06:52] LABS: Basophils % (A) 0 %; Eosinophils % (A) 0 %; HCT 32.8 % (39.0-53.0); HGB 11.4 gm/dL (13.0-17.5); Lymphocytes # (A) 0.5 k/uL (1.0-4.8); Lymphocytes % (A) 5 %; MCH 31.5 pg (25.0-35.0); MCHC 34.7 g/dL (31.0-37.0); MCV 90.7 fL (80.0-100.0); Mean Platelet Volume 6.3; Monocytes # (A) 0.1 k/uL (0-1.0); Monocytes % (A) 2 %; Neutrophils % (A) 93 %; Platelet Count 120 k/uL (150-450); RBC 3.62 m/uL (4.30-5.90); RDW 12.5 % (11.5-15.5); WBC 9.7 k/uL (3.8-10.6)
[2019-04-19 07:06] LABS: Calcium 8.8 mg/dL (8.4-10.2); Potassium 5.3 mmol/L (3.5-5.1)
[2019-04-19] MEDS: SERTRALINE 50 MG TAB PO SCH (09:46)
[2019-04-19] MEDS: PANTOPRAZOLE 40 MG/10 ML VIAL IVP SCH (09:46)
[2019-04-19] MEDS: TAMSULOSIN 0.4 MG CAP.ER.24H PO SCH (09:46)
[2019-04-19] MEDS: VORTIOXETINE HYDROBROMIDE 10 MG TABLET PO SCH (09:46)
[2019-04-19] MEDS: ASPIRIN 81 MG PO SCH (09:46)
[2019-04-19] MEDS: ATORVASTATIN 80 MG TAB PO SCH (09:46)
[2019-04-19] MEDS: hydrALAZINE HCL 20 MG/ML 1 ML VIAL IVP PRN (09:50)
[2019-04-19] MEDS ORDERED: amLODIPine 5 MG TAB PO STA (10:31)
[2019-04-19 11:50] LABS: Glucose,Whole Blood 156 mg/dL (75-99)
[2019-04-19] MEDS: ALPRAZolam 0.5 MG TAB PO PRN ×2 (12:12→17:46)
[2019-04-19] MEDS: CLOPIDOGREL 75 MG TAB PO SCH (12:12)
[2019-04-19] MEDS: GABAPENTIN 100 MG CAP PO SCH ×2 (12:12→20:42)
--- NOTE | 2019-04-19 12:13 | CONS ---
CONSULTATION REASON FOR CONSULT: Renal failure. HISTORY OF PRESENT ILLNESS: Patient is an 89-year-old male who was admitted to the hospital with complaints of weakness not feeling well. He also had cough as outpatient. Patient presented to his PCP and was advised to get admitted. He was found to have elevated blood pressures of 222/102. Patient denied any urinary symptoms. No history of nausea, vomiting. However, appetite has been poor. No significant urinary symptoms per patient. Patient does have history of chronic kidney disease with previous creatinine amount 3.3 mg/dL in May of 2018, secondary to diabetic nephropathy and nephrosclerosis. Patient was only on Norvasc at home and he states that his blood pressure had been fairly well controlled. He is maintained on IV Vasotec here. Blood pressure is better than when he came in, but remains elevated. PAST MEDICAL HISTORY: CKD stage IV, hypertension, type 2 diabetes, atrial fibrillation, osteoarthritis, pneumonia, COPD, VA. PAST SURGICAL HISTORY: Cardiac catheterization, tonsillectomy, carotid endarterectomy, cataract surgery, right knee arthroplasty, aortic valve replacement. SOCIAL HISTORY: Negative for smoking, drug abuse, alcohol abuse. MEDICATIONS: At home prior to admission included Xanax, Colace, Claritin, Lasix, Neurontin, Prilosec, Pravachol, Pulmicort, iron, Lopressor, Zoloft, Lamisil, Coumadin, Norvasc. ALLERGIES: None. PHYSICAL EXAMINATION: Patient is currently comfortable, awake, he is not in any acute distress. Blood pressure was 190/82, heart rate 60 per minute, he is afebrile. Examination of the heart S1, S2. Examination of the lungs, bilateral breath sounds are heard. Abdomen is soft obese. Examination of the lower extremities shows no significant edema. LABS: Show sodium 135, potassium 5.3, BUN 66, creatinine 3.6, troponin 0.053, hemoglobin 11.4 g/dL. UA shows 3+ protein, no significant WBCs. ASSESSMENT: 1. Chronic kidney disease NKF stage IV with previous creatinine 2.8 mg/dL on . Etiology is diabetic nephropathy. 2. Acute kidney injury, possibly prerenal, need to rule out obstructive uropathy. Check post-void residual. Patient is maintained on Flomax. I will add gentle IV hydration. A chest x-ray from yesterday shows no evidence of pulmonary vascular congestion. 3. Uncontrolled hypertension. DC Vasotec. Add Coreg. Continue with Norvasc. Increase dose of Norvasc to 10 mg daily. 4. Type 2 diabetes. 5. Mild hyperkalemia associated with acute kidney injury and use of Vasotec. 6. Borderline elevated troponins. PLAN: DC Vasotec. Add Coreg. Increase Norvasc. Repeat labs in a.m. Check bladder scan, rule out urine retention. Consider IV hydration depending on repeat labs. Thank you for this consultation. Will continue to follow the patient with you during his hospitalization. MMODL / IJN: [id number] /
[2019-04-19 12:41] LABS: INR 2.3 (<1.2); Prothrombin Time 22.5 sec (9.0-12.0)
[2019-04-19 15:48] LABS: Hemoglobin A1C 5.5 % (4.0-6.0)
--- NOTE | 2019-04-19 15:51 | P.CNPUL ---
History of Present Illness Consult date: 04/19/19 Reason for consult: dyspnea, cough, obstructive sleep apnea Chief complaint: Shortness of breath for a week History of present illness: This is a 89-year-old nonsmoker male who came into the hospital with one week of shortness of breath has extensive coughing productive of the thick tenacious white sputum, patient has echocardiogram and chest x-ray echo revealed severe dilated LA, mild pulmonary hypertension and severe concentric LV hypertrophy, chest x-ray suggestive of mild fluid overload, patient is very compliant with Flu pneumonia vaccine, review of the records revealed that patient has been lately having elevated blood pressure in the primary care's office blood pressure was over 220/100, noted that meds are being adjusted for hypertensive heart failure and acute on chronic renal failure Review of Systems All systems: negative Past Medical History Past Medical History: Atrial Fibrillation, Coronary Artery Disease (CAD), Chest Pain / Angina, Heart Failure, COPD, CVA/TIA, Hyperlipidemia, Hypertension, Myocardial Infarction ([place]), Osteoarthritis (OA), Pneumonia, Renal Disease, Sleep Apnea/CPAP/BIPAP, Vascular Disorder Additional Past Medical History / Comment(s): CKD stage IV, chronic anemia (iron defiency), hyperkalemia, VOLODYMYR with Cpap, TIA, arthritis in multiple joints, BPH with surgery, PVD, past ETOH but pt states he has not drank in 20 yrs. Last Myocardial Infarction Date:: 2010 History of Any Multi-Drug Resistant Organisms: None Reported Past Surgical History: Cardiac Valve Replacement, Heart Catheterization With Stent, Joint Replacement, Prostate Surgery, Tonsillectomy Additional Past Surgical History / Comment(s): 09/07/18 Aortic mechanical valve replacement and stent to LAD, previous PCI with stent, R caratid endartectomy with pericardial patch angioplasty, R total knee arthroplasty, R hip hemiarthroplasty, TURP, colonoscopy, bilateral cataract removals/lens implants. Past Anesthesia/Blood Transfusion Reactions: No Reported Reaction Date of Last Stent Placement:: 09/07/18 Smoking Status: Never smoker - Past Family History Father Family Medical History: Chest Pain / Angina, Coronary Artery Disease (CAD), Myocardial Infarction ([place]) Mother Family Medical History: Dementia Medications and Allergies Home Medications Medication Instructions Recorded Confirmed Type Aspirin EC [Ecotrin Low Dose] 81 mg PO DAILY 04/08/19 04/19/19 History Terbinafine [LamISIL] 250 mg PO HS 04/08/19 04/19/19 History amLODIPine [Norvasc] 5 mg PO DAILY 04/08/19 04/19/19 History ALPRAZolam [Xanax] 0.5 mg PO QID PRN 04/18/19 04/19/19 History Clopidogrel [Plavix] 75 mg PO DAILY 04/18/19 04/19/19 History Furosemide [Lasix] 20 mg PO DAILY 04/18/19 04/19/19 History Gabapentin [Neurontin] 100 mg PO BID 04/18/19 04/19/19 History Metoprolol Tartrate [Lopressor] 50 mg PO BID 04/18/19 04/19/19 History Omeprazole 20 mg PO DAILY 04/18/19 04/19/19 History Pravastatin Sodium [Pravachol] 40 mg PO HS 04/18/19 04/19/19 History Albuterol Nebulized [Ventolin 2.5 mg INHALATION RT-Q6H PRN 04/19/19 04/19/19 History Nebulized] Budesonide [Pulmicort] 0.5 mg INHALATION RT-BID 04/19/19 04/19/19 History Docusate [Colace] 100 mg PO HS 04/19/19 04/19/19 History Ferrous Sulfate [Feosol] 325 mg PO HS 04/19/19 04/19/19 History Loratadine [Claritin] 10 mg PO DAILY 04/19/19 04/19/19 History Warfarin [Coumadin] 2.5 mg PO HS 04/19/19 04/19/19 History Allergies Allergy/AdvReac Type Severity Reaction Status Date / Time No Known Allergies Allergy Verified 04/08/19 11:22 Physical Exam Vitals: Vital Signs Temp Pulse Resp BP Pulse Ox 04/19/19 12:00 98.1 F 59 L 16 150/65 98 04/19/19 08:00 60 18 190/82 97 04/19/19 04:00 67 17 173/64 96 04/19/19 00:00 69 17 176/87 97 04/18/19 20:00 98.6 F 58 L 17 176/63 96 04/18/19 16:37 98.7 F 54 L 16 166/68 96 Intake and Output 04/19/19 04/19/19 04/19/19 06:59 14:59 22:59 Intake Total 100 1680 Output Total 900 Balance -800 1680 Intake: Intake, IV Titration 100 Amount cefTRIAXone 1 gm In 100 Sodium Chloride 0.9% 50 ml @ 100 mls/hr IVPB Q24H [facility] Rx#:[id number] Oral 1680 Output: Urine 900 Other: Voiding Method Toilet # Voids 1 Weight 99.4 kg - Constitutional General appearance: cooperative, disheveled, morbidly obese - EENT Eyes: anicteric sclerae, EOMI, PERRLA, normal appearance ENT: normal oropharynx Ears: bilateral: normal - Neck Carotids: bilateral: upstroke normal - Respiratory Respiratory: bilateral: diminished, rales (Fine basilar), negative: CTA, dullness, rhonchi, wheezing, prolonged expiration - Cardiovascular Rhythm: regular Heart sounds: normal: S1, S2 - Gastrointestinal General gastrointestinal: normal bowel sounds, soft - Neurologic Neurologic: CNII-XII intact - Musculoskeletal Musculoskeletal: gait normal, generalized weakness, strength equal bilaterally - Psychiatric Psychiatric: A&O x's 3, appropriate affect, intact judgment & insight Results - Laboratory Findings CBC and BMP: 04/19/19 06:33 04/19/19 06:27 PT/INR, D-dimer PT 22.5 sec (9.0-12.0) H 04/19/19 06:27 INR 2.3 (<1.2) H 04/19/19 06:27 Abnormal lab findings: Abnormal Labs 04/18/19 04/18/19 04/18/19 11:50 11:50 11:50 RBC 3.97 L Hgb 12.0 L Hct 36.7 L Plt Count Neutrophils # 8.2 H Lymphocytes # 0.7 L PT INR Sodium Potassium Carbon Dioxide BUN 58 H Creatinine 3.54 H Glucose 104 H POC Glucose (mg/dL) ALT 20 L Troponin I 0.046 H* Urine Protein Urine Blood Urine Bacteria Urine Mucus 04/18/19 04/18/19 04/18/19 16:47 17:15 17:36 RBC Hgb Hct Plt Count Neutrophils # Lymphocytes # PT INR Sodium Potassium Carbon Dioxide BUN Creatinine Glucose POC Glucose (mg/dL) 121 H ALT Troponin I 0.053 H* Urine Protein 3+ H Urine Blood Trace H Urine Bacteria Rare H Urine Mucus Rare H 04/18/19 04/19/19 04/19/19 20:32 06:00 06:27 RBC Hgb Hct Plt Count Neutrophils # Lymphocytes # PT INR Sodium 135 L Potassium 5.3 H Carbon Dioxide 21 L BUN 66 H Creatinine 3.62 H Glucose 147 H POC Glucose (mg/dL) 180 H 150 H ALT Troponin I Urine Protein Urine Blood Urine Bacteria Urine Mucus 04/19/19 04/19/19 04/19/19 06:27 06:33 11:43 RBC 3.62 L Hgb 11.4 L Hct 32.8 L Plt Count 120 L Neutrophils # 9.0 H Lymphocytes # 0.5 L PT 22.5 H INR 2.3 H Sodium Potassium Carbon Dioxide BUN Creatinine Glucose POC Glucose (mg/dL) 156 H ALT Troponin I Urine Protein Urine Blood Urine Bacteria Urine Mucus - Diagnostic Findings Chest x-ray: report reviewed, image reviewed (Finding as noted above) Assessment and Plan Assessment: Hypertensive heart failure COPD exacerbation Tracheobronchitis Hypertensive urgency in emergency Stage IV renal failure Borderline hyperkalemia Type 2 diabetes mellitus Chronic atrial fibrillation Plan: Continue gentle diuresis Adjustment of antihypertensive agent by adjusting and adding Continue anti-coagulation Agree with antibiotics Agree with IV steroids per however trach in taper and DC his next 48-72 hours
[2019-04-19 16:54] LABS: Glucose,Whole Blood 163 mg/dL (75-99)
[2019-04-19] MEDS: WARFARIN 2.5 MG TAB PO SCH (17:46)
[2019-04-19] MEDS: CARVEDILOL 6.25 MG TAB PO SCH (17:46)
[2019-04-19] MEDS ORDERED: SODIUM CHLORIDE 0.9% 1,000 ML IV SCH (18:15)
[2019-04-19] MEDS: FERROUS SULFATE 325 MG TAB PO SCH (20:41)
[2019-04-19] MEDS: TERBINAFINE 250 MG TAB PO SCH ×2 (20:42)
[2019-04-19 21:05] LABS: Glucose,Whole Blood 165 mg/dL (75-99)
--- NOTE | 2019-04-19 21:21 | HP ---
HISTORY AND PHYSICAL CHIEF COMPLAINT: [id number]-old white male with dyspnea, cough, obstructive sleep apnea, significant shortness of breath, cough and congestion for the last week, failed outpatient treatment, fevers and chills that have actually been worsening over the last 2-3 weeks this terrible cough, congestion and viral infection with white to green- yellow sputum. He has a history of recent aortic valve replacement a month ago, chronic kidney disease, stage IV, and diastolic CHF. He has had his pneumonia vaccines and flu vaccines due to, I believe, tracheobronchitis versus pneumonia and respiratory infection. His blood pressure is elevated on admission at 220/100, causing a headache. Otherwise, 14-point review of systems is negative. PAST MEDICAL HISTORY: 1. Atrial fibrillation. 2. Coronary artery disease. 3. Sleep apnea. 4. Pneumonia. 5. Renal disease, stage IV. 6. Dyslipidemia. 7. Hypertension. 8. Chronic anemia. 9. Obstructive sleep apnea. 10.Arthritis. 11.BPH. 12.PVD. 13.Cardiac valve replacement a month ago. 14.Heart catheterization with stent. 15.Prostate surgery. 16.Tonsillectomy. FAMILY HISTORY: Father had chest pain, angina, coronary artery disease, myocardial infarction. Mother had dementia. HOME MEDICATIONS: 1. Aspirin 81 mg daily. 2. Lamisil 250 daily. 3. Norvasc 5 mg daily. 4. Xanax 0.5 q.i.d. 5. Plavix 75 mg daily. 6. Lasix 20 daily. 7. Neurontin 100 b.i.d. 8. Lopressor 50 b.i.d. 9. Omeprazole 20 daily. 10.Pravachol 40 mg daily. 11.Ventolin 2.5 mg q.6 hours p.r.n. 12.Pulmicort 0.5 b.i.d. 13.Colace 100 at night. 14.Feosol 325 daily. 15.Claritin 10 mg daily. 16.Coumadin 2.5 mg daily. ALLERGIES: NEGATIVE. PHYSICAL EXAMINATION: Temperature 98, 99, pulse 50s to 60s, respiratory rate 16 to18. Blood pressure was 220/100 on admission. Now it is 150 to 170s over 60s to 70s. Oxygen 97% to 98%. He is a little bit obese, disheveled, looks dry. Poor skin turgor, dry mucous membranes. OPHTHALMOLOGIC: Pupils equal, round, reactive to light. CARDIOVASCULAR: S1, S2. GI: Normal bowel sounds. Soft. NEUROLOGIC: Cranial nerves are intact. MUSCULOSKELETAL: Gait normal. Generalized weakness. PSYCH: Alert and oriented x3. LABS: White count 9.7, hemoglobin 11.4, platelets 120. Sodium 135, potassium 5.3, BUN 66, creatinine 3.22. INR as mentioned above. Troponin is 0.046. Suspected renal disease. Sodium 135, potassium 5.3. ASSESSMENT: 1. Tracheobronchitis. 2. Chronic obstructive pulmonary disease exacerbation. 3. Hypertensive heart failure. 4. Hypertensive urgency secondary to possible tracheobronchitis versus pneumonia versus viral infection. 5. Stage IV renal failure. 6. Borderline hyperkalemia. 7. Type 2 diabetes mellitus. 8. Chronic atrial fibrillation. Continue current treatments. Adjust blood pressure medicines. IV antibiotics. IV steroids. Monitor for the next 24 to 48 hours, as he is severely sick and short of breath at this time and dizzy. He has had no urine output and bladder scan shows no urine in the bladder, so he is obviously dehydrated. Continue with IV fluids. MMODL / IJN: [id number] /
[2019-04-19] MEDS: DOCUSATE 100 MG CAP PO SCH (22:56)
[2019-04-20 06:35] LABS: Glucose,Whole Blood 158 mg/dL (75-99)
[2019-04-20] MEDS: INSULIN ASPART (NovoLOG) 100 UNIT/ML VIAL SQ SCH ×4 (06:37→21:09)
[2019-04-20] MEDS: CARVEDILOL 6.25 MG TAB PO SCH ×2 (06:37→17:32)
[2019-04-20 08:52] LABS: Basophils % (A) 0 %; Eosinophils % (A) 0 %; HCT 31.6 % (39.0-53.0); HGB 10.4 gm/dL (13.0-17.5); Lymphocytes # (A) 0.5 k/uL (1.0-4.8); Lymphocytes % (A) 4 %; MCH 30.6 pg (25.0-35.0); MCHC 32.8 g/dL (31.0-37.0); MCV 93.3 fL (80.0-100.0); Mean Platelet Volume 7.7; Monocytes # (A) 0.3 k/uL (0-1.0); Monocytes % (A) 3 %; Neutrophils # (A) 10.9 k/uL (1.3-7.7); Neutrophils % (A) 93 %; Platelet Count 127 k/uL (150-450); RBC 3.38 m/uL (4.30-5.90); RDW 12.9 % (11.5-15.5); WBC 11.7 k/uL (3.8-10.6)
--- NOTE | 2019-04-20 08:53 | P.CRDCN ---
History of Present Illness Consult date: 04/20/19 Requesting physician: Benoit Fatima Consult reason: congestive heart failure Chief complaint: Shortness of breath History of present illness: This is an 89-year-old gentleman with known history of coronary artery disease and prior stent placements to the LAD and circumflex, the last c ircumflex stenting was performed in 2014. Persistent atrial fibrillation. Patient also has a history of COPD, sleep apnea, hypertension, hyperlipidemia, prior carotid endarterectomy, he also underwent a recent aortic valve replacement, has chronic kidney disease. He presents to the hospital on this occasion with symptoms of progressively worsening shortness of breath, patient also states that he was experiencing a cough at home, at times productive. His chest x-ray on presentation here showed COPD, cardiomegaly, mild degree of pulmonary arterial hypertension. EKG on presentation here showed atrial fibrillation with a slow ventricular response. Echocardiogram with Doppler study was performed which revealed a mild periprosthetic regurgitation of the bioprosthetic aortic valve, EF 55-60%. Blood pressure 158/60 with a heart rate in the 60s, 98% on 3 L of oxygen. The blood pressure on arrival here was 222/102, heart rate in the 60s, 90% on room air. White blood cell count 9.7, hemoglobin 11.4, platelet count 120. INR 2.3. Sodium 135, potassium 5.3, BUN 66, creatinine 3.6. BNP level 22,000. Troponin 0.046, 0.053. Influenza A and B were negative. At the time of my examination this morning, patient states that his breathing is somewhat improved but he continues to feel quite short of breath. Past Medical History Past Medical History: Atrial Fibrillation, Coronary Artery Disease (CAD), Chest Pain / Angina, Heart Failure, COPD, CVA/TIA, Hyperlipidemia, Hypertension, Myocardial Infarction (NH), Osteoarthritis (OA), Pneumonia, Renal Disease, Sleep Apnea/CPAP/BIPAP, Vascular Disorder Additional Past Medical History / Comment(s): CKD stage IV, chronic anemia (iron defiency), hyperkalemia, VOLODYMYR with Cpap, TIA, arthritis in multiple joints, BPH with surgery, PVD, past ETOH but pt states he has not drank in 20 yrs. Last Myocardial Infarction Date:: 2010 History of Any Multi-Drug Resistant Organisms: None Reported Past Surgical History: Cardiac Valve Replacement, Heart Catheterization With Stent, Joint Replacement, Prostate Surgery, Tonsillectomy Additional Past Surgical History / Comment(s): 09/07/18 Aortic mechanical valve replacement and stent to LAD, previous PCI with stent, R caratid endartectomy w ith pericardial patch angioplasty, R total knee arthroplasty, R hip hemiarthroplasty, TURP, colonoscopy, bilateral cataract removals/lens implants. Past Anesthesia/Blood Transfusion Reactions: No Reported Reaction Date of Last Stent Placement:: 09/07/18 Smoking Status: Never smoker - Past Family History Father Family Medical History: Chest Pain / Angina, Coronary Artery Disease (CAD), Myocardial Infarction (NH) Mother Family Medical History: Dementia Medications and Allergies Home Medications Medication Instructions Recorded Confirmed Type Aspirin EC [Ecotrin Low Dose] 81 mg PO DAILY 04/08/19 04/19/19 History Terbinafine [LamISIL] 250 mg PO HS 04/08/19 04/19/19 History amLODIPine [Norvasc] 5 mg PO DAILY 04/08/19 04/19/19 History ALPRAZolam [Xanax] 0.5 mg PO QID PRN 04/18/19 04/19/19 History Clopidogrel [Plavix] 75 mg PO DAILY 04/18/19 04/19/19 History Furosemide [Lasix] 20 mg PO DAILY 04/18/19 04/19/19 History Gabapentin [Neurontin] 100 mg PO BID 04/18/19 04/19/19 History Metoprolol Tartrate [Lopressor] 50 mg PO BID 04/18/19 04/19/19 History Omeprazole 20 mg PO DAILY 04/18/19 04/19/19 History Pravastatin Sodium [Pravachol] 40 mg PO HS 04/18/19 04/19/19 History Albuterol Nebulized [Ventolin 2.5 mg INHALATION RT-Q6H PRN 04/19/19 04/19/19 History Nebulized] Budesonide [Pulmicort] 0.5 mg INHALATION RT-BID 04/19/19 04/19/19 History Docusate [Colace] 100 mg PO HS 04/19/19 04/19/19 History Ferrous Sulfate [Feosol] 325 mg PO HS 04/19/19 04/19/19 History Loratadine [Claritin] 10 mg PO DAILY 04/19/19 04/19/19 History Warfarin [Coumadin] 2.5 mg PO HS 04/19/19 04/19/19 History Allergies Allergy/AdvReac Type Severity Reaction Status Date / Time No Known Allergies Allergy Verified 04/08/19 11:22 Physical Exam Vitals: Vital Signs Temp Pulse Resp BP Pulse Ox 04/20/19 04:00 63 18 158/62 98 04/20/19 00:00 63 18 151/67 98 04/19/19 20:00 98.3 F 54 L 18 132/61 98 04/19/19 16:00 97.6 F 57 L 20 126/60 99 04/19/19 12:00 98.1 F 59 L 16 150/65 98 Intake and Output 04/19/19 04/20/19 04/20/19 22:59 06:59 14:59 Intake Total 360 Output Total 175 400 Balance 185 -400 Intake: Oral 360 Output: Urine 175 400 Other: Voiding Method Toilet Toilet # Voids 0 1 # Bowel Movements 0 Weight 101.9 kg PHYSICAL EXAMINATION: GENERAL: 89-year-old gentleman in no acute distress at the time of my examination HEENT: Head is atraumatic, normocephalic. Pupils equal, round. Sclera anicteric. Conjunctiva are clear. Mucous membranes of the mouth are moist. Neck is supple. There is elevated jugular venous pressure. No carotid bruit is heard. HEART EXAMINATION: Heart S1 and S2 irregularly irregular a systolic murmur is heard CHEST EXAMINATION: Lungs reveal coarse wheezing with diminished air entry to bilateral bases ABDOMEN: Soft, obese, nontender. Bowel sounds are heard. No organomegaly noted. EXTREMITIES: 2+ peripheral pulses with no evidence of peripheral edema and no calf tenderness noted. NEUROLOGIC patient is awake, alert and oriented 2 . Results 04/19/19 06:33 04/19/19 06:27 Coagulation 04/19/19 Range/Units 06:27 PT 22.5 H (9.0-12.0) sec Current Medications Generic Name Dose Route Start Last Admin Trade Name Freq PRN Reason Stop Dose Admin Hydrocodone Bitart/Acetaminophen 1 each 04/18/19 11:53 04/19/19 20:41 [place] 5-325 PO 1 each Q4HR PRN Administration Pain Alprazolam 0.5 mg 04/19/19 11:44 04/19/19 17:46 Xanax PO 0.5 mg QID PRN Administration Anxiety Amlodipine Besylate 10 mg 04/20/19 09:00 Norvasc PO DAILY ALICIA Aspirin 81 mg 04/18/19 11:45 04/19/19 09:46 Aspirin PO 81 mg DAILY ALICIA Administration Atorvastatin Calcium 80 mg 04/18/19 11:45 04/19/19 09:46 Lipitor PO 80 mg DAILY ALICIA Administration Benzocaine/Menthol 1 each 04/18/19 18:04 04/19/19 22:55 Cepacol Lozenge MUCOUS MEM 1 each Q6HR PRN Administration Sore Throat Carvedilol 6.25 mg 04/19/19 17:30 04/20/19 06:37 Coreg PO 6.25 mg BID-W/MEALS ALICIA Administration Clopidogrel Bisulfate 75 mg 04/19/19 12:00 04/19/19 12:12 Plavix PO 75 mg DAILY ALICIA Administration Docusate Sodium 100 mg 04/19/19 22:00 04/19/19 22:56 Colace PO 100 mg DAILY ALICIA Administration Ferrous Sulfate 325 mg 04/18/19 21:00 04/19/19 20:41 Feosol PO 325 mg HS ALICIA Administration Gabapentin 100 mg 04/19/19 12:00 04/19/19 20:42 Neurontin PO 100 mg BID ALICIA Administration Guaifenesin 200 mg 04/18/19 11:54 04/19/19 22:56 Robitussin PO 200 mg Q6H PRN Administration Cough Hydralazine HCl 10 mg 04/18/19 11:53 04/19/19 09:50 Apresoline IVP 10 mg Q6HR PRN Administration Blood Pressure - High: SBP>160 Ceftriaxone Sodium 1 gm/ 50 mls @ 100 mls/hr 04/18/19 21:00 04/19/19 20:41 Sodium Chloride IVPB 100 mls/hr Q24H ALICIA Administration Sodium Chloride 1,000 mls @ 50 mls/hr 04/19/19 18:15 04/19/19 18:41 Saline 0.9% IV Not Given .Q20H [facility] Insulin Aspart 0 unit 04/18/19 17:30 04/20/19 06:37 Novolog SQ 3 unit ACHS ALICIA Administration Protocol Methylprednisolone Sodium Succinate 60 mg 04/18/19 16:00 04/19/19 22:56 Solu-Medrol IV 60 mg Q8HR ALICIA Administration Pantoprazole Sodium 40 mg 04/20/19 09:00 Protonix PO DAILY ALICIA Sertraline HCl 50 mg 04/18/19 11:45 04/19/19 09:46 Zoloft PO 50 mg DAILY ALICIA Administration Tamsulosin HCl 0.4 mg 04/18/19 11:45 04/19/19 09:46 Flomax PO 0.4 mg DAILY ALICIA Administration Terbinafine HCl 250 mg 04/18/19 21:00 04/19/19 20:42 Lamisil PO 250 mg HS ALICIA Administration Vortioxetine 5 mg 04/19/19 09:00 04/19/19 09:46 Trintellix PO 5 mg DAILY ALICIA Administration Warfarin Sodium 2.5 mg 04/19/19 18:00 04/19/19 17:46 Coumadin PO 2.5 mg DAILY@1800 ALICIA Administration Intake and Output 04/19/19 04/20/19 04/20/19 22:59 06:59 14:59 Intake Total 360 Output Total 175 400 Balance 185 -400 Intake: Oral 360 Output: Urine 175 400 Other: Voiding Method Toilet Toilet # Voids 0 1 # Bowel Movements 0 Weight 101.9 kg 04/19/19 06:33 04/19/19 06:27 EKG Interpretations (text) EKG shows atrial fibrillation with a slow ventricular response Assessment and Plan Plan: Assessment and plan #1 symptoms of progressively worsening shortness of breath or cough, likely combination of a possible tracheobronchitis with exacerbation of congestive card iac failure, diastolic acute on chronic #2 known history of coronary artery disease with multiple stent placements in the LAD and circumflex arteries #3 hypertension 4 hyperlipidemia #5 sleep apnea #6 COPD #7 history of nicotine dependence #8 chronic kidney disease #9 abnormality in troponin with no significant rise and fall pattern, likely secondary to chronic kidney disease #10 recent aortic valve replacement at [facility], we will obtain records. #11 hypertensive urgency #12 chronic persistent atrial fibrillation, on Coumadin for anticoagulation, INR 2.3 Plan We will discontinue the IV fluids, start the patient on IV Lasix. Continue Coumadin, discontinue aspirin, continue Plavix, continue Coreg, patient is not on an ROCK inhibitor or angiotensin williams because of abnormal kidney function. Further recommendations to follow. Monitor intake and output along with daily weights and daily lytes BUN and creatinine. We'll also obtain records of patient's recent valve surgery. DNP note has been reviewed, I agree with a documented findings and plan of care. Patient was seen and examined.
[2019-04-20 08:54] LABS: INR 1.9 (<1.2); Prothrombin Time 18.3 sec (9.0-12.0)
[2019-04-20 09:14] LABS: Albumin 3.3 g/dL (3.5-5.0); Calcium 8.2 mg/dL (8.4-10.2); Potassium 5.5 mmol/L (3.5-5.1); Total Bilirubin 0.3 mg/dL (0.2-1.3); Total Protein 5.9 g/dL (6.3-8.2)
[2019-04-20] MEDS: PANTOPRAZOLE 40 MG TABLET PO SCH (10:04)
[2019-04-20] MEDS: amLODIPine 10 MG TAB PO SCH (10:04)
[2019-04-20] MEDS: methylPREDNISolone SOD SUCCI 125 MG/2 ML VIAL IV SCH ×3 (10:04→22:54)
[2019-04-20] MEDS: GABAPENTIN 100 MG CAP PO SCH ×2 (10:04→20:37)
[2019-04-20] MEDS: SERTRALINE 50 MG TAB PO SCH (10:04)
[2019-04-20] MEDS: CLOPIDOGREL 75 MG TAB PO SCH (10:04)
[2019-04-20] MEDS: ATORVASTATIN 80 MG TAB PO SCH (10:04)
[2019-04-20] MEDS: DOCUSATE 100 MG CAP PO SCH (10:04)
[2019-04-20] MEDS: TAMSULOSIN 0.4 MG CAP.ER.24H PO SCH (10:05)
[2019-04-20] MEDS: VORTIOXETINE HYDROBROMIDE 10 MG TABLET PO SCH (10:05)
[2019-04-20] MEDS: FUROSEMIDE 10 MG/ML 4 ML VIAL IV SCH ×2 (10:08→20:36)
[2019-04-20] MEDS: BENZOCAINE/MENTHOL LOZENG 1 EACH LOZENGE MUCOUS MEM PRN ×3 (11:37→20:37)
[2019-04-20 12:43] LABS: Glucose,Whole Blood 159 mg/dL (75-99)
--- NOTE | 2019-04-20 12:53 | FL ---
EXAMINATION TYPE: FL barium swallow w video, XR chest 1V DATE OF EXAM: 04/20/2019 MODIFIED SWALLOW / DEGLUTITION STUDY WITH 1V POSTPROCEDURAL CHEST X-RAY CLINICAL HISTORY: Dysphagia, rule out silent aspiration TECHNIQUE: Deglutition study is performed utilizing thin liquid barium, honey and nectar thick liqui d barium, barium thick applesauce, and barium coated cracker. 1 minute and 51 seconds of fluoroscopy time was utilized with 0 images saved as the examination was video recorded. COMPARISON: None. FINDINGS: There is poor epiglottic excursion and delayed closure noted during the examination most no table with thicker consistencies. Normal mastication is seen with solid modalities tested. Repeated trace laryngeal penetration and a single episode of deeper planter penetration is seen with the thin barium consistency. This is improved with small bolus size. It was uncertain during the examination is laryngeal aspiration did occur with the thin barium consistency and therefore postprocedural chest x-ray was obtained. This demonstrates no evidence of barium in the tracheobronchial tree. Enlarged c ardiac mediastinal silhouette is seen with arthropathy of the left shoulder. Moderate degree. No siza ble pleural effusion, pneumothorax or focal consolidation. No significant pharyngeal residue was melody reciated. IMPRESSION: 1. Deep and transient penetration with the thin barium consistency, improved with diminished bolus si ze. No evidence of aspiration on postprocedural chest x-ray. 2. Poor epiglottic excursion and delayed closure. Please refer to speech therapist notes for further details if necessary.
--- NOTE | 2019-04-20 14:12 | P.PN ---
Subjective Patient is seen in follow-up for acute kidney injury on chronic kidney disease. Patient has chronic kidney disease stage III with baseline creatinine in the range of 3-3.3. Creatinine is up to 3.9 today. IV fluids were discontinued and he was started on IV Lasix this morning by cardiology. No vomiting or diarrhea. Does admit to shortness of breath. He has been voiding. No evidence of urinary retention. Vital signs are stable. General: The patient appeared well nourished and normally developed. HEENT: Head exam is unremarkable. Neck is without jugular venous distension. LUNGS: Breath sounds decreased. Rhonchi at bases. HEART: Rate and Rhythm are regular. First and second heart sounds normal. No murmurs, rubs or gallops. ABDOMEN: Abdominal exam reveals normal bowel sounds. Non-tender and non- distended. No evidence of peritonitis. EXTREMITITES: Trace edema. Objective - Vital Signs Vital signs: Vital Signs Temp 97.8 F 04/20/19 08:00 Pulse 68 04/20/19 12:00 Resp 16 04/20/19 12:00 BP 149/68 04/20/19 13:45 Pulse Ox 98 04/20/19 11:34 Intake & Output 04/19/19 04/20/19 04/20/19 18:59 06:59 18:59 Intake Total 2040 Output Total 175 400 Balance 1865 -400 Weight 101.9 kg Intake: Oral 0 Output: Urine 175 400 Other: Voiding Method Toilet Toilet # Voids 0 1 # Bowel Movements 0 - Labs CBC & Chem 7: 04/20/19 07:20 04/20/19 07:20 Labs: Abnormal Lab Results - Last 24 Hours (Table) 04/19/19 04/19/19 04/20/19 Range/Units 16:52 21:04 06:34 WBC (3.8-10.6) k/uL RBC (4.30-5.90) m/uL Hgb (13.0-17.5) gm/dL Hct (39.0-53.0) % Plt Count (150-450) k/uL Neutrophils # (1.3-7.7) k/uL Lymphocytes # (1.0-4.8) k/uL PT (9.0-12.0) sec INR (<1.2) Sodium (137-145) mmol/L Potassium (3.5-5.1) mmol/L Carbon Dioxide (22-30) mmol/L BUN (9-20) mg/dL Creatinine (0.66-1.25) mg/dL Glucose (74-99) mg/dL POC Glucose (mg/dL) 163 H 165 H 158 H (75-99) mg/dL Calcium (8.4-10.2) mg/dL Total Protein (6.3-8.2) g/dL Albumin (3.5-5.0) g/dL 04/20/19 04/20/19 04/20/19 Range/Units 07:20 07:20 07:20 WBC 11.7 H (3.8-10.6) k/uL RBC 3.38 L (4.30-5.90) m/uL Hgb 10.4 L (13.0-17.5) gm/dL Hct 31.6 L (39.0-53.0) % Plt Count 127 L (150-450) k/uL Neutrophils # 10.9 H (1.3-7.7) k/uL Lymphocytes # 0.5 L (1.0-4.8) k/uL PT 18.3 H (9.0-12.0) sec INR 1.9 H (<1.2) Sodium 130 L (137-145) mmol/L Potassium 5.5 H (3.5-5.1) mmol/L Carbon Dioxide 18 L (22-30) mmol/L BUN 82 H (9-20) mg/dL Creatinine 3.91 H (0.66-1.25) mg/dL Glucose 135 H (74-99) mg/dL POC Glucose (mg/dL) (75-99) mg/dL Calcium 8.2 L (8.4-10.2) mg/dL Total Protein 5.9 L (6.3-8.2) g/dL Albumin 3.3 L (3.5-5.0) g/dL 04/20/19 Range/Units 12:40 WBC (3.8-10.6) k/uL RBC (4.30-5.90) m/uL Hgb (13.0-17.5) gm/dL Hct (39.0-53.0) % Plt Count (150-450) k/uL Neutrophils # (1.3-7.7) k/uL Lymphocytes # (1.0-4.8) k/uL PT (9.0-12.0) sec INR (<1.2) Sodium (137-145) mmol/L Potassium (3.5-5.1) mmol/L Carbon Dioxide (22-30) mmol/L BUN (9-20) mg/dL Creatinine (0.66-1.25) mg/dL Glucose (74-99) mg/dL POC Glucose (mg/dL) 159 H (75-99) mg/dL Calcium (8.4-10.2) mg/dL Total Protein (6.3-8.2) g/dL Albumin (3.5-5.0) g/dL Assessment and Plan Plan: Assessment: 1. Acute kidney injury secondary to ATN secondary to cardiorenal syndrome. Renal function worsening. Creatinine 3.9 today. No evidence of urinary retention. 2. Dyspnea secondary to volume overload. Also component of COPD exacerbation/bronchitis. 3. Hyperkalemia secondary to acute kidney injury and metabolic acidosis. 4. Hypertension with chronic kidney disease and metabolic acidosis. 5. Chronic kidney disease stage IV secondary to diabetic kidney disease with baseline creatinine in the range of 3-3.3. 6. Diabetes mellitus. 7. Acute on chronic diastolic CHF. 8. Status post aortic valve replacement. 9. Metabolic acidosis secondary to acute kidney injury. Plan: Maintain IV Lasix 40 mg twice daily. Add oral sodium bicarbonate. Check renal ultrasound. Low potassium diet. Repeat electrolytes in the morning. No urgent need for renal replacement therapy at this time. Continue to assess on daily basis.
--- NOTE | 2019-04-20 15:46 | P.PN ---
Subjective Progress Note Date: 04/20/19 Principal diagnosis: Acute COPD exacerbation, acute renal failure, hyperkalemia, hypertension hypertensive cardiovascular disease, congestive heart failure likely related to acute on chronic diastolic heart failure 04/20/2019, patient seen eval examined during the rounds labs reviewed medications reviewed care plan discussed with the staff at length patient is still feel congested he is on IV steroids will initiate on breathing treatments as well continue gentle diuresis as planned renal service and cardiovascular service is also following This is a 89-year-old nonsmoker male who came into the hospital with one week of shortness of breath has extensive coughing productive of the thick tenacious white sputum, patient has echocardiogram and chest x-ray echo revealed severe dilated LA, mild pulmonary hypertension and severe concentric LV hypertrophy, chest x-ray suggestive of mild fluid overload, patient is very compliant with Flu pneumonia vaccine, review of the records revealed that patient has been lately having elevated blood pressure in the primary care's office blood pressure was over 220/100, noted that meds are being adjusted for hypertensive heart failure and acute on chronic renal failure Objective - Vital Signs Vital signs: Vital Signs Temp 98.4 F 04/20/19 15:25 Pulse 64 04/20/19 15:25 Resp 16 04/20/19 15:25 BP 160/69 04/20/19 15:25 Pulse Ox 96 04/20/19 15:25 Intake & Output 04/19/19 04/20/19 04/20/19 18:59 06:59 18:59 Intake Total 2040 Output Total 175 400 Balance 1865 -400 Weight 101.9 kg Intake: Oral 2039 Output: Urine 175 400 Other: Voiding Method Toilet Toilet # Voids 0 1 # Bowel Movements 0 - Exam - Constitutional General appearance: cooperative, disheveled, morbidly obese - EENT Eyes: anicteric sclerae, EOMI, PERRLA, normal appearance ENT: normal oropharynx Ears: bilateral: normal - Neck Carotids: bilateral: upstroke normal - Respiratory Respiratory: bilateral: diminished, rales (Fine basilar), negative: CTA, dullness, rhonchi, wheezing, prolonged expiration - Cardiovascular Rhythm: regular Heart sounds: normal: S1, S2 - Gastrointestinal General gastrointestinal: normal bowel sounds, soft - Neurologic Neurologic: CNII-XII intact - Musculoskeletal Musculoskeletal: gait normal, generalized weakness, strength equal bilaterally - Psychiatric Psychiatric: A&O x's 3, appropriate affect, intact judgment & insight - Labs CBC & Chem 7: 04/20/19 07:20 04/20/19 07:20 Labs: Abnormal Lab Results - Last 24 Hours (Table) 04/19/19 04/19/19 04/20/19 Range/Units 16:52 21:04 06:34 WBC (3.8-10.6) k/uL RBC (4.30-5.90) m/uL Hgb (13.0-17.5) gm/dL Hct (39.0-53.0) % Plt Count (150-450) k/uL Neutrophils # (1.3-7.7) k/uL Lymphocytes # (1.0-4.8) k/uL PT (9.0-12.0) sec INR (<1.2) Sodium (137-145) mmol/L Potassium (3.5-5.1) mmol/L Carbon Dioxide (22-30) mmol/L BUN (9-20) mg/dL Creatinine (0.66-1.25) mg/dL Glucose (74-99) mg/dL POC Glucose (mg/dL) 163 H 165 H 158 H (75-99) mg/dL Calcium (8.4-10.2) mg/dL Total Protein (6.3-8.2) g/dL Albumin (3.5-5.0) g/dL 04/20/19 04/20/19 04/20/19 Range/Units 07:20 07:20 07:20 WBC 11.7 H (3.8-10.6) k/uL RBC 3.38 L (4.30-5.90) m/uL Hgb 10.4 L (13.0-17.5) gm/dL Hct 31.6 L (39.0-53.0) % Plt Count 127 L (150-450) k/uL Neutrophils # 10.9 H (1.3-7.7) k/uL Lymphocytes # 0.5 L (1.0-4.8) k/uL PT 18.3 H (9.0-12.0) sec INR 1.9 H (<1.2) Sodium 130 L (137-145) mmol/L Potassium 5.5 H (3.5-5.1) mmol/L Carbon Dioxide 18 L (22-30) mmol/L BUN 82 H (9-20) mg/dL Creatinine 3.91 H (0.66-1.25) mg/dL Glucose 135 H (74-99) mg/dL POC Glucose (mg/dL) (75-99) mg/dL Calcium 8.2 L (8.4-10.2) mg/dL Total Protein 5.9 L (6.3-8.2) g/dL Albumin 3.3 L (3.5-5.0) g/dL 04/20/19 Range/Units 12:40 WBC (3.8-10.6) k/uL RBC (4.30-5.90) m/uL Hgb (13.0-17.5) gm/dL Hct (39.0-53.0) % Plt Count (150-450) k/uL Neutrophils # (1.3-7.7) k/uL Lymphocytes # (1.0-4.8) k/uL PT (9.0-12.0) sec INR (<1.2) Sodium (137-145) mmol/L Potassium (3.5-5.1) mmol/L Carbon Dioxide (22-30) mmol/L BUN (9-20) mg/dL Creatinine (0.66-1.25) mg/dL Glucose (74-99) mg/dL POC Glucose (mg/dL) 159 H (75-99) mg/dL Calcium (8.4-10.2) mg/dL Total Protein (6.3-8.2) g/dL Albumin (3.5-5.0) g/dL Assessment and Plan Assessment: Hypertensive heart failure COPD exacerbation Tracheobronchitis Hypertensive urgency in emergency Stage IV renal failure Borderline hyperkalemia Type 2 diabetes mellitus Chronic atrial fibrillation Plan: Continue breathing treatments Continue gentle diuresis Adjustment of antihypertensive agent by adjusting and adding Continue anti-coagulation Agree with antibiotics Agree with IV steroids per however trach in taper and DC his next 48-72 hours Time with Patient: Greater than 30
[2019-04-20] MEDS: IPRATROPIUM-ALBUTEROL 3 ML NEB INHALATION SCH ×2 (16:20→20:55)
[2019-04-20 17:14] LABS: Glucose,Whole Blood 171 mg/dL (75-99)
[2019-04-20] MEDS: WARFARIN 2.5 MG TAB PO SCH (17:33)
[2019-04-20] MEDS: ALPRAZolam 0.5 MG TAB PO PRN (17:36)
[2019-04-20 20:19] LABS: Glucose,Whole Blood 173 mg/dL (75-99)
[2019-04-20] MEDS: TERBINAFINE 250 MG TAB PO SCH (20:37)
[2019-04-20] MEDS: SODIUM BICARBONATE TAB 650 MG TAB PO SCH (20:37)
[2019-04-20] MEDS: FERROUS SULFATE 325 MG TAB PO SCH (20:38)
[2019-04-20] MEDS: BUDESONIDE 0.5 MG/2 ML NEBU INHALATION SCH (20:55)
[2019-04-21] MEDS: HYDROcodone/APAP 5-325MG 1 EACH TAB PO PRN ×2 (04:06→10:44)
[2019-04-21] MEDS: ALPRAZolam 0.5 MG TAB PO PRN ×3 (04:07→21:18)
[2019-04-21] MEDS: BENZOCAINE/MENTHOL LOZENG 1 EACH LOZENGE MUCOUS MEM PRN ×2 (04:32→21:18)
[2019-04-21 06:12] LABS: Glucose,Whole Blood 159 mg/dL (75-99)
[2019-04-21] MEDS: CARVEDILOL 6.25 MG TAB PO SCH ×2 (06:29→16:40)
[2019-04-21] MEDS: INSULIN ASPART (NovoLOG) 100 UNIT/ML VIAL SQ SCH ×4 (06:29→21:09)
[2019-04-21 06:56] LABS: Basophils % (A) 0 %; Eosinophils % (A) 0 %; HCT 31.4 % (39.0-53.0); HGB 10.7 gm/dL (13.0-17.5); Lymphocytes # (A) 0.3 k/uL (1.0-4.8); Lymphocytes % (A) 3 %; MCH 31.2 pg (25.0-35.0); MCHC 34.1 g/dL (31.0-37.0); MCV 91.3 fL (80.0-100.0); Mean Platelet Volume 6.7; Monocytes # (A) 0.4 k/uL (0-1.0); Monocytes % (A) 3 %; Neutrophils # (A) 10.1 k/uL (1.3-7.7); Neutrophils % (A) 93 %; Platelet Count 128 k/uL (150-450); RBC 3.43 m/uL (4.30-5.90); RDW 12.5 % (11.5-15.5); WBC 10.9 k/uL (3.8-10.6)
[2019-04-21 07:27] LABS: Albumin 3.3 g/dL (3.5-5.0); Calcium 8.2 mg/dL (8.4-10.2); Potassium 5.2 mmol/L (3.5-5.1); Total Bilirubin 0.4 mg/dL (0.2-1.3)
[2019-04-21] MEDS: IPRATROPIUM-ALBUTEROL 3 ML NEB INHALATION SCH ×4 (07:30→18:59)
[2019-04-21] MEDS: BUDESONIDE 0.5 MG/2 ML NEBU INHALATION SCH ×2 (07:30→18:59)
[2019-04-21] MEDS ORDERED: PIPERACILLIN-TAZOBACTAM 3.375 GM in SODIUM CHLORIDE 0.9% 100 ML IVPB SCH (09:15)
[2019-04-21] MEDS: amLODIPine 10 MG TAB PO SCH (09:17)
[2019-04-21] MEDS: CLOPIDOGREL 75 MG TAB PO SCH (09:17)
[2019-04-21] MEDS: VORTIOXETINE HYDROBROMIDE 10 MG TABLET PO SCH (09:17)
[2019-04-21] MEDS: SERTRALINE 50 MG TAB PO SCH (09:17)
[2019-04-21] MEDS: ATORVASTATIN 80 MG TAB PO SCH (09:17)
[2019-04-21] MEDS: DOCUSATE 100 MG CAP PO SCH (09:18)
[2019-04-21] MEDS: GABAPENTIN 100 MG CAP PO SCH ×2 (09:18→21:08)
[2019-04-21] MEDS: TAMSULOSIN 0.4 MG CAP.ER.24H PO SCH (09:18)
[2019-04-21] MEDS: FUROSEMIDE 10 MG/ML 4 ML VIAL IV SCH ×2 (09:18→21:08)
[2019-04-21] MEDS: SODIUM BICARBONATE TAB 650 MG TAB PO SCH ×2 (09:18→21:08)
[2019-04-21] MEDS: PANTOPRAZOLE 40 MG TABLET PO SCH (09:18)
[2019-04-21] MEDS: methylPREDNISolone SOD SUCCI 125 MG/2 ML VIAL IV SCH ×3 (09:19→23:38)
--- NOTE | 2019-04-21 09:41 | XR ---
EXAMINATION TYPE: XR KUB , 2 VIEWS DATE OF EXAM ORDERED: 04/21/2019 HISTORY: constipation abd pain. COMPARISON: None. FINDINGS: There is barium within the colon from a recent barium examination area there is a right hi p hemiarthroplasty in place. Lung bases are clear. Within the abdomen, the abdominal gas pattern is within normal limits. There is no evidence of obstru ction or free air. There are phleboliths within the pelvis. IMPRESSION: MODERATE RESIDUAL BARIUM FROM A RECENT BARIUM SWALLOW.
--- NOTE | 2019-04-21 10:19 | CT ---
EXAMINATION TYPE: CT chest wo con DATE OF EXAM: 04/21/2019 COMPARISON: Previous study dated 08/12/2017. HISTORY: COPD exacerbation CT DLP: 623.7 mGycm. Automated Exposure Control for Dose Reduction was Utilized. TECHNIQUE: CT scan of the thorax is performed without IV contrast. FINDINGS: There are bilateral lobe infiltrates greater on the left than the right. There is some pleu ral thickening bilaterally. There is a small right-sided effusion. There is bilateral gynecomastia, greater on the right than the left. There is no significant axillary, mediastinal or hilar adenopathy. There are some shotty mediastinal lymph nodes. There is moderate atheromatous calcification of the visualized arterial tree. There is evidence of ca rdiac stent graft. There is a small pericardial effusion which has increased in size and now measures 1.9 cm anteriorly. The heart is enlarged. There is moderate barium within the colon from a recent barium swallow. This is causing streak artifa ct through the upper abdomen. Allowing for this, no definite upper abdominal abnormality is seen. There is hypertrophic spondylosis within the spine. IMPRESSION: 1. BILATERAL INFILTRATES GREATER ON THE LEFT THAN THE RIGHT. 2. SMALL RIGHT EFFUSION. 3. CARDIOMEGALY AND AN ENLARGING PERICARDIAL EFFUSION.
--- NOTE | 2019-04-21 10:27 | P.PN ---
Subjective Progress Note Date: 04/21/19 Seen and examined for the follow-up of acute kidney injury. Still short of breath. No nausea vomiting diarrhea. Objective - Vital Signs Vital signs: Vital Signs Temp 98.4 F 04/20/19 15:25 Pulse 62 04/21/19 07:42 Resp 18 04/21/19 04:00 BP 178/77 04/21/19 04:00 Pulse Ox 95 04/21/19 07:30 Intake & Output 04/20/19 04/21/19 04/21/19 18:59 06:59 18:59 Intake Total 720 100 Output Total 575 1250 Balance 145 -1250 100 Weight 103.6 kg Intake: Oral 720 100 Output: Urine 575 1250 Other: Voiding Method Toilet - Exam No acute distress S1-S2 heard Decreased breath sounds Edema - Labs CBC & Chem 7: 04/21/19 05:56 04/21/19 05:56 Labs: Abnormal Lab Results - Last 24 Hours (Table) 04/20/19 04/20/19 04/20/19 Range/Units 12:40 17:05 20:14 WBC (3.8-10.6) k/uL RBC (4.30-5.90) m/uL Hgb (13.0-17.5) gm/dL Hct (39.0-53.0) % Plt Count (150-450) k/uL Neutrophils # (1.3-7.7) k/uL Lymphocytes # (1.0-4.8) k/uL Sodium (137-145) mmol/L Potassium (3.5-5.1) mmol/L Carbon Dioxide (22-30) mmol/L BUN (9-20) mg/dL Creatinine (0.66-1.25) mg/dL Glucose (74-99) mg/dL POC Glucose (mg/dL) 159 H 171 H 173 H (75-99) mg/dL Calcium (8.4-10.2) mg/dL ALT (21-72) U/L Total Protein (6.3-8.2) g/dL Albumin (3.5-5.0) g/dL 04/21/19 04/21/19 04/21/19 Range/Units 05:56 05:56 06:11 WBC 10.9 H (3.8-10.6) k/uL RBC 3.43 L (4.30-5.90) m/uL Hgb 10.7 L (13.0-17.5) gm/dL Hct 31.4 L (39.0-53.0) % Plt Count 128 L (150-450) k/uL Neutrophils # 10.1 H (1.3-7.7) k/uL Lymphocytes # 0.3 L (1.0-4.8) k/uL Sodium 129 L (137-145) mmol/L Potassium 5.2 H (3.5-5.1) mmol/L Carbon Dioxide 18 L (22-30) mmol/L BUN 90 H (9-20) mg/dL Creatinine 4.01 H (0.66-1.25) mg/dL Glucose 153 H (74-99) mg/dL POC Glucose (mg/dL) 159 H (75-99) mg/dL Calcium 8.2 L (8.4-10.2) mg/dL ALT 19 L (21-72) U/L Total Protein 6.0 L (6.3-8.2) g/dL Albumin 3.3 L (3.5-5.0) g/dL Assessment and Plan Assessment: #1 nonoliguric acute kidney injury secondary to cardiorenal syndrome/ATN. Renal function stable. 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 #3 hypervolemic hyponatremia. #4 hyperkalemia secondary to acute kidney injury and metabolic acidosis. #5 hypertension with chronic kidney disease. #6 acute on chronic diastolic CHF Plan: #1 continue diuretics. #2 renal function stable, no acute indication for renal replacement therapy at this time. #3 labs in the morning. #4 avoid nephrotoxic agents and hypotensive episodes.
[2019-04-21] MEDS: guaiFENesin-DM 600/30MG 1 EACH TAB.ER.12H PO SCH ×2 (10:44→21:08)
[2019-04-21] MEDS: hydrALAZINE HCL 20 MG/ML 1 ML VIAL IVP PRN (10:45)
[2019-04-21] MEDS: PIPERACILLIN-TAZOBACTAM 3.375 GM in SODIUM CHLORIDE 0.9% 100 ML IVPB SCH ×2 (10:46→21:09)
[2019-04-21] MEDS: hydrALAZINE HCL 50 MG TAB PO SCH ×3 (11:23→21:08)
[2019-04-21 11:56] LABS: Glucose,Whole Blood 131 mg/dL (75-99)
--- NOTE | 2019-04-21 12:07 | P.PN ---
<Cristina Anton - Last Filed: 04/21/19 13:44> Subjective Progress Note Date: 04/21/19 This is an 89-year-old gentleman with known history of coronary artery disease and prior stent placements to the LAD and circumflex, the last circumflex stenting was performed in 2014. Persistent atrial fibrillation. Patient also has a history of COPD, sleep apnea, hypertension, hyperlipidemia, prior carotid endarterectomy, he also underwent a recent aortic valve replacement, has chronic kidney disease. He presents to the hospital on this occasion with symptoms of progressively worsening shortness of breath, patient also states that he was experiencing a cough at home, at times productive. His chest x-ray on presentation here showed COPD, cardiomegaly, mild degree of pulmonary arterial hypertension. EKG on presentation here showed atrial fibrillation with a slow ventricular response. Echocardiogram with Doppler study was performed which revealed a mild periprosthetic regurgitation of the bioprosthetic aortic valve, EF 55-60%. Blood pressure 158/60 with a heart rate in the 60s, 98% on 3 L of oxygen. The blood pressure on arrival here was 222/102, heart rate in the 60s, 90% on room air. White blood cell count 9.7, hemoglobin 11.4, platelet count 120. INR 2.3. Sodium 135, potassium 5.3, BUN 66, creatinine 3.6. BNP level 22,000. Troponin 0.046, 0.053. Influenza A and B were negative. 04/20/2019 increased shortness of breath. Started on IV Lasix. 04/21/2019 the patient continues to be hypertensive, despite IV Lasix. he did void with IV diuretics, however is up an additional 2 kg since yesterday.White blood cell count 10.9, hemoglobin 10.7, hematocrit 31.4, sodium 129, potassium 5.2, BUN 90, creatinine 4.01. CT of the chest shows bilateral lobe infiltrates greater on the left than the right. Small right-sided pleural effusion. Cardiomegaly and an enlarging pericardial effusion noted, however echocardiogram negative for effusion.he continues to have shortness of breath with minimal exertion. He denies any chest pain, chest pressure, palpitations, dizziness, lightheadedness. Objective - Vital Signs Vital signs: Vital Signs Temp 98.0 F 04/21/19 08:00 Pulse 74 04/21/19 11:12 Resp 20 04/21/19 08:00 BP 189/85 04/21/19 08:00 Pulse Ox 96 04/21/19 08:00 Intake & Output 04/20/19 04/21/19 04/21/19 18:59 06:59 18:59 Intake Total 720 100 Output Total 575 1250 Balance 145 -1250 100 Weight 103.6 kg Intake: Oral 720 100 Output: Urine 575 1250 Other: Voiding Method Toilet Toilet - Exam GENERAL: Well-appearing, obese, and in mild distress. NECK: Supple without JVD or thyromegaly. LUNGS: Breath soundsrhonchorous to auscultation. Respiration equal and mildly labored. No wheezes. HEART: irregular heart rate. Systolic murmur audible. No rubs or gallops. S1 and S2 heard. EXTREMITIES: Normal range of motion, no edema. No clubbing or cyanosis. Peripheral pulses intact and strong. - Labs CBC & Chem 7: 04/21/19 05:56 04/21/19 05:56 Labs: Abnormal Lab Results - Last 24 Hours (Table) 04/20/19 04/20/19 04/20/19 Range/Units 12:40 17:05 20:14 WBC (3.8-10.6) k/uL RBC (4.30-5.90) m/uL Hgb (13.0-17.5) gm/dL Hct (39.0-53.0) % Plt Count (150-450) k/uL Neutrophils # (1.3-7.7) k/uL Lymphocytes # (1.0-4.8) k/uL Sodium (137-145) mmol/L Potassium (3.5-5.1) mmol/L Carbon Dioxide (22-30) mmol/L BUN (9-20) mg/dL Creatinine (0.66-1.25) mg/dL Glucose (74-99) mg/dL POC Glucose (mg/dL) 159 H 171 H 173 H (75-99) mg/dL Calcium (8.4-10.2) mg/dL ALT (21-72) U/L Total Protein (6.3-8.2) g/dL Albumin (3.5-5.0) g/dL 04/21/19 04/21/1904/21/19 Range/Units 05:56 05:56 06:11 WBC 10.9 H (3.8-10.6) k/uL RBC 3.43 L (4.30-5.90) m/uL Hgb 10.7 L (13.0-17.5) gm/dL Hct 31.4 L (39.0-53.0) % Plt Count 128 L (150-450) k/uL Neutrophils # 10.1 H (1.3-7.7) k/uL Lymphocytes # 0.3 L (1.0-4.8) k/uL Sodium 129 L (137-145) mmol/L Potassium 5.2 H (3.5-5.1) mmol/L Carbon Dioxide 18 L (22-30) mmol/L BUN 90 H (9-20) mg/dL Creatinine 4.01 H (0.66-1.25) mg/dL Glucose 153 H (74-99) mg/dL POC Glucose (mg/dL) 159 H (75-99) mg/dL Calcium 8.2 L (8.4-10.2) mg/dL ALT 19 L (21-72) U/L Total Protein 6.0 L (6.3-8.2) g/dL Albumin 3.3 L (3.5-5.0) g/dL 04/21/19 Range/Units 11:53 WBC (3.8-10.6) k/uL RBC (4.30-5.90) m/uL Hgb (13.0-17.5) gm/dL Hct (39.0-53.0) % Plt Count (150-450) k/uL Neutrophils # (1.3-7.7) k/uL Lymphocytes # (1.0-4.8) k/uL Sodium (137-145) mmol/L Potassium (3.5-5.1) mmol/L Carbon Dioxide (22-30) mmol/L BUN (9-20) mg/dL Creatinine (0.66-1.25) mg/dL Glucose (74-99) mg/dL POC Glucose (mg/dL) 131 H (75-99) mg/dL Calcium (8.4-10.2) mg/dL ALT (21-72) U/L Total Protein (6.3-8.2) g/dL Albumin (3.5-5.0) g/dL Assessment and Plan Assessment: #1 diastolic heart failure, acute on chronic #2 known history of coronary artery disease with multiple stent placements in the LAD and circumflex arteries #3 hypertension #4 hyperlipidemia #5 sleep apnea #6 COPD #7 history of nicotine dependence #8 chronic kidney disease #9 abnormality in troponin with no significant rise and fall pattern, likely secondary to chronic kidney disease #10 recent aortic valve replacement at [facility] #11 hypertensive urgency #12 chronic persistent atrial fibrillation, on Coumadin for anticoagulation, INR 2.3 Plan: continue current medication regimen. Continue to monitor electrolytes and kidney function per nephrology's recommendations. <Kvng Hernández - Last Filed: 04/21/19 21:53> Objective - Vital Signs Vital signs: Vital Signs Temp 97.6 F 04/21/19 16:00 Pulse 65 04/21/19 19:27 Resp 20 04/21/19 16:00 BP 152/68 04/21/19 16:00 Pulse Ox 98 04/21/19 19:02 Intake & Output 04/21/19 04/21/19 04/22/19 06:59 18:59 06:59 Intake Total 440 Output Total 1250 300 Balance -1250 140 Weight 103.6 kg Intake: Oral 440 Output: Urine 1250 300 Other: Voiding Method Toilet Toilet - Labs CBC & Chem 7: 04/21/19 05:56 04/21/19 05:56 Labs: Abnormal Lab Results - Last 24 Hours (Table) 04/21/19 04/21/19 04/21/19 Range/Units 05:56 05:56 06:11 WBC 10.9 H (3.8-10.6) k/uL RBC 3.43 L (4.30-5.90) m/uL Hgb 10.7 L (13.0-17.5) gm/dL Hct 31.4 L (39.0-53.0) % Plt Count 128 L (150-450) k/uL Neutrophils # 10.1 H (1.3-7.7) k/uL Lymphocytes # 0.3 L (1.0-4.8) k/uL Sodium 129 L (137-145) mmol/L Potassium 5.2 H (3.5-5.1) mmol/L Carbon Dioxide 18 L (22-30) mmol/L BUN 90 H (9-20) mg/dL Creatinine 4.01 H (0.66-1.25) mg/dL Glucose 153 H (74-99) mg/dL POC Glucose (mg/dL) 159 H (75-99) mg/dL Calcium 8.2 L (8.4-10.2) mg/dL ALT 19 L (21-72) U/L Total Protein 6.0 L (6.3-8.2) g/dL Albumin 3.3 L (3.5-5.0) g/dL 04/21/19 04/21/19 04/21/19 Range/Units 11:53 17:24 20:46 WBC (3.8-10.6) k/uL RBC (4.30-5.90) m/uL Hgb (13.0-17.5) gm/dL Hct (39.0-53.0) % Plt Count (150-450) k/uL Neutrophils # (1.3-7.7) k/uL Lymphocytes # (1.0-4.8) k/uL Sodium (137-145) mmol/L Potassium (3.5-5.1) mmol/L Carbon Dioxide (22-30) mmol/L BUN (9-20) mg/dL Creatinine (0.66-1.25) mg/dL Glucose (74-99) mg/dL POC Glucose (mg/dL) 131 H 147 H 146 H (75-99) mg/dL Calcium (8.4-10.2) mg/dL ALT (21-72) U/L Total Protein (6.3-8.2) g/dL Albumin (3.5-5.0) g/dL
[2019-04-21] MEDS: WARFARIN 2.5 MG TAB PO SCH (16:40)
[2019-04-21 17:27] LABS: Glucose,Whole Blood 147 mg/dL (75-99)
[2019-04-21 20:48] LABS: Glucose,Whole Blood 146 mg/dL (75-99)
[2019-04-21] MEDS: TERBINAFINE 250 MG TAB PO SCH (21:08)
[2019-04-21] MEDS: FERROUS SULFATE 325 MG TAB PO SCH (21:08)
--- NOTE | 2019-04-22 03:43 | PN ---
PROGRESS NOTE SUBJECTIVE: 89-year-old white male who is severely short of breath still, not improving despite IV Lasix. He still has lots of congestion, auditory crackles, inspiratory and expiratory. States he is not getting any better. I am going to switch his Rocephin to Zosyn today. Give him Mucinex. Continue DuoNeb and Pulmicort. Do an abdominal x-ray and CT scan of his chest to see what is going on. Lungs show inspiratory expiratory crackles. CARDIOVASCULAR: S1, S2. Hematologic 2+ edema. Psych fair mood and affect. He is on 2 L, saturating in the mid 90s. ASSESSMENT: 1. Tracheobronchitis versus pneumonia. 2. Chronic obstructive pulmonary disease exacerbation. 3. Hypertension acceleration. 4. Congestive heart failure. 5. End-stage renal disease. 6. Worsening renal function over 4 today. As mentioned above, we will switch his antibiotics around. Give him Mucinex. Add Zosyn. Stop Rocephin. Await for multiple consultations who are having not been able to improve him at this point. MMODL / IJN: [id number] /
[2019-04-22 06:14] LABS: Glucose,Whole Blood 177 mg/dL (75-99)
[2019-04-22 06:18] LABS: Calcium 7.9 mg/dL (8.4-10.2); Potassium 5.2 mmol/L (3.5-5.1)
[2019-04-22] MEDS: ALPRAZolam 0.5 MG TAB PO PRN ×2 (06:29→16:34)
[2019-04-22] MEDS: INSULIN ASPART (NovoLOG) 100 UNIT/ML VIAL SQ SCH ×4 (06:29→21:36)
[2019-04-22] MEDS: CARVEDILOL 6.25 MG TAB PO SCH ×2 (06:30→16:35)
[2019-04-22] MEDS: BUDESONIDE 0.5 MG/2 ML NEBU INHALATION SCH ×2 (07:40→20:43)
[2019-04-22] MEDS: IPRATROPIUM-ALBUTEROL 3 ML NEB INHALATION SCH ×4 (07:40→20:43)
[2019-04-22] MEDS: PANTOPRAZOLE 40 MG TABLET PO SCH (09:31)
[2019-04-22] MEDS: GABAPENTIN 100 MG CAP PO SCH ×2 (09:31→21:37)
[2019-04-22] MEDS: DOCUSATE 100 MG CAP PO SCH (09:31)
[2019-04-22] MEDS: guaiFENesin-DM 600/30MG 1 EACH TAB.ER.12H PO SCH ×2 (09:32→21:37)
[2019-04-22] MEDS: TAMSULOSIN 0.4 MG CAP.ER.24H PO SCH (09:32)
[2019-04-22] MEDS: PIPERACILLIN-TAZOBACTAM 3.375 GM in SODIUM CHLORIDE 0.9% 100 ML IVPB SCH ×2 (09:32→21:36)
[2019-04-22] MEDS: hydrALAZINE HCL 50 MG TAB PO SCH ×3 (09:32→21:37)
[2019-04-22] MEDS: VORTIOXETINE HYDROBROMIDE 10 MG TABLET PO SCH (09:32)
[2019-04-22] MEDS: SERTRALINE 50 MG TAB PO SCH (09:32)
[2019-04-22] MEDS: CLOPIDOGREL 75 MG TAB PO SCH (09:32)
[2019-04-22] MEDS: ATORVASTATIN 80 MG TAB PO SCH (09:32)
[2019-04-22] MEDS: amLODIPine 10 MG TAB PO SCH (09:32)
[2019-04-22] MEDS: SODIUM BICARBONATE TAB 650 MG TAB PO SCH ×2 (09:32→21:37)
[2019-04-22] MEDS: FUROSEMIDE 10 MG/ML 4 ML VIAL IV SCH (09:33)
[2019-04-22] MEDS: methylPREDNISolone SOD SUCCI 125 MG/2 ML VIAL IV SCH ×2 (09:33→16:36)
--- NOTE | 2019-04-22 11:11 | P.PN ---
Subjective Progress Note Date: 04/22/19 Seen and examined for the follow-up of acute kidney injury. Lying comfortable in the bed. No nausea vomiting diarrhea. Admits making good amount of urine. Objective - Vital Signs Vital signs: Vital Signs Temp 97.5 F L 04/22/19 08:00 Pulse 68 04/22/19 08:00 Resp 20 04/22/19 08:00 BP 148/68 04/22/19 08:00 Pulse Ox 96 04/22/19 08:00 Intake & Output 04/21/19 04/22/19 04/22/19 18:59 06:59 18:59 Intake Total 440 240 Output Total 300 1200 Balance 140 -1200 240 Weight 103.4 kg Intake: Oral 440 240 Output: Urine 300 1200 Other: Voiding Method Toilet Toilet Toilet - Exam No acute distress S1-S2 heard Bilateral wheeze. No edema - Labs CBC & Chem 7: 04/21/19 05:56 04/22/19 05:42 Labs: Abnormal Lab Results - Last 24 Hours (Table) 04/21/19 04/21/19 04/21/19 Range/Units 11:53 17:24 20:46 Sodium (137-145) mmol/L Potassium (3.5-5.1) mmol/L Carbon Dioxide (22-30) mmol/L BUN (9-20) mg/dL Creatinine (0.66-1.25) mg/dL Glucose (74-99) mg/dL POC Glucose (mg/dL) 131 H 147 H 146 H (75-99) mg/dL Calcium (8.4-10.2) mg/dL 04/22/19 04/22/19 Range/Units 05:42 06:13 Sodium 129 L (137-145) mmol/L Potassium 5.2 H (3.5-5.1) mmol/L Carbon Dioxide 19 L (22-30) mmol/L BUN 100 H (9-20) mg/dL Creatinine 4.26 H (0.66-1.25) mg/dL Glucose 163 H (74-99) mg/dL POC Glucose (mg/dL) 177 H (75-99) mg/dL Calcium 7.9 L (8.4-10.2) mg/dL Assessment and Plan Assessment: #1 nonoliguric acute kidney injury secondary to cardiorenal syndrome/ATN. Creatinine creeping. 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 #3 hyponatremia rule out hypovolemia with over diuresis. #4 hyperkalemia secondary to acute kidney injury and metabolic acidosis. #5 hypertension with chronic kidney disease. #6 acute on chronic diastolic CHF Plan: #1 stop diuretics with worsening renal function. #2 check bladder scan to rule out urinary retention #3 check osmolalities in the morning #4 avoid nephrotoxic agents and hypotensive episodes.
[2019-04-22 11:59] LABS: Glucose,Whole Blood 135 mg/dL (75-99)
--- NOTE | 2019-04-22 15:00 | P.PN ---
Subjective Progress Note Date: 04/22/19 This is an 89-year-old gentleman with known history of coronary artery disease and prior stent placements to the LAD and circumflex, the last circumflex stenting was performed in 2014. Persistent atrial fibrillation. Patient also has a history of COPD, sleep apnea, hypertension, hyperlipidemia, prior carotid endarterectomy, he also underwent a recent aortic valve replacement, has chronic kidney disease. He presents to the hospital on this occasion with symptoms of progressively worsening shortness of breath, patient also states that he was experiencing a cough at home, at times productive. His chest x-ray on presentation here showed COPD, cardiomegaly, mild degree of pulmonary arterial hypertension. EKG on presentation here showed atrial fibrillation with a slow ventricular response. Echocardiogram with Doppler study was performed which revealed a mild periprosthetic regurgitation of the bioprosthetic aortic valve, EF 55-60%. Blood pressure 158/60 with a heart rate in the 60s, 98% on 3 L of oxygen. The blood pressure on arrival here was 222/102, heart rate in the 60s, 90% on room air. White blood cell count 9.7, hemoglobin 11.4, platelet count 120. INR 2.3. Sodium 135, potassium 5.3, BUN 66, creatinine 3.6. BNP level 22,000. Troponin 0.046, 0.053. Influenza A and B were negative. 04/21/2019 the patient continues to be hypertensive, despite IV Lasix. he did void with IV diuretics, however is up an additional 2 kg since yesterday.White blood cell count 10.9, hemoglobin 10.7, hematocrit 31.4, sodium 129, potassium 5.2, BUN 90, creatinine 4.01. CT of the chest shows bilateral lobe infiltrates greater on the left than the right. Small right-sided pleural effusion. Cardiomegaly and an enlarging pericardial effusion noted, however echocardiogram negative for effusion.he continues to have shortness of breath with minimal exertion. He denies any chest pain, chest pressure, palpitations, dizziness, lightheadedness. 04/22/19 Patient continues to have shortness of breath, however he states it is much improved from yesterday. He is currently resting comfortably in bed. His blood pressure has improved with the addition of by mouth hydralazine. Laboratory data shows sodium of 129, potassium of 5.2, BUN of 100, creatinine 4.26. Systolic blood pressure in the 140s to 150s systolic. Heart rate in the 70s to 80s. 96% on room air. Objective - Vital Signs Vital signs: Vital Signs Temp 97.7 F 04/22/19 12:00 Pulse 58 L 04/22/19 12:00 Resp 20 04/22/19 12:00 BP 158/70 04/22/19 12:00 Pulse Ox 94 L 04/22/19 12:00 Intake & Output 04/21/19 04/22/19 04/22/19 18:59 06:59 18:59 Intake Total 440 240 Output Total 300 1200 Balance 140 -1200 240 Weight 103.4 kg Intake: Oral 440 240 Output: Urine 300 1200 Other: Voiding Method Toilet Toilet Toilet - Exam GENERAL: Well-appearing, obese and in no acute distress. NECK: Supple without JVD or thyromegaly. LUNGS: Breath sounds diminished to auscultation bilaterally. Respiration equal and unlabored. Expiratory wheezes. No rales or rhonchi. HEART: Regular rate and rhythm without murmurs, rubs or gallops. S1 and S2 heard. EXTREMITIES: Normal range of motion, no edema. No clubbing or cyanosis. Peripheral pulses intact and strong. - Labs CBC & Chem 7: 04/21/19 05:56 04/22/19 05:42 Labs: Abnormal Lab Results - Last 24 Hours (Table) 04/21/19 04/21/19 04/22/19 Range/Units 17:24 20:46 05:42 Sodium 129 L (137-145) mmol/L Potassium 5.2 H (3.5-5.1) mmol/L Carbon Dioxide 19 L (22-30) mmol/L BUN 100 H (9-20) mg/dL Creatinine 4.26 H (0.66-1.25) mg/dL Glucose 163 H (74-99) mg/dL POC Glucose (mg/dL) 147 H 146 H (75-99) mg/dL Calcium 7.9 L (8.4-10.2) mg/dL 04/22/19 04/22/19 Range/Units 06:13 11:57 Sodium (137-145) mmol/L Potassium (3.5-5.1) mmol/L Carbon Dioxide (22-30) mmol/L BUN (9-20) mg/dL Creatinine (0.66-1.25) mg/dL Glucose (74-99) mg/dL POC Glucose (mg/dL) 177 H 135 H (75-99) mg/dL Calcium (8.4-10.2) mg/dL Assessment and Plan Assessment: #1 diastolic heart failure, acute on chronic #2 known history of coronary artery disease with multiple stent placements in the LAD and circumflex arteries #3 hypertension #4 hyperlipidemia #5 chronic kidney disease #6 abnormality in troponin with no significant rise and fall pattern, likely secondary to chronic kidney disease #7 recent aortic valve replacement at [facility] #8 hypertensive urgency #9 chronic persistent atrial fibrillation, on Coumadin for anticoagulation Plan: Continue current medication regimen. nephrology to titrate diuretics as necessary. Continue to monitor electrolytes and kidney function.
[2019-04-22] MEDS: WARFARIN 2.5 MG TAB PO SCH (16:35)
[2019-04-22] MEDS: HYDROcodone/APAP 5-325MG 1 EACH TAB PO PRN (16:35)
[2019-04-22 17:58] LABS: Glucose,Whole Blood 155 mg/dL (75-99)
[2019-04-22 20:52] LABS: Glucose,Whole Blood 170 mg/dL (75-99)
[2019-04-22] MEDS: FERROUS SULFATE 325 MG TAB PO SCH (21:37)
[2019-04-22] MEDS: TERBINAFINE 250 MG TAB PO SCH (21:37)
--- NOTE | 2019-04-22 22:20 | PN ---
PROGRESS NOTE 89-year-old white male. CT scan showed bilateral pneumonia. He feels much better than yesterday since we switched him off Rocephin to Zosyn. Continues to be on IV Solu- Medrol and Zosyn and is improving from medical standpoint. Cardiology and renal physician are also on board. Giving IV Lasix. Sodium is 129, potassium 5.2, BUN is 100, creatinine 4.26. Cardiovascular S1-S2. Lungs scattered rhonchi and wheeze. Hematology negative Homans. Psych fair mood and affect. GI soft. ASSESSMENT: Community-acquired pneumonia resistant to Rocephin, started on Zosyn, doing much better. Remains on diuresis per renal physician cardiology. Please see further orders. Continue outpatient. CT scans were reviewed. MMODL / IJN: [id number] /
[2019-04-23] MEDS: methylPREDNISolone SOD SUCCI 125 MG/2 ML VIAL IV SCH ×4 (00:25→23:44)
[2019-04-23] MEDS: ALPRAZolam 0.5 MG TAB PO PRN ×3 (00:25→21:23)
[2019-04-23 06:09] LABS: Glucose,Whole Blood 151 mg/dL (75-99)
[2019-04-23] MEDS: CARVEDILOL 6.25 MG TAB PO SCH ×2 (06:11→17:18)
[2019-04-23] MEDS: INSULIN ASPART (NovoLOG) 100 UNIT/ML VIAL SQ SCH ×4 (06:11→21:23)
[2019-04-23 06:27] LABS: Basophils % (A) 0 %; Eosinophils % (A) 0 %; HCT 33.4 % (39.0-53.0); HGB 11.3 gm/dL (13.0-17.5); Lymphocytes # (A) 0.4 k/uL (1.0-4.8); Lymphocytes % (A) 4 %; MCH 31.1 pg (25.0-35.0); MCHC 33.8 g/dL (31.0-37.0); Mean Platelet Volume 7.2; Monocytes # (A) 0.3 k/uL (0-1.0); Monocytes % (A) 3 %; Neutrophils % (A) 93 %; Platelet Count 142 k/uL (150-450); RBC 3.63 m/uL (4.30-5.90); RDW 12.4 % (11.5-15.5); WBC 10.8 k/uL (3.8-10.6)
[2019-04-23 06:38] LABS: Albumin 3.2 g/dL (3.5-5.0); Potassium 5.2 mmol/L (3.5-5.1); Total Bilirubin 0.4 mg/dL (0.2-1.3); Total Protein 5.7 g/dL (6.3-8.2)
[2019-04-23] MEDS: BUDESONIDE 0.5 MG/2 ML NEBU INHALATION SCH ×2 (08:34→21:28)
[2019-04-23] MEDS: IPRATROPIUM-ALBUTEROL 3 ML NEB INHALATION SCH ×4 (08:34→21:28)
[2019-04-23] MEDS: ATORVASTATIN 80 MG TAB PO SCH (09:05)
[2019-04-23] MEDS: guaiFENesin SYRUP 100MG/5ML 200 MG/10 ML CUP PO PRN (09:05)
[2019-04-23] MEDS: amLODIPine 10 MG TAB PO SCH (09:05)
[2019-04-23] MEDS: DOCUSATE 100 MG CAP PO SCH (09:05)
[2019-04-23] MEDS: GABAPENTIN 100 MG CAP PO SCH ×2 (09:05→20:48)
[2019-04-23] MEDS: CLOPIDOGREL 75 MG TAB PO SCH (09:05)
[2019-04-23] MEDS: hydrALAZINE HCL 50 MG TAB PO SCH ×3 (09:06→22:45)
[2019-04-23] MEDS: PIPERACILLIN-TAZOBACTAM 3.375 GM in SODIUM CHLORIDE 0.9% 100 ML IVPB SCH ×2 (09:06→20:47)
[2019-04-23] MEDS: PANTOPRAZOLE 40 MG TABLET PO SCH (09:06)
[2019-04-23] MEDS: TAMSULOSIN 0.4 MG CAP.ER.24H PO SCH (09:06)
[2019-04-23] MEDS: VORTIOXETINE HYDROBROMIDE 10 MG TABLET PO SCH (09:06)
[2019-04-23] MEDS: SODIUM BICARBONATE TAB 650 MG TAB PO SCH ×2 (09:07→20:48)
[2019-04-23] MEDS: SERTRALINE 50 MG TAB PO SCH (09:07)
[2019-04-23] MEDS: guaiFENesin-DM 600/30MG 1 EACH TAB.ER.12H PO SCH ×2 (09:14→20:48)
--- NOTE | 2019-04-23 10:15 | P.PN ---
Subjective Patient is seen in follow-up for acute kidney injury on chronic kidney disease. Patient has chronic kidney disease stage III with baseline creatinine in the range of 3-3.3. Creatinine is up to 4.59 today. IV Lasix was discontinued April 22. No vomiting or diarrhea. Does admit to shortness of breath. No cough. Has a Costello catheter. Nonoliguric. Vital signs are stable. General: The patient appeared well nourished and normally developed. HEENT: Head exam is unremarkable. Neck is without jugular venous distension. LUNGS: Breath sounds decreased. HEART: Rate and Rhythm are regular. First and second heart sounds normal. No murmurs, rubs or gallops. ABDOMEN: Abdominal exam reveals normal bowel sounds. Non-tender and non- distended. No evidence of peritonitis. EXTREMITITES: Trace edema. Objective - Vital Signs Vital signs: Vital Signs Temp 97.7 F 04/23/19 08:00 Pulse 60 04/23/19 08:47 Resp 18 04/23/19 08:00 BP 162/64 04/23/19 08:00 Pulse Ox 97 04/23/19 08:00 Intake & Output 04/22/19 04/23/19 04/23/19 18:59 06:59 18:59 Intake Total 620 Output Total 537 1050 Balance 83 -1050 Weight 103.3 kg Intake: Oral 620 Output: Urine 420 1050 Uretheral (Costello) 70 Post Void Residual 117 Other: Voiding Method Indwelling Catheter Indwelling Catheter Indwelling Catheter - Labs CBC & Chem 7: 04/23/19 06:03 04/23/19 06:03 Labs: Abnormal Lab Results - Last 24 Hours (Table) 04/22/19 04/22/19 04/22/19 Range/Units 11:57 17:52 20:50 WBC (3.8-10.6) k/uL RBC (4.30-5.90) m/uL Hgb (13.0-17.5) gm/dL Hct (39.0-53.0) % Plt Count (150-450) k/uL Neutrophils # (1.3-7.7) k/uL Lymphocytes # (1.0-4.8) k/uL Sodium (137-145) mmol/L Potassium (3.5-5.1) mmol/L Chloride (98-107) mmol/L Carbon Dioxide (22-30) mmol/L BUN (9-20) mg/dL Creatinine (0.66-1.25) mg/dL Glucose (74-99) mg/dL POC Glucose (mg/dL) 135 H 155 H 170 H (75-99) mg/dL Osmolality (280-301) mosm/kg Calcium (8.4-10.2) mg/dL Total Protein (6.3-8.2) g/dL Albumin (3.5-5.0) g/dL 04/23/19 04/23/19 04/23/19 Range/Units 06:03 06:03 06:08 WBC 10.8 H (3.8-10.6) k/uL RBC 3.63 L (4.30-5.90) m/uL Hgb 11.3 L (13.0-17.5) gm/dL Hct 33.4 L (39.0-53.0) % Plt Count 142 L (150-450) k/uL Neutrophils # 10.0 H (1.3-7.7) k/uL Lymphocytes # 0.4 L (1.0-4.8) k/uL Sodium 130 L (137-145) mmol/L Potassium 5.2 H (3.5-5.1) mmol/L Chloride 97 L (98-107) mmol/L Carbon Dioxide 18 L (22-30) mmol/L BUN 108 H* (9-20) mg/dL Creatinine 4.59 H (0.66-1.25) mg/dL Glucose 147 H (74-99) mg/dL POC Glucose (mg/dL) 151 H (75-99) mg/dL Osmolality 312 H (280-301) mosm/kg Calcium 8.0 L (8.4-10.2) mg/dL Total Protein 5.7 L (6.3-8.2) g/dL Albumin 3.2 L (3.5-5.0) g/dL Assessment and Plan Plan: Assessment: 1. Acute kidney injury secondary to ATN secondary to cardiorenal syndrome. Renal function worsening. Creatinine 4.59 today. No evidence of urinary retention. Does have 3+ proteinuria on UA. Rule out GN. 2. Dyspnea secondary to volume overload. Also component of COPD exacerbation/bronchitis. 3. Hyperkalemia secondary to acute kidney injury and metabolic acidosis. Stable. 4. Hypertension with chronic kidney disease. 5. Chronic kidney disease stage IV secondary to diabetic kidney disease with baseline creatinine in the range of 3-3.3. 6. Diabetes mellitus. 7. Acute on chronic diastolic CHF. 8. Status post aortic valve replacement. 9. Metabolic acidosis secondary to acute kidney injury. Plan: Continue to hold diuretics. Repeat chest x-ray. Increase dose of oral sodium bicarbonate. Check renal ultrasound. Low potassium diet. Quantify proteinuria and check serologies. Repeat electrolytes in the morning. No urgent need for renal replacement therapy at this time. Continue to assess on daily basis.
[2019-04-23 12:16] LABS: Glucose,Whole Blood 131 mg/dL (75-99)
--- NOTE | 2019-04-23 12:28 | P.PN ---
Subjective Progress Note Date: 04/23/19 This is an 89-year-old gentleman with known history of coronary artery disease and prior stent placements to the LAD and circumflex, the last circumflex stenting was performed in 2014. Persistent atrial fibrillation. Patient also has a history of COPD, sleep apnea, hypertension, hyperlipidemia, prior carotid endarterectomy, he also underwent a recent aortic valve replacement, has chronic kidney disease. He presents to the hospital on this occasion with symptoms of progressively worsening shortness of breath, patient also states that he was experiencing a cough at home, at times productive. His chest x-ray on presentation here showed COPD, cardiomegaly, mild degree of pulmonary arterial hypertension. EKG on presentation here showed atrial fibrillation with a slow ventricular response. Echocardiogram with Doppler study was performed which revealed a mild periprosthetic regurgitation of the bioprosthetic aortic valve, EF 55-60%. Blood pressure 158/60 with a heart rate in the 60s, 98% on 3 L of oxygen. The blood pressure on arrival here was 222/102, heart rate in the 60s, 90% on room air. White blood cell count 9.7, hemoglobin 11.4, platelet count 120. INR 2.3. Sodium 135, potassium 5.3, BUN 66, creatinine 3.6. BNP level 22,000. Troponin 0.046, 0.053. Influenza A and B were negative. At the time of my examination this morning, patient states that his breathing is somewhat improved but he continues to feel quite short of breath. 04/23/2019 was seen and examined this morning, does state that his breathing is improving but he still complains of some shortness of breath. Appears to be resting quite comfortably in bed. Blood pressure 135/60 with a heart rate in the 70s, 93% on CPAP. White blood cell count 10.8, hemoglobin 11.3, platelet count 142. Sodium 1:30, potassium 5.2, BUN 108 and creatinine 4.5. Objective - Vital Signs Vital signs: Vital Signs Temp 97.7 F 04/23/19 08:00 Pulse 72 04/23/19 12:08 Resp 16 04/23/19 11:39 BP 135/63 04/23/19 11:38 Pulse Ox 93 L 04/23/19 11:38 Intake & Output 04/22/19 04/23/19 04/23/19 18:59 06:59 18:59 Intake Total 620 Output Total 537 1050 Balance 83 -1050 Weight 103.3 kg Intake: Oral 620 Output: Urine 420 1050 Uretheral (Costello) 70 Post Void Residual 117 Other: Voiding Method Indwelling Catheter Indwelling Catheter Indwelling Catheter - Exam PHYSICAL EXAMINATION: GENERAL: 89-year-old gentleman in no acute distress at the time of my examination HEENT: Head is atraumatic, normocephalic. Pupils equal, round. Sclera anicteric. Conjunctiva are clear. Mucous membranes of the mouth are moist. Neck is supple. There is elevated jugular venous pressure. No carotid bruit is heard. HEART EXAMINATION: Heart S1 and S2 irregularly irregular a systolic murmur is heard CHEST EXAMINATION: Lungs reveal fine wheezing with improvement in air entry to bilateral bases ABDOMEN: Soft, obese, nontender. Bowel sounds are heard. No organomegaly noted. EXTREMITIES: 2+ peripheral pulses with no evidence of peripheral edema and no calf tenderness noted. NEUROLOGIC patient is awake, alert and oriented 2 - Labs CBC & Chem 7: 04/23/19 06:03 04/23/19 06:03 Labs: Abnormal Lab Results - Last 24 Hours (Table) 04/22/19 04/22/19 04/23/19 Range/Units 17:52 20:50 06:03 WBC (3.8-10.6) k/uL RBC (4.30-5.90) m/uL Hgb (13.0-17.5) gm/dL Hct (39.0-53.0) % Plt Count (150-450) k/uL Neutrophils # (1.3-7.7) k/uL Lymphocytes # (1.0-4.8) k/uL Sodium 130 L (137-145) mmol/L Potassium 5.2 H (3.5-5.1) mmol/L Chloride 97 L (98-107) mmol/L Carbon Dioxide 18 L (22-30) mmol/L BUN 108 H* (9-20) mg/dL Creatinine 4.59 H (0.66-1.25) mg/dL Glucose 147 H (74-99) mg/dL POC Glucose (mg/dL) 155 H 170 H (75-99) mg/dL Osmolality 312 H (280-301) mosm/kg Calcium 8.0 L (8.4-10.2) mg/dL Total Protein 5.7 L (6.3-8.2) g/dL Albumin 3.2 L (3.5-5.0) g/dL 04/23/19 04/23/19 04/23/19 Range/Units 06:03 06:08 12:10 WBC 10.8 H (3.8-10.6) k/uL RBC 3.63 L (4.30-5.90) m/uL Hgb 11.3 L (13.0-17.5) gm/dL Hct 33.4 L (39.0-53.0) % Plt Count 142 L (150-450) k/uL Neutrophils # 10.0 H (1.3-7.7) k/uL Lymphocytes # 0.4 L (1.0-4.8) k/uL Sodium (137-145) mmol/L Potassium (3.5-5.1) mmol/L Chloride (98-107) mmol/L Carbon Dioxide (22-30) mmol/L BUN (9-20) mg/dL Creatinine (0.66-1.25) mg/dL Glucose (74-99) mg/dL POC Glucose (mg/dL) 151 H 131 H (75-99) mg/dL Osmolality (280-301) mosm/kg Calcium (8.4-10.2) mg/dL Total Protein (6.3-8.2) g/dL Albumin (3.5-5.0) g/dL Assessment and Plan Plan: Assessment and plan #1 symptoms of progressively worsening shortness of breath or cough, likely combination of a possible tracheobronchitis with exacerbation of congestive cardiac failure, diastolic acute on chronic #2 known history of coronary artery disease with multiple stent placements in the LAD and circumflex arteries #3 hypertension 4 hyperlipidemia #5 sleep apnea #6 COPD #7 history of nicotine dependence #8 chronic kidney disease #9 abnormality in troponin with no significant rise and fall pattern, likely secondary to chronic kidney disease #10 recent aortic valve replacement at [facility], we will obtain records. #11 hypertensive urgency #12 chronic persistent atrial fibrillation, on Coumadin for anticoagulation, INR 2.3 Plan From cardiology's perspective, we will discontinue the Norvasc and start the patient on Procardia XL 60 mg daily for more optimal blood pressure control. Continue with the patient's other current medications DNP note has been reviewed, I agree with a documented findings and plan of care. Patient was seen and examined.
--- NOTE | 2019-04-23 14:11 | US ---
EXAMINATION TYPE: US kidneys/renal and bladder DATE OF EXAM: 04/23/2019 COMPARISON: US 05/12/18 CLINICAL HISTORY: adela. EXAM MEASUREMENTS: Right Kidney: 10.9 x 5.1 x 4.9 cm Left Kidney: 12.2 x 6.4 x 5.8 cm Post Void Residual Volume: Patient with honeycutt catheter mL Right Kidney: Multiple cysts Largest 1 cm, decreased renal cortex. Left Kidney: Multiple cysts, Largest lateral = 3.3 x 3.4 x 3.2 cm, decreased renal cortex Bladder: non distended with honeycutt catheter Bilateral Jets seen: No Normal Post Void Residual: not measured. Cortical medullary differentiation somewhat decreased IMPRESSION: Findings compatible with medical renal disease.
[2019-04-23 14:17] LABS: Amorphous Sediment,Urine Rare /hpf; Appearance,Urine Clear (Clear); Bacteria,Urine Rare /hpf; Bilirubin,Urine Negative (Negative); Blood,Urine Negative (Negative); Color,Urine Light Yellow; Glucose,Urine (UA) Negative (Negative); Ketones,Urine Negative (Negative); Leukocyte Esterase,Urine Small (Negative); Mucus,Urine Rare /hpf; Nitrite,Urine Negative (Negative); Protein,Urine 1+ (Negative); RBC,Urine 3 /hpf (0-5); Specific Gravity,Urine 1.012 (1.001-1.035); Squamous Epithelial Cell,Urine <1 /hpf (0-4); Urobilinogen,Urine <2.0 mg/dL (<2.0); WBC,Urine 5 /hpf (0-5)
[2019-04-23 17:07] LABS: Glucose,Whole Blood 185 mg/dL (75-99)
--- NOTE | 2019-04-23 17:09 | PN ---
PROGRESS NOTE This patient is an 89-year-old white male with bilateral pneumonia and COPD exacerbation who remains on IV steroids, IV antibiotics, IV Lasix. He had an abdominal bladder ultrasound today. Medical renal disease. Seen by cardiology nurse today, who recommended his breathing is improved with some shortness of breath, but he is greatly improved due to Zosyn being given instead of Rocephin, which has greatly improved his breathing over the last 2 days. He has worsening BUN and creatinine. Awaiting renal doctors. Maybe a decrease in Lasix. HEAD: Normocephalic, atraumatic. HEART: S1, S2. He has a mild wheeze. Abdomen is soft. EXTREMITIES: Two plus edema. NEUROLOGIC: Alert and oriented x2. BUN is 108, creatinine 4.59, white count 10.9. Would highly recommend decreasing the Lasix, continuing the Zosyn at this time and due to elevated renal disease, status post aortic valve replacement, hypertensive urgency chronic atrial fibrillation, diastolic heart failure secondary to bilateral pneumonia seen on CT scan. His had similar symptoms, which caused him to come to the hospital at this time. Please see further orders, including IV antibiotics, which is his main problem. MMODL / IJN: [id number] /
[2019-04-23] MEDS ORDERED: SODIUM CHLORIDE 0.9% 1,000 ML IV SCH (17:15)
[2019-04-23] MEDS: WARFARIN 2.5 MG TAB PO SCH (17:18)
[2019-04-23] MEDS: IPRATROPIUM-ALBUTEROL 3 ML NEB INHALATION PRN (18:01)
[2019-04-23] MEDS: FERROUS SULFATE 325 MG TAB PO SCH (20:48)
[2019-04-23] MEDS: TERBINAFINE 250 MG TAB PO SCH (20:48)
[2019-04-23 20:49] LABS: Glucose,Whole Blood 145 mg/dL (75-99)
[2019-04-23 20:55] LABS: Protein, Total 5.1 g/dL (6.2-8.2)
[2019-04-23 22:24] LABS: Anti-DNA, DS unit <1.0 IU/mL; DNA Double-Stranded NEGATIVE (NEGATIVE)
[2019-04-24] MEDS: CARVEDILOL 6.25 MG TAB PO SCH ×2 (06:10→17:25)
[2019-04-24] MEDS: ALPRAZolam 0.5 MG TAB PO PRN ×2 (06:10→23:34)
[2019-04-24 06:15] LABS: Glucose,Whole Blood 164 mg/dL (75-99)
[2019-04-24] MEDS: IPRATROPIUM-ALBUTEROL 3 ML NEB INHALATION SCH ×4 (06:22→21:13)
[2019-04-24] MEDS: INSULIN ASPART (NovoLOG) 100 UNIT/ML VIAL SQ SCH ×4 (06:39→23:02)
[2019-04-24 07:58] LABS: Basophils % (A) 0 %; Eosinophils % (A) 0 %; HCT 33.4 % (39.0-53.0); HGB 11.3 gm/dL (13.0-17.5); Lymphocytes # (A) 0.4 k/uL (1.0-4.8); Lymphocytes % (A) 4 %; MCH 30.7 pg (25.0-35.0); MCHC 33.8 g/dL (31.0-37.0); MCV 90.8 fL (80.0-100.0); Mean Platelet Volume 6.7; Monocytes # (A) 0.4 k/uL (0-1.0); Monocytes % (A) 3 %; Neutrophils # (A) 11.4 k/uL (1.3-7.7); Neutrophils % (A) 92 %; Platelet Count 163 k/uL (150-450); RBC 3.68 m/uL (4.30-5.90); RDW 12.2 % (11.5-15.5); WBC 12.4 k/uL (3.8-10.6)
[2019-04-24] MEDS: GABAPENTIN 100 MG CAP PO SCH ×2 (08:14→22:42)
[2019-04-24] MEDS: TAMSULOSIN 0.4 MG CAP.ER.24H PO SCH (08:14)
[2019-04-24] MEDS: SODIUM BICARBONATE TAB 650 MG TAB PO SCH ×2 (08:14→22:41)
[2019-04-24 08:15] LABS: Albumin 3.3 g/dL (3.5-5.0); Calcium 7.9 mg/dL (8.4-10.2); Magnesium 2.2 mg/dL (1.6-2.3); Total Bilirubin 0.5 mg/dL (0.2-1.3); Total Protein 5.9 g/dL (6.3-8.2)
[2019-04-24] MEDS: guaiFENesin-DM 600/30MG 1 EACH TAB.ER.12H PO SCH ×2 (08:15→22:42)
[2019-04-24] MEDS: VORTIOXETINE HYDROBROMIDE 10 MG TABLET PO SCH (08:15)
[2019-04-24] MEDS: CLOPIDOGREL 75 MG TAB PO SCH (08:15)
[2019-04-24] MEDS: ATORVASTATIN 80 MG TAB PO SCH (08:15)
[2019-04-24] MEDS: PANTOPRAZOLE 40 MG TABLET PO SCH (08:16)
[2019-04-24] MEDS: PIPERACILLIN-TAZOBACTAM 3.375 GM in SODIUM CHLORIDE 0.9% 100 ML IVPB SCH ×2 (08:16→22:37)
[2019-04-24] MEDS: SERTRALINE 50 MG TAB PO SCH (08:16)
[2019-04-24] MEDS: hydrALAZINE HCL 50 MG TAB PO SCH ×3 (08:16→23:34)
[2019-04-24] MEDS: DOCUSATE 100 MG CAP PO SCH (08:17)
[2019-04-24] MEDS: BUDESONIDE 0.5 MG/2 ML NEBU INHALATION SCH ×2 (09:34→21:13)
--- NOTE | 2019-04-24 10:11 | XR ---
EXAMINATION TYPE: XR chest 2V DATE OF EXAM: 04/24/2019 COMPARISON: Chest x-ray 04/18/[address] 04/21/2019 HISTORY: Shortness of breath TECHNIQUE: Frontal and lateral views of the chest are obtained. FINDINGS: There is no significant interval change. Heart is enlarged. Central vascularity is promine nt. No pneumothorax or evident pleural effusion. Patchy lower lobe airspace disease again noted. Prom inent lung lines with flattening hemidiaphragms again seen. The aorta is dense. Patient shows aortic valve replacement change. IMPRESSION: Correlate for lower lobe pneumonia, consider aspiration. Cardiomegaly.
[2019-04-24] MEDS: methylPREDNISolone SOD SUCCI 125 MG/2 ML VIAL IV SCH ×3 (10:22→23:34)
[2019-04-24 12:31] LABS: Glucose,Whole Blood 153 mg/dL (75-99)
--- NOTE | 2019-04-24 12:32 | P.PN ---
Subjective Patient is seen in follow-up for acute kidney injury on chronic kidney disease. Patient has chronic kidney disease stage III with baseline creatinine in the range of 3-3.3. Creatinine is up to 4.74 today. IV Lasix was discontinued April 22. No vomiting or diarrhea. Dyspnea a little better today. No cough. Has a Costello catheter. Nonoliguric. Feels weak and tired. Appetite is poor. Vital signs are stable. General: The patient appeared well nourished and normally developed. HEENT: Head exam is unremarkable. Neck is without jugular venous distension. LUNGS: Breath sounds decreased. HEART: Rate and Rhythm are regular. First and second heart sounds normal. No murmurs, rubs or gallops. ABDOMEN: Abdominal exam reveals normal bowel sounds. Non-tender and non- distended. No evidence of peritonitis. EXTREMITITES: Trace edema. Objective - Vital Signs Vital signs: Vital Signs Temp 98.2 F 04/24/19 07:47 Pulse 58 L 04/24/19 11:34 Resp 16 04/24/19 11:34 BP 151/59 04/24/19 11:32 Pulse Ox 97 04/24/19 11:32 Intake & Output 04/23/19 04/24/19 04/24/19 18:59 06:59 18:59 Intake Total 240 Output Total 1675 350 Balance -1675 -350 240 Weight 102.5 kg Intake: Oral 240 Output: Urine 1675 350 Other: Voiding Method Indwelling Catheter Indwelling Catheter Indwelling Catheter # Voids 1 # Bowel Movements 1 1 1 - Labs CBC & Chem 7: 04/24/19 07:27 04/24/19 07:27 Labs: Abnormal Lab Results - Last 24 Hours (Table) 04/23/19 04/23/19 04/23/19 Range/Units : 13:00 13:00 WBC (3.8-10.6) k/uL RBC (4.30-5.90) m/uL Hgb (13.0-17.5) gm/dL Hct (39.0-53.0) % Neutrophils # (1.3-7.7) k/uL Lymphocytes # (1.0-4.8) k/uL Sodium (137-145) mmol/L Chloride (98-107) mmol/L Carbon Dioxide (22-30) mmol/L BUN (9-20) mg/dL Creatinine (0.66-1.25) mg/dL Glucose (74-99) mg/dL POC Glucose (mg/dL) (75-99) mg/dL Calcium (8.4-10.2) mg/dL Total Protein (6.3-8.2) g/dL Total Protein (PEP) 5.1 L (6.2-8.2) g/dL Albumin (3.5-5.0) g/dL Urine Protein 1+ H (Negative) Ur Leukocyte Esterase Small H (Negative) Amorphous Sediment Rare H (None) /hpf Urine Bacteria Rare H (None) /hpf Urine Mucus Rare H (None) /hpf U Random Total Protein 78 H (<12) mg/dL 04/23/19 04/23/19 04/24/19 Range/Units 17:06 20:48 06:14 WBC (3.8-10.6) k/uL RBC (4.30-5.90) m/uL Hgb (13.0-17.5) gm/dL Hct (39.0-53.0) % Neutrophils # (1.3-7.7) k/uL Lymphocytes # (1.0-4.8) k/uL Sodium (137-145) mmol/L Chloride (98-107) mmol/L Carbon Dioxide (22-30) mmol/L BUN (9-20) mg/dL Creatinine (0.66-1.25) mg/dL Glucose (74-99) mg/dL POC Glucose (mg/dL) 185 H 145 H 164 H (75-99) mg/dL Calcium (8.4-10.2) mg/dL Total Protein (6.3-8.2) g/dL Total Protein (PEP) (6.2-8.2) g/dL Albumin (3.5-5.0) g/dL Urine Protein (Negative) Ur Leukocyte Esterase (Negative) Amorphous Sediment (None) /hpf Urine Bacteria (None) /hpf Urine Mucus (None) /hpf U Random Total Protein (<12) mg/dL 04/24/19 04/24/19 Range/Units 07:27 07:27 WBC 12.4 H (3.8-10.6) k/uL RBC 3.68 L (4.30-5.90) m/uL Hgb 11.3 L (13.0-17.5) gm/dL Hct 33.4 L (39.0-53.0) % Neutrophils # 11.4 H (1.3-7.7) k/uL Lymphocytes # 0.4 L (1.0-4.8) k/uL Sodium 129 L (137-145) mmol/L Chloride 97 L (98-107) mmol/L Carbon Dioxide 16 L (22-30) mmol/L BUN 118 H* (9-20) mg/dL Creatinine 4.74 H (0.66-1.25) mg/dL Glucose 140 H (74-99) mg/dL POC Glucose (mg/dL) (75-99) mg/dL Calcium 7.9 L (8.4-10.2) mg/dL Total Protein 5.9 L (6.3-8.2) g/dL Total Protein (PEP) (6.2-8.2) g/dL Albumin 3.3 L (3.5-5.0) g/dL Urine Protein (Negative) Ur Leukocyte Esterase (Negative) Amorphous Sediment (None) /hpf Urine Bacteria (None) /hpf Urine Mucus (None) /hpf U Random Total Protein (<12) mg/dL Assessment and Plan Plan: Assessment: 1. Acute kidney injury secondary to ATN secondary to infection and component of cardiorenal syndrome. Renal function worsening. Creatinine 4.74 today. No evidence of urinary retention. Does have 3+ proteinuria on UA. UPC 1.3. Rule out GN. No evidence of hydronephrosis noted on kidney ultrasound. 2. Dyspnea secondary to volume overload. Also component of COPD exacerbation/pneumonia. 3. Hyperkalemia secondary to acute kidney injury and metabolic acidosis. Stable. 4. Hypertension with chronic kidney disease. 5. Chronic kidney disease stage IV secondary to diabetic kidney disease with baseline creatinine in the range of 3-3.3. 6. Diabetes mellitus. 7. Acute on chronic diastolic CHF. 8. Status post aortic valve replacement. 9. Metabolic acidosis secondary to acute kidney injury. 10. Hyponatremia secondary to acute kidney injury. Plan: Continue to hold diuretics. Maintain oral sodium bicarbonate. Low potassium diet. Follow-up serologies. So far negative. Repeat electrolytes in the morning. Due to worsening renal failure, acidosis and signs of uremia, I will initiate renal replacement therapy. Patient is in agreement. Consult vascular surgery for dialysis catheter placement. Will plan for first treatment of hemodialysis tomorrow.
[2019-04-24 13:29] LABS: C-ANCA <1:20 Titer (<1:20)
[2019-04-24 14:55] LABS: INR 3.4 (<1.2); Prothrombin Time 32.7 sec (9.0-12.0)
[2019-04-24 15:39] LABS: Albumin 2.99 g/dL (3.80-4.90); Gamma Globulin 0.65 g/dL (0.70-1.50)
--- NOTE | 2019-04-24 15:48 | P.PN ---
Subjective Progress Note Date: 04/24/19 This is an 89-year-old gentleman with known history of coronary artery disease and prior stent placements to the LAD and circumflex, the last circumflex stenting was performed in 2014. Persistent atrial fibrillation. Patient also has a history of COPD, sleep apnea, hypertension, hyperlipidemia, prior carotid endarterectomy, he also underwent a recent aortic valve replacement, has chronic kidney disease. He presents to the hospital on this occasion with symptoms of progressively worsening shortness of breath, patient also states that he was experiencing a cough at home, at times productive. His chest x-ray on presentation here showed COPD, cardiomegaly, mild degree of pulmonary arterial hypertension. EKG on presentation here showed atrial fibrillation with a slow ventricular response. Echocardiogram with Doppler study was performed which revealed a mild periprosthetic regurgitation of the bioprosthetic aortic valve, EF 55-60%. Blood pressure 158/60 with a heart rate in the 60s, 98% on 3 L of oxygen. The blood pressure on arrival here was 222/102, heart rate in the 60s, 90% on room air. White blood cell count 9.7, hemoglobin 11.4, platelet count 120. INR 2.3. Sodium 135, potassium 5.3, BUN 66, creatinine 3.6. BNP level 22,000. Troponin 0.046, 0.053. Influenza A and B were negative. At the time of my examination this morning, patient states that his breathing is somewhat improved but he continues to feel quite short of breath. 04/23/2019 Patient was seen and examined this morning, does state that his breathing is improving but he still complains of some shortness of breath. Appears to be resting quite comfortably in bed. Blood pressure 135/60 with a heart rate in the 70s, 93% on CPAP. White blood cell count 10.8, hemoglobin 11.3, platelet count 142. Sodium 1:30, potassium 5.2, BUN 108 and creatinine 4.5. 04/24/2019 Patient seen and examined this morning, blood pressure 150/60, heart rate in the 60s, 97% on Objective - Vital Signs Vital signs: Vital Signs Temp 97.6 F 04/24/19 15:15 Pulse 57 L 04/24/19 15:15 Resp 18 04/24/19 15:15 BP 153/57 10/22/19 15:15 Pulse Ox 98 04/24/19 15:15 Intake & Output 04/23/19 04/24/19 04/24/19 18:59 06:59 18:59 Intake Total 480 Output Total 1675 350 300 Balance -1675 -350 180 Weight 102.5 kg 102.5 kg Intake: Oral 480 Output: Urine 1675 350 300 Other: Voiding Method Indwelling Catheter Indwelling Catheter Indwelling Catheter # Voids 1 # Bowel Movements 1 1 1 - Exam PHYSICAL EXAMINATION: GENERAL: 89-year-old gentleman in no acute distress at the time of my examination HEENT: Head is atraumatic, normocephalic. Pupils equal, round. Sclera anicteric. Conjunctiva are clear. Mucous membranes of the mouth are moist. Neck is supple. There is elevated jugular venous pressure. No carotid bruit is heard. HEART EXAMINATION: Heart S1 and S2 irregularly irregular a systolic murmur is heard CHEST EXAMINATION: Lungs reveal fine wheezing with improvement in air entry to bilateral bases ABDOMEN: Soft, obese, nontender. Bowel sounds are heard. No organomegaly noted. EXTREMITIES: 2+ peripheral pulses with no evidence of peripheral edema and no calf tenderness noted. NEUROLOGIC patient is awake, alert and oriented 2 - Labs CBC & Chem 7: 04/24/19 07:27 04/24/19 07:27 Labs: Abnormal Lab Results - Last 24 Hours (Table) 04/23/19 04/23/19 04/23/19 Range/Units : 17:06 20:48 WBC (3.8-10.6) k/uL RBC (4.30-5.90) m/uL Hgb (13.0-17.5) gm/dL Hct (39.0-53.0) % Neutrophils # (1.3-7.7) k/uL Lymphocytes # (1.0-4.8) k/uL PT (9.0-12.0) sec INR (<1.2) Sodium (137-145) mmol/L Chloride (98-107) mmol/L Carbon Dioxide (22-30) mmol/L BUN (9-20) mg/dL Creatinine (0.66-1.25) mg/dL Glucose (74-99) mg/dL POC Glucose (mg/dL) 185 H 145 H (75-99) mg/dL Calcium (8.4-10.2) mg/dL Total Protein (6.3-8.2) g/dL Total Protein (PEP) 5.1 L (6.2-8.2) g/dL Albumin (3.5-5.0) g/dL Albumin (PEP) 2.99 L (3.80-4.90) g/dL Ogpaq-4-[id number] 0.57 L (0.60-1.00) g/dL Beta Globulins 0.56 L (0.60-1.30) g/dL Gamma Globulins 0.65 L (0.70-1.50) g/dL 04/24/19 04/24/19 04/24/19 Range/Units 06:14 07:27 07:27 WBC 12.4 H (3.8-10.6) k/uL RBC 3.68 L (4.30-5.90) m/uL Hgb 11.3 L (13.0-17.5) gm/dL Hct 33.4 L (39.0-53.0) % Neutrophils # 11.4 H (1.3-7.7) k/uL Lymphocytes # 0.4 L (1.0-4.8) k/uL PT (9.0-12.0) sec INR (<1.2) Sodium 129 L (137-145) mmol/L Chloride 97 L (98-107) mmol/L Carbon Dioxide 16 L (22-30) mmol/L BUN 118 H* (9-20) mg/dL Creatinine 4.74 H (0.66-1.25) mg/dL Glucose 140 H (74-99) mg/dL POC Glucose (mg/dL) 164 H (75-99) mg/dL Calcium 7.9 L (8.4-10.2) mg/dL Total Protein 5.9 L (6.3-8.2) g/dL Total Protein (PEP) (6.2-8.2) g/dL Albumin 3.3 L (3.5-5.0) g/dL Albumin (PEP) (3.80-4.90) g/dL Txlah-1-Heucjanpq (0.60-1.00) g/dL Beta Globulins (0.60-1.30) g/dL Gamma Globulins (0.70-1.50) g/dL 04/24/19 04/24/19 Range/Units 07:27 12:06 WBC (3.8-10.6) k/uL RBC (4.30-5.90) m/uL Hgb (13.0-17.5) gm/dL Hct (39.0-53.0) % Neutrophils # (1.3-7.7) k/uL Lymphocytes # (1.0-4.8) k/uL PT 32.7 H (9.0-12.0) sec INR 3.4 H (<1.2) Sodium (137-145) mmol/L Chloride (98-107) mmol/L Carbon Dioxide (22-30) mmol/L BUN (9-20) mg/dL Creatinine (0.66-1.25) mg/dL Glucose (74-99) mg/dL POC Glucose (mg/dL) 153 H (75-99) mg/dL Calcium (8.4-10.2) mg/dL Total Protein (6.3-8.2) g/dL Total Protein (PEP) (6.2-8.2) g/dL Albumin (3.5-5.0) g/dL Albumin (PEP) (3.80-4.90) g/dL Oscow-5-Rhbcchlzw (0.60-1.00) g/dL Beta Globulins (0.60-1.30) g/dL Gamma Globulins (0.70-1.50) g/dL Assessment and Plan Plan: Assessment and plan #1 symptoms of progressively worsening shortness of breath or cough, likely combination of a possible tracheobronchitis with exacerbation of congestive cardiac failure, diastolic acute on chronic #2 known history of coronary artery disease with multiple stent placements in the LAD and circumflex arteries #3 hypertension 4 hyperlipidemia #5 sleep apnea #6 COPD #7 history of nicotine dependence #8 chronic kidney disease #9 abnormality in troponin with no significant rise and fall pattern, likely secondary to chronic kidney disease #10 recent aortic valve replacement at [facility], we will obtain records. #11 hypertensive urgency #12 chronic persistent atrial fibrillation, on Coumadin for anticoagulation, INR 2.3 Plan From cardiology's perspective, we will continue this patient on his current medications. We will hold the Coumadin today, check daily PT/INRs to maintain an INR in the range of 2-2.5 monitoring closely as the patient is on antibiotics. Follow him along with you now on an as-needed basis only, please don't hesitate to call if he had any questions DNP note has been reviewed, I agree with a documented findings and plan of care. Patient was seen and examined.
[2019-04-24 16:27] LABS: Complement C3 70.4 mg/dL (80.0-207.0)
[2019-04-24 17:10] LABS: Glucose,Whole Blood 162 mg/dL (75-99)
[2019-04-24 20:26] LABS: Glucose,Whole Blood 138 mg/dL (75-99)
[2019-04-24 21:11] LABS: Hepatitis A Antibody IgM Non-Reactive (Non-Reactive); Hepatitis B Core IgM Non-Reactive (Non-Reactive); Hepatitis B Surface Antigen Non-Reactive (Non-Reactive); Hepatitis C IgG Antibody Non-Reactive (Non-Reactive)
[2019-04-24 22:28] LABS: Glucose,Whole Blood 134 mg/dL (75-99)
[2019-04-24] MEDS: TERBINAFINE 250 MG TAB PO SCH (22:42)
[2019-04-24] MEDS: FERROUS SULFATE 325 MG TAB PO SCH (22:42)
[2019-04-25 06:19] LABS: Glucose,Whole Blood 164 mg/dL (75-99)
[2019-04-25] MEDS: INSULIN ASPART (NovoLOG) 100 UNIT/ML VIAL SQ SCH ×4 (06:25→21:58)
[2019-04-25] MEDS: CARVEDILOL 6.25 MG TAB PO SCH ×2 (06:25→17:10)
[2019-04-25 07:21] LABS: Calcium 7.8 mg/dL (8.4-10.2); Magnesium 2.3 mg/dL (1.6-2.3); Potassium 5.1 mmol/L (3.5-5.1)
[2019-04-25] MEDS: BUDESONIDE 0.5 MG/2 ML NEBU INHALATION SCH ×2 (08:04→19:34)
[2019-04-25] MEDS: IPRATROPIUM-ALBUTEROL 3 ML NEB INHALATION SCH ×4 (08:05→19:34)
--- NOTE | 2019-04-25 09:09 | P.OP ---
Date of Procedure: 04/25/19 Indications for Procedure: The patient is an 89-year-old male who has a recent diagnosis of C. diff, he has had worsening acute kidney injury therefore we are asked to place a temporary dialysis catheter. Given his elevated INR at this time because of his Coumadin coagulopathy and mechanical valve, the femoral vein was utilized. Risks and benefits were discussed with the patient. He seemingly understands and is willing to proceed. Description of Procedure: SURGEON: Sweetie Costello DO MUSHROOM LABORER: None PREOPERATIVE DIAGNOSIS: Worsening kidney injury, mechanical valve on Coumadin POSTOPERATIVE DIAGNOSIS: Same OPERATION: Ultrasound-guided access right common femoral vein, Placement 20 cm of dialysis catheter, right femoral. DESCRIPTION OF PROCEDURE: A preprocedure timeout was performed, all parties were in agreement. An ultrasound was utilized and the right common femoral vein was identified. The right groin was prepped and draped with ChloraPrep. Lidocaine was infiltrated. A multipurpose needle was utilized to access the right femoral vein with ultrasound guidance. Guidewire was passed. Dilator advanced on top of the guidewire. Right femoral catheter was placed, which was secured with 3-0 silk. Dressing applied. The patient tolerated the procedure well.
[2019-04-25] MEDS: PANTOPRAZOLE 40 MG TABLET PO SCH (09:30)
[2019-04-25] MEDS: PIPERACILLIN-TAZOBACTAM 3.375 GM in SODIUM CHLORIDE 0.9% 100 ML IVPB SCH (09:30)
[2019-04-25] MEDS: methylPREDNISolone SOD SUCCI 125 MG/2 ML VIAL IV SCH (09:31)
[2019-04-25] MEDS: CLOPIDOGREL 75 MG TAB PO SCH (09:31)
[2019-04-25] MEDS: SODIUM BICARBONATE TAB 650 MG TAB PO SCH ×2 (09:31→20:36)
[2019-04-25] MEDS: guaiFENesin-DM 600/30MG 1 EACH TAB.ER.12H PO SCH ×2 (09:31→20:40)
[2019-04-25] MEDS: DOCUSATE 100 MG CAP PO SCH ×2 (09:31→09:34)
[2019-04-25] MEDS: VORTIOXETINE HYDROBROMIDE 10 MG TABLET PO SCH (09:31)
[2019-04-25] MEDS: hydrALAZINE HCL 50 MG TAB PO SCH ×3 (09:32→20:37)
[2019-04-25] MEDS: SERTRALINE 50 MG TAB PO SCH (09:32)
[2019-04-25] MEDS: TAMSULOSIN 0.4 MG CAP.ER.24H PO SCH (09:32)
[2019-04-25] MEDS: ATORVASTATIN 80 MG TAB PO SCH (09:32)
[2019-04-25] MEDS: GABAPENTIN 100 MG CAP PO SCH ×2 (09:32→20:36)
[2019-04-25] MEDS ORDERED: LIDOCAINE 1% INJ 10MG/ML (20 ML MDV) ONE (11:04)
--- NOTE | 2019-04-25 11:20 | P.PN ---
Subjective Progress Note Date: 04/25/19 This is an 89-year-old gentleman admitted with acute COPD exacerbation, CHF exacerbation, and multiple other medical issues, subsequently developed acute renal failure and is scheduled to receive temporary dialysis catheter today. INR pending. Sodium 131, potassium 5.1, renal function continues worsening with BUN of 128, creatinine 4.89. Afebrile.VSS. Objective - Vital Signs Vital signs: Vital Signs Temp 98.7 F 04/25/19 04:27 Pulse 65 04/25/19 04:27 Resp 16 04/25/19 04:27 BP 154/69 04/25/19 04:27 Pulse Ox 95 04/25/19 04:27 Intake & Output 04/24/19 04/25/19 04/25/19 18:59 06:59 18:59 Intake Total 480 240 Output Total 300 580 Balance 180 -340 Weight 102.5 kg 103.6 kg Intake: Oral 480 240 Output: Urine 300 580 Other: Voiding Method Indwelling Catheter Indwelling Catheter # Bowel Movements 1 1 - Exam PHYSICAL EXAM: VITAL SIGNS: As above GENERAL: Sitting up in bed, no acute distress HEENT: Conjunctivae normal. eyes normal. NECK: No JVD. No thyroid enlargement. No LNs CARDIOVASCULAR: S1, S2 regular. Systolic murmur RESPIRATION: Breath sounds diminished in the bases. No rhonchi or crackles. Occasional mild expiratory wheeze. ABDOMEN: Soft, nontender . No guarding. no masses palpable. Bowel sounds heard. LEGS: Positive bilateral lower extremity edema PSYCHIATRY: Alert and oriented X2, mood and affect normal. NERVOUS SYSTEM: Cranial N 2-12 grossly normal. Moves all 4 limbs. Diffuse weakness No focal deficits. Strength and sensation grossly intact.. Skin: no lesions, no rash Lymphatic system. No LN neck axilla or groin. - Labs CBC & Chem 7: 04/24/19 07:27 04/25/19 05:58 Labs: Abnormal Lab Results - Last 24 Hours (Table) 04/23/19 04/24/19 04/24/19 Range/Units 10: 07:27 12:06 PT 32.7 H (9.0-12.0) sec INR 3.4 H (<1.2) Sodium (137-145) mmol/L Carbon Dioxide (22-30) mmol/L BUN (9-20) mg/dL Creatinine (0.66-1.25) mg/dL Glucose (74-99) mg/dL POC Glucose (mg/dL) 153 H (75-99) mg/dL Calcium (8.4-10.2) mg/dL Albumin (PEP) 2.99 L (3.80-4.90) g/dL Plhsx-1-Leonkapqr 0.57 L (0.60-1.00) g/dL Beta Globulins 0.56 L (0.60-1.30) g/dL Gamma Globulins 0.65 L (0.70-1.50) g/dL Complement C3 70.4 L (80.0-207.0) mg/dL C. difficile (EIA) Intrp (Negative) 04/24/19 04/24/19 04/24/19 Range/Units 16:50 20:25 22:27 PT (9.0-12.0) sec INR (<1.2) Sodium (137-145) mmol/L Carbon Dioxide (22-30) mmol/L BUN (9-20) mg/dL Creatinine (0.66-1.25) mg/dL Glucose (74-99) mg/dL POC Glucose (mg/dL) 162 H 138 H 134 H (75-99) mg/dL Calcium (8.4-10.2) mg/dL Albumin (PEP) (3.80-4.90) g/dL Mgsgh-4-Jmwgrmvyd (0.60-1.00) g/dL Beta Globulins (0.60-1.30) g/dL Gamma Globulins (0.70-1.50) g/dL Complement C3 (80.0-207.0) mg/dL C. difficile (EIA) Intrp (Negative) 04/25/19 04/25/19 04/25/19 Range/Units 03:00 05:58 06:17 PT (9.0-12.0) sec INR (<1.2) Sodium 131 L (137-145) mmol/L Carbon Dioxide 19 L (22-30) mmol/L BUN 128 H* (9-20) mg/dL Creatinine 4.89 H (0.66-1.25) mg/dL Glucose 150 H (74-99) mg/dL POC Glucose (mg/dL) 164 H (75-99) mg/dL Calcium 7.8 L (8.4-10.2) mg/dL Albumin (PEP) (3.80-4.90) g/dL Risal-2-Vulmdpjpw (0.60-1.00) g/dL Beta Globulins (0.60-1.30) g/dL Gamma Globulins (0.70-1.50) g/dL Complement C3 (80.0-207.0) mg/dL C. difficile (EIA) Intrp Positive A (Negative) Microbiology - Last 24 Hours (Table) 04/24/19 17:50 Group A Strep Throat Culture - Preliminary Throat Assessment and Plan Assessment: -Hypertensive urgency, present on admission, improving -Bilateral pneumonia per CT -Acute COPD exacerbation -Acute renal failure secondary to ATN, multifactorial, diuretic induced, secondary to infection, possible cardiorenal syndrome -Metabolic acidosis secondary to the above -Hyponatremia secondary to acute renal failure -Chronic kidney disease stage IV secondary to diabetic kidney disease, baseline 3-3.3 -Diabetes mellitus -Acute hypoxic respiratory failure secondary to the above -Hyperkalemia secondary to acute renal failure, metabolic acidosis -acute on chronic CHF exacerbation, diastolic dysfunction -Chronic atrial fibrillation -Status post aortic valve replacement Plan: Continue on current medication regime , oral sodium bicarb ,monitoring and symptomatic treatment. Maintain low potassium diet. Strict aspiration precautions. Worsening renal function, Scheduled for temporary dialysis catheter placement tomorrow. Coumadin held yesterday. PT/INR pending for today's dosing. Further recommendations to follow. The impression and plan of care has been dictated as directed. : I performed a history and examination of this patient, discussed the same with the dictator. I agree with the dictator's note ,documented as a scribe. Any additional findings or plans will be noted.
[2019-04-25 11:36] LABS: INR 4.1 (<1.2); Prothrombin Time 39.2 sec (9.0-12.0)
[2019-04-25 11:52] LABS: Glucose,Whole Blood 157 mg/dL (75-99)
--- NOTE | 2019-04-25 12:30 | P.PN ---
Subjective Progress Note Date: 04/23/19 Principal diagnosis: Acute COPD exacerbation, acute renal failure, hyperkalemia, hypertension hypertensive cardiovascular disease, congestive heart failure likely related to acute on chronic diastolic heart failure 04/23/2019, patient seen eval reexamined during the rounds, breathing is slightly better with still very short of breath his computed tomography scan done yesterday showed a small pleural effusion and bilateral pneumonia patient has been on IV Zosyn WBC count stable labs reviewed medications reviewed BUN/creatinine continue to go up is on 108 and creatinine is 4.5, renal services closely following the patient 04/20/2019, patient seen eval examined during the rounds labs reviewed medications reviewed care plan discussed with the staff at length patient is sti ll feel congested he is on IV steroids will initiate on breathing treatments as well continue gentle diuresis as planned renal service and cardiovascular service is also following This is a 89-year-old nonsmoker male who came into the hospital with one week of shortness of breath has extensive coughing productive of the thick tenacious white sputum, patient has echocardiogram and chest x-ray echo revealed severe dilated LA, mild pulmonary hypertension and severe concentric LV hypertrophy, chest x-ray suggestive of mild fluid overload, patient is very compliant with Flu pneumonia vaccine, review of the records revealed that patient has been lately having elevated blood pressure in the primary care's office blood pressure was over 220/100, noted that meds are being adjusted for hypertensive heart failure and acute on chronic renal failure Objective - Vital Signs Vital signs: Vital Signs Temp 97.5 F L 04/23/19 15:39 Pulse 51 L 04/23/19 15:39 Resp 16 04/23/19 15:39 BP 148/66 04/23/19 15:39 Pulse Ox 98 04/23/19 15:39 Intake & Output 04/22/19 04/23/19 04/23/19 18:59 06:59 18:59 Intake Total 620 Output Total 537 1050 1200 Balance 83 -1050 -1200 Weight 103.3 kg Intake: Oral 620 Output: Urine 420 1050 1200 Uretheral (Costello) 70 Post Void Residual 117 Other: Voiding Method Indwelling Catheter Indwelling Catheter Indwelling Catheter # Bowel Movements 1 - Exam - Constitutional General appearance: cooperative, disheveled, morbidly obese - EENT Eyes: anicteric sclerae, EOMI, PERRLA, normal appearance ENT: normal oropharynx Ears: bilateral: normal - Neck Carotids: bilateral: upstroke normal - Respiratory Respiratory: bilateral: diminished, rales (Fine basilar), negative: CTA, dullness, rhonchi, wheezing, prolonged expiration - Cardiovascular Rhythm: regular Heart sounds: normal: S1, S2 - Gastrointestinal General gastrointestinal: normal bowel sounds, soft - Neurologic Neurologic: CNII-XII intact - Musculoskeletal Musculoskeletal: gait normal, generalized weakness, strength equal bilaterally - Psychiatric Psychiatric: A&O x's 3, appropriate affect, intact judgment & insight - Labs CBC & Chem 7: 04/24/19 07:27 04/25/19 05:58 Labs: Abnormal Lab Results - Last 24 Hours (Table) 04/22/19 04/22/19 04/23/19 Range/Units 17:52 20:50 06:03 WBC (3.8-10.6) k/uL RBC (4.30-5.90) m/uL Hgb (13.0-17.5) gm/dL Hct (39.0-53.0) % Plt Count (150-450) k/uL Neutrophils # (1.3-7.7) k/uL Lymphocytes # (1.0-4.8) k/uL Sodium 130 L (137-145) mmol/L Potassium 5.2 H (3.5-5.1) mmol/L Chloride 97 L (98-107) mmol/L Carbon Dioxide 18 L (22-30) mmol/L BUN 108 H* (9-20) mg/dL Creatinine 4.59 H (0.66-1.25) mg/dL Glucose 147 H (74-99) mg/dL POC Glucose (mg/dL) 155 H 170 H (75-99) mg/dL Osmolality 312 H (280-301) mosm/kg Calcium 8.0 L (8.4-10.2) mg/dL Total Protein 5.7 L (6.3-8.2) g/dL Albumin 3.2 L (3.5-5.0) g/dL Urine Protein (Negative) Ur Leukocyte Esterase (Negative) Amorphous Sediment (None) /hpf Urine Bacteria (None) /hpf Urine Mucus (None) /hpf U Random Total Protein (<12) mg/dL 04/23/19 04/23/19 04/23/19 Range/Units 06:03 06:08 12:10 WBC 10.8 H (3.8-10.6) k/uL RBC 3.63 L (4.30-5.90) m/uL Hgb 11.3 L (13.0-17.5) gm/dL Hct 33.4 L (39.0-53.0) % Plt Count 142 L (150-450) k/uL Neutrophils # 10.0 H (1.3-7.7) k/uL Lymphocytes # 0.4 L (1.0-4.8) k/uL Sodium (137-145) mmol/L Potassium (3.5-5.1) mmol/L Chloride (98-107) mmol/L Carbon Dioxide (22-30) mmol/L BUN (9-20) mg/dL Creatinine (0.66-1.25) mg/dL Glucose (74-99) mg/dL POC Glucose (mg/dL) 151 H 131 H (75-99) mg/dL Osmolality (280-301) mosm/kg Calcium (8.4-10.2) mg/dL Total Protein (6.3-8.2) g/dL Albumin (3.5-5.0) g/dL Urine Protein (Negative) Ur Leukocyte Esterase (Negative) Amorphous Sediment (None) /hpf Urine Bacteria (None) /hpf Urine Mucus (None) /hpf U Random Total Protein (<12) mg/dL 04/23/19 04/23/19 Range/Units 13:00 13:00 WBC (3.8-10.6) k/uL RBC (4.30-5.90) m/uL Hgb (13.0-17.5) gm/dL Hct (39.0-53.0) % Plt Count (150-450) k/uL Neutrophils # (1.3-7.7) k/uL Lymphocytes # (1.0-4.8) k/uL Sodium (137-145) mmol/L Potassium (3.5-5.1) mmol/L Chloride (98-107) mmol/L Carbon Dioxide (22-30) mmol/L BUN (9-20) mg/dL Creatinine (0.66-1.25) mg/dL Glucose (74-99) mg/dL POC Glucose (mg/dL) (75-99) mg/dL Osmolality (280-301) mosm/kg Calcium (8.4-10.2) mg/dL Total Protein (6.3-8.2) g/dL Albumin (3.5-5.0) g/dL Urine Protein 1+ H (Negative) Ur Leukocyte Esterase Small H (Negative) Amorphous Sediment Rare H (None) /hpf Urine Bacteria Rare H (None) /hpf Urine Mucus Rare H (None) /hpf U Random Total Protein 78 H (<12) mg/dL Assessment and Plan Assessment: Hypertensive heart failure Bilateral pneumonia Small right-sided pleural effusion COPD exacerbation Tracheobronchitis Hypertensive urgency in emergency Stage 5 renal failure Borderline hyperkalemia Type 2 diabetes mellitus Chronic atrial fibrillation Plan: Continue breathing treatments Continue gentle diuresis Continue IV Zosyn Adjustment of antihypertensive agent by adjusting and adding Continue anti-coagulation Agree with antibiotics Agree with IV steroids Time with Patient: Greater than 30
--- NOTE | 2019-04-25 12:33 | P.PN ---
Subjective Progress Note Date: 04/24/19 Principal diagnosis: Acute COPD exacerbation, acute on chronic renal failure, hyperkalemia, hypertension hypertensive cardiovascular disease, congestive heart failure likely related to acute on chronic diastolic heart failure, bilateral pneumonia, right-sided small pleural effusion 04/24/2019, patient seen eval examined during the rounds labs reviewed medications reviewed patient has been using BiPAP machine, labs are reviewed her his renal function continued to get worse renal services thinking about placing hemodialysis catheter and dialysis 04/23/2019, patient seen eval reexamined during the rounds, breathing is slightly better with still very short of breath his computed tomography scan done yesterday showed a small pleural effusion and bilateral pneumonia patient has been on IV Zosyn WBC count stable labs reviewed medications reviewed BUN/creatinine continue to go up is on 108 and creatinine is 4.5, renal services closely following the patient 04/20/2019, patient seen eval examined during the rounds labs reviewed medications reviewed care plan discussed with the staff at length patient is still feel congested he is on IV steroids will initiate on breathing treatments as well continue gentle diuresis as planned renal service and cardiovascular service is also following This is a 89-year-old nonsmoker male who came into the hospital with one week of shortness of breath has extensive coughing productive of the thick tenacious white sputum, patient has echocardiogram and chest x-ray echo revealed severe dilated LA, mild pulmonary hypertension and severe concentric LV hypertrophy, chest x-ray suggestive of mild fluid overload, patient is very compliant with Flu pneumonia vaccine, review of the records revealed that patient has been lately having elevated blood pressure in the primary care's office blood pressure was over 220/100, noted that meds are being adjusted for hypertensive heart failure and acute on chronic renal failure Objective - Vital Signs Vital signs: Vital Signs Temp 97.6 F 04/24/19 15:15 Pulse 76 04/24/19 16:00 Resp 18 04/24/19 15:57 BP 153/57 04/24/19 15:15 Pulse Ox 96 04/24/19 15:49 Intake & Output 04/23/19 04/24/19 04/24/19 18:59 06:59 18:59 Intake Total 480 Output Total 1675 350 300 Balance -1675 -350 180 Weight 102.5 kg 102.5 kg Intake: Oral 480 Output: Urine 1675 350 300 Other: Voiding Method Indwelling Catheter Indwelling Catheter Indwelling Catheter # Voids 1 # Bowel Movements 1 1 1 - Exam - Constitutional General appearance: cooperative, disheveled, morbidly obese - EENT Eyes: anicteric sclerae, EOMI, PERRLA, normal appearance ENT: normal oropharynx Ears: bilateral: normal - Neck Carotids: bilateral: upstroke normal - Respiratory Respiratory: bilateral: diminished, rales (Fine basilar), negative: CTA, dullness, rhonchi, wheezing, prolonged expiration - Cardiovascular Rhythm: regular Heart sounds: normal: S1, S2 - Gastrointestinal General gastrointestinal: normal bowel sounds, soft - Neurologic Neurologic: CNII-XII intact - Musculoskeletal Musculoskeletal: gait normal, generalized weakness, strength equal bilaterally - Psychiatric Psychiatric: A&O x's 3, appropriate affect, intact judgment & insight - Labs CBC & Chem 7: 04/24/19 07:27 04/25/19 05:58 Labs: Abnormal Lab Results - Last 24 Hours (Table) 04/23/19 04/23/19 04/24/19 Range/Units 10: 20:48 06:14 WBC (3.8-10.6) k/uL RBC (4.30-5.90) m/uL Hgb (13.0-17.5) gm/dL Hct (39.0-53.0) % Neutrophils # (1.3-7.7) k/uL Lymphocytes # (1.0-4.8) k/uL PT (9.0-12.0) sec INR (<1.2) Sodium (137-145) mmol/L Chloride (98-107) mmol/L Carbon Dioxide (22-30) mmol/L BUN (9-20) mg/dL Creatinine (0.66-1.25) mg/dL Glucose (74-99) mg/dL POC Glucose (mg/dL) 145 H 164 H (75-99) mg/dL Calcium (8.4-10.2) mg/dL Total Protein (6.3-8.2) g/dL Total Protein (PEP) 5.1 L (6.2-8.2) g/dL Albumin (3.5-5.0) g/dL Albumin (PEP) 2.99 L (3.80-4.90) g/dL Wowlf-6-Paafwgdvd 0.57 L (0.60-1.00) g/dL Beta Globulins 0.56 L (0.60-1.30) g/dL Gamma Globulins 0.65 L (0.70-1.50) g/dL Complement C3 70.4 L (80.0-207.0) mg/dL 04/24/19 04/24/19 04/24/19 Range/Units 07:27 07:27 07:27 WBC 12.4 H (3.8-10.6) k/uL RBC 3.68 L (4.30-5.90) m/uL Hgb 11.3 L (13.0-17.5) gm/dL Hct 33.4 L (39.0-53.0) % Neutrophils # 11.4 H (1.3-7.7) k/uL Lymphocytes # 0.4 L (1.0-4.8) k/uL PT 32.7 H (9.0-12.0) sec INR 3.4 H (<1.2) Sodium 129 L (137-145) mmol/L Chloride 97 L (98-107) mmol/L Carbon Dioxide 16 L (22-30) mmol/L BUN 118 H* (9-20) mg/dL Creatinine 4.74 H (0.66-1.25) mg/dL Glucose 140 H (74-99) mg/dL POC Glucose (mg/dL) (75-99) mg/dL Calcium 7.9 L (8.4-10.2) mg/dL Total Protein 5.9 L (6.3-8.2) g/dL Total Protein (PEP) (6.2-8.2) g/dL Albumin 3.3 L (3.5-5.0) g/dL Albumin (PEP) (3.80-4.90) g/dL Irrqp-8-Jzbyukltz (0.60-1.00) g/dL Beta Globulins (0.60-1.30) g/dL Gamma Globulins (0.70-1.50) g/dL Complement C3 (80.0-207.0) mg/dL 04/24/19 04/24/19 Range/Units 12:06 16:50 WBC (3.8-10.6) k/uL RBC (4.30-5.90) m/uL Hgb (13.0-17.5) gm/dL Hct (39.0-53.0) % Neutrophils # (1.3-7.7) k/uL Lymphocytes # (1.0-4.8) k/uL PT (9.0-12.0) sec INR (<1.2) Sodium (137-145) mmol/L Chloride (98-107) mmol/L Carbon Dioxide (22-30) mmol/L BUN (9-20) mg/dL Creatinine (0.66-1.25) mg/dL Glucose (74-99) mg/dL POC Glucose (mg/dL) 153 H 162 H (75-99) mg/dL Calcium (8.4-10.2) mg/dL Total Protein (6.3-8.2) g/dL Total Protein (PEP) (6.2-8.2) g/dL Albumin (3.5-5.0) g/dL Albumin (PEP) (3.80-4.90) g/dL Nekvj-2-Psbxsisqr (0.60-1.00) g/dL Beta Globulins (0.60-1.30) g/dL Gamma Globulins (0.70-1.50) g/dL Complement C3 (80.0-207.0) mg/dL Assessment and Plan Assessment: Right-sided pneumonia Right-sided small pleural effusion Hypertensive heart failure COPD exacerbation Tracheobronchitis Hypertensive urgency in emergency Stage 5 renal failure being considered for hemodialysis Borderline hyperkalemia Type 2 diabetes mellitus Chronic atrial fibrillation Plan: Continue breathing treatments Continue gentle diuresis Adjustment of antihypertensive agent by adjusting and adding Continue anti-coagulation Agree with antibiotics Agree with IV steroids per however trach in taper and DC his next 48-72 hours Time with Patient: Greater than 30
--- NOTE | 2019-04-25 12:36 | P.PN ---
Subjective Progress Note Date: 04/25/19 Principal diagnosis: Acute COPD exacerbation, acute on chronic renal failure, hyperkalemia, hypertension hypertensive cardiovascular disease, congestive heart failure likely related to acute on chronic diastolic heart failure, bilateral pneumonia, right-sided small pleural effusion 04/25/2019, patient seen eval examined during the rounds labs reviewed medications reviewed care plan discussed with the patient patient is being planned for hemodialysis catheter and dialysis today due to rising BUN/creatinine as well as uremic pericarditis and pericardial effusion, in addition patient having diffuse diarrhea stool came back positive for C. difficile patient is being started on oral vancomycin and we'll consult infectious disease as well, we'll stop Zosyn now 04/24/2019, patient seen eval examined during the rounds labs reviewed medications reviewed patient has been using BiPAP machine, labs are reviewed her his renal function continued to get worse renal services thinking about placing hemodialysis catheter and dialysis 04/23/2019, patient seen eval reexamined during the rounds, breathing is slightly better with still very short of breath his computed tomography scan done yesterday showed a small pleural effusion and bilateral pneumonia patient has been on IV Zosyn WBC count stable labs reviewed medications reviewed BUN/creatinine continue to go up is on 108 and creatinine is 4.5, renal services closely following the patient 04/20/2019, patient seen eval examined during the rounds labs reviewed medications reviewed care plan discussed with the staff at length patient is still feel congested he is on IV steroids will initiate on breathing treatments as well continue gentle diuresis as planned renal service and cardiovascular service is also following This is a 89-year-old nonsmoker male who came into the hospital with one week of shortness of breath has extensive coughing productive of the thick tenacious white sputum, patient has echocardiogram and chest x-ray echo revealed severe dilated LA, mild pulmonary hypertension and severe concentric LV hypertrophy, chest x-ray suggestive of mild fluid overload, patient is very compliant with Flu pneumonia vaccine, review of the records revealed that patient has been lately having elevated blood pressure in the primary care's office blood pressure was over 220/100, noted that meds are being adjusted for hypertensive heart failure and acute on chronic renal failure Objective - Vital Signs Vital signs: Vital Signs Temp 98.4 F 04/25/19 11:49 Pulse 76 04/25/19 11:56 Resp 18 04/25/19 11:49 BP 146/70 04/25/19 11:49 Pulse Ox 96 04/25/19 11:49 Intake & Output 04/24/19 04/25/19 04/25/19 18:59 06:59 18:59 Intake Total 480 240 100 Output Total 300 580 Balance 180 -340 100 Weight 102.5 kg 103.6 kg Intake: Intake, IV Titration 100 Amount Piperacillin-Tazobactam 3 100 .375 gm In Sodium Chloride 0.9% 100 ml @ 25 mls/hr IVPB Q12HR [facility] Rx #:[id number] Oral 480 240 Output: Urine 300 580 Other: Voiding Method Indwelling Catheter Indwelling Catheter Indwelling Catheter # Bowel Movements 1 1 1 - Exam - Constitutional General appearance: cooperative, disheveled, morbidly obese - EENT Eyes: anicteric sclerae, EOMI, PERRLA, normal appearance ENT: normal oropharynx Ears: bilateral: normal - Neck Carotids: bilateral: upstroke normal - Respiratory Respiratory: bilateral: diminished, rales (Fine basilar), negative: CTA, dullness, rhonchi, wheezing, prolonged expiration - Cardiovascular Rhythm: regular Heart sounds: normal: S1, S2 - Gastrointestinal General gastrointestinal: normal bowel sounds, soft - Neurologic Neurologic: CNII-XII intact - Musculoskeletal Musculoskeletal: gait normal, generalized weakness, strength equal bilaterally - Psychiatric Psychiatric: A&O x's 3, appropriate affect, intact judgment & insight - Labs CBC & Chem 7: 04/24/19 07:27 04/25/19 05:58 Labs: Abnormal Lab Results - Last 24 Hours (Table) 04/23/19 04/24/19 04/24/19 Range/Units : 07:27 16:50 PT 32.7 H (9.0-12.0) sec INR 3.4 H (<1.2) Sodium (137-145) mmol/L Carbon Dioxide (22-30) mmol/L BUN (9-20) mg/dL Creatinine (0.66-1.25) mg/dL Glucose (74-99) mg/dL POC Glucose (mg/dL) 162 H (75-99) mg/dL Calcium (8.4-10.2) mg/dL Albumin (PEP) 2.99 L (3.80-4.90) g/dL Agrlp-0-Hglapvnlc 0.57 L (0.60-1.00) g/dL Beta Globulins 0.56 L (0.60-1.30) g/dL Gamma Globulins 0.65 L (0.70-1.50) g/dL Complement C3 70.4 L (80.0-207.0) mg/dL C. difficile (EIA) Intrp (Negative) 04/24/19 04/24/19 04/25/19 Range/Units 20:25 22:27 03:00 PT (9.0-12.0) sec INR (<1.2) Sodium (137-145) mmol/L Carbon Dioxide (22-30) mmol/L BUN (9-20) mg/dL Creatinine (0.66-1.25) mg/dL Glucose (74-99) mg/dL POC Glucose (mg/dL) 138 H 134 H (75-99) mg/dL Calcium (8.4-10.2) mg/dL Albumin (PEP) (3.80-4.90) g/dL Gzxel-9-Rpmfzdhzh (0.60-1.00) g/dL Beta Globulins (0.60-1.30) g/dL Gamma Globulins (0.70-1.50) g/dL Complement C3 (80.0-207.0) mg/dL C. difficile (EIA) Intrp Positive A (Negative) 04/25/19 04/25/19 04/25/19 Range/Units 05:58 06:17 11:08 PT 39.2 H (9.0-12.0) sec INR 4.1 H (<1.2) Sodium 131 L (137-145) mmol/L Carbon Dioxide 19 L (22-30) mmol/L BUN 128 H* (9-20) mg/dL Creatinine 4.89 H (0.66-1.25) mg/dL Glucose 150 H (74-99) mg/dL POC Glucose (mg/dL) 164 H (75-99) mg/dL Calcium 7.8 L (8.4-10.2) mg/dL Albumin (PEP) (3.80-4.90) g/dL Dalud-1-Ikosxwtca (0.60-1.00) g/dL Beta Globulins (0.60-1.30) g/dL Gamma Globulins (0.70-1.50) g/dL Complement C3 (80.0-207.0) mg/dL C. difficile (EIA) Intrp (Negative) 04/25/19 Range/Units 11:50 PT (9.0-12.0) sec INR (<1.2) Sodium (137-145) mmol/L Carbon Dioxide (22-30) mmol/L BUN (9-20) mg/dL Creatinine (0.66-1.25) mg/dL Glucose (74-99) mg/dL POC Glucose (mg/dL) 157 H (75-99) mg/dL Calcium (8.4-10.2) mg/dL Albumin (PEP) (3.80-4.90) g/dL Hxhgg-9-Zcqcoqcjq (0.60-1.00) g/dL Beta Globulins (0.60-1.30) g/dL Gamma Globulins (0.70-1.50) g/dL Complement C3 (80.0-207.0) mg/dL C. difficile (EIA) Intrp (Negative) Microbiology - Last 24 Hours (Table) 04/24/19 17:50 Group A Strep Throat Culture - Preliminary Throat Assessment and Plan Assessment: C. difficile colitis Uremic pericarditis/pericardial effusion Right-sided pneumonia Right-sided small pleural effusion Hypertensive heart failure COPD exacerbation Tracheobronchitis Hypertensive urgency in emergency Stage 5 renal failure being considered for hemodialysis Borderline hyperkalemia Type 2 diabetes mellitus Chronic atrial fibrillation Plan: Start by mouth vancomycin Consult ID Initiate hemodialysis as planne Continue breathing treatments Adjustment of antihypertensive agent by adjusting and adding Continue anti-coagulatioHold on DC IV steroids Time with Patient: Greater than 30
--- NOTE | 2019-04-25 13:20 | P.PN ---
Subjective Patient is seen in follow-up for acute kidney injury on chronic kidney disease. Patient has chronic kidney disease stage III with baseline creatinine in the range of 3-3.3. Creatinine is up to 4.89 today. IV Lasix was discontinued April 22. No vomiting or diarrhea. Dyspnea a little better today. No cough. Has a Costello catheter. Nonoliguric. Feels weak and tired. Appetite is poor. Complains of sore throat. Vital signs are stable. General: The patient appeared well nourished and normally developed. HEENT: Head exam is unremarkable. Neck is without jugular venous distension. LUNGS: Breath sounds decreased. HEART: Rate and Rhythm are regular. First and second heart sounds normal. No murmurs, rubs or gallops. ABDOMEN: Abdominal exam reveals normal bowel sounds. Non-tender and non- distended. No evidence of peritonitis. EXTREMITITES: Trace edema. Objective - Vital Signs Vital signs: Vital Signs Temp 98.4 F 04/25/19 11:49 Pulse 76 04/25/19 11:56 Resp 18 04/25/19 11:49 BP 146/70 04/25/19 11:49 Pulse Ox 96 04/25/19 11:49 Intake & Output 04/24/19 04/25/19 04/25/19 18:59 06:59 18:59 Intake Total 480 240 100 Output Total 300 580 Balance 180 -340 100 Weight 102.5 kg 103.6 kg Intake: Intake, IV Titration 100 Amount Piperacillin-Tazobactam 3 100 .375 gm In Sodium Chloride 0.9% 100 ml @ 25 mls/hr IVPB Q12HR [facility] Rx #:[id number] Oral 480 240 Output: Urine 300 580 Other: Voiding Method Indwelling Catheter Indwelling Catheter Indwelling Catheter # Bowel Movements 1 1 1 - Labs CBC & Chem 7: 04/24/19 07:27 04/25/19 05:58 Labs: Abnormal Lab Results - Last 24 Hours (Table) 04/23/19 04/24/19 04/24/19 Range/Units : 07:27 16:50 PT 32.7 H (9.0-12.0) sec INR 3.4 H (<1.2) Sodium (137-145) mmol/L Carbon Dioxide (22-30) mmol/L BUN (9-20) mg/dL Creatinine (0.66-1.25) mg/dL Glucose (74-99) mg/dL POC Glucose (mg/dL) 162 H (75-99) mg/dL Calcium (8.4-10.2) mg/dL Albumin (PEP) 2.99 L (3.80-4.90) g/dL Mjbgi-4-Jukpdjzqm 0.57 L (0.60-1.00) g/dL Beta Globulins 0.56 L (0.60-1.30) g/dL Gamma Globulins 0.65 L (0.70-1.50) g/dL Complement C3 70.4 L (80.0-207.0) mg/dL C. difficile (EIA) Intrp (Negative) 04/24/19 04/24/19 04/25/19 Range/Units 20:25 22:27 03:00 PT (9.0-12.0) sec INR (<1.2) Sodium (137-145) mmol/L Carbon Dioxide (22-30) mmol/L BUN (9-20) mg/dL Creatinine (0.66-1.25) mg/dL Glucose (74-99) mg/dL POC Glucose (mg/dL) 138 H 134 H (75-99) mg/dL Calcium (8.4-10.2) mg/dL Albumin (PEP) (3.80-4.90) g/dL Comxi-7-Modhftwio (0.60-1.00) g/dL Beta Globulins (0.60-1.30) g/dL Gamma Globulins (0.70-1.50) g/dL Complement C3 (80.0-207.0) mg/dL C. difficile (EIA) Intrp Positive A (Negative) 04/25/19 04/25/19 04/25/19 Range/Units 05:58 06:17 11:08 PT 39.2 H (9.0-12.0) sec INR 4.1 H (<1.2) Sodium 131 L (137-145) mmol/L Carbon Dioxide 19 L (22-30) mmol/L BUN 128 H* (9-20) mg/dL Creatinine 4.89 H (0.66-1.25) mg/dL Glucose 150 H (74-99) mg/dL POC Glucose (mg/dL) 164 H (75-99) mg/dL Calcium 7.8 L (8.4-10.2) mg/dL Albumin (PEP) (3.80-4.90) g/dL Gnjyn-7-Dcpfpmrio (0.60-1.00) g/dL Beta Globulins (0.60-1.30) g/dL Gamma Globulins (0.70-1.50) g/dL Complement C3 (80.0-207.0) mg/dL C. difficile (EIA) Intrp (Negative) 04/25/19 Range/Units 11:50 PT (9.0-12.0) sec INR (<1.2) Sodium (137-145) mmol/L Carbon Dioxide (22-30) mmol/L BUN (9-20) mg/dL Creatinine (0.66-1.25) mg/dL Glucose (74-99) mg/dL POC Glucose (mg/dL) 157 H (75-99) mg/dL Calcium (8.4-10.2) mg/dL Albumin (PEP) (3.80-4.90) g/dL Icxnx-7-Dtexhiwuu (0.60-1.00) g/dL Beta Globulins (0.60-1.30) g/dL Gamma Globulins (0.70-1.50) g/dL Complement C3 (80.0-207.0) mg/dL C. difficile (EIA) Intrp (Negative) Microbiology - Last 24 Hours (Table) 04/24/19 17:50 Group A Strep Throat Culture - Preliminary Throat Assessment and Plan Plan: Assessment: 1. Acute kidney injury secondary to ATN secondary to infection and component of cardiorenal syndrome. Renal function worsening. Creatinine 4.89 today. No evidence of urinary retention. Does have 3+ proteinuria on UA. UPC 1.3. Rule out GN. Serologies negative except for low C3 which raises concern for IgA nephropathy versus post-infectious GN. No evidence of hydronephrosis noted on kidney ultrasound. 2. Dyspnea secondary to volume overload. Also component of COPD exacerbation/pneumonia - throat culture positive for group A streptococcus. 3. Hyperkalemia secondary to acute kidney injury and metabolic acidosis. Stable. 4. Hypertension with chronic kidney disease. 5. Chronic kidney disease stage IV secondary to diabetic kidney disease with baseline creatinine in the range of 3-3.3. 6. Diabetes mellitus. 7. Acute on chronic diastolic CHF. 8. Status post aortic valve replacement. 9. Metabolic acidosis secondary to acute kidney injury. Better. 10. Hyponatremia secondary to acute kidney injury. 11. C. diff colitis maintained on oral vancomycin. Plan: Groin catheter was placed this morning. Currently seen while undergoing first treatment of hemodialysis. Plan for second treatment tomorrow. Continue to assess daily for renal function recovery. Continue to hold diuretics. Decrease dose of oral sodium bicarbonate. Low potassium diet. Repeat electrolytes in the morning. Will repeat UA and complements again once infection is treated.
[2019-04-25] MEDS: VANCOMYCIN ORAL SOLUTION 250 MG/5 ML BOTTLE PO SCH ×3 (14:36→23:11)
[2019-04-25] MEDS: CHERRY FLAVOR 60 ML BOTTLE PO PRN ×3 (14:36→23:11)
[2019-04-25] MEDS ORDERED: metroNIDAZOLE 500 MG TAB PO SCH (16:00)
[2019-04-25 17:00] LABS: Hepatitis B Surface AB- Quant 3.5 mIU/mL; Hepatitis B Surface Antibody Non-Reactive (Non-Reactive); Hepatitis B Surface Antigen Non-Reactive (Non-Reactive)
[2019-04-25 17:17] LABS: Glucose,Whole Blood 136 mg/dL (75-99)
[2019-04-25] MEDS: FERROUS SULFATE 325 MG TAB PO SCH (20:37)
[2019-04-25 20:40] LABS: Glucose,Whole Blood 122 mg/dL (75-99)
[2019-04-25] MEDS: ALPRAZolam 0.5 MG TAB PO PRN (20:40)
[2019-04-25] MEDS: TERBINAFINE 250 MG TAB PO SCH (20:40)
[2019-04-26] MEDS: ALPRAZolam 0.5 MG TAB PO PRN ×3 (04:11→23:12)
[2019-04-26] MEDS: hydrALAZINE HCL 20 MG/ML 1 ML VIAL IVP PRN (04:12)
[2019-04-26] MEDS: VANCOMYCIN ORAL SOLUTION 250 MG/5 ML BOTTLE PO SCH ×4 (06:20→23:13)
[2019-04-26] MEDS: CHERRY FLAVOR 60 ML BOTTLE PO PRN ×4 (06:20→23:13)
[2019-04-26] MEDS: CARVEDILOL 6.25 MG TAB PO SCH ×2 (06:21→17:24)
[2019-04-26] MEDS: INSULIN ASPART (NovoLOG) 100 UNIT/ML VIAL SQ SCH ×4 (06:25→20:27)
[2019-04-26 06:27] LABS: Glucose,Whole Blood 120 mg/dL (75-99)
[2019-04-26 07:13] LABS: Basophils % (A) 0 %; Eosinophils # (A) 0.1 k/uL (0-0.7); Eosinophils % (A) 1 %; HCT 30.3 % (39.0-53.0); HGB 10.4 gm/dL (13.0-17.5); Lymphocytes # (A) 0.9 k/uL (1.0-4.8); Lymphocytes % (A) 9 %; MCHC 34.5 g/dL (31.0-37.0); Monocytes # (A) 0.9 k/uL (0-1.0); Monocytes % (A) 10 %; Neutrophils # (A) 7.3 k/uL (1.3-7.7); Neutrophils % (A) 78 %; Platelet Count 135 k/uL (150-450); RBC 3.37 m/uL (4.30-5.90); RDW 12.4 % (11.5-15.5); WBC 9.3 k/uL (3.8-10.6)
[2019-04-26 07:20] LABS: INR 2.7 (<1.2); Prothrombin Time 26.5 sec (9.0-12.0)
[2019-04-26 07:36] LABS: Calcium 7.9 mg/dL (8.4-10.2); Potassium 4.2 mmol/L (3.5-5.1)
[2019-04-26] MEDS: IPRATROPIUM-ALBUTEROL 3 ML NEB INHALATION SCH ×4 (08:28→21:19)
[2019-04-26] MEDS: BUDESONIDE 0.5 MG/2 ML NEBU INHALATION SCH ×2 (08:28→21:19)
--- NOTE | 2019-04-26 08:29 | P.CONS ---
History of Present Illness - Reason for Consult Consult date: 04/25/19 C. diff colitis Requesting physician: Benoit Fatima - Chief Complaint Diarrhea 3 days - History of Present Illness Patient is 89-year-old male admitted to the hospital with generalized weakness from his primary care physician office patient noticed to have wors ening of his skin infection and he did have some pulmonary infiltrate and CT confirmed those findings patient was afebrile on admission and did have a normal white count has been treated with Zosyn for possible pneumonia patient and did have the diarrhea started about 3 days ago patient mentioning about 3 loose stools per day. Has slight nausea but no vomiting and did have been in the left lower abdominal discomfort more of a dull aching pain about 4-5 out of 10 and no radiation patient also have elevated white count which is up to 12.4 today patient did have a stool for C. diff checked which came back positive patient was started on oral vancomycin subsequently Flagyl was added Zosyn was d iscontinued and infectious disease was consulted for further recommendation regarding antibiotic therapy Review of Systems Positive point has been mentioned in the HPI rest of the systems are negative Past Medical History Past Medical History: Atrial Fibrillation, Coronary Artery Disease (CAD), Chest Pain / Angina, Heart Failure, COPD, CVA/TIA, Hyperlipidemia, Hypertension, Myocardial Infarction (ME), Osteoarthritis (OA), Pneumonia, Renal Disease, Sleep Apnea/CPAP/BIPAP, Vascular Disorder Additional Past Medical History / Comment(s): CKD stage IV, chronic anemia (iron defiency), hyperkalemia, VOLODYMYR with Cpap, TIA, arthritis in multiple joints, BPH with surgery, PVD, past ETOH but pt states he has not drank in 20 yrs. Last Myocardial Infarction Date:: 2010 History of Any Multi-Drug Resistant Organisms: None Reported Past Surgical History: Cardiac Valve Replacement, Heart Catheterization With Stent, Joint Replacement, Prostate Surgery, Tonsillectomy Additional Past Surgical History / Comment(s): 09/07/18 Aortic mechanical valve replacement and stent to LAD, previous PCI with stent, R caratid endartectomy with pericardial patch angioplasty, R total knee arthroplasty, R hip hemiarthroplasty, TURP, colonoscopy, bilateral cataract removals/lens implants. Past Anesthesia/Blood Transfusion Reactions: No Reported Reaction Date of Last Stent Placement:: 09/07/18 Smoking Status: Never smoker - Past Family History Father Family Medical History: Chest Pain / Angina, Coronary Artery Disease (CAD), Myocardial Infarction (ME) Mother Family Medical History: Dementia Medications and Allergies Home Medications Medication Instructions Recorded Confirmed Type Aspirin EC [Ecotrin Low Dose] 81 mg PO DAILY 04/08/19 04/19/19 History Terbinafine [LamISIL] 250 mg PO HS 04/08/19 04/19/19 History amLODIPine [Norvasc] 5 mg PO DAILY 04/08/19 04/19/19 History ALPRAZolam [Xanax] 0.5 mg PO QID PRN 04/18/19 04/19/19 History Clopidogrel [Plavix] 75 mg PO DAILY 04/18/19 04/19/19 History Furosemide [Lasix] 20 mg PO DAILY 04/18/19 04/19/19 History Gabapentin [Neurontin] 100 mg PO BID 04/18/19 04/19/19 History Metoprolol Tartrate [Lopressor] 50 mg PO BID 04/18/19 04/19/19 History Omeprazole 20 mg PO DAILY 04/18/19 04/19/19 History Pravastatin Sodium [Pravachol] 40 mg PO HS 04/18/19 04/19/19 History Albuterol Nebulized [Ventolin 2.5 mg INHALATION RT-Q6H PRN 04/19/19 04/19/19 Hi story Nebulized] Budesonide [Pulmicort] 0.5 mg INHALATION RT-BID 04/19/19 04/19/19 History Docusate [Colace] 100 mg PO HS 04/19/19 04/19/19 History Ferrous Sulfate [Feosol] 325 mg PO HS 04/19/19 04/19/19 History Loratadine [Claritin] 10 mg PO DAILY 04/19/19 04/19/19 History Warfarin [Coumadin] 2.5 mg PO HS 04/19/19 04/19/19 History Allergies Allergy/AdvReac Type Severity Reaction Status Date / Time No Known Allergies Allergy Verified 04/08/19 11:22 Physical Exam Vitals: Vital Signs Temp Pulse Pulse Resp BP BP Pulse Ox 04/25/19 14:00 98.2 F 72 18 151/80 04/25/19 11:56 76 04/25/19 11:49 98.4 F 73 18 146/70 96 04/25/19 11:46 76 04/25/19 09:30 68 18 175/76 96 04/25/19 09:15 59 L 18 151/70 96 04/25/19 09:00 55 L 18 156/70 96 04/25/19 08:45 68 20 178/84 95 04/25/19 08:00 96.7 F L 68 18 155/73 96 04/25/19 04:27 98.7 F 65 16 154/69 95 04/24/19 23:36 97.5 F L 70 16 165/65 95 04/24/19 20:50 97.4 F L 67 16 139/77 97 04/24/19 16:00 76 04/24/19 15:57 57 L 18 04/24/19 15:49 74 96 Intake and Output 04/25/19 04/25/19 04/25/19 06:59 14:59 22:59 Intake Total 100 Output Total 580 1000 Balance -580 -900 Intake: Intake, IV Titration 100 Amount Piperacillin-Tazobactam 3 100 .375 gm In Sodium Chloride 0.9% 100 ml @ 25 mls/hr IVPB Q12HR [facility] Rx #:[id number] Output: Urine 580 Hemodialysis 1000 Other: Voiding Method Indwelling Catheter Indwelling Catheter # Bowel Movements 1 1 Weight 103.6 kg GENERAL DESCRIPTION: Elderly male lying in bed, no distress. No tachypnea or accessory muscle of respiration use. HEENT: Shows Pallor , no scleral icterus. Oral mucous membrane is dry. No pharyngeal erythema or thrush NECK: Trachea central, no thyromegaly. LUNGS: Unlabored breathing. Decreased breath sounds at the base. No wheeze or crackle. HEART: S1, S2, regular rate and rhythm. No loud murmur ABDOMEN: Soft, no tenderness , guarding or rigidity, no organomegaly EXTREMITIES: No edema of feet. SKIN: No rash, no masses palpable. NEUROLOGICAL: The patient is awake, alert, oriented x3, mood and affect normal. Results CBC & Chem 7: 04/26/19 06:06 04/26/19 06:06 Labs: Abnormal Lab Results - Last 24 Hours (Table) 04/23/19 04/24/19 04/24/19 Range/Units 10: 16:50 20:25 PT (9.0-12.0) sec INR (<1.2) Sodium (137-145) mmol/L Carbon Dioxide (22-30) mmol/L BUN (9-20) mg/dL Creatinine (0.66-1.25) mg/dL Glucose (74-99) mg/dL POC Glucose (mg/dL) 162 H 138 H (75-99) mg/dL Calcium (8.4-10.2) mg/dL Albumin (PEP) 2.99 L (3.80-4.90) g/dL Kntft-6-Zasbaywqk 0.57 L (0.60-1.00) g/dL Beta Globulins 0.56 L (0.60-1.30) g/dL Gamma Globulins 0.65 L (0.70-1.50) g/dL Complement C3 70.4 L (80.0-207.0) mg/dL C. difficile (EIA) Intrp (Negative) 04/24/19 04/25/19 04/25/19 Range/Units 22:27 03:00 05:58 PT (9.0-12.0) sec INR (<1.2) Sodium 131 L (137-145) mmol/L Carbon Dioxide 19 L (22-30) mmol/L BUN 128 H* (9-20) mg/dL Creatinine 4.89 H (0.66-1.25) mg/dL Glucose 150 H (74-99) mg/dL POC Glucose (mg/dL) 134 H (75-99) mg/dL Calcium 7.8 L (8.4-10.2) mg/dL Albumin (PEP) (3.80-4.90) g/dL Wcbte-2-Gibrlxcfc (0.60-1.00) g/dL Beta Globulins (0.60-1.30) g/dL Gamma Globulins (0.70-1.50) g/dL Complement C3 (80.0-207.0) mg/dL C. difficile (EIA) Intrp Positive A (Negative) 04/25/19 04/25/19 04/25/19 Range/Units 06:17 11:08 11:50 PT 39.2 H (9.0-12.0) sec INR 4.1 H (<1.2) Sodium (137-145) mmol/L Carbon Dioxide (22-30) mmol/L BUN (9-20) mg/dL Creatinine (0.66-1.25) mg/dL Glucose (74-99) mg/dL POC Glucose (mg/dL) 164 H 157 H (75-99) mg/dL Calcium (8.4-10.2) mg/dL Albumin (PEP) (3.80-4.90) g/dL Dvwhg-9-Atxaxddwa (0.60-1.00) g/dL Beta Globulins (0.60-1.30) g/dL Gamma Globulins (0.70-1.50) g/dL Complement C3 (80.0-207.0) mg/dL C. difficile (EIA) Intrp (Negative) Microbiology - Last 24 Hours (Table) 04/24/19 17:50 Group A Strep Throat Culture - Preliminary Throat Assessment and Plan Assessment: 1-patient with diarrhea for 3 days and this patient who did have elevated white count, pain left lower abdominal area and exposure to antibiotics plus hospitalization for the last 1 week put him at risk of C. diff colitis (1) C. difficile colitis Current Visit: Yes Status: Acute Code(s): A04.72 - ENTEROCOLITIS D/T CLOSTRIDIUM DIFFICILE, NOT SPCF RECUR SNOMED Code(s): 309321994 Plan: 1-vancomycin 250 mg by mouth every 6 hours and discontinue the Flagyl 2-patient has been advised to increase his yogurt intake 3-Questran will be added if diarrhea persist We will follow on clinical condition and cultures to further adjust medication if needed Thank you for this consultation will follow this patient with you Time with Patient: Greater than 30
[2019-04-26] MEDS: VORTIOXETINE HYDROBROMIDE 10 MG TABLET PO SCH (08:36)
[2019-04-26] MEDS: guaiFENesin-DM 600/30MG 1 EACH TAB.ER.12H PO SCH ×2 (08:36→20:27)
[2019-04-26] MEDS: CLOPIDOGREL 75 MG TAB PO SCH (08:36)
[2019-04-26] MEDS: hydrALAZINE HCL 50 MG TAB PO SCH (08:36)
[2019-04-26] MEDS: GABAPENTIN 100 MG CAP PO SCH ×2 (08:36→20:27)
[2019-04-26] MEDS: PANTOPRAZOLE 40 MG TABLET PO SCH (08:36)
[2019-04-26] MEDS: ATORVASTATIN 80 MG TAB PO SCH (08:36)
[2019-04-26] MEDS: SODIUM BICARBONATE TAB 650 MG TAB PO SCH ×2 (08:36→20:27)
[2019-04-26] MEDS: TAMSULOSIN 0.4 MG CAP.ER.24H PO SCH (08:37)
[2019-04-26] MEDS: SERTRALINE 50 MG TAB PO SCH (08:37)
[2019-04-26] MEDS: DOCUSATE 100 MG CAP PO SCH (08:37)
--- NOTE | 2019-04-26 10:28 | P.PN ---
Subjective Patient is seen in follow-up for acute kidney injury on chronic kidney disease. Patient has chronic kidney disease stage III with baseline creatinine in the range of 3-3.3. No vomiting or diarrhea. Dyspnea a little better today. No cough. Has a Costello catheter. Nonoliguric. Started on hemodialysis April 25. Vital signs are stable. General: The patient appeared well nourished and normally developed. HEENT: Head exam is unremarkable. Neck is without jugular venous distension. LUNGS: Breath sounds decreased. HEART: Rate and Rhythm are regular. First and second heart sounds normal. No murmurs, rubs or gallops. ABDOMEN: Abdominal exam reveals normal bowel sounds. Non-tender and non- distended. No evidence of peritonitis. EXTREMITITES: Trace edema. Objective - Vital Signs Vital signs: Vital Signs Temp 97.9 F 04/26/19 09:15 Pulse 63 04/26/19 09:15 Resp 20 04/26/19 09:15 BP 161/74 04/26/19 09:15 Pulse Ox 97 04/26/19 09:15 Intake & Output 04/25/19 04/26/19 04/26/19 18:59 06:59 18:59 Intake Total 100 240 Output Total 1000 925 Balance -900 -685 Weight 101.8 kg Intake: Intake, IV Titration 100 Amount Piperacillin-Tazobactam 3 100 .375 gm In Sodium Chloride 0.9% 100 ml @ 25 mls/hr IVPB Q12HR [facility] Rx #:[id number] Oral 240 Output: Urine 925 Hemodialysis 1000 Other: Voiding Method Indwelling Catheter Indwelling Catheter Indwelling Catheter # Bowel Movements 1 - Labs CBC & Chem 7: 04/26/19 06:06 04/26/19 06:06 Labs: Abnormal Lab Results - Last 24 Hours (Table) 04/25/19 04/25/19 04/25/19 Range/Units 11:08 11:50 17:15 RBC (4.30-5.90) m/uL Hgb (13.0-17.5) gm/dL Hct (39.0-53.0) % Plt Count (150-450) k/uL Lymphocytes # (1.0-4.8) k/uL PT 39.2 H (9.0-12.0) sec INR 4.1 H (<1.2) Sodium (137-145) mmol/L Carbon Dioxide (22-30) mmol/L BUN (9-20) mg/dL Creatinine (0.66-1.25) mg/dL Glucose (74-99) mg/dL POC Glucose (mg/dL) 157 H 136 H (75-99) mg/dL Calcium (8.4-10.2) mg/dL 04/25/19 04/26/19 04/26/19 Range/Units 20:39 06:06 06:06 RBC 3.37 L (4.30-5.90) m/uL Hgb 10.4 L (13.0-17.5) gm/dL Hct 30.3 L (39.0-53.0) % Plt Count 135 L (150-450) k/uL Lymphocytes # 0.9 L (1.0-4.8) k/uL PT 26.5 H (9.0-12.0) sec INR 2.7 H (<1.2) Sodium (137-145) mmol/L Carbon Dioxide (22-30) mmol/L BUN (9-20) mg/dL Creatinine (0.66-1.25) mg/dL Glucose (74-99) mg/dL POC Glucose (mg/dL) 122 H (75-99) mg/dL Calcium (8.4-10.2) mg/dL 04/26/19 04/26/19 Range/Units 06:06 06:25 RBC (4.30-5.90) m/uL Hgb (13.0-17.5) gm/dL Hct (39.0-53.0) % Plt Count (150-450) k/uL Lymphocytes # (1.0-4.8) k/uL PT (9.0-12.0) sec INR (<1.2) Sodium 134 L (137-145) mmol/L Carbon Dioxide 20 L (22-30) mmol/L BUN 93 H (9-20) mg/dL Creatinine 4.06 H (0.66-1.25) mg/dL Glucose 117 H (74-99) mg/dL POC Glucose (mg/dL) 120 H (75-99) mg/dL Calcium 7.9 L (8.4-10.2) mg/dL Microbiology - Last 24 Hours (Table) 04/24/19 17:50 Group A Strep Throat Culture - Final Throat Assessment and Plan Plan: Assessment: 1. Acute kidney injury secondary to ATN secondary to infection and component of cardiorenal syndrome. No evidence of urinary retention. Does have 3+ proteinuria on UA. UPC 1.3. Rule out GN. Serologies negative except for low C3. No evidence of hydronephrosis noted on kidney ultrasound. Started on hemodial ysis April 25. 2. Dyspnea secondary to volume overload. Also component of COPD exacerbation/pneumonia. 3. Hyperkalemia secondary to acute kidney injury and metabolic acidosis. Improved postdialysis. 4. Hypertension with chronic kidney disease. 5. Chronic kidney disease stage IV secondary to diabetic kidney disease with baseline creatinine in the range of 3-3.3. 6. Diabetes mellitus. 7. Acute on chronic diastolic CHF. 8. Status post aortic valve replacement. 9. Metabolic acidosis secondary to acute kidney injury. Better. 10. Hyponatremia secondary to acute kidney injury. Improved postdialysis. 11. C. diff colitis maintained on oral vancomycin. Plan: Second treatment of hemodialysis today. Third treatment tomorrow. Continue to assess daily for renal function recovery. Continue to hold diuretics. Repeat electrolytes in the morning. Will repeat UA and complements again once infection is treated. Increase hydralazine to 75 mg 3 times daily.
[2019-04-26] MEDS ORDERED: HEPARIN SODIUM,PORCINE 5,000 UNIT/ML 1 ML VIAL ONE (12:00)
[2019-04-26 12:29] LABS: Glucose,Whole Blood 109 mg/dL (75-99)
--- NOTE | 2019-04-26 17:02 | PN ---
PROGRESS NOTE DATE OF SERVICE: 04/26/2019 REASON FOR FOLLOWUP: C difficile colitis. INTERVAL HISTORY: The patient is currently afebrile. The patient has been breathing comfortably. The patient's diarrhea has improved. He did have only one episode today. No abdominal pain. No nausea. No vomiting. PHYSICAL EXAMINATION: Blood pressure is 160/73 with a pulse of 60, temperature 97.9. He is 96% on room air. General description is an elderly male up in the chair in no distress. RESPIRATORY SYSTEM: Unlabored breathing with decreased breath sounds at the base. No wheeze. HEART: S1, S2. Regular rate and rhythm. ABDOMEN: Soft. No tenderness. LABS: Hemoglobin is 10.4, white count 9.3, BUN of 93, creatinine 4.06. DIAGNOSTIC IMPRESSION AND PLAN: Patient with Clostridium difficile colitis. Patient is currently responding to the p.o. vancomycin; to continue. Patient has been advised to increase his yogurt and probiotic intake. Continue with supportive care. MMODL / IJN: [id number] /
[2019-04-26] MEDS: hydrALAZINE HCL 25 MG TAB PO SCH ×3 (17:24→23:17)
[2019-04-26 17:27] LABS: Glucose,Whole Blood 118 mg/dL (75-99)
--- NOTE | 2019-04-26 17:42 | P.PN ---
Subjective Progress Note Date: 04/26/19 Principal diagnosis: Acute COPD exacerbation, acute on chronic renal failure, hyperkalemia, hypertension hypertensive cardiovascular disease, congestive heart failure likely related to acute on chronic diastolic heart failure, bilateral pneumonia, right-sided small pleural effusion April 252018, patient is more awake and alert has been using home CPAP machine, diarrhea is slightly better patient underwent hemodialysis today 1 L of fluid has been removed, hydralazine dose has been escalated, patient will get an another hemodialysis cycle tomorrow 04/25/2019, patient seen eval examined during the rounds labs reviewed medications reviewed care plan discussed with the patient patient is being planned for hemodialysis catheter and dialysis today due to rising BUN/ creatinine as well as uremic pericarditis and pericardial effusion, in addition patient having diffuse diarrhea stool came back positive for C. difficile patient is being started on oral vancomycin and we'll consult infectious disease as well, we'll stop Zosyn now 04/24/2019, patient seen eval examined during the rounds labs reviewed medications reviewed patient has been using BiPAP machine, labs are reviewed her his renal function continued to get worse renal services thinking about placing hemodialysis catheter and dialysis 04/23/2019, patient seen eval reexamined during the rounds, breathing is slightly better with still very short of breath his computed tomography scan done yesterday showed a small pleural effusion and bilateral pneumonia patient has been on IV Zosyn WBC count stable labs reviewed medications reviewed BUN/creatinine continue to go up is on 108 and creatinine is 4.5, renal services closely following the patient 04/20/2019, patient seen eval examined during the rounds labs reviewed medications reviewed care plan discussed with the staff at length patient is still feel congested he is on IV steroids will initiate on breathing treatments as well continue gentle diuresis as planned renal service and cardiovascular service is also following This is a 89-year-old nonsmoker male who came into the hospital with one week of shortness of breath has extensive coughing productive of the thick tenacious white sputum, patient has echocardiogram and chest x-ray echo revealed severe dilated LA, mild pulmonary hypertension and severe concentric LV hypertrophy, chest x-ray suggestive of mild fluid overload, patient is very compliant with Flu pneumonia vaccine, review of the records revealed that patient has been lately having elevated blood pressure in the primary care's office blood pressure was over 220/100, noted that meds are being adjusted for hypertensive heart failure and acute on chronic renal failure Objective - Vital Signs Vital signs: Vital Signs Temp 98.9 F 04/26/19 15:35 Pulse 59 L 04/26/19 15:35 Resp 18 04/26/19 15:35 BP 167/84 04/26/19 15:35 Pulse Ox 95 04/26/19 15:35 Intake & Output 04/25/19 04/26/19 04/26/19 18:59 06:59 18:59 Intake Total 100 240 180 Output Total 0662 753 3521 Balance -900 -665 -820 Weight 101.8 kg Intake: Intake, IV Titration 100 Amount Piperacillin-Tazobactam 3 100 .375 gm In Sodium Chloride 0.9% 100 ml @ 25 mls/hr IVPB Q12HR [facility] Rx #:[id number] Oral 240 180 Output: Urine 925 Hemodialysis 1000 1000 Other: Voiding Method Indwelling Catheter Indwelling Catheter Indwelling Catheter # Bowel Movements 1 - Exam - Constitutional General appearance: cooperative, disheveled, morbidly obese - EENT Eyes: anicteric sclerae, EOMI, PERRLA, normal appearance ENT: normal oropharynx Ears: bilateral: normal - Neck Carotids: bilateral: upstroke normal - Respiratory Respiratory: bilateral: diminished, rales (Fine basilar), negative: CTA, dullness, rhonchi, wheezing, prolonged expiration - Cardiovascular Rhythm: regular Heart sounds: normal: S1, S2 - Gastrointestinal General gastrointestinal: normal bowel sounds, soft - Neurologic Neurologic: CNII-XII intact - Musculoskeletal Musculoskeletal: gait normal, generalized weakness, strength equal bilaterally - Psychiatric Psychiatric: A&O x's 3, appropriate affect, intact judgment & insight - Labs CBC & Chem 7: 04/26/19 06:06 04/26/19 06:06 Labs: Abnormal Lab Results - Last 24 Hours (Table) 04/25/19 04/26/19 04/26/19 Range/Units 20:39 06:06 06:06 RBC 3.37 L (4.30-5.90) m/uL Hgb 10.4 L (13.0-17.5) gm/dL Hct 30.3 L (39.0-53.0) % Plt Count 135 L (150-450) k/uL Lymphocytes # 0.9 L (1.0-4.8) k/uL PT 26.5 H (9.0-12.0) sec INR 2.7 H (<1.2) Sodium (137-145) mmol/L Carbon Dioxide (22-30) mmol/L BUN (9-20) mg/dL Creatinine (0.66-1.25) mg/dL Glucose (74-99) mg/dL POC Glucose (mg/dL) 122 H (75-99) mg/dL Calcium (8.4-10.2) mg/dL 04/26/19 04/26/19 04/26/19 Range/Units 06:06 06:25 12:28 RBC (4.30-5.90) m/uL Hgb (13.0-17.5) gm/dL Hct (39.0-53.0) % Plt Count (150-450) k/uL Lymphocytes # (1.0-4.8) k/uL PT (9.0-12.0) sec INR (<1.2) Sodium 134 L (137-145) mmol/L Carbon Dioxide 20 L (22-30) mmol/L BUN 93 H (9-20) mg/dL Creatinine 4.06 H (0.66-1.25) mg/dL Glucose 117 H (74-99) mg/dL POC Glucose (mg/dL) 120 H 109 H (75-99) mg/dL Calcium 7.9 L (8.4-10.2) mg/dL 04/26/19 Range/Units 17:25 RBC (4.30-5.90) m/uL Hgb (13.0-17.5) gm/dL Hct (39.0-53.0) % Plt Count (150-450) k/uL Lymphocytes # (1.0-4.8) k/uL PT (9.0-12.0) sec INR (<1.2) Sodium (137-145) mmol/L Carbon Dioxide (22-30) mmol/L BUN (9-20) mg/dL Creatinine (0.66-1.25) mg/dL Glucose (74-99) mg/dL POC Glucose (mg/dL) 118 H (75-99) mg/dL Calcium (8.4-10.2) mg/dL Microbiology - Last 24 Hours (Table) 04/24/19 17:50 Group A Strep Throat Culture - Final Throat Assessment and Plan Assessment: C. 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
[2019-04-26 20:18] LABS: Glucose,Whole Blood 162 mg/dL (75-99)
[2019-04-26] MEDS: FERROUS SULFATE 325 MG TAB PO SCH (20:27)
[2019-04-26] MEDS: TERBINAFINE 250 MG TAB PO SCH (20:27)
[2019-04-26] MEDS: HYDROcodone/APAP 5-325MG 1 EACH TAB PO PRN (20:32)
[2019-04-27 06:25] LABS: Glucose,Whole Blood 115 mg/dL (75-99)
[2019-04-27] MEDS: CHERRY FLAVOR 60 ML BOTTLE PO PRN ×3 (06:41→18:04)
[2019-04-27] MEDS: VANCOMYCIN ORAL SOLUTION 250 MG/5 ML BOTTLE PO SCH ×3 (06:41→18:04)
[2019-04-27] MEDS: CARVEDILOL 6.25 MG TAB PO SCH ×2 (06:41→16:18)
[2019-04-27] MEDS: INSULIN ASPART (NovoLOG) 100 UNIT/ML VIAL SQ SCH ×4 (06:43→21:24)
[2019-04-27 07:16] LABS: Basophils # (A) 0.1 k/uL (0-0.2); Basophils % (A) 1 %; Eosinophils # (A) 0.2 k/uL (0-0.7); Eosinophils % (A) 2 %; HGB 10.5 gm/dL (13.0-17.5); Lymphocytes # (A) 0.8 k/uL (1.0-4.8); Lymphocytes % (A) 9 %; MCH 31.5 pg (25.0-35.0); MCHC 35.1 g/dL (31.0-37.0); MCV 89.8 fL (80.0-100.0); Mean Platelet Volume 6.7; Monocytes # (A) 0.6 k/uL (0-1.0); Monocytes % (A) 7 %; Neutrophils # (A) 7.1 k/uL (1.3-7.7); Neutrophils % (A) 80 %; Platelet Count 126 k/uL (150-450); RBC 3.34 m/uL (4.30-5.90); RDW 12.3 % (11.5-15.5); WBC 8.9 k/uL (3.8-10.6)
[2019-04-27 07:24] LABS: INR 1.8 (<1.2); Prothrombin Time 17.8 sec (9.0-12.0)
[2019-04-27 07:33] LABS: Calcium 7.8 mg/dL (8.4-10.2); Magnesium 2.2 mg/dL (1.6-2.3); Potassium 4.1 mmol/L (3.5-5.1)
--- NOTE | 2019-04-27 08:37 | P.PN ---
Subjective Patient is seen in follow-up for acute kidney injury on chronic kidney disease. Patient has chronic kidney disease stage III with baseline creatinine in the range of 3-3.3. No vomiting or diarrhea. Complaining of a cough today. Has a Costello catheter. Urine output 730 mL in the last 24 hours. Started on hemodialysis April 25 and has been tolerating it well. Vital signs are stable. General: The patient appeared well nourished and normally developed. HEENT: Head exam is unremarkable. Neck is without jugular venous distension. LUNGS: Breath sounds decreased. HEART: Rate and Rhythm are regular. First and second heart sounds normal. No murmurs, rubs or gallops. ABDOMEN: Abdominal exam reveals normal bowel sounds. Non-tender and non-d istended. No evidence of peritonitis. EXTREMITITES: Trace edema. Objective - Vital Signs Vital signs: Vital Signs Temp 98.0 F 04/27/19 04:00 Pulse 66 04/27/19 04:00 Resp 18 04/27/19 04:00 BP 169/77 04/27/19 04:00 Pulse Ox 96 04/27/19 04:00 Intake & Output 04/26/19 04/27/19 04/27/19 18:59 06:59 18:59 Intake Total 662 120 Output Total 1450 280 Balance -788 -160 Weight 100.1 kg Intake: Oral 662 120 Output: Urine 450 280 Hemodialysis 1000 Other: Voiding Method Indwelling Catheter Indwelling Catheter - Labs CBC & Chem 7: 04/27/19 05:53 04/27/19 05:53 Labs: Abnormal Lab Results - Last 24 Hours (Table) 04/26/19 04/26/19 04/26/19 Range/Units 12:28 17:25 20:16 RBC (4.30-5.90) m/uL Hgb (13.0-17.5) gm/dL Hct (39.0-53.0) % Plt Count (150-450) k/uL Lymphocytes # (1.0-4.8) k/uL PT (9.0-12.0) sec INR (<1.2) Sodium (137-145) mmol/L BUN (9-20) mg/dL Creatinine (0.66-1.25) mg/dL Glucose (74-99) mg/dL POC Glucose (mg/dL) 109 H 118 H 162 H (75-99) mg/dL Calcium (8.4-10.2) mg/dL 04/27/19 04/27/19 04/27/19 Range/Units 05:53 05:53 05:53 RBC 3.34 L (4.30-5.90) m/uL Hgb 10.5 L (13.0-17.5) gm/dL Hct 30.0 L (39.0-53.0) % Plt Count 126 L (150-450) k/uL Lymphocytes # 0.8 L (1.0-4.8) k/uL PT 17.8 H (9.0-12.0) sec INR 1.8 H (<1.2) Sodium 135 L (137-145) mmol/L BUN 69 H (9-20) mg/dL Creatinine 3.04 H (0.66-1.25) mg/dL Glucose 103 H (74-99) mg/dL POC Glucose (mg/dL) (75-99) mg/dL Calcium 7.8 L (8.4-10.2) mg/dL 04/27/19 Range/Units 06:23 RBC (4.30-5.90) m/uL Hgb (13.0-17.5) gm/dL Hct (39.0-53.0) % Plt Count (150-450) k/uL Lymphocytes # (1.0-4.8) k/uL PT (9.0-12.0) sec INR (<1.2) Sodium (137-145) mmol/L BUN (9-20) mg/dL Creatinine (0.66-1.25) mg/dL Glucose (74-99) mg/dL POC Glucose (mg/dL) 115 H (75-99) mg/dL Calcium (8.4-10.2) mg/dL Microbiology - Last 24 Hours (Table) 04/24/19 17:50 Group A Strep Throat Culture - Final Throat Assessment and Plan Plan: Assessment: 1. Acute kidney injury secondary to ATN secondary to infection and component of cardiorenal syndrome. No evidence of urinary retention. Does have 3+ proteinuria on UA. UPC 1.3. Rule out GN. Serologies negative except for low C3. No evidence of hydronephrosis noted on kidney ultrasound. Started on hemodialysis April 25. 2. Dyspnea secondary to volume overload. Also component of COPD exacerbation/pneumonia. 3. Hyperkalemia secondary to acute kidney injury and metabolic acidosis. Improved postdialysis. 4. Hypertension with chronic kidney disease. 5. Chronic kidney disease stage IV secondary to diabetic kidney disease with baseline creatinine in the range of 3-3.3. 6. Diabetes mellitus. 7. Acute on chronic diastolic CHF. 8. Status post aortic valve replacement. 9. Metabolic acidosis secondary to acute kidney injury. Better. 10. Hyponatremia secondary to acute kidney injury. Improved postdialysis. 11. C. diff colitis maintained on oral vancomycin. Plan: Third treatment of hemodialysis today. Will plan to hold dialysis over the weekend. Continue to assess daily for renal function recovery. Continue to hold diuretics. Repeat electrolytes in the morning. Will repeat UA and complements again once infection is treated. Hydralazine increased yesterday.
[2019-04-27] MEDS: VORTIOXETINE HYDROBROMIDE 10 MG TABLET PO SCH (09:30)
[2019-04-27] MEDS: ATORVASTATIN 80 MG TAB PO SCH (09:32)
[2019-04-27] MEDS: PANTOPRAZOLE 40 MG TABLET PO SCH (09:32)
[2019-04-27] MEDS: TAMSULOSIN 0.4 MG CAP.ER.24H PO SCH (09:33)
[2019-04-27] MEDS: SODIUM BICARBONATE TAB 650 MG TAB PO SCH ×2 (09:33→21:38)
[2019-04-27] MEDS: guaiFENesin-DM 600/30MG 1 EACH TAB.ER.12H PO SCH ×2 (09:34→21:38)
[2019-04-27] MEDS: CLOPIDOGREL 75 MG TAB PO SCH (09:34)
[2019-04-27] MEDS: GABAPENTIN 100 MG CAP PO SCH ×2 (09:35→21:38)
[2019-04-27] MEDS: SERTRALINE 50 MG TAB PO SCH (09:35)
[2019-04-27] MEDS: DOCUSATE 100 MG CAP PO SCH (09:35)
--- NOTE | 2019-04-27 10:29 | P.PN ---
Progress Note - Text Progress Note Date: 04/27/19 At this time nephrology is holding dialysis for the weekend in hopes of sufficient renal recovery. If this patient is to need a tunneled dialysis catheter, he would need to be bridged with a heparin drip because of his mechanical heart valve. Currently he is on Coumadin and therapeutic. Please let us know if you anticipate the need for a tunneled dialysis catheter.
[2019-04-27] MEDS: BUDESONIDE 0.5 MG/2 ML NEBU INHALATION SCH ×2 (11:12→20:20)
[2019-04-27] MEDS: IPRATROPIUM-ALBUTEROL 3 ML NEB INHALATION SCH ×4 (11:12→20:20)
[2019-04-27] MEDS ORDERED: HEPARIN SODIUM,PORCINE 5,000 UNIT/ML 1 ML VIAL ONE (12:00)
[2019-04-27 12:16] LABS: Glucose,Whole Blood 117 mg/dL (75-99)
[2019-04-27] MEDS: ALPRAZolam 0.5 MG TAB PO PRN ×2 (14:40→21:38)
[2019-04-27] MEDS: hydrALAZINE HCL 25 MG TAB PO SCH ×2 (16:18→21:43)
--- NOTE | 2019-04-27 16:39 | P.PN ---
Subjective Progress Note Date: 04/27/19 Principal diagnosis: Acute COPD exacerbation, acute on chronic renal failure, hyperkalemia, hypertension hypertensive cardiovascular disease, congestive heart failure likely related to acute on chronic diastolic heart failure, bilateral pneumonia, right-sided small pleural effusion 04/27/2019, patient seen eval examined during the rounds labs reviewed medications reviewed care plan discussed with the patient and the staff at length patient underwent hemodialysis in more than a liter has been removed stool is still loose so far he has one loose stool 04/26/2019, patient is more awake and alert has been using home CPAP machine, diarrhea is slightly better patient underwent hemodialysis today 1 L of fluid has been removed, hydralazine dose has been escalated, patient will get an another hemodialysis cycle tomorrow 04/25/2019, patient seen eval examined during the rounds labs reviewed medications reviewed care plan discussed with the patient patient is being planned for hemodialysis catheter and dialysis today due to rising BUN/creatinine as well as uremic pericarditis and pericardial effusion, in addition patient having diffuse diarrhea stool came back positive for C. difficile patient is being started on oral vancomycin and we'll consult infectious disease as well, we'll stop Zosyn now 04/24/2019, patient seen eval examined during the rounds labs reviewed m edications reviewed patient has been using BiPAP machine, labs are reviewed her his renal function continued to get worse renal services thinking about placing hemodialysis catheter and dialysis 04/23/2019, patient seen eval reexamined during the rounds, breathing is slightly better with still very short of breath his computed tomography scan done yesterday showed a small pleural effusion and bilateral pneumonia patient has been on IV Zosyn WBC count stable labs reviewed medications reviewed BU N/creatinine continue to go up is on 108 and creatinine is 4.5, renal services closely following the patient 04/20/2019, patient seen eval examined during the rounds labs reviewed medications reviewed care plan discussed with the staff at length patient is still feel congested he is on IV steroids will initiate on breathing treatments as well continue gentle diuresis as planned renal service and cardiovascular service is also following This is a 89-year-old nonsmoker male who came into the hospital with one week of shortness of breath has extensive coughing productive of the thick tenacious white sputum, patient has echocardiogram and chest x-ray echo revealed severe dilated LA, mild pulmonary hypertension and severe concentric LV hypertrophy, chest x-ray suggestive of mild fluid overload, patient is very compliant with Flu pneumonia vaccine, review of the records revealed that patient has been lately having elevated blood pressure in the primary care's office blood pressure was over 220/100, noted that meds are being adjusted for hypertensive heart failure and acute on chronic renal failure Objective - Vital Signs Vital signs: Vital Signs Temp 97.6 F 04/27/19 14:44 Pulse 51 L 04/27/19 14:44 Resp 16 04/27/19 14:44 BP 160/80 04/27/19 14:44 Pulse Ox 98 04/27/19 12:00 Intake & Output 04/26/19 04/27/19 04/27/19 18:59 06:59 18:59 Intake Total 843 034 2476 Output Total 2282 571 6707 Balance -788 -160 -280 Weight 100.1 kg Intake: Oral 662 120 720 Hemodialysis 300 Output: Urine 450 280 Hemodialysis 1000 1300 Other: Voiding Method Indwelling Catheter Indwelling Catheter Indwelling Catheter # Bowel Movements 1 - Exam - Constitutional General appearance: cooperative, disheveled, morbidly obese - EENT Eyes: anicteric sclerae, EOMI, PERRLA, normal appearance ENT: normal oropharynx Ears: bilateral: normal - Neck Carotids: bilateral: upstroke normal - Respiratory Respiratory: bilateral: diminished, rales (Fine basilar), negative: CTA, dullness, rhonchi, wheezing, prolonged expiration - Cardiovascular Rhythm: regular Heart sounds: normal: S1, S2 - Gastrointestinal General gastrointestinal: normal bowel sounds, soft - Neurologic Neurologic: CNII-XII intact - Musculoskeletal Musculoskeletal: gait normal, generalized weakness, strength equal bilaterally - Psychiatric Psychiatric: A&O x's 3, appropriate affect, intact judgment & insight - Labs CBC & Chem 7: 04/27/19 05:53 04/27/19 05:53 Labs: Abnormal Lab Results - Last 24 Hours (Table) 04/26/19 04/26/19 04/27/19 Range/Units 17:25 20:16 05:53 RBC (4.30-5.90) m/uL Hgb (13.0-17.5) gm/dL Hct (39.0-53.0) % Plt Count (150-450) k/uL Lymphocytes # (1.0-4.8) k/uL PT 17.8 H (9.0-12.0) sec INR 1.8 H (<1.2) Sodium (137-145) mmol/L BUN (9-20) mg/dL Creatinine (0.66-1.25) mg/dL Glucose (74-99) mg/dL POC Glucose (mg/dL) 118 H 162 H (75-99) mg/dL Calcium (8.4-10.2) mg/dL 04/27/19 04/27/19 04/27/19 Range/Units 05:53 05:53 06:23 RBC 3.34 L (4.30-5.90) m/uL Hgb 10.5 L (13.0-17.5) gm/dL Hct 30.0 L (39.0-53.0) % Plt Count 126 L (150-450) k/uL Lymphocytes # 0.8 L (1.0-4.8) k/uL PT (9.0-12.0) sec INR (<1.2) Sodium 135 L (137-145) mmol/L BUN 69 H (9-20) mg/dL Creatinine 3.04 H (0.66-1.25) mg/dL Glucose 103 H (74-99) mg/dL POC Glucose (mg/dL) 115 H (75-99) mg/dL Calcium 7.8 L (8.4-10.2) mg/dL 04/27/19 Range/Units 12:11 RBC (4.30-5.90) m/uL Hgb (13.0-17.5) gm/dL Hct (39.0-53.0) % Plt Count (150-450) k/uL Lymphocytes # (1.0-4.8) k/uL PT (9.0-12.0) sec INR (<1.2) Sodium (137-145) mmol/L BUN (9-20) mg/dL Creatinine (0.66-1.25) mg/dL Glucose (74-99) mg/dL POC Glucose (mg/dL) 117 H (75-99) mg/dL Calcium (8.4-10.2) mg/dL Assessment and Plan Assessment: C. 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
--- NOTE | 2019-04-27 16:46 | PN ---
PROGRESS NOTE DATE OF SERVICE: 04/27/2019 REASON FOR FOLLOWUP: C difficile colitis. INTERVAL HISTORY: The patient is currently afebrile. The patient has been breathing comfortably. The patient did have a bowel movement last night and one this morning, however has slightly forming, it is not as runny. Denies any worsening abdominal pain. No chest pain. No shortness of breath or cough. PHYSICAL EXAMINATION: Blood pressure is 162/80 with a pulse of 51, temperature 97.6. He is 98% on BiPAP. General description is an elderly male lying in bed in no distress. Respiratory system: Unlabored breathing. Clear to auscultation anteriorly. Heart S1, S2. Regular rate and rhythm. ABDOMEN: Soft. There is no tenderness. LABS: Hemoglobin is 10.5, white count 8.9, BUN of 69, creatinine 3.04. DIAGNOSTIC IMPRESSION AND PLAN: Patient with acute C difficile colitis. The patient seems to be clinically responding to oral vancomycin to continue. He has been advised to increase his p.o. intake, probiotic intake. Monitor clinical course closely. Continue supportive care. MMODL / IJN: [id number] /
[2019-04-27 17:20] LABS: Glucose,Whole Blood 123 mg/dL (75-99)
[2019-04-27] MEDS ORDERED: WARFARIN 1 MG TAB PO ONE (20:00)
[2019-04-27 20:57] LABS: Glucose,Whole Blood 124 mg/dL (75-99)
[2019-04-27] MEDS: TERBINAFINE 250 MG TAB PO SCH (21:38)
[2019-04-27] MEDS: FERROUS SULFATE 325 MG TAB PO SCH (21:38)
[2019-04-27] MEDS: IPRATROPIUM-ALBUTEROL 3 ML NEB INHALATION PRN (22:10)
[2019-04-28] MEDS: VANCOMYCIN ORAL SOLUTION 250 MG/5 ML BOTTLE PO SCH ×5 (00:52→23:47)
[2019-04-28] MEDS: CHERRY FLAVOR 60 ML BOTTLE PO PRN ×5 (00:52→23:47)
[2019-04-28 06:21] LABS: Glucose,Whole Blood 129 mg/dL (75-99)
[2019-04-28 06:23] LABS: INR 1.4 (<1.2); Prothrombin Time 14.3 sec (9.0-12.0)
[2019-04-28] MEDS: INSULIN ASPART (NovoLOG) 100 UNIT/ML VIAL SQ SCH ×4 (06:43→21:52)
[2019-04-28] MEDS: CARVEDILOL 6.25 MG TAB PO SCH ×2 (06:49→18:21)
[2019-04-28] MEDS: VORTIOXETINE HYDROBROMIDE 10 MG TABLET PO SCH (09:21)
[2019-04-28] MEDS: CLOPIDOGREL 75 MG TAB PO SCH (09:21)
[2019-04-28] MEDS: SODIUM BICARBONATE TAB 650 MG TAB PO SCH ×2 (09:21→21:52)
[2019-04-28] MEDS: SERTRALINE 50 MG TAB PO SCH (09:21)
[2019-04-28] MEDS: hydrALAZINE HCL 25 MG TAB PO SCH ×3 (09:21→21:51)
[2019-04-28] MEDS: GABAPENTIN 100 MG CAP PO SCH ×2 (09:21→21:51)
[2019-04-28] MEDS: ATORVASTATIN 80 MG TAB PO SCH (09:21)
[2019-04-28] MEDS: TAMSULOSIN 0.4 MG CAP.ER.24H PO SCH (09:22)
[2019-04-28] MEDS: guaiFENesin-DM 600/30MG 1 EACH TAB.ER.12H PO SCH ×2 (09:22→21:51)
[2019-04-28] MEDS: PANTOPRAZOLE 40 MG TABLET PO SCH (09:22)
[2019-04-28] MEDS: ALPRAZolam 0.5 MG TAB PO PRN ×3 (09:27→21:53)
[2019-04-28] MEDS: DOCUSATE 100 MG CAP PO SCH (09:56)
[2019-04-28] MEDS: IPRATROPIUM-ALBUTEROL 3 ML NEB INHALATION SCH ×4 (10:02→20:05)
[2019-04-28] MEDS: BUDESONIDE 0.5 MG/2 ML NEBU INHALATION SCH ×2 (10:02→20:05)
[2019-04-28 11:59] LABS: Glucose,Whole Blood 135 mg/dL (75-99)
[2019-04-28] MEDS: hydrALAZINE HCL 20 MG/ML 1 ML VIAL IVP PRN (12:30)
--- NOTE | 2019-04-28 13:58 | PN ---
PROGRESS NOTE Patient is seen for followup for chronic kidney disease and acute kidney injury. The patient was maintained on hemodialysis, currently hemodialysis is on hold. He received a treatment yesterday, we will try to hold over the weekend. Serum creatinine 2.62 from 3.0 yesterday. Urine output for 24 hours was about 1300 mL. PHYSICAL EXAMINATION: On examination today, blood pressure 191/82, heart rate 69 per minute, patient is afebrile. Examination of the heart S1, S2. Examination of the lungs, bilateral breath sounds are heard. Abdomen is soft, non-tender. Examination of lower extremities shows no significant edema. [employer] exam appears to be grossly intact. LAB: Show sodium 134, potassium 4.0, chloride 103, BUN 47, creatinine 2.6. ASSESSMENT: 1. Acute kidney injury, status post three treatments of hemodialysis, currently nonoliguric with good urine output. We will hold off on hemodialysis over the weekend. Repeat labs in a.m. 2. Dyspnea associated with volume overload, now improved. 3. Hyperkalemia associated with acute kidney injury and metabolic acidosis, improved post dialysis. 4. Chronic kidney disease stage IV secondary to diabetic kidney disease, baseline creatinine 3-3.3 mg/dL. 5. Status post aortic valve replacement. 6. Metabolic acidosis secondary to renal failure. 7. Hyponatremia associated with renal failure, improved post dialysis. 8. Clostridium difficile colitis, maintained on oral vancomycin. PLAN: Hold hemodialysis over the weekend. Repeat labs in a.m. Continue with Costello catheter for now. Encourage increased oral intake. MMODL / IJN: [id number] /
[2019-04-28 17:10] LABS: Glucose,Whole Blood 111 mg/dL (75-99)
--- NOTE | 2019-04-28 17:13 | PN ---
PROGRESS NOTE DATE OF SERVICE: 04/28/2019 REASON FOR FOLLOWUP: C difficile colitis. INTERVAL HISTORY: The patient is currently afebrile. The patient has been breathing comfortably. The patient denies having any chest pain or shortness of breath. No nausea, vomiting, abdominal pain and diarrhea has resolved. PHYSICAL EXAMINATION: Blood pressure 152/70 with a pulse of 73, temperature 98.1. He is 96% on room air. General description is an elderly male lying in bed in no distress. Respiratory system: Unlabored breathing, clear to auscultation anteriorly. Heart S1, S2. Regular rate and rhythm. Abdomen soft, no tenderness. LABS: BUN of 47, creatinine is 2.62. DIAGNOSTIC IMPRESSION AND PLAN: Patient with C difficile colitis. The patient seems to be clinically responding to the oral vancomycin, to continue. Has been advised to increase the probiotic and yogurt intake with the plan of 10 day course of oral vancomycin. Continue supportive care. The family at the bedside. Questions were answered. MMODL / IJN: [id number] /
[2019-04-28 21:02] LABS: Glucose,Whole Blood 208 mg/dL (75-99)
[2019-04-28] MEDS: FERROUS SULFATE 325 MG TAB PO SCH (21:51)
[2019-04-28] MEDS: TERBINAFINE 250 MG TAB PO SCH (23:47)
[2019-04-29] MEDS: VANCOMYCIN ORAL SOLUTION 250 MG/5 ML BOTTLE PO SCH ×4 (06:32→22:50)
[2019-04-29] MEDS: CHERRY FLAVOR 60 ML BOTTLE PO PRN ×4 (06:32→22:50)
[2019-04-29] MEDS: CARVEDILOL 6.25 MG TAB PO SCH ×2 (06:33→17:33)
[2019-04-29 07:15] LABS: Glucose,Whole Blood 106 mg/dL (75-99)
[2019-04-29] MEDS: INSULIN ASPART (NovoLOG) 100 UNIT/ML VIAL SQ SCH ×4 (07:24→21:27)
[2019-04-29] MEDS: ALPRAZolam 0.5 MG TAB PO PRN ×3 (08:40→23:25)
[2019-04-29] MEDS: CLOPIDOGREL 75 MG TAB PO SCH (08:40)
[2019-04-29] MEDS: SODIUM BICARBONATE TAB 650 MG TAB PO SCH (08:40)
[2019-04-29] MEDS: SERTRALINE 50 MG TAB PO SCH (08:41)
[2019-04-29] MEDS: guaiFENesin-DM 600/30MG 1 EACH TAB.ER.12H PO SCH ×2 (08:41→20:16)
[2019-04-29] MEDS: VORTIOXETINE HYDROBROMIDE 10 MG TABLET PO SCH (08:41)
[2019-04-29] MEDS: hydrALAZINE HCL 25 MG TAB PO SCH ×3 (08:41→20:16)
[2019-04-29] MEDS: PANTOPRAZOLE 40 MG TABLET PO SCH (08:41)
[2019-04-29] MEDS: TAMSULOSIN 0.4 MG CAP.ER.24H PO SCH (08:41)
[2019-04-29] MEDS: GABAPENTIN 100 MG CAP PO SCH ×2 (08:41→20:16)
[2019-04-29] MEDS: ATORVASTATIN 80 MG TAB PO SCH (08:41)
[2019-04-29] MEDS: DOCUSATE 100 MG CAP PO SCH (08:45)
[2019-04-29] MEDS: BUDESONIDE 0.5 MG/2 ML NEBU INHALATION SCH ×2 (08:46→19:45)
[2019-04-29] MEDS: IPRATROPIUM-ALBUTEROL 3 ML NEB INHALATION SCH ×4 (08:46→19:45)
--- NOTE | 2019-04-29 09:55 | P.PN ---
Subjective Progress Note Date: 04/28/19 Principal diagnosis: Acute COPD exacerbation, acute on chronic renal failure, hyperkalemia, hypertension hypertensive cardiovascular disease, congestive heart failure likely related to acute on chronic diastolic heart failure, bilateral pneumonia, right-sided small pleural effusion 04/28/2019, patient is awake breathing comfortably he is on 2 L oxygen will check oxygen saturation on room air patient has no dialysis today, his cough congestion is improved he has one loose stool today breathing more better, has been using his CPAP machine from home, and labs reviewed medications reviewed 04/27/2019, patient seen eval examined during the rounds labs reviewed medications reviewed care plan discussed with the patient and the staff at length patient underwent hemodialysis in more than a liter has been removed stool is still loose so far he has one loose stool 04/26/2019, patient is more awake and alert has been using home CPAP machine, diarrhea is slightly better patient underwent hemodialysis today 1 L of fluid has been removed, hydralazine dose has been escalated, patient will get an another hemodialysis cycle tomorrow 04/25/2019, patient seen eval examined during the rounds labs reviewed medications reviewed care plan discussed with the patient patient is being planned for hemodialysis catheter and dialysis today due to rising BUN/creatinine as well as uremic pericarditis and pericardial effusion, in addition patient having diffuse diarrhea stool came back positive for C. difficile patient is being started on oral vancomycin and we'll consult infectious disease as well, we'll stop Zosyn now 04/24/2019, patient seen eval examined during the rounds labs reviewed medications reviewed patient has been using BiPAP machine, labs are reviewed her his renal function continued to get worse renal services thinking about placing hemodialysis catheter and dialysis 04/23/2019, patient seen eval reexamined during the rounds, breathing is slightly better with still very short of breath his computed tomography scan done yesterday showed a small pleural effusion and bilateral pneumonia patient has been on IV Zosyn WBC count stable labs reviewed medications reviewed BUN/creatinine continue to go up is on 108 and creatinine is 4.5, renal services closely following the patient 04/20/2019, patient seen eval examined during the rounds labs reviewed medicati ons reviewed care plan discussed with the staff at length patient is still feel congested he is on IV steroids will initiate on breathing treatments as well continue gentle diuresis as planned renal service and cardiovascular service is also following This is a 89-year-old nonsmoker male who came into the hospital with one week of shortness of breath has extensive coughing productive of the thick tenacious white sputum, patient has echocardiogram and chest x-ray echo revealed severe dilated LA, mild pulmonary hypertension and severe concentric LV hypertrophy, chest x-ray suggestive of mild fluid overload, patient is very compliant with Flu pneumonia vaccine, review of the records revealed that patient has been lately having elevated blood pressure in the primary care's office blood pressu re was over 220/100, noted that meds are being adjusted for hypertensive heart failure and acute on chronic renal failure Objective - Vital Signs Vital signs: Vital Signs Temp 98.9 F 04/28/19 20:00 Pulse 72 04/28/19 20:18 Resp 18 04/28/19 20:00 BP 171/78 04/28/19 20:00 Pulse Ox 96 04/28/19 20:00 Intake & Output 04/28/19 04/28/19 04/29/19 06:59 18:59 06:59 Intake Total 360 480 Output Total 700 400 Balance -340 80 Weight 100.9 kg Intake: Oral 360 480 Output: Urine 700 400 Other: Voiding Method Indwelling Catheter Indwelling Catheter Indwelling Catheter # Bowel Movements 1 - Exam - Constitutional General appearance: cooperative, disheveled, morbidly obese - EENT Eyes: anicteric sclerae, EOMI, PERRLA, normal appearance ENT: normal oropharynx Ears: bilateral: normal - Neck Carotids: bilateral: upstroke normal - Respiratory Respiratory: bilateral: diminished, rales (Fine basilar), negative: CTA, dullness, rhonchi, wheezing, prolonged expiration - Cardiovascular Rhythm: regular Heart sounds: normal: S1, S2 - Gastrointestinal General gastrointestinal: normal bowel sounds, soft - Neurologic Neurologic: CNII-XII intact - Musculoskeletal Musculoskeletal: gait normal, generalized weakness, strength equal bilaterally - Psychiatric Psychiatric: A&O x's 3, appropriate affect, intact judgment & insight - Labs CBC & Chem 7: 04/27/19 05:53 04/29/19 07:37 Labs: Abnormal Lab Results - Last 24 Hours (Table) 04/28/19 04/28/19 04/28/19 Range/Units 05:38 05:38 06:18 PT 14.3 H (9.0-12.0) sec INR 1.4 H (<1.2) Sodium 134 L (137-145) mmol/L BUN 47 H (9-20) mg/dL Creatinine 2.62 H (0.66-1.25) mg/dL Glucose 112 H (74-99) mg/dL POC Glucose (mg/dL) 129 H (75-99) mg/dL Calcium 8.0 L (8.4-10.2) mg/dL 04/28/19 04/28/19 04/28/19 Range/Units 11:51 17:07 20:42 PT (9.0-12.0) sec INR (<1.2) Sodium (137-145) mmol/L BUN (9-20) mg/dL Creatinine (0.66-1.25) mg/dL Glucose (74-99) mg/dL POC Glucose (mg/dL) 135 H 111 H 208 H (75-99) mg/dL Calcium (8.4-10.2) mg/dL Assessment and Plan Assessment: C. 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
--- NOTE | 2019-04-29 09:57 | P.PN ---
Subjective Progress Note Date: 04/29/19 Principal diagnosis: Acute COPD exacerbation, acute on chronic renal failure, hyperkalemia, hypertension hypertensive cardiovascular disease, congestive heart failure likely related to acute on chronic diastolic heart failure, bilateral pneumonia, right-sided small pleural effusion 04/29/2019, patient seen evjob examined today denies any chest pain or shortness of breath he has been on room air feeling better her sats are 95%, we'll resume 2.5 mg of Coumadin each night and daily monitor PT/INR 04/28/2019, patient is awake breathing comfortably he is on 2 L oxygen will check oxygen saturation on room air patient has no dialysis today, his cough congestion is improved he has one loose stool today breathing more better, has been using his CPAP machine from home, and labs reviewed medications reviewed 04/27/2019, patient seen evjob examined during the rounds labs reviewed medications reviewed care plan discussed with the patient and the staff at length patient underwent hemodialysis in more than a liter has been removed stool is still loose so far he has one loose stool 04/26/2019, patient is more awake and alert has been using home CPAP machine, diarrhea is slightly better patient underwent hemodialysis today 1 L of fluid has been removed, hydralazine dose has been escalated, patient will get an another hemodialysis cycle tomorrow 04/25/2019, patient seen evjob examined during the rounds labs reviewed medications reviewed care plan discussed with the patient patient is being planned for hemodialysis catheter and dialysis today due to rising BUN/creatinine as well as uremic pericarditis and pericardial effusion, in addition patient having diffuse diarrhea stool came back positive for C. difficile patient is being started on oral vancomycin and we'll consult infectious disease as well, we'll stop Zosyn now 04/24/2019, patient seen evjob examined during the rounds labs reviewed medications reviewed patient has been using BiPAP machine, labs are reviewed her his renal function continued to get worse renal services thinking about placing hemodialysis catheter and dialysis 04/23/2019, patient seen marshall reexamined during the rounds, breathing is slig htly better with still very short of breath his computed tomography scan done yesterday showed a small pleural effusion and bilateral pneumonia patient has been on IV Zosyn WBC count stable labs reviewed medications reviewed BUN/creatinine continue to go up is on 108 and creatinine is 4.5, renal services closely following the patient 04/20/2019, patient seen eval examined during the rounds labs reviewed medications reviewed care plan discussed with the staff at length patient is still feel congested he is on IV steroids will initiate on breathing treatments as well continue gentle diuresis as planned renal service and cardiovascular service is also following This is a 89-year-old nonsmoker male who came into the hospital with one week of shortness of breath has extensive coughing productive of the thick tenacious white sputum, patient has echocardiogram and chest x-ray echo revealed severe dilated LA, mild pulmonary hypertension and severe concentric LV hypertrophy, chest x-ray suggestive of mild fluid overload, patient is very compliant with Flu pneumonia vaccine, review of the records revealed that patient has been lately having elevated blood pressure in the primary care's office blood pressure was over 220/100, noted that meds are being adjusted for hypertensive heart failure and acute on chronic renal failure Objective - Vital Signs Vital signs: Vital Signs Temp 98.4 F 04/29/19 08:00 Pulse 72 04/29/19 09:13 Resp 18 04/29/19 08:00 BP 198/90 04/29/19 08:00 Pulse Ox 95 04/29/19 08:00 Intake & Output 04/28/19 04/29/19 04/29/19 18:59 06:59 18:59 Intake Total 480 100 240 Output Total 400 Balance 80 100 240 Intake: Oral 480 100 240 Output: Urine 400 Other: Voiding Method Indwelling Catheter Indwelling Catheter Indwelling Catheter - Exam - Constitutional General appearance: cooperative, disheveled, morbidly obese - EENT Eyes: anicteric sclerae, EOMI, PERRLA, normal appearance ENT: normal oropharynx Ears: bilateral: normal - Neck Carotids: bilateral: upstroke normal - Respiratory Respiratory: bilateral: diminished, rales (Fine basilar), negative: CTA, dullness, rhonchi, wheezing, prolonged expiration - Cardiovascular Rhythm: regular Heart sounds: normal: S1, S2 - Gastrointestinal General gastrointestinal: normal bowel sounds, soft - Neurologic Neurologic: CNII-XII intact - Musculoskeletal Musculoskeletal: gait normal, generalized weakness, strength equal bilaterally - Psychiatric Psychiatric: A&O x's 3, appropriate affect, intact judgment & insight - Labs CBC & Chem 7: 04/27/19 05:53 04/29/19 07:37 Labs: Abnormal Lab Results - Last 24 Hours (Table) 04/28/19 04/28/19 04/28/19 Range/Units 11:51 17:07 20:42 Sodium (137-145) mmol/L BUN (9-20) mg/dL Creatinine (0.66-1.25) mg/dL Glucose (74-99) mg/dL POC Glucose (mg/dL) 135 H 111 H 208 H (75-99) mg/dL Calcium (8.4-10.2) mg/dL 04/29/19 04/29/19 Range/Units 07:07 07:37 Sodium 135 L (137-145) mmol/L BUN 52 H (9-20) mg/dL Creatinine 2.99 H (0.66-1.25) mg/dL Glucose 104 H (74-99) mg/dL POC Glucose (mg/dL) 106 H (75-99) mg/dL Calcium 8.0 L (8.4-10.2) mg/dL Assessment and Plan Assessment: C. 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
--- NOTE | 2019-04-29 11:56 | PN ---
PROGRESS NOTE Patient is seen for followup for acute kidney injury. The patient is status post hemodialysis x3. His last dialysis was Tuesday. We are currently holding off on treatment. The patient has had good urine output. Creatinine at 2.9 mg/dL. PHYSICAL EXAMINATION: Blood pressure 198/90, heart rate of 69 per minute, patient is afebrile. Examination of the heart S1, S2. Examination of the lungs, bilateral breath sounds are heard. ABDOMEN: Soft, nontender. Examination of lower extremities shows no evidence of edema. PATIENT CARRIER exam grossly intact. LABS: Reveal sodium of 135, potassium 4.0, BUN 52, creatinine 2.9. ASSESSMENT: 1. Acute kidney injury, nonoliguric, status post 3 treatments of hemodialysis. Will reevaluate tomorrow regarding need for continuation of renal replacement therapy. 2. Volume overload, now improved. 3. Hyperkalemia associated with acute kidney injury, metabolic acidosis, now resolved. 4. Chronic kidney disease, stage IV, secondary to diabetic kidney disease baseline creatinine 3.3 mg/dL. 5. C difficile colitis, maintained on oral vancomycin. 6. Hyponatremia associated with renal failure, improved post dialysis. 7. Hypertension, currently uncontrolled. DC sodium bicarb and increase the Procardia to 90 mg daily. PLAN: Repeat labs in a.m. DC sodium bicarb and increase Procardia to 90 mg daily. MMODL / IJN: [id number] /
[2019-04-29 12:36] LABS: Glucose,Whole Blood 121 mg/dL (75-99)
--- NOTE | 2019-04-29 16:32 | PN ---
PROGRESS NOTE DATE OF SERVICE: 04/29/2019. REASON FOR FOLLOWUP: C difficile colitis. INTERVAL HISTORY: The patient is currently afebrile. Patient is breathing comfortably. Denies having any chest pain or cough. No nausea, vomiting. No abdominal pain, diarrhea has resolved. He did have a small bowel movement yesterday and today. PHYSICAL EXAMINATION: Blood pressure 158/74 with a pulse of 68, temperature 98.2. He is 97% on room air. General description is an elderly male lying in bed in no distress. Respiratory system: Unlabored breathing. Clear to auscultation anteriorly. Heart S1, S2. Regular rate and rhythm. Abdomen soft, no tenderness. LABS: BUN of 52, creatinine is 2.99. DIAGNOSTIC IMPRESSION AND PLAN: Patient with C difficile colitis. The patient seemed to have shown overall clinical improvement. Plan at this time is to finish therapy with oral vancomycin 250 p.o. q.6 hours for another 7-10 days with close outpatient followup. MMODL / IJN: [id number] /
[2019-04-29] MEDS: WARFARIN 2.5 MG TAB PO SCH (17:33)
[2019-04-29] MEDS: TERBINAFINE 250 MG TAB PO SCH (20:16)
[2019-04-29] MEDS: FERROUS SULFATE 325 MG TAB PO SCH (20:16)
[2019-04-29 20:32] LABS: Glucose,Whole Blood 196 mg/dL (75-99)
[2019-04-30 06:10] LABS: Glucose,Whole Blood 106 mg/dL (75-99)
[2019-04-30] MEDS: INSULIN ASPART (NovoLOG) 100 UNIT/ML VIAL SQ SCH ×4 (06:14→21:15)
[2019-04-30] MEDS: CHERRY FLAVOR 60 ML BOTTLE PO PRN (06:18)
[2019-04-30] MEDS: VANCOMYCIN ORAL SOLUTION 250 MG/5 ML BOTTLE PO SCH ×4 (06:18→23:00)
[2019-04-30] MEDS: CARVEDILOL 6.25 MG TAB PO SCH ×2 (06:18→13:12)
[2019-04-30 06:46] LABS: INR 1.1 (<1.2); Prothrombin Time 11.8 sec (9.0-12.0)
[2019-04-30 08:40] LABS: Calcium 7.7 mg/dL (8.4-10.2); Potassium 3.9 mmol/L (3.5-5.1)
[2019-04-30] MEDS: ALPRAZolam 0.5 MG TAB PO PRN ×2 (08:47→16:48)
[2019-04-30] MEDS: BUDESONIDE 0.5 MG/2 ML NEBU INHALATION SCH ×2 (08:53→19:59)
[2019-04-30] MEDS: IPRATROPIUM-ALBUTEROL 3 ML NEB INHALATION SCH ×4 (08:53→20:01)
--- NOTE | 2019-04-30 11:15 | P.PN ---
Subjective Patient is seen in follow-up for acute kidney injury on chronic kidney disease. Patient has chronic kidney disease stage III with baseline creatinine in the range of 3-3.3. No vomiting or diarrhea. Has a Costello catheter. Urine output about 1 L in the last 24 hours. Last hemodialysis was on April 27. Creatinine today 3.35. Denies chest pain or shortness of breath. Vital signs are stable. General: The patient appeared well nourished and normally developed. HEENT: Head exam is unremarkable. Neck is without jugular venous distension. LUNGS: Breath sounds decreased. HEART: Rate and Rhythm are regular. First and second heart sounds normal. No murmurs, rubs or gallops. ABDOMEN: Abdominal exam reveals normal bowel sounds. Non-tender and non- distended. No evidence of peritonitis. EXTREMITITES: Trace edema. Objective - Vital Signs Vital signs: Vital Signs Temp 98.3 F 04/30/19 08:00 Pulse 68 04/30/19 09:10 Resp 16 04/30/19 11:08 BP 132/61 04/30/19 08:00 Pulse Ox 94 L 04/30/19 08:00 Intake & Output 04/29/19 04/30/19 04/30/19 18:59 06:59 18:59 Intake Total 600 30 Output Total 650 400 Balance -50 -370 Weight 101.2 kg Intake: Oral 600 30 Output: Urine 650 400 Other: Voiding Method Indwelling Catheter Indwelling Catheter Indwelling Catheter # Bowel Movements 1 - Labs CBC & Chem 7: 04/27/19 05:53 04/30/19 05:29 Labs: Abnormal Lab Results - Last 24 Hours (Table) 04/29/19 04/29/19 04/30/19 Range/Units 12:34 20:31 05:29 Sodium 133 L (137-145) mmol/L BUN 58 H (9-20) mg/dL Creatinine 3.35 H (0.66-1.25) mg/dL Glucose 106 H (74-99) mg/dL POC Glucose (mg/dL) 121 H 196 H (75-99) mg/dL Calcium 7.7 L (8.4-10.2) mg/dL 04/30/19 Range/Units 06:09 Sodium (137-145) mmol/L BUN (9-20) mg/dL Creatinine (0.66-1.25) mg/dL Glucose (74-99) mg/dL POC Glucose (mg/dL) 106 H (75-99) mg/dL Calcium (8.4-10.2) mg/dL Assessment and Plan Plan: Assessment: 1. Acute kidney injury secondary to ATN secondary to infection and component of cardiorenal syndrome. No evidence of urinary retention. Does have 3+ proteinuria on UA. UPC 1.3. Rule out GN. Serologies negative except for low C3. No evidence of hydronephrosis noted on kidney ultrasound. Started on hemodialysis April 25. Last hemodialysis on April 27. Creatinine today is 3.35. 2. Dyspnea secondary to volume overload. Also component of COPD exacerbation/pneumonia. Improved. 3. Hyperkalemia secondary to acute kidney injury and metabolic acidosis. Improved postdialysis. 4. Hypertension with chronic kidney disease. Better. 5. Chronic kidney disease stage IV secondary to diabetic kidney disease with baseline creatinine in the range of 3-3.3. 6. Diabetes mellitus. 7. Acute on chronic diastolic CHF. 8. Status post aortic valve replacement. 9. Metabolic acidosis secondary to acute kidney injury. Better. 10. Hyponatremia secondary to acute kidney injury. Improved postdialysis. 11. C. diff colitis maintained on oral vancomycin. Plan: Continue to hold dialysis. Monitor renal function closely. Continue to assess daily for renal function recovery. Continue to hold diuretics. Repeat electrolytes in the morning. Will repeat UA and complements again once infection is treated.
[2019-04-30 12:34] LABS: Glucose,Whole Blood 111 mg/dL (75-99)
[2019-04-30] MEDS: TAMSULOSIN 0.4 MG CAP.ER.24H PO SCH (13:12)
[2019-04-30] MEDS: GABAPENTIN 100 MG CAP PO SCH ×2 (13:12→21:10)
[2019-04-30] MEDS: NIFEdipine XL 90 MG TAB.ER.24 PO SCH (13:12)
[2019-04-30] MEDS: ATORVASTATIN 80 MG TAB PO SCH (13:12)
[2019-04-30] MEDS: PANTOPRAZOLE 40 MG TABLET PO SCH (13:12)
[2019-04-30] MEDS: SERTRALINE 50 MG TAB PO SCH (13:12)
[2019-04-30] MEDS: CLOPIDOGREL 75 MG TAB PO SCH (13:12)
[2019-04-30] MEDS: hydrALAZINE HCL 25 MG TAB PO SCH ×3 (13:12→21:10)
[2019-04-30] MEDS: DOCUSATE 100 MG CAP PO SCH (13:13)
[2019-04-30] MEDS: guaiFENesin-DM 600/30MG 1 EACH TAB.ER.12H PO SCH ×2 (13:13→21:14)
[2019-04-30] MEDS: VORTIOXETINE HYDROBROMIDE 10 MG TABLET PO SCH (13:13)
--- NOTE | 2019-04-30 14:16 | PN ---
PROGRESS NOTE DATE OF SERVICE: 04/30/2019 REASON FOR FOLLOWUP: C difficile colitis. INTERVAL HISTORY: The patient is currently afebrile. Patient is breathing comfortably. The patient denies having any chest pain or cough. No nausea, no vomiting. No abdominal pain. Did have one episode of diarrhea. PHYSICAL EXAMINATION: Blood pressure 125/70 with a pulse of 80, temperature 98, he is 95% on room air. General description is an elderly male, lying in bed in no distress. RESPIRATORY SYSTEM: Unlabored breathing and is clear to auscultation anteriorly. HEART S1, S2. Regular rate and rhythm. ABDOMEN: Soft, no tenderness. EXTREMITIES: No edema of the feet. LABS: BUN of 58, creatinine is 2.35. DIAGNOSTIC IMPRESSION AND PLAN: Patient with Clostridium difficile colitis. The patient seemed to have shown clinical improvement on the oral vancomycin. Plan to continue with oral vancomycin 250 twice a day for another 10 days to finish a course of therapy. Continue supportive care. MMODL / IJN: [id number] /
--- NOTE | 2019-04-30 15:47 | P.PN ---
Subjective Progress Note Date: 04/30/19 Principal diagnosis: Acute COPD exacerbation, acute on chronic renal failure, hyperkalemia, hypertension hypertensive cardiovascular disease, congestive heart failure likely related to acute on chronic diastolic heart failure, bilateral pneumonia, right-sided small pleural effusion 04/30/2019 patient seen and examined care plan discussed, has some loose stool today otherwise feels better he is still getting therapy for C. difficile colitis no dialysis has been planned for today, patient has been on 2.5 mg of Coumadin INR is subtherapeutic Will continue same dose BUN/creatinine stable 58 and 3.35 04/29/2019, patient seen eval examined today denies any chest pain or shortness of breath he has been on room air feeling better her sats are 95%, we'll resume 2.5 mg of Coumadin each night and daily monitor PT/INR 04/28/2019, patient is awake breathing comfortably he is on 2 L oxygen will check oxygen saturation on room air patient has no dialysis today, his cough congestion is improved he has one loose stool today breathing more better, has been using his CPAP machine from home, and labs reviewed medications reviewed 04/27/2019, patient seen evjob examined during the rounds labs reviewed medications reviewed care plan discussed with the patient and the staff at [facility] patient underwent hemodialysis in more than a liter has been removed stool is still loose so far he has one loose stool 04/26/2019, patient is more awake and alert has been using home CPAP machine, diarrhea is slightly better patient underwent hemodialysis today 1 L of fluid has been removed, hydralazine dose has been escalated, patient will get an another hemodialysis cycle tomorrow 04/25/2019, patient seen evjob examined during the rounds labs reviewed medications reviewed care plan discussed with the patient patient is being planned for hemodialysis catheter and dialysis today due to rising BUN/creatinine as well as uremic pericarditis and pericardial effusion, in addition patient having diffuse diarrhea stool came back positive for C. difficile patient is being started on oral vancomycin and we'll consult infectious disease as well, we'll stop Zosyn now 04/24/2019, patient seen evjob examined during the rounds labs reviewed medications reviewed patient has been using BiPAP machine, labs are reviewed her his renal function continued to get worse renal services thinking about placing hemodialysis catheter and dialysis 04/23/2019, patient seen eval reexamined during the rounds, breathing is slightly better with still very short of breath his computed tomography scan done yesterday showed a small pleural effusion and bilateral pneumonia patient has been on IV Zosyn WBC count stable labs reviewed medications reviewed BUN/creatinine continue to go up is on 108 and creatinine is 4.5, renal services closely following the patient 04/20/2019, patient seen eval examined during the rounds labs reviewed medications reviewed care plan discussed with the staff at length patient is still feel congested he is on IV steroids will initiate on breathing treatments as well continue gentle diuresis as planned renal service and cardiovascular service is also following This is a 89-year-old nonsmoker male who came into the hospital with one week of shortness of breath has extensive coughing productive of the thick tenacious white sputum, patient has echocardiogram and chest x-ray echo revealed severe dilated LA, mild pulmonary hypertension and severe concentric LV hypertrophy, chest x-ray suggestive of mild fluid overload, patient is very compliant with Flu pneumonia vaccine, review of the records revealed that patient has been lately having elevated blood pressure in the primary care's office blood pressure was over 220/100, noted that meds are being adjusted for hypertensive heart failure and acute on chronic renal failure Objective - Vital Signs Vital signs: Vital Signs Temp 98.3 F 04/30/19 08:00 Pulse 60 04/30/19 12:56 Resp 16 04/30/19 12:00 BP 175/74 04/30/19 12:00 Pulse Ox 95 04/30/19 12:00 Intake & Output 04/29/19 04/30/19 04/30/19 18:59 06:59 18:59 Intake Total 600 30 366 Output Total 650 400 500 Balance -50 -370 -134 Weight 101.2 kg Intake: Oral 600 30 366 Output: Urine 650 400 500 Other: Voiding Method Indwelling Catheter Indwelling Catheter Indwelling Catheter # Bowel Movements 1 1 - Exam - Constitutional General appearance: cooperative, disheveled, morbidly obese - EENT Eyes: anicteric sclerae, EOMI, PERRLA, normal appearance ENT: normal oropharynx Ears: bilateral: normal - Neck Carotids: bilateral: upstroke normal - Respiratory Respiratory: bilateral: diminished, rales (Fine basilar), negative: CTA, dullness, rhonchi, wheezing, prolonged expiration - Cardiovascular Rhythm: regular Heart sounds: normal: S1, S2 - Gastrointestinal General gastrointestinal: normal bowel sounds, soft - Neurologic Neurologic: CNII-XII intact - Musculoskeletal Musculoskeletal: gait normal, generalized weakness, strength equal bilaterally - Psychiatric Psychiatric: A&O x's 3, appropriate affect, intact judgment & insight - Labs CBC & Chem 7: 04/27/19 05:53 04/30/19 05:29 Labs: Abnormal Lab Results - Last 24 Hours (Table) 04/29/19 04/30/19 04/30/19 Range/Units 20:31 05:29 06:09 Sodium 133 L (137-145) mmol/L BUN 58 H (9-20) mg/dL Creatinine 3.35 H (0.66-1.25) mg/dL Glucose 106 H (74-99) mg/dL POC Glucose (mg/dL) 196 H 106 H (75-99) mg/dL Calcium 7.7 L (8.4-10.2) mg/dL 04/30/19 Range/Units 12:33 Sodium (137-145) mmol/L BUN (9-20) mg/dL Creatinine (0.66-1.25) mg/dL Glucose (74-99) mg/dL POC Glucose (mg/dL) 111 H (75-99) mg/dL Calcium (8.4-10.2) mg/dL Assessment and Plan Assessment: C. 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
[2019-04-30] MEDS: WARFARIN 2.5 MG TAB PO SCH (16:47)
[2019-04-30 16:55] LABS: Glucose,Whole Blood 113 mg/dL (75-99)
[2019-04-30 20:40] LABS: Glucose,Whole Blood 153 mg/dL (75-99)
[2019-04-30] MEDS: FERROUS SULFATE 325 MG TAB PO SCH (21:10)
[2019-04-30] MEDS: TERBINAFINE 250 MG TAB PO SCH (21:15)
[2019-05-01] MEDS: VANCOMYCIN ORAL SOLUTION 250 MG/5 ML BOTTLE PO SCH ×4 (05:38→22:32)
[2019-05-01] MEDS: CARVEDILOL 6.25 MG TAB PO SCH ×2 (05:39→17:44)
[2019-05-01 06:08] LABS: Glucose,Whole Blood 118 mg/dL (75-99)
[2019-05-01] MEDS: INSULIN ASPART (NovoLOG) 100 UNIT/ML VIAL SQ SCH ×4 (06:25→21:04)
[2019-05-01 06:27] LABS: Basophils % (A) 0 %; Eosinophils # (A) 0.1 k/uL (0-0.7); Eosinophils % (A) 1 %; HCT 26.8 % (39.0-53.0); HGB 9.1 gm/dL (13.0-17.5); Lymphocytes # (A) 0.9 k/uL (1.0-4.8); Lymphocytes % (A) 8 %; MCH 31.1 pg (25.0-35.0); MCHC 33.9 g/dL (31.0-37.0); MCV 91.7 fL (80.0-100.0); Mean Platelet Volume 7.2; Monocytes # (A) 0.6 k/uL (0-1.0); Monocytes % (A) 6 %; Neutrophils # (A) 9.3 k/uL (1.3-7.7); Neutrophils % (A) 84 %; Platelet Count 111 k/uL (150-450); RBC 2.92 m/uL (4.30-5.90); RDW 12.2 % (11.5-15.5); WBC 11.1 k/uL (3.8-10.6)
[2019-05-01 06:42] LABS: Albumin 2.7 g/dL (3.5-5.0); Calcium 7.9 mg/dL (8.4-10.2); Magnesium 2.4 mg/dL (1.6-2.3); Potassium 3.8 mmol/L (3.5-5.1); Total Bilirubin 0.6 mg/dL (0.2-1.3); Total Protein 5.1 g/dL (6.3-8.2)
[2019-05-01] MEDS: NIFEdipine XL 90 MG TAB.ER.24 PO SCH (08:07)
[2019-05-01] MEDS: DOCUSATE 100 MG CAP PO SCH (08:07)
[2019-05-01] MEDS: PANTOPRAZOLE 40 MG TABLET PO SCH (08:07)
[2019-05-01] MEDS: hydrALAZINE HCL 25 MG TAB PO SCH ×3 (08:07→22:32)
[2019-05-01] MEDS: SERTRALINE 50 MG TAB PO SCH (08:08)
[2019-05-01] MEDS: VORTIOXETINE HYDROBROMIDE 10 MG TABLET PO SCH (08:08)
[2019-05-01] MEDS: TAMSULOSIN 0.4 MG CAP.ER.24H PO SCH (08:08)
[2019-05-01] MEDS: ATORVASTATIN 80 MG TAB PO SCH (08:08)
[2019-05-01] MEDS: ALPRAZolam 0.5 MG TAB PO PRN ×2 (08:08→22:32)
[2019-05-01] MEDS: CLOPIDOGREL 75 MG TAB PO SCH (08:08)
[2019-05-01] MEDS: GABAPENTIN 100 MG CAP PO SCH ×2 (08:08→22:25)
[2019-05-01] MEDS: guaiFENesin-DM 600/30MG 1 EACH TAB.ER.12H PO SCH ×2 (08:09→22:25)
[2019-05-01] MEDS: BUDESONIDE 0.5 MG/2 ML NEBU INHALATION SCH ×2 (09:09→20:07)
[2019-05-01] MEDS: IPRATROPIUM-ALBUTEROL 3 ML NEB INHALATION SCH ×4 (09:09→20:07)
[2019-05-01 10:49] VITALS: BMI 27.6
--- NOTE | 2019-05-01 12:36 | P.PN ---
Subjective Patient is seen in follow-up for acute kidney injury on chronic kidney disease. Patient has chronic kidney disease stage III with baseline creatinine in the range of 3-3.3. No vomiting or diarrhea. Has a Costello catheter. Urine output about 1.1 L in the last 24 hours. Last hemodialysis was on April 27. Creatinine today is stable at 3.33. Denies chest pain or shortness of breath. Complains of a sore throat. Vital signs are stable. General: The patient appeared well nourished and normally developed. HEENT: Head exam is unremarkable. Neck is without jugular venous distension. LUNGS: Breath sounds decreased. HEART: Rate and Rhythm are regular. First and second heart sounds normal. No murmurs, rubs or gallops. ABDOMEN: Abdominal exam reveals normal bowel sounds. Non-tender and non- distended. No evidence of peritonitis. EXTREMITITES: Trace edema. Objective - Vital Signs Vital signs: Vital Signs Temp 97 F L 05/01/19 08:00 Pulse 60 05/01/19 11:52 Resp 16 05/01/19 11:27 BP 174/80 05/01/19 08:00 Pulse Ox 94 L 05/01/19 08:00 Intake & Output 04/30/19 05/01/19 05/01/19 18:59 06:59 18:59 Intake Total 606 Output Total 500 600 300 Balance 106 -600 -300 Weight 102.9 kg 102.9 kg Intake: Oral 606 Output: Urine 500 600 300 Other: Voiding Method Indwelling Catheter Indwelling Catheter Indwelling Catheter # Voids 1 1 # Bowel Movements 2 1 - Labs CBC & Chem 7: 05/01/19 05:40 05/01/19 05:40 Labs: Abnormal Lab Results - Last 24 Hours (Table) 04/30/19 04/30/19 04/30/19 Range/Units 12:33 16:54 20:39 WBC (3.8-10.6) k/uL RBC (4.30-5.90) m/uL Hgb (13.0-17.5) gm/dL Hct (39.0-53.0) % Plt Count (150-450) k/uL Neutrophils # (1.3-7.7) k/uL Lymphocytes # (1.0-4.8) k/uL Sodium (137-145) mmol/L BUN (9-20) mg/dL Creatinine (0.66-1.25) mg/dL Glucose (74-99) mg/dL POC Glucose (mg/dL) 111 H 113 H 153 H (75-99) mg/dL Calcium (8.4-10.2) mg/dL Magnesium (1.6-2.3) mg/dL Total Protein (6.3-8.2) g/dL Albumin (3.5-5.0) g/dL 05/01/19 05/01/19 05/01/19 Range/Units 05:40 05:40 06:07 WBC 11.1 H (3.8-10.6) k/uL RBC 2.92 L (4.30-5.90) m/uL Hgb 9.1 L (13.0-17.5) gm/dL Hct 26.8 L (39.0-53.0) % Plt Count 111 L (150-450) k/uL Neutrophils # 9.3 H (1.3-7.7) k/uL Lymphocytes # 0.9 L (1.0-4.8) k/uL Sodium 134 L (137-145) mmol/L BUN 60 H (9-20) mg/dL Creatinine 3.33 H (0.66-1.25) mg/dL Glucose 109 H (74-99) mg/dL POC Glucose (mg/dL) 118 H (75-99) mg/dL Calcium 7.9 L (8.4-10.2) mg/dL Magnesium 2.4 H (1.6-2.3) mg/dL Total Protein 5.1 L (6.3-8.2) g/dL Albumin 2.7 L (3.5-5.0) g/dL Assessment and Plan Plan: Assessment: 1. Acute kidney injury secondary to ATN secondary to infection and component of cardiorenal syndrome. No evidence of urinary retention. Does have 3+ proteinuria on UA. UPC 1.3. Rule out GN. Serologies negative except for low C3. No evidence of hydronephrosis noted on kidney ultrasound. Started on hemodialysis April 25. Last hemodialysis on April 27. Creatinine today is stable at 3.33. 2. Dyspnea secondary to volume overload. Also component of COPD exacerbation/pneumonia. Improved. 3. Hyperkalemia secondary to acute kidney injury and metabolic acidosis. Improved postdialysis. 4. Hypertension with chronic kidney disease. Better. 5. Chronic kidney disease stage IV secondary to diabetic kidney disease with baseline creatinine in the range of 3-3.3. 6. Diabetes mellitus. 7. Acute on chronic diastolic CHF. 8. Status post aortic valve replacement. 9. Metabolic acidosis secondary to acute kidney injury. Better. 10. Hyponatremia secondary to acute kidney injury. Improved. Stable. 11. C. diff colitis maintained on oral vancomycin. 12. Anemia of chronic kidney disease. Rule out iron deficiency. Plan: Continue to hold dialysis. Monitor renal function closely. Continue to assess daily for renal function recovery. Continue to hold diuretics. Check iron studies. Add Aranesp. Repeat electrolytes in the morning.
[2019-05-01 12:41] LABS: Glucose,Whole Blood 127 mg/dL (75-99)
[2019-05-01] MEDS ORDERED: DARBEPOETIN ALFA 40 MCG/0.4 ML SYRINGE SQ SCH (13:00)
--- NOTE | 2019-05-01 14:10 | P.PN ---
Subjective Progress Note Date: 05/01/19 This is an 89-year-old gentleman admitted with acute COPD exacerbation, CHF exacerbation, and multiple other medical issues, subsequently developed acute renal failure and is scheduled to receive temporary dialysis catheter today. INR pending. Sodium 131, potassium 5.1, renal function continues worsening with BUN of 128, creatinine 4.89. Afebrile.VSS. 05/01/2019 vomiting, diarrhea subsided . Creatinine 3.3 .Dialysis, diuretics remain on hold. Sodium 134. Hemoglobin 9.1. Denies chest pain, palpitations or shortness of breath. PT/INR pending. Afebrile. Objective - Vital Signs Vital signs: Vital Signs Temp 97 F L 05/01/19 08:00 Pulse 60 05/01/19 11:52 Resp 16 05/01/19 11:27 BP 174/80 05/01/19 08:00 Pulse Ox 94 L 05/01/19 08:00 Intake & Output 04/30/19 05/01/19 05/01/19 18:59 06:59 18:59 Intake Total 606 Output Total 500 600 300 Balance 106 -600 -300 Weight 102.9 kg 102.9 kg Intake: Oral 606 Output: Urine 500 600 300 Other: Voiding Method Indwelling Catheter Indwelling Catheter Indwelling Catheter # Voids 1 1 # Bowel Movements 2 1 - Exam PHYSICAL EXAM: VITAL SIGNS: As above GENERAL: Sitting up in chair, no acute distress HEENT: Conjunctivae normal. eyes normal. Oral mucosa moist NECK: No JVD. No thyroid enlargement. No LNs CARDIOVASCULAR: S1, S2 regular. Systolic murmur RESPIRATION: Breath sounds diminished in the bases. No rhonchi or crackles. Occasional mild expiratory wheeze. ABDOMEN: Soft, nontender . No guarding. no masses palpable. Bowel sounds heard. LEGS: Trace bilateral lower extremity edema PSYCHIATRY: Alert and oriented X2, mood and affect normal. NERVOUS SYSTEM: Cranial N 2-12 grossly normal. Moves all 4 limbs. Diffuse weakness No focal deficits. Strength and sensation grossly intact.. Skin: no lesions, no rash - Labs CBC & Chem 7: 05/01/19 05:40 05/01/19 05:40 Labs: Abnormal Lab Results - Last 24 Hours (Table) 04/30/19 04/30/19 05/01/19 Range/Units 16:54 20:39 05:40 WBC (3.8-10.6) k/uL RBC (4.30-5.90) m/uL Hgb (13.0-17.5) gm/dL Hct (39.0-53.0) % Plt Count (150-450) k/uL Neutrophils # (1.3-7.7) k/uL Lymphocytes # (1.0-4.8) k/uL Sodium 134 L (137-145) mmol/L BUN 60 H (9-20) mg/dL Creatinine 3.33 H (0.66-1.25) mg/dL Glucose 109 H (74-99) mg/dL POC Glucose (mg/dL) 113 H 153 H (75-99) mg/dL Calcium 7.9 L (8.4-10.2) mg/dL Magnesium 2.4 H (1.6-2.3) mg/dL Total Protein 5.1 L (6.3-8.2) g/dL Albumin 2.7 L (3.5-5.0) g/dL 05/01/19 05/01/19 05/01/19 Range/Units 05:40 06:07 12:34 WBC 11.1 H (3.8-10.6) k/uL RBC 2.92 L (4.30-5.90) m/uL Hgb 9.1 L (13.0-17.5) gm/dL Hct 26.8 L (39.0-53.0) % Plt Count 111 L (150-450) k/uL Neutrophils # 9.3 H (1.3-7.7) k/uL Lymphocytes # 0.9 L (1.0-4.8) k/uL Sodium (137-145) mmol/L BUN (9-20) mg/dL Creatinine (0.66-1.25) mg/dL Glucose (74-99) mg/dL POC Glucose (mg/dL) 118 H 127 H (75-99) mg/dL Calcium (8.4-10.2) mg/dL Magnesium (1.6-2.3) mg/dL Total Protein (6.3-8.2) g/dL Albumin (3.5-5.0) g/dL Assessment and Plan Assessment: -Hypertensive urgency, present on admission, improving -Right-sided pneumonia, off of antibiotics -Acute COPD exacerbation with tracheobronchitis -Acute renal failure secondary to ATN, multifactorial, diuretic induced, secondary to infection, cardiorenal syndrome. Stage V renal failure, status post temporary dialysis catheter placement started on Hemodialysis initiated this visit. -Metabolic acidosis secondary to the above -Hyponatremia secondary to acute renal failure -Chronic kidney disease stage IV secondary to diabetic kidney disease, baseline 3-3.3 -Diabetes mellitus, type II -Acute hypoxic respiratory failure secondary to the above -Hyperkalemia secondary to acute renal failure, metabolic acidosis -acute on chronic CHF exacerbation, diastolic dysfunction -Chronic paroxysmal atrial fibrillation -Status post aortic valve replacement -C. diff colitis -Anemia of chronic disease, possible iron deficient-iron studies pending -Uremic pericarditis, paracardial effusion -Right-sided mild pleural effusion, likely related to fluid overload Plan: Continue on current medication regime , oral sodium bicarb ,monitoring and symptomatic treatment. Anticoagulated on Coumadin, PT/INR pending.Maintain oral vancomycin, nebulized bronchodilators .Hemodialysis, diuretics remains on hold as per nephrology.close monitoring of renal function with repeat labs ordered for a.m. Maintain Strict aspiration precautions. PT/INR pending for today's dosing. Discharge planning in progress to subacute rehab pending nephrology's clearance. The impression and plan of care has been dictated as directed. : I performed a history and examination of this patient, discussed the same with the dictator. I agree with the dictator's note ,documented as a scribe. Any additional findings or plans will be noted.
[2019-05-01 14:29] LABS: INR 1.1 (<1.2); Prothrombin Time 11.4 sec (9.0-12.0)
[2019-05-01 16:43] LABS: Glucose,Whole Blood 185 mg/dL (75-99)
--- NOTE | 2019-05-01 17:42 | P.PN ---
Subjective Progress Note Date: 05/01/19 Principal diagnosis: Acute COPD exacerbation, acute on chronic renal failure, hyperkalemia, hypertension hypertensive cardiovascular disease, congestive heart failure likely related to acute on chronic diastolic heart failure, bilateral pneumonia, right-sided small pleural effusion 05/01/2019, patient seen eval examined during the round the patient's partner is present, patient appears slightly more confused and more short of breath expiratory fine wheezing are present, diarrhea have improved today patient is being monitor off of dialysis for suspect slowly accumulating fluid will get a chest x-ray tomorrow and may need another dialysis 04/30/2019 patient seen and examined care plan discussed, has some loose stool today otherwise feels better he is still getting therapy for C. difficile colitis no dialysis has been planned for today, patient has been on 2.5 mg of Co umadin INR is subtherapeutic Will continue same dose BUN/creatinine stable 58 and 3.35 04/29/2019, patient seen eval examined today denies any chest pain or shortness of breath he has been on room air feeling better her sats are 95%, we'll resume 2.5 mg of Coumadin each night and daily monitor PT/INR 04/28/2019, patient is awake breathing comfortably he is on 2 L oxygen will check oxygen saturation on room air patient has no dialysis today, his cough congestion is improved he has one loose stool today breathing more better, has been using his CPAP machine from home, and labs reviewed medications reviewed 04/27/2019, patient seen eval examined during the rounds labs reviewed medications reviewed care plan discussed with the patient and the staff at length patient underwent hemodialysis in more than a liter has been removed stool is still loose so far he has one loose stool 04/26/2019, patient is more awake and alert has been using home CPAP machine, diarrhea is slightly better patient underwent hemodialysis today 1 L of fluid has been removed, hydralazine dose has been escalated, patient will get an another hemodialysis cycle tomorrow 04/25/2019, patient seen eval examined during the rounds labs reviewed medications reviewed care plan discussed with the patient patient is being planned for hemodialysis catheter and dialysis today due to rising BUN/creatinine as well as uremic pericarditis and pericardial effusion, in addition patient having diffuse diarrhea stool came back positive for C. difficile patient is being started on oral vancomycin and we'll consult infectious disease as well, we'll stop Zosyn now 04/24/2019, patient seen marshall examined during the rounds labs reviewed medications reviewed patient has been using BiPAP machine, labs are reviewed her his renal function continued to get worse renal services thinking about placing hemodialysis catheter and dialysis 04/23/2019, patient seen marshall reexamined during the rounds, breathing is slightly better with still very short of breath his computed tomography scan done yesterday showed a small pleural effusion and bilateral pneumonia patient has been on IV Zosyn WBC count stable labs reviewed medications reviewed BUN/creatinine continue to go up is on 108 and creatinine is 4.5, renal services closely following the patient 04/20/2019, patient seen marshall examined during the rounds labs reviewed medicat ions reviewed care plan discussed with the staff at length patient is still feel congested he is on IV steroids will initiate on breathing treatments as well continue gentle diuresis as planned renal service and cardiovascular service is also following This is a 89-year-old nonsmoker male who came into the hospital with one week of shortness of breath has extensive coughing productive of the thick tenacious white sputum, patient has echocardiogram and chest x-ray echo revealed severe dilated LA, mild pulmonary hypertension and severe concentric LV hypertrophy, chest x-ray suggestive of mild fluid overload, patient is very compliant with Flu pneumonia vaccine, review of the records revealed that patient has been lately having elevated blood pressure in the primary care's office blood press ure was over 220/100, noted that meds are being adjusted for hypertensive heart failure and acute on chronic renal failure Objective - Vital Signs Vital signs: Vital Signs Temp 98.3 F 05/01/19 15:32 Pulse 68 05/01/19 16:19 Resp 16 05/01/19 15:32 BP 148/66 05/01/19 15:32 Pulse Ox 95 05/01/19 15:32 Intake & Output 04/30/19 05/01/19 05/01/19 18:59 06:59 18:59 Intake Total 606 Output Total 500 600 300 Balance 106 -600 -300 Weight 102.9 kg 102.9 kg Intake: Oral 606 Output: Urine 500 600 300 Other: Voiding Method Indwelling Catheter Indwelling Catheter Indwelling Catheter # Voids 1 1 # Bowel Movements 2 1 - Exam - Constitutional General appearance: cooperative, disheveled, morbidly obese - EENT Eyes: anicteric sclerae, EOMI, PERRLA, normal appearance ENT: normal oropharynx Ears: bilateral: normal - Neck Carotids: bilateral: upstroke normal - Respiratory Respiratory: bilateral Fine expiratory wheezing - Cardiovascular Rhythm: regular Heart sounds: normal: S1, S2 - Gastrointestinal General gastrointestinal: normal bowel sounds, soft - Neurologic Neurologic: CNII-XII intact - Musculoskeletal Musculoskeletal: gait normal, generalized weakness, strength equal bilaterally - Psychiatric Psychiatric: A&O x's 3, appropriate affect, intact judgment & insight - Labs CBC & Chem 7: 05/01/19 05:40 05/01/19 05:40 Labs: Abnormal Lab Results - Last 24 Hours (Table) 04/30/19 05/01/19 05/01/19 Range/Units 20:39 05:40 05:40 WBC 11.1 H (3.8-10.6) k/uL RBC 2.92 L (4.30-5.90) m/uL Hgb 9.1 L (13.0-17.5) gm/dL Hct 26.8 L (39.0-53.0) % Plt Count 111 L (150-450) k/uL Neutrophils # 9.3 H (1.3-7.7) k/uL Lymphocytes # 0.9 L (1.0-4.8) k/uL Sodium 134 L (137-145) mmol/L BUN 60 H (9-20) mg/dL Creatinine 3.33 H (0.66-1.25) mg/dL Glucose 109 H (74-99) mg/dL POC Glucose (mg/dL) 153 H (75-99) mg/dL Calcium 7.9 L (8.4-10.2) mg/dL Magnesium 2.4 H (1.6-2.3) mg/dL Total Protein 5.1 L (6.3-8.2) g/dL Albumin 2.7 L (3.5-5.0) g/dL 05/01/19 05/01/19 05/01/19 Range/Units 06:07 12:34 16:39 WBC (3.8-10.6) k/uL RBC (4.30-5.90) m/uL Hgb (13.0-17.5) gm/dL Hct (39.0-53.0) % Plt Count (150-450) k/uL Neutrophils # (1.3-7.7) k/uL Lymphocytes # (1.0-4.8) k/uL Sodium (137-145) mmol/L BUN (9-20) mg/dL Creatinine (0.66-1.25) mg/dL Glucose (74-99) mg/dL POC Glucose (mg/dL) 118 H 127 H 185 H (75-99) mg/dL Calcium (8.4-10.2) mg/dL Magnesium (1.6-2.3) mg/dL Total Protein (6.3-8.2) g/dL Albumin (3.5-5.0) g/dL Assessment and Plan Assessment: C. difficile colitis Chronic paroxysmal atrial fibrillation Uremic pericarditis/pericardial effusion Right-sided pneumonia, off of antibiotics Right-sided small pleural effusion, likely related to fluid overload Hypertensive heart failure COPD exacerbation Tracheobronchitis Hypertensive urgency in emergency Stage 5 renal failure being started on hemodialysis Borderline hyperkalemia Type 2 diabetes mellitus Chronic atrial fibrillation Plan: Continue oral vancomycin Ordered a chest x-ray Continue hemodialysis as per renal Continue breathing treatments Adjustment of antihypertensive agent by adjusting and adding Anticoagulation to be started, patient has been taking 2.5 mg Coumadin at home will resume Observe off of IV steroids and antibiotics Time with Patient: Greater than 30
[2019-05-01] MEDS: WARFARIN 2.5 MG TAB PO SCH (17:50)
--- NOTE | 2019-05-01 18:04 | PN ---
PROGRESS NOTE DATE OF SERVICE: 05/01/2019. REASON FOR FOLLOW UP: C difficile colitis. INTERVAL HISTORY: The patient is currently afebrile. Patient is breathing comfortably. The patient denies having any chest pain or shortness of breath or cough. No nausea, vomiting. No abdominal pain. Diarrhea has decreased frequency. No new episodes since this morning. PHYSICAL EXAMINATION: Blood pressure 148/66, pulse of 73, temperature 98.3. He is 95% on room air. General description is an elderly male up in the chair in no distress. Respiratory system: Unlabored breathing. Decreased breath sounds at the bases. No wheeze. Heart S1, S2. Regular rate and rhythm. Abdomen soft. No tenderness. LABS: Hemoglobin 9.1, white count of 11.1. DIAGNOSTIC IMPRESSION AND PLAN: Patient with C difficile colitis. The patient to continue with oral vancomycin 250 p.o. q.6 hours , Questran for symptomatic relief and monitor clinical course closely. Avoid any further other antibiotics to decrease worsening of his underlying C difficile colitis. Continue supportive care. MMODL / IJN: [id number] / [id number]
[2019-05-01 20:04] LABS: Ferritin 148.2 ng/mL (22.0-322.0)
[2019-05-01 20:08] LABS: % Iron Saturation 14.67 (15.00-50.00)
[2019-05-01 20:56] LABS: Glucose,Whole Blood 157 mg/dL (75-99)
[2019-05-01] MEDS: FERROUS SULFATE 325 MG TAB PO SCH (22:25)
[2019-05-01] MEDS: TERBINAFINE 250 MG TAB PO SCH (22:25)
[2019-05-02 06:03] LABS: Glucose,Whole Blood 128 mg/dL (75-99)
[2019-05-02] MEDS: INSULIN ASPART (NovoLOG) 100 UNIT/ML VIAL SQ SCH ×4 (06:17→20:22)
[2019-05-02] MEDS: CARVEDILOL 6.25 MG TAB PO SCH ×2 (06:18→17:44)
[2019-05-02] MEDS: VANCOMYCIN ORAL SOLUTION 250 MG/5 ML BOTTLE PO SCH ×2 (06:18→11:48)
[2019-05-02 06:46] LABS: Prothrombin Time 11.1 sec (9.0-12.0)
[2019-05-02 06:49] LABS: Magnesium 2.6 mg/dL (1.6-2.3); Potassium 4.1 mmol/L (3.5-5.1)
[2019-05-02] MEDS: GABAPENTIN 100 MG CAP PO SCH ×2 (09:13→20:22)
[2019-05-02] MEDS: ATORVASTATIN 80 MG TAB PO SCH (09:13)
[2019-05-02] MEDS: CLOPIDOGREL 75 MG TAB PO SCH (09:13)
[2019-05-02] MEDS: SERTRALINE 50 MG TAB PO SCH (09:13)
[2019-05-02] MEDS: hydrALAZINE HCL 25 MG TAB PO SCH ×3 (09:13→22:52)
[2019-05-02] MEDS: NIFEdipine XL 90 MG TAB.ER.24 PO SCH (09:13)
[2019-05-02] MEDS: TAMSULOSIN 0.4 MG CAP.ER.24H PO SCH (09:14)
[2019-05-02] MEDS: VORTIOXETINE HYDROBROMIDE 10 MG TABLET PO SCH (09:14)
[2019-05-02] MEDS: PANTOPRAZOLE 40 MG TABLET PO SCH (09:14)
[2019-05-02] MEDS: DOCUSATE 100 MG CAP PO SCH (09:14)
[2019-05-02] MEDS: guaiFENesin-DM 600/30MG 1 EACH TAB.ER.12H PO SCH ×2 (09:15→20:22)
--- NOTE | 2019-05-02 09:42 | XR ---
EXAMINATION TYPE: XR chest 1V portable DATE OF EXAM: 05/02/2019 COMPARISON: 04/24/2019 HISTORY: Shortness of breath TECHNIQUE: Single frontal view of the chest is obtained. FINDINGS: The heart is enlarged and there is bilateral consolidation small effusion greater on the l eft. Atherosclerotic change aorta. Arthropathy of the shoulders. Hyperinflation suggests COPD. No ove rt failure or pneumothorax. Correlate for previous cardiac valve surgery. IMPRESSION: Cardiomegaly, COPD and bilateral consolidation with small effusion greater on the left.
[2019-05-02] MEDS: IPRATROPIUM-ALBUTEROL 3 ML NEB INHALATION SCH ×4 (10:04→20:24)
[2019-05-02] MEDS: BUDESONIDE 0.5 MG/2 ML NEBU INHALATION SCH ×2 (10:04→20:24)
[2019-05-02] MEDS: IPRATROPIUM-ALBUTEROL 3 ML NEB INHALATION PRN (10:12)
--- NOTE | 2019-05-02 10:22 | P.DS ---
Providers Date of admission: 04/18/19 10:29 Expected date of discharge: 05/02/19 Attending physician: Benoit Fatima Consults: 04/18/19 13:12 Consult Physician Routine Consulting Provider: Jabari Watts Consult Reason/Comments: copd exac Do you want consulting provider notified?: Yes 04/18/19 13:13 Consult Physician Routine Consulting Provider: Diego Phillips Consult Reason/Comments: dyspnea Do you want consulting provider notified?: Yes 04/18/19 14:40 Consult Physician Routine Consulting Provider: Keenan Herrera Consult Reason/Comments: renal failure Do you want consulting provider notified?: Yes 04/24/19 11:28 Consult Physician Urgent Consulting Provider: Gerry Daniels Consult Reason/Comments: temporary dialysis catheter placement Do you want consulting provider notified?: Yes 04/25/19 13:41 Consult Physician Routine Consulting Provider: Audrey Gomez Consult Reason/Comments: cdiff Do you want consulting provider notified?: Yes Primary care physician: [facility] Hospital Course: Final Diagnoses: -Hypertensive urgency, present on admission, improving -Right-sided pneumonia, off of antibiotics -Acute COPD exacerbation with tracheobronchitis -Acute renal failure secondary to ATN, multifactorial, diuretic induced, secondary to infection, cardiorenal syndrome. Stage V renal failure, status post temporary dialysis catheter placement started on Hemodialysis initiated this visit. -Metabolic acidosis secondary to the above -Hyponatremia secondary to acute renal failure -Chronic kidney disease stage IV secondary to diabetic kidney disease, baseline 3-3.3 -Diabetes mellitus, type II -Acute hypoxic respiratory failure secondary to the above -Hyperkalemia secondary to acute renal failure, metabolic acidosis -acute on chronic CHF exacerbation, diastolic dysfunction -Chronic paroxysmal atrial fibrillation -Status post aortic valve replacement -C. diff colitis -Anemia of chronic disease, possible iron deficient-iron studies pending -Uremic pericarditis, paracardial effusion -Right-sided mild pleural effusion, likely related to fluid overload Hospital course:This is an 89-year-old gentleman admitted with acute COPD exacerbation, CHF exacerbation and acute on chronic renal failure, and multiple other medical issues, subsequently developed acute renal failure and is scheduled to receive temporary dialysis catheter today. INR pending. Sodium 131, potassium 5.1, renal function continues worsening with BUN of 128, creatinine 4.89. Afebrile.VSS. Creatinine are baseline. Significant clinical improvement. Cleared by nephrology with temporary dialysis catheter ordered to be discontinued prior to discharge. Patient is being discharged to [facility] subacute rehab. In a stable condition with guarded prognosis, pending pulmonary clearance. Discharge antibiotics as per ID. EXAM: GENERAL: Alert and oriented 2, no acute distress CARDIOVASCULAR: S1, S2 regular. Systolic murmur RESPIRATION: Breath sounds diminished in the bases. No rhonchi or crackles. Occasional mild expiratory wheeze. ABDOMEN: Soft, nontender . No guarding. no masses palpable. Bowel sounds heard. NERVOUS SYSTEM: Cranial N 2-12 grossly normal. Moves all 4 limbs. Diffuse weakness No focal deficits. Strength and sensation grossly intact. The impression and plan of care has been dictated as directed. : I performed a history and examination of this patient, discussed the same with the dictator. I agree with the dictator's note ,documented as a scribe. Any additional findings or plans will be noted. Patient Condition at Discharge: Stable Plan - Discharge Summary Discharge Rx Participant: No New Discharge Prescriptions: New hydrALAZINE HCL [Apresoline] 75 mg PO TID tab Benzocaine/Menthol Lozeng [Cepacol lozenge] 1 each MUCOUS MEM Q6HR PRN lozenge PRN Reason: Sore Throat Carvedilol [Coreg] 6.25 mg PO BID-W/MEALS tab Ipratropium-Albuterol Nebulize [Duoneb 0.5 mg-3 mg/3 ml Soln] 3 ml INHALATION RT-QID ampul.neb Ipratropium-Albuterol Nebulize [Duoneb 0.5 mg-3 mg/3 ml Soln] 3 ml INHALATION Q4H PRN ampul.neb PRN Reason: Shortness Of Breath Or Wheezing Tamsulosin [Flomax] 0.4 mg PO DAILY cap.er.24h Atorvastatin [Lipitor] 80 mg PO DAILY tab guaiFENesin-DM 600/30MG [Mucinex Dm] 1 each PO Q12HR tab.er.12h NIFEdipine XL [Procardia XL] 90 mg PO DAILY tab.er.24 Pantoprazole [Protonix] 40 mg PO DAILY tablet. guaiFENesin SYRUP 100MG/5ML [Robitussin] 200 mg PO Q6H PRN cup PRN Reason: Cough Vortioxetine Hydrobromide [Trintellix] 5 mg PO DAILY tablet Sertraline [Zoloft] 50 mg PO DAILY tab HYDROcodone/APAP 5-325MG [Wynne 5-325] 1 each PO Q6H PRN #12 tab PRN Reason: Pain Continue Terbinafine [LamISIL] 250 mg PO HS Aspirin EC [Ecotrin Low Dose] 81 mg PO DAILY Clopidogrel [Plavix] 75 mg PO DAILY Warfarin [Coumadin] 2.5 mg PO HS Loratadine [Claritin] 10 mg PO DAILY Ferrous Sulfate [Iron (65 MG Elemental)] 325 mg PO HS Docusate [Colace] 100 mg PO HS Budesonide [Pulmicort] 0.5 mg INHALATION RT-BID Gabapentin [Neurontin] 100 mg PO BID #6 cap ALPRAZolam [Xanax] 0.5 mg PO QID PRN #12 tab PRN Reason: Anxiety Discontinued amLODIPine [Norvasc] 5 mg PO DAILY Furosemide [Lasix] 20 mg PO DAILY Metoprolol Tartrate [Lopressor] 50 mg PO BID Omeprazole 20 mg PO DAILY Pravastatin Sodium [Pravachol] 40 mg PO HS Albuterol Nebulized [Ventolin Nebulized] 2.5 mg INHALATION RT-Q6H PRN PRN Reason: Shortness Of Breath Discharge Medication List Aspirin EC [Ecotrin Low Dose] 81 mg PO DAILY 04/08/19 [History] Terbinafine [LamISIL] 250 mg PO HS 04/08/19 [History] Clopidogrel [Plavix] 75 mg PO DAILY 04/18/19 [History] Budesonide [Pulmicort] 0.5 mg INHALATION RT-BID 04/19/19 [History] Docusate [Colace] 100 mg PO HS 04/19/19 [History] Ferrous Sulfate [Iron (65 MG Elemental)] 325 mg PO HS 04/19/19 [History] Loratadine [Claritin] 10 mg PO DAILY 04/19/19 [History] Warfarin [Coumadin] 2.5 mg PO HS 04/19/19 [History] ALPRAZolam [Xanax] 0.5 mg PO QID PRN #12 tab 05/02/19 [Rx] Atorvastatin [Lipitor] 80 mg PO DAILY tab 05/02/19 [Rx] Benzocaine/Menthol Lozeng [Cepacol lozenge] 1 each MUCOUS MEM Q6HR PRN lozenge 05/02/19 [Rx] Carvedilol [Coreg] 6.25 mg PO BID-W/MEALS tab 05/02/19 [Rx] Gabapentin [Neurontin] 100 mg PO BID #6 cap 05/02/19 [Rx] HYDROcodone/APAP 5-325MG [Wynne 5-325] 1 each PO Q6H PRN #12 tab 05/02/19 [Rx] Ipratropium-Albuterol Nebulize [Duoneb 0.5 mg-3 mg/3 ml Soln] 3 ml INHALATION Q4H PRN ampul.neb 05/02/19 [Rx] Ipratropium-Albuterol Nebulize [Duoneb 0.5 mg-3 mg/3 ml Soln] 3 ml INHALATION RT-QID ampul.neb 05/02/19 [Rx] NIFEdipine XL [Procardia XL] 90 mg PO DAILY tab.er.24 05/02/19 [Rx] Pantoprazole [Protonix] 40 mg PO DAILY tablet.dr 05/02/19 [Rx] Sertraline [Zoloft] 50 mg PO DAILY tab 05/02/19 [Rx] Tamsulosin [Flomax] 0.4 mg PO DAILY cap.er.24h 05/02/19 [Rx] Vortioxetine Hydrobromide [Trintellix] 5 mg PO DAILY tablet 05/02/19 [Rx] guaiFENesin SYRUP 100MG/5ML [Robitussin] 200 mg PO Q6H PRN cup 05/02/19 [Rx] guaiFENesin-DM 600/30MG [Mucinex Dm] 1 each PO Q12HR tab.er.12h 05/02/19 [Rx] hydrALAZINE HCL [Apresoline] 75 mg PO TID tab 05/02/19 [Rx] Follow up Appointment(s)/Referral(s): Lynne Granado MD [STAFF PHYSICIAN] - 1 Week Tonie Feliciano, [NON-STAFF] - Jabari Watts MD [STAFF PHYSICIAN] - 1 Week Elidia Morgan MD [STAFF PHYSICIAN] - 05/10/19 1:15 pm Audrey Gomez MD [STAFF PHYSICIAN] - 1 Week Patient Instructions/Handouts: Acute Kidney Injury (DC), COPD (Chronic Obstructive Pulmonary Disease) (DC), C Diff (Clostridium Difficile) Infection (DC), Hypertension (DC) Activity/Diet/Wound Care/Special Instructions: [facility] may need indigent funds fax new meds to [facility] [phone] pt is not eligiable for a new c-pap machine - when the pt is discharge he is to call [facility] in [place] to service his c-pap machine. PT/INR daily CBC, BMP in 3 days Discharge Disposition: TRANSFER TO SNF/ECF
[2019-05-02 11:51] LABS: Glucose,Whole Blood 125 mg/dL (75-99)
--- NOTE | 2019-05-02 12:23 | P.PN ---
Subjective Patient is seen in follow-up for acute kidney injury on chronic kidney disease. Patient has chronic kidney disease stage III with baseline creatinine in the range of 3-3.3. No vomiting or diarrhea. Has a Costello catheter. Urine output about 1.6 L in the last 24 hours. Last hemodialysis was on April 27. Creatinine today is a little worse at 3.58. Denies chest pain or shortness of breath. Oral intake improving. Vital signs are stable. General: The patient appeared well nourished and normally developed. HEENT: Head exam is unremarkable. Neck is without jugular venous distension. LUNGS: Breath sounds decreased. HEART: Rate and Rhythm are regular. First and second heart sounds normal. No murmurs, rubs or gallops. ABDOMEN: Abdominal exam reveals normal bowel sounds. Non-tender and non- distended. No evidence of peritonitis. EXTREMITITES: Trace edema. Objective - Vital Signs Vital signs: Vital Signs Temp 97.8 F 05/02/19 08:20 Pulse 68 05/02/19 10:23 Resp 18 05/02/19 08:20 BP 155/68 05/02/19 08:20 Pulse Ox 95 05/02/19 08:20 Intake & Output 05/01/19 05/02/19 05/02/19 18:59 06:59 18:59 Intake Total 240 Output Total 902 700 300 Balance -902 -700 -60 Weight 102.9 kg 103.5 kg Intake: Oral 240 Output: Urine 900 700 300 Stool 2 Other: Voiding Method Indwelling Catheter Indwelling Catheter Indwelling Catheter # Voids 1 # Bowel Movements 1 1 1 - Labs CBC & Chem 7: 05/01/19 05:40 05/02/19 05:37 Labs: Abnormal Lab Results - Last 24 Hours (Table) 05/01/19 05/01/19 05/01/19 Range/Units 05:40 12:34 16:39 Sodium (137-145) mmol/L BUN (9-20) mg/dL Creatinine (0.66-1.25) mg/dL Glucose (74-99) mg/dL POC Glucose (mg/dL) 127 H 185 H (75-99) mg/dL Calcium (8.4-10.2) mg/dL Magnesium (1.6-2.3) mg/dL Iron 27 L (65-175) ug/dL TIBC 184 L (228-460) ug/dL % Saturation 14.67 L (15.00-50.00) 05/01/19 05/02/19 05/02/19 Range/Units 20:54 05:37 06:02 Sodium 134 L (137-145) mmol/L BUN 67 H (9-20) mg/dL Creatinine 3.58 H (0.66-1.25) mg/dL Glucose 110 H (74-99) mg/dL POC Glucose (mg/dL) 157 H 128 H (75-99) mg/dL Calcium 8.0 L (8.4-10.2) mg/dL Magnesium 2.6 H (1.6-2.3) mg/dL Iron (65-175) ug/dL TIBC (228-460) ug/dL % Saturation (15.00-50.00) 05/02/19 Range/Units 11:50 Sodium (137-145) mmol/L BUN (9-20) mg/dL Creatinine (0.66-1.25) mg/dL Glucose (74-99) mg/dL POC Glucose (mg/dL) 125 H (75-99) mg/dL Calcium (8.4-10.2) mg/dL Magnesium (1.6-2.3) mg/dL Iron (65-175) ug/dL TIBC (228-460) ug/dL % Saturation (15.00-50.00) Assessment and Plan Plan: Assessment: 1. Acute kidney injury secondary to ATN secondary to infection and component of cardiorenal syndrome. No evidence of urinary retention. Does have 3+ proteinuria on UA. UPC 1.3. Rule out GN. Serologies negative except for low C3. No evidence of hydronephrosis noted on kidney ultrasound. Started on hemodialysis April 25. Last hemodialysis on April 27. Creatinine today is a little worse at 3.58. 2. Dyspnea secondary to volume overload. Also component of COPD exacerbation/pneumonia. Improved. 3. Hyperkalemia secondary to acute kidney injury and metabolic acidosis. Improved postdialysis. 4. Hypertension with chronic kidney disease. Better. 5. Chronic kidney disease stage IV secondary to diabetic kidney disease with baseline creatinine in the range of 3-3.3. 6. Diabetes mellitus. 7. Acute on chronic diastolic CHF. 8. Status post aortic valve replacement. 9. Metabolic acidosis secondary to acute kidney injury. Better. 10. Hyponatremia secondary to acute kidney injury. Improved. Stable. 11. C. diff colitis maintained on oral vancomycin. 12. Anemia of chronic kidney disease. Iron deficiency noted. Also on Aranesp. Plan: Continue to hold dialysis. Monitor renal function closely. Continue to hold diuretics. Maintain oral iron. Discontinue dialysis catheter. Repeat BMP and magnesium level in 2-3 days. Follow up outpatient in 1 week.
[2019-05-02 16:49] LABS: Glucose,Whole Blood 133 mg/dL (75-99)
[2019-05-02] MEDS: WARFARIN 2.5 MG TAB PO SCH (17:44)
--- NOTE | 2019-05-02 17:47 | PN ---
PROGRESS NOTE DATE OF SERVICE: 05/02/2019 REASON FOR FOLLOWUP: C difficile colitis. INTERVAL HISTORY: The patient is currently afebrile. The patient is breathing comfortably. Patient denies having any chest pain. Occasional cough. No abdominal pain. Complaining of some diarrhea with about 2 to 3 loose stools today. However, the family at the bedside mentioned he was sitting on the commode but did not have any stool. PHYSICAL EXAMINATION: Blood pressure 155/68 with a pulse of 52. Temperature 97.8. He is 95% on room air. General description is an elderly male lying in bed in no distress. RESPIRATORY SYSTEM: Unlabored breathing. Clear to auscultation anteriorly. HEART: S1, S2. Regular rate and rhythm. ABDOMEN: Soft. No tenderness. LABS: BUN of 67, creatinine 3.58. DIAGNOSTIC IMPRESSION AND PLAN: Patient with Clostridium difficile colitis. Patient at this time to continue with oral vancomycin 250 p.o. q.6 hours for another week to finish his course of therapy. Continue with supportive care. MMODL / IJN: [id number] /
[2019-05-02] MEDS: ALPRAZolam 0.5 MG TAB PO PRN (17:54)
[2019-05-02 19:52] LABS: Glucose,Whole Blood 168 mg/dL (75-99)
[2019-05-02] MEDS: FERROUS SULFATE 325 MG TAB PO SCH (20:22)
[2019-05-02] MEDS: predniSONE 20 MG TAB PO SCH (20:22)
[2019-05-02] MEDS: hydrALAZINE HCL 20 MG/ML 1 ML VIAL IVP PRN (20:42)
[2019-05-02] MEDS ORDERED: LEVOFLOXACIN 500 MG TAB PO SCH (21:00)
[2019-05-02] MEDS ORDERED: DOXYCYCLINE 100 MG CAP PO SCH (21:00)
[2019-05-02] MEDS ORDERED: INSULIN DETEMIR (LEVEMIR) 100 UNIT/ML SYR SQ SCH (21:00)
[2019-05-02] MEDS: TERBINAFINE 250 MG TAB PO SCH (22:52)
[2019-05-03] MEDS: ALPRAZolam 0.5 MG TAB PO PRN (01:09)
[2019-05-03] MEDS: VANCOMYCIN ORAL SOLUTION 250 MG/5 ML BOTTLE PO SCH ×3 (01:10→13:03)
[2019-05-03 06:56] LABS: Glucose,Whole Blood 147 mg/dL (75-99)
[2019-05-03 07:32] LABS: Basophils % (A) 0 %; Eosinophils % (A) 0 %; HCT 28.7 % (39.0-53.0); HGB 9.7 gm/dL (13.0-17.5); Lymphocytes # (A) 0.5 k/uL (1.0-4.8); Lymphocytes % (A) 5 %; MCH 30.8 pg (25.0-35.0); MCHC 33.7 g/dL (31.0-37.0); MCV 91.4 fL (80.0-100.0); Mean Platelet Volume 7.5; Monocytes # (A) 0.2 k/uL (0-1.0); Monocytes % (A) 3 %; Neutrophils # (A) 8.3 k/uL (1.3-7.7); Neutrophils % (A) 92 %; Platelet Count 144 k/uL (150-450); RBC 3.14 m/uL (4.30-5.90); RDW 12.3 % (11.5-15.5)
[2019-05-03 07:46] LABS: Albumin 3.1 g/dL (3.5-5.0); Calcium 8.4 mg/dL (8.4-10.2); Magnesium 2.5 mg/dL (1.6-2.3); Potassium 4.9 mmol/L (3.5-5.1); Total Bilirubin 0.4 mg/dL (0.2-1.3); Total Protein 5.7 g/dL (6.3-8.2)
[2019-05-03 07:49] VITALS: BP 151/62; RESP 18; TEMP 97.7
[2019-05-03] MEDS: INSULIN ASPART (NovoLOG) 100 UNIT/ML VIAL SQ SCH ×2 (07:58→12:55)
[2019-05-03] MEDS: BUDESONIDE 0.5 MG/2 ML NEBU INHALATION SCH (08:26)
[2019-05-03] MEDS: IPRATROPIUM-ALBUTEROL 3 ML NEB INHALATION SCH ×2 (08:26→11:26)
[2019-05-03] MEDS: GABAPENTIN 100 MG CAP PO SCH (09:25)
[2019-05-03] MEDS: TAMSULOSIN 0.4 MG CAP.ER.24H PO SCH (09:25)
[2019-05-03] MEDS: SERTRALINE 50 MG TAB PO SCH (09:25)
[2019-05-03] MEDS: NIFEdipine XL 90 MG TAB.ER.24 PO SCH (09:25)
[2019-05-03] MEDS: CARVEDILOL 6.25 MG TAB PO SCH (09:25)
[2019-05-03] MEDS: hydrALAZINE HCL 25 MG TAB PO SCH (09:25)
[2019-05-03] MEDS: DOCUSATE 100 MG CAP PO SCH (09:25)
[2019-05-03] MEDS: PANTOPRAZOLE 40 MG TABLET PO SCH (09:25)
[2019-05-03] MEDS: CLOPIDOGREL 75 MG TAB PO SCH (09:25)
[2019-05-03] MEDS: ATORVASTATIN 80 MG TAB PO SCH (09:25)
[2019-05-03] MEDS: predniSONE 20 MG TAB PO SCH (09:26)
--- NOTE | 2019-05-03 10:04 | P.PN ---
Subjective Patient is seen in follow-up for acute kidney injury on chronic kidney disease. Patient has chronic kidney disease stage III with baseline creatinine in the range of 3-3.3. No vomiting or diarrhea. Costello catheter removed yesterday. He has been voiding on his own. Last hemodialysis was on April 27. Renal function stable. Denies chest pain or shortness of breath. Oral intake improving. Vital signs are stable. General: The patient appeared well nourished and normally developed. HEENT: Head exam is unremarkable. Neck is without jugular venous distension. LUNGS: Breath sounds decreased. HEART: Rate and Rhythm are regular. First and second heart sounds normal. No murmurs, rubs or gallops. ABDOMEN: Abdominal exam reveals normal bowel sounds. Non-tender and non- distended. No evidence of peritonitis. EXTREMITITES: Trace edema. Objective - Vital Signs Vital signs: Vital Signs Temp 97.7 F 05/03/19 07:00 Pulse 67 05/03/19 08:40 Resp 18 05/03/19 07:00 BP 151/62 05/03/19 07:00 Pulse Ox 98 05/03/19 07:00 Intake & Output 05/02/19 05/03/19 05/03/19 18:59 06:59 18:59 Intake Total 720 Output Total 300 3 Balance 420 -3 Weight 104 kg Intake: Oral 720 Output: Urine 300 1 Stool 2 Other: Voiding Method Indwelling Catheter Bedside Commode Bedside Commode Urinal Urinal Incontinent Incontinent # Voids 0 1 # Bowel Movements 0 0 - Labs CBC & Chem 7: 05/03/19 07:08 05/03/19 07:08 Labs: Abnormal Lab Results - Last 24 Hours (Table) 05/02/19 05/02/19 05/02/19 Range/Units 11:50 16:47 19:50 RBC (4.30-5.90) m/uL Hgb (13.0-17.5) gm/dL Hct (39.0-53.0) % Plt Count (150-450) k/uL Neutrophils # (1.3-7.7) k/uL Lymphocytes # (1.0-4.8) k/uL Sodium (137-145) mmol/L BUN (9-20) mg/dL Creatinine (0.66-1.25) mg/dL Glucose (74-99) mg/dL POC Glucose (mg/dL) 125 H 133 H 168 H (75-99) mg/dL Magnesium (1.6-2.3) mg/dL Total Protein (6.3-8.2) g/dL Albumin (3.5-5.0) g/dL 05/03/19 05/03/19 05/03/19 Range/Units 06:51 07:08 07:08 RBC 3.14 L (4.30-5.90) m/uL Hgb 9.7 L (13.0-17.5) gm/dL Hct 28.7 L (39.0-53.0) % Plt Count 144 L (150-450) k/uL Neutrophils # 8.3 H (1.3-7.7) k/uL Lymphocytes # 0.5 L (1.0-4.8) k/uL Sodium 134 L (137-145) mmol/L BUN 68 H (9-20) mg/dL Creatinine 3.54 H (0.66-1.25) mg/dL Glucose 138 H (74-99) mg/dL POC Glucose (mg/dL) 147 H (75-99) mg/dL Magnesium 2.5 H (1.6-2.3) mg/dL Total Protein 5.7 L (6.3-8.2) g/dL Albumin 3.1 L (3.5-5.0) g/dL Assessment and Plan Plan: Assessment: 1. Acute kidney injury secondary to ATN secondary to infection and component of cardiorenal syndrome. No evidence of urinary retention. Does have 3+ proteinuria on UA. UPC 1.3. Rule out GN. Serologies negative except for low C3. No evidence of hydronephrosis noted on kidney ultrasound. Started on hemodialysis April 25. Last hemodialysis on April 27. Creatinine today is stable at 3.54. 2. Dyspnea secondary to volume overload. Also component of COPD exacerbation/pneumonia. Improved. 3. Hyperkalemia secondary to acute kidney injury and metabolic acidosis. Improved postdialysis. 4. Hypertension with chronic kidney disease. Better. 5. Chronic kidney disease stage IV secondary to diabetic kidney disease with baseline creatinine in the range of 3-3.3. 6. Diabetes mellitus. 7. Acute on chronic diastolic CHF. 8. Status post aortic valve replacement. 9. Metabolic acidosis secondary to acute kidney injury. Better. 10. Hyponatremia secondary to acute kidney injury. Improved. Stable. 11. C. diff colitis maintained on oral vancomycin. 12. Anemia of chronic kidney disease. Iron deficiency noted. Also on Aranesp. Plan: Continue to hold dialysis. Monitor renal function closely. Continue to hold diuretics. Maintain oral iron. Dialysis catheter discontinued May 02. Repeat BMP and magnesium level in 2-3 days. Follow up outpatient in 1 week. Plan for discharge to rehab today.
[2019-05-03] MEDS: guaiFENesin-DM 600/30MG 1 EACH TAB.ER.12H PO SCH (10:25)
[2019-05-03] MEDS: VORTIOXETINE HYDROBROMIDE 10 MG TABLET PO SCH (10:25)
[2019-05-03 11:34] VITALS: PULSE 70
[2019-05-03 11:59] LABS: Glucose,Whole Blood 122 mg/dL (75-99)
--- NOTE | 2019-05-03 15:22 | PN ---
PROGRESS NOTE DATE OF SERVICE: 05/03/2019. REASON FOR FOLLOWUP: C difficile colitis. INTERVAL HISTORY: The patient was seen on rounds this morning. The patient has been afebrile. The patient apparently per the nursing staff has been sleeping all morning long. Did not eat his breakfast or lunch. No diarrhea has been reported. Denies any chest pain, shortness of breath. No cough. No nausea, vomiting. PHYSICAL EXAMINATION: Blood pressure 151/62 with a pulse of 83. Temperature 97.7. He is 98% on 2 L nasal cannula. General description is an elderly male lying in bed in no distress. Respiratory system: Unlabored breathing. Some decreased breath sounds at the bases. No wheeze. Heart S1, S2. Regular rate and rhythm. Abdomen soft, no tenderness. LABS: Hemoglobin 9.7, white count 9.0, BUN of 68, creatinine 3.54. DIAGNOSTIC IMPRESSION AND PLAN: Patient with C difficile colitis for which the patient seems to have clinically responded to oral vancomycin, has received about a week. Recommend continue the patient on p.o. vancomycin 250 p.o. q.6 hours for another week and close outpatient followup. Advised to increase probiotic and yogurt intake. MMODL / IJN: [id number] /
--- NOTE | 2019-05-03 15:22 | P.PN ---
Subjective Progress Note Date: 05/02/19 Principal diagnosis: Acute COPD exacerbation, acute on chronic renal failure, hyperkalemia, hypertension hypertensive cardiovascular disease, congestive heart failure likely related to acute on chronic diastolic heart failure, bilateral pneumonia, right-sided small pleural effusion 05/02/2019, patient seen and evaluated examined during the rounds labs reviewed her medications reviewed patient is being planned for extended care facility placement cuff congestion shortness breath significantly improved radiographic studies improved, no more diarrhea has been noted, as per discussion with renal service hemodialysis on hold for now and observing renal functions 05/01/2019, patient seen eval examined during the round the patient's partner is present, patient appears slightly more confused and more short of breath expiratory fine wheezing are present, diarrhea have improved today patient is being monitor off of dialysis for suspect slowly accumulating fluid will get a chest x-ray tomorrow and may need another dialysis 04/30/2019 patient seen and examined care plan discussed, has some loose stool today otherwise feels better he is still getting therapy for C. difficile colitis no dialysis has been planned for today, patient has been on 2.5 mg of Coumadin INR is subtherapeutic Will continue same dose BUN/creatinine stable 58 and 3.35 04/29/2019, patient seen eval examined today denies any chest pain or shortness of breath he has been on room air feeling better her sats are 95%, we'll resume 2.5 mg of Coumadin each night and daily monitor PT/INR 04/28/2019, patient is awake breathing comfortably he is on 2 L oxygen will check oxygen saturation on room air patient has no dialysis today, his cough congestion is improved he has one loose stool today breathing more better, has been using his CPAP machine from home, and labs reviewed medications reviewed 04/27/2019, patient seen eval examined during the rounds labs reviewed medications reviewed care plan discussed with the patient and the staff at length patient underwent hemodialysis in more than a liter has been removed stool is still loose so far he has one loose stool 04/26/2019, patient is more awake and alert has been using home CPAP machine, diarrhea is slightly better patient underwent hemodialysis today 1 L of fluid has been removed, hydralazine dose has been escalated, patient will get an another hemodialysis cycle tomorrow 04/25/2019, patient seen eval examined during the rounds labs reviewed medications reviewed care plan discussed with the patient patient is being planned for hemodialysis catheter and dialysis today due to rising BUN/creatinine as well as uremic pericarditis and pericardial effusion, in addition patient having diffuse diarrhea stool came back positive for C. difficile patient is being started on oral vancomycin and we'll consult infectious disease as well, we'll stop Zosyn now 04/24/2019, patient seen evjob examined during the rounds labs reviewed medica tions reviewed patient has been using BiPAP machine, labs are reviewed her his renal function continued to get worse renal services thinking about placing hemodialysis catheter and dialysis 04/23/2019, patient seen evjob reexamined during the rounds, breathing is slightly better with still very short of breath his computed tomography scan done yesterday showed a small pleural effusion and bilateral pneumonia patient has been on IV Zosyn WBC count stable labs reviewed medications reviewed BUN/cre atinine continue to go up is on 108 and creatinine is 4.5, renal services closely following the patient 04/20/2019, patient seen evjob examined during the rounds labs reviewed medications reviewed care plan discussed with the staff at length patient is still feel congested he is on IV steroids will initiate on breathing treatments as well continue gentle diuresis as planned renal service and cardiovascular service is also following This is a 89-year-old nonsmoker male who came into the hospital with one week of shortness of breath has extensive coughing productive of the thick tenacious white sputum, patient has echocardiogram and chest x-ray echo revealed severe dilated LA, mild pulmonary hypertension and severe concentric LV hypertrophy, chest x-ray suggestive of mild fluid overload, patient is very compliant with Flu pneumonia vaccine, review of the records revealed that patient has been lately having elevated blood pressure in the primary care's office blood pressure was over 220/100, noted that meds are being adjusted for hypertensive heart failure and acute on chronic renal failure Objective - Vital Signs Vital signs: Vital Signs Temp 97.7 F 05/03/19 07:00 Pulse 70 05/03/19 11:34 Resp 18 05/03/19 07:00 BP 151/62 05/03/19 07:00 Pulse Ox 98 05/03/19 07:00 Intake & Output 05/02/19 05/03/19 05/03/19 18:59 06:59 18:59 Intake Total 720 Output Total 300 3 Balance 420 -3 Weight 104 kg Intake: Oral 720 Output: Urine 300 1 Stool 2 Other: Voiding Method Indwelling Catheter Bedside Commode Bedside Commode Urinal Urinal Incontinent Incontinent # Voids 0 1 # Bowel Movements 0 0 - Exam - Constitutional General appearance: cooperative, disheveled, morbidly obese - EENT Eyes: anicteric sclerae, EOMI, PERRLA, normal appearance ENT: normal oropharynx Ears: bilateral: normal - Neck Carotids: bilateral: upstroke normal - Respiratory Respiratory: bilateral Fine expiratory wheezing - Cardiovascular Rhythm: regular Heart sounds: normal: S1, S2 - Gastrointestinal General gastrointestinal: normal bowel sounds, soft - Neurologic Neurologic: CNII-XII intact - Musculoskeletal Musculoskeletal: gait normal, generalized weakness, strength equal bilaterally - Psychiatric Psychiatric: A&O x's 3, appropriate affect, intact judgment & insight - Labs CBC & Chem 7: 05/03/19 07:08 05/03/19 07:08 Labs: Abnormal Lab Results - Last 24 Hours (Table) 05/02/19 05/02/19 05/03/19 Range/Units 16:47 19:50 06:51 RBC (4.30-5.90) m/uL Hgb (13.0-17.5) gm/dL Hct (39.0-53.0) % Plt Count (150-450) k/uL Neutrophils # (1.3-7.7) k/uL Lymphocytes # (1.0-4.8) k/uL Sodium (137-145) mmol/L BUN (9-20) mg/dL Creatinine (0.66-1.25) mg/dL Glucose (74-99) mg/dL POC Glucose (mg/dL) 133 H 168 H 147 H (75-99) mg/dL Magnesium (1.6-2.3) mg/dL Total Protein (6.3-8.2) g/dL Albumin (3.5-5.0) g/dL Procalcitonin (0.02-0.09) ng/mL 05/03/19 05/03/19 05/03/19 Range/Units 07:08 07:08 07:08 RBC 3.14 L (4.30-5.90) m/uL Hgb 9.7 L (13.0-17.5) gm/dL Hct 28.7 L (39.0-53.0) % Plt Count 144 L (150-450) k/uL Neutrophils # 8.3 H (1.3-7.7) k/uL Lymphocytes # 0.5 L (1.0-4.8) k/uL Sodium 134 L (137-145) mmol/L BUN 68 H (9-20) mg/dL Creatinine 3.54 H (0.66-1.25) mg/dL Glucose 138 H (74-99) mg/dL POC Glucose (mg/dL) (75-99) mg/dL Magnesium 2.5 H (1.6-2.3) mg/dL Total Protein 5.7 L (6.3-8.2) g/dL Albumin 3.1 L (3.5-5.0) g/dL Procalcitonin 0.11 H (0.02-0.09) ng/mL 05/03/19 Range/Units 11:57 RBC (4.30-5.90) m/uL Hgb (13.0-17.5) gm/dL Hct (39.0-53.0) % Plt Count (150-450) k/uL Neutrophils # (1.3-7.7) k/uL Lymphocytes # (1.0-4.8) k/uL Sodium (137-145) mmol/L BUN (9-20) mg/dL Creatinine (0.66-1.25) mg/dL Glucose (74-99) mg/dL POC Glucose (mg/dL) 122 H (75-99) mg/dL Magnesium (1.6-2.3) mg/dL Total Protein (6.3-8.2) g/dL Albumin (3.5-5.0) g/dL Procalcitonin (0.02-0.09) ng/mL Assessment and Plan Assessment: C. 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
[2019-05-03] MEDS ORDERED: WARFARIN 5 MG TAB PO ONE (18:00)
[2019-05-03] MEDS ORDERED: LEVOFLOXACIN 250 MG TAB PO SCH (21:00)
== END 2019-05-03 13:45 | DRG 193 ==
LOC: 4MS4W 10:29 → 3SCARD 15:14 → 4SSUR 05-02 20:46
PROVIDERS: ADMIT Family Medicine; ATTEND Family Medicine
PROC: 06HM33Z Insertion of Infusion Device into Right Femoral Vein, Percutaneous Approach (ICD-10-PCS; principal; 2019-04-25)
PROC: 5A1D70Z Performance of Urinary Filtration, Intermittent, Less than 6 Hours Per Day (ICD-10-PCS; 2019-04-25)
DX: J18.9 Pneumonia, unspecified organism (principal); I50.33 Acute on chronic diastolic (congestive) heart failure; J96.01 Acute respiratory failure with hypoxia; N17.0 Acute kidney failure with tubular necrosis; N18.6 End stage renal disease; J44.1 Chronic obstructive pulmonary disease with (acute) exacerbation; I48.19 Other persistent atrial fibrillation; I32 Pericarditis in diseases classified elsewhere; Z16.19 Resistance to other specified beta lactam antibiotics; A04.72 Enterocolitis due to Clostridium difficile, not specified as recurrent; E87.1 Hypo-osmolality and hyponatremia; E87.2 Acidosis; I13.2 Hypertensive heart and chronic kidney disease with heart failure and with stage 5 chronic kidney disease, or end stage renal disease; I31.3 Pericardial effusion (noninflammatory); J44.0 Chronic obstructive pulmonary disease with (acute) lower respiratory infection; N40.0 Benign prostatic hyperplasia without lower urinary tract symptoms; R79.1 Abnormal coagulation profile; T45.515A Adverse effect of anticoagulants, initial encounter; T50.2X5A Adverse effect of carbonic-anhydrase inhibitors, benzothiadiazides and other diuretics, initial encounter; D63.1 Anemia in chronic kidney disease; E11.22 Type 2 diabetes mellitus with diabetic chronic kidney disease; E11.51 Type 2 diabetes mellitus with diabetic peripheral angiopathy without gangrene; E61.1 Iron deficiency; E78.5 Hyperlipidemia, unspecified; E87.5 Hyperkalemia; G47.33 Obstructive sleep apnea (adult) (pediatric); Z99.89 Dependence on other enabling machines and devices; I16.0 Hypertensive urgency; I25.10 Atherosclerotic heart disease of native coronary artery without angina pectoris; I25.2 Old myocardial infarction; I27.21 Secondary pulmonary arterial hypertension; Z79.01 Long term (current) use of anticoagulants; Z79.02 Long term (current) use of antithrombotics/antiplatelets; Z79.82 Long term (current) use of aspirin; Z79.899 Other long term (current) drug therapy; Z82.49 Family history of ischemic heart disease and other diseases of the circulatory system; Z82.0 Family history of epilepsy and other diseases of the nervous system; Z86.73 Personal history of transient ischemic attack (TIA), and cerebral infarction without residual deficits; Z87.891 Personal history of nicotine dependence; Z95.2 Presence of prosthetic heart valve; Z95.5 Presence of coronary angioplasty implant and graft; Z98.42 Cataract extraction status, left eye; Z98.41 Cataract extraction status, right eye; Z96.1 Presence of intraocular lens; Z96.651 Presence of right artificial knee joint; Z99.2 Dependence on renal dialysis; Z96.642 Presence of left artificial hip joint; Z87.01 Personal history of pneumonia (recurrent); R79.89 Other specified abnormal findings of blood chemistry; M15.9 Polyosteoarthritis, unspecified; F10.11 Alcohol abuse, in remission; Z79.51 Long term (current) use of inhaled steroids
CPT/HCPCS: 71045; 71046; 71250; 74018; 74230; 76770; 80048; 80053; 80074; 81001; 82570; 82728; 83036; 83540; 83550; 83735; 83880; 83930; 84145; 84156; 84165; 84484; 85025; 85610; 86038; 86160; 86162; 86225; 86255; 86334; 86335; 86704; 86706; 87081; 87324; 87340; 87430; 87502; 90935; 93306; 94640; 94660; 94667; 94760

== ENCOUNTER 2019-07-09 14:03 | Inpatient (IN) | payer MEDICARE, BC ==
[2019-07-09] MEDS ORDERED: ALPRAZolam 0.5 MG TAB PO PRN (18:44)
[2019-07-09] MEDS ORDERED: ACETAMINOPHEN TAB 325 MG TAB PO PRN (18:44)
--- NOTE | 2019-07-09 19:19 | XR ---
EXAMINATION TYPE: XR chest 2V DATE OF EXAM: 07/09/2019 COMPARISON: 05/02/2019 HISTORY: Short of breath TECHNIQUE: FINDINGS: There is mild blunting of the costophrenic angles. Heart is enlarged. There is mild pulmona ry congestion. Thoracic aorta is atheromatous. There is aortic valve surgery. IMPRESSION: Small pleural effusions and mild pulmonary congestion consistent with mild heart failure that is new compared to last exam.
[2019-07-09] MEDS: IPRATROPIUM-ALBUTEROL 3 ML NEB INHALATION PRN (19:28)
[2019-07-09] MEDS: BUDESONIDE 0.5 MG/2 ML NEBU INHALATION SCH (19:28)
[2019-07-09 20:18] LABS: Basophils % (A) 0 %; Eosinophils # (A) 0.3 k/uL (0-0.7); Eosinophils % (A) 5 %; HCT 25.2 % (39.0-53.0); HGB 8.3 gm/dL (13.0-17.5); Lymphocytes # (A) 1.3 k/uL (1.0-4.8); Lymphocytes % (A) 17 %; MCH 32.1 pg (25.0-35.0); MCV 97.3 fL (80.0-100.0); Mean Platelet Volume 8.8; Monocytes # (A) 0.6 k/uL (0-1.0); Monocytes % (A) 7 %; Neutrophils # (A) 5.2 k/uL (1.3-7.7); Neutrophils % (A) 69 %; Platelet Count 146 k/uL (150-450); RBC 2.59 m/uL (4.30-5.90); RDW 13.2 % (11.5-15.5); WBC 7.6 k/uL (3.8-10.6)
[2019-07-09 20:34] LABS: Calcium 9.2 mg/dL (8.4-10.2); Potassium 4.9 mmol/L (3.5-5.1); Total Bilirubin 0.5 mg/dL (0.2-1.3); Total Protein 6.6 g/dL (6.3-8.2)
[2019-07-09] MEDS ORDERED: FERROUS SULFATE 325 MG TAB PO SCH (21:00)
[2019-07-09] MEDS ORDERED: ATORVASTATIN 80 MG TAB PO SCH (21:00)
[2019-07-09] MEDS ORDERED: WARFARIN 2.5 MG TAB PO SCH (21:00)
[2019-07-09] MEDS ORDERED: DOCUSATE 100 MG CAP PO SCH (21:00)
[2019-07-09] MEDS ORDERED: ARIPiprazole 2 MG TAB PO SCH (21:00)
[2019-07-09] MEDS: hydrALAZINE HCL 25 MG TAB PO SCH (21:28)
[2019-07-09] MEDS: GABAPENTIN 100 MG CAP PO SCH (21:29)
[2019-07-09 21:46] LABS: INR 1.3 (<1.2)
[2019-07-09] MEDS ORDERED: WARFARIN 2 MG TAB PO ONE (22:00)
[2019-07-09] MEDS: methylPREDNISolone SOD SUCCI 40 MG/ML 1 ML VIAL IV SCH (23:09)
[2019-07-09] MEDS ORDERED: FUROSEMIDE 10 MG/ML 10 ML VIAL IV STA (23:55)
[2019-07-10] MEDS ORDERED: SODIUM FERRIC GLUCONAT-SUCROSE 125 MG in SODIUM CHLORIDE 0.9% 100 ML IVPB SCH ×2
[2019-07-10] MEDS: methylPREDNISolone SOD SUCCI 40 MG/ML 1 ML VIAL IV SCH ×2 (00:46→07:47)
[2019-07-10] MEDS ORDERED: FUROSEMIDE 20 MG TAB PO SCH ×2 (04:00→09:00)
[2019-07-10 04:44] LABS: % Iron Saturation 14.33 (15.00-50.00)
[2019-07-10] MEDS ORDERED: CARVEDILOL 6.25 MG TAB PO SCH (07:30)
[2019-07-10] MEDS ORDERED: PANTOPRAZOLE 40 MG TABLET PO SCH (07:30)
[2019-07-10] MEDS: GABAPENTIN 100 MG CAP PO SCH (07:39)
[2019-07-10] MEDS: hydrALAZINE HCL 25 MG TAB PO SCH (07:39)
--- NOTE | 2019-07-10 08:54 | HP ---
HISTORY AND PHYSICAL This 89-year-old white male came to the hospital for anemia, dizziness, difficulty breathing with COPD exacerbation and worsening renal failure, possibly secondary to prerenal dehydration. IV fluids have been ordered overnight and IV steroids. The patient is somewhat better today. We got iron infusion for hemoglobin 8.3. He is feeling better today. I will possibly may end up sending him home today. PAST MEDICAL HISTORY: COPD, CHF, depression, dyslipidemia, coronary artery disease, diastolic CHF, allergic rhinitis. MEDICATIONS: Medications include: 1. Xanax 0.5 q.8 hours for anxiety. 2. Abilify 2 at night. 3. Aspirin 81 mg daily. 4. Lipitor 80 daily. 5. Pulmicort 0.5 b.i.d. 6. Carvedilol 6.25 b.i.d. 7. Plavix 75 daily. 8. Colace 100 daily. 9. Ferrous sulfate 325 daily. 10.Lasix 20 mg p.o. b.i.d. 11.Neurontin 100 t.i.d. 12.Hydralazine 75 t.i.d. 13.He is on IV steroids 40 q.8. 14.Metolazone twice a week, 2.5. 15.Procardia 90 mg daily. 16.Protonix 40 mg daily. 17.Venofer dose was given. 18.Coumadin 4 mg once. PHYSICAL EXAMINATION: Blood pressure 140 to 160s over 70s, respiratory rate 18 to 20. PSYCH: Fair mood and affect. CARDIOVASCULAR: S1, S2. LUNGS: Show rales at the bases. HEMATOLOGY: Negative Homans, 2+ pedal edema. GI: Distended due to obesity. No masses or organomegaly. ASSESSMENT: 1. Chronic obstructive pulmonary disease exacerbation. 2. Acute on chronic anemia. 3. Dizziness secondary to dehydration, which is improving. 4. Apparently had orthostatic hypotension secondary to dehydration. 5. Prerenal renal insufficiency and tubular necrosis secondary to dehydration. Patient has improved overnight. 6. History of atrial fibrillation. 7. Coronary artery disease with stents. 8. End-stage renal disease, stage 4. 9. Depression, anxiety. PLAN: Patient will possibly be discharged home after iron infusion, after rehydration and IV steroids for 24 hours. He may need outpatient iron infusions once a week for the next 4 weeks. MMODL / IJN: [id number] /
[2019-07-10] MEDS ORDERED: LORATADINE 10 MG TAB PO SCH (09:00)
[2019-07-10] MEDS ORDERED: CLOPIDOGREL 75 MG TAB PO SCH (09:00)
[2019-07-10] MEDS ORDERED: NIFEdipine XL 90 MG TAB.ER.24 PO SCH (09:00)
[2019-07-10] MEDS ORDERED: ASPIRIN 81 MG PO SCH (09:00)
[2019-07-10] MEDS: BUDESONIDE 0.5 MG/2 ML NEBU INHALATION SCH ×2 (09:12→09:15)
[2019-07-10] MEDS: IPRATROPIUM-ALBUTEROL 3 ML NEB INHALATION PRN ×2 (09:12→11:56)
[2019-07-10 09:54] LABS: Basophils % (A) 0 %; Eosinophils % (A) 0 %; HCT 23.6 % (39.0-53.0); Lymphocytes # (A) 0.5 k/uL (1.0-4.8); Lymphocytes % (A) 10 %; MCH 33.2 pg (25.0-35.0); MCHC 33.9 g/dL (31.0-37.0); MCV 97.9 fL (80.0-100.0); Mean Platelet Volume 8.3; Monocytes # (A) 0.1 k/uL (0-1.0); Monocytes % (A) 2 %; Neutrophils # (A) 4.8 k/uL (1.3-7.7); Neutrophils % (A) 88 %; Platelet Count 131 k/uL (150-450); RBC 2.41 m/uL (4.30-5.90); WBC 5.4 k/uL (3.8-10.6)
[2019-07-10 09:59] LABS: INR 1.3 (<1.2); Prothrombin Time 13.5 sec (9.0-12.0)
[2019-07-10 10:08] LABS: Albumin 3.6 g/dL (3.5-5.0); Calcium 9.2 mg/dL (8.4-10.2); Total Bilirubin 0.6 mg/dL (0.2-1.3); Total Protein 6.3 g/dL (6.3-8.2)
--- NOTE | 2019-07-10 11:24 | P.NPCON ---
History of Present Illness - Reason for Consult acute renal failure, chronic renal failure - History of Present Illness Reason for consultation: Acute kidney injury on chronic kidney disease History of present illness: Patient is a 89-year-old male seen in renal consultation for acute kidney injury on chronic kidney disease. Patient has chronic kidney disease stage IV with baseline creatinine in the range of 3-3.5. Patient has been on temporary hemodialysis in the past. Patient presented to the hospital due to concern for anemia. However he came to the hospital his hemoglobin was 8.3. Patient denies any melena or hematochezia. He denies any hemoptysis. No hematuria or dysuria. Urine output has been good. No vomiting or diarrhea. Denies chest pain or shortness of breath. He is maintained on oral diuretics. Oral intake has been good. No active complaints at this time. Hemodynamically stable. Vital signs are stable. General: The patient appeared well nourished and normally developed. HEENT: Head exam is unremarkable. Neck is without jugular venous distension. LUNGS: Lungs are clear to auscultation and percussion. Breath sounds decreased. HEART: Rate and Rhythm are regular. First and second heart sounds normal. No murmurs, rubs or gallops. ABDOMEN: Abdominal exam reveals normal bowel sounds. Non-tender and non- distended. No evidence of peritonitis. EXTREMITITES: Trace edema. Past Medical History Past Medical History: Atrial Fibrillation, Coronary Artery Disease (CAD), Chest Pain / Angina, Heart Failure, COPD, CVA/TIA, Hyperlipidemia, Hypertension, Myocardial Infarction (MA), Osteoarthritis (OA), Pneumonia, Renal Disease, Sleep Apnea/CPAP/BIPAP, Vascular Disorder Additional Past Medical History / Comment(s): CKD stage IV, chronic anemia (iron defiency), hyperkalemia, VOLODYMYR with Cpap, TIA, arthritis in multiple joints, BPH with surgery, PVD, past ETOH but pt states he has not drank in 20 yrs. cdiff Last Myocardial Infarction Date:: 2010 History of Any Multi-Drug Resistant Organisms: None Reported Past Surgical History: Cardiac Valve Replacement, Heart Catheterization With Stent, Joint Replacement, Prostate Surgery, Tonsillectomy Additional Past Surgical History / Comment(s): 09/07/18 Aortic mechanical valve replacement and stent to LAD, previous PCI with stent, R caratid endartectomy with pericardial patch angioplasty, R total knee arthroplasty, R hip hemiarthroplasty, TURP, colonoscopy, bilateral cataract removals/lens implants. Past Anesthesia/Blood Transfusion Reactions: No Reported Reaction Date of Last Stent Placement:: 09/07/18 Past Psychological History: Anxiety, Depression Additional Psychological History / Comment(s): Pt resides with his friend. He lost his spouse to lung cancer about 5 yrs ago. He states he feels depressed ever since losing her but denies any plans of suicide. He states he has a large life insurance policy that would be void if he comitted suicide and there is no way he will allow that to happen. Pt has a walker and a cane. he drives. He has a CPap and oxygen at home. In the past, pt was in the [employer] and served on [place]. Smoking Status: Never smoker Past Alcohol Use History: None Reported Additional Past Alcohol Use History / Comment(s): Pt states in the past he was an alcoholic but quit drinking 20 yrs ago. Past Drug Use History: None Reported - Past Family History Father Family Medical History: Chest Pain / Angina, Coronary Artery Disease (CAD), Myocardial Infarction (MA) Mother Family Medical History: Dementia Medications and Allergies Home Medications Medication Instructions Recorded Confirmed Type Aspirin EC [Ecotrin Low Dose] 81 mg PO DAILY 04/08/19 07/09/19 History Clopidogrel [Plavix] 75 mg PO DAILY 04/18/19 07/09/19 History Budesonide [Pulmicort] 0.5 mg INHALATION RT-BID 04/19/19 07/09/19 History Docusate [Colace] 100 mg PO HS 04/19/19 07/09/19 History Ferrous Sulfate [Iron (65 MG 325 mg PO HS 04/19/19 07/09/19 History Elemental)] Loratadine [Claritin] 10 mg PO DAILY 04/19/19 07/09/19 History Warfarin [Coumadin] 2.5 mg PO HS 04/19/19 07/09/19 History Carvedilol [Coreg] 6.25 mg PO BID-W/MEALS tab 05/02/19 07/09/19 Rx Gabapentin [Neurontin] 100 mg PO BID #6 cap 05/02/19 07/09/19 Rx NIFEdipine XL [Procardia XL] 90 mg PO DAILY tab.er.24 05/02/19 07/09/19 Rx Pantoprazole [Protonix] 40 mg PO DAILY tablet.dr 05/02/19 07/09/19 Rx hydrALAZINE HCL [Apresoline] 75 mg PO TID tab 05/02/19 07/09/19 Rx ALPRAZolam [Xanax] 0.5 mg PO Q8H PRN 07/09/19 07/09/19 History ARIPiprazole [Abilify] 2 mg PO HS 07/09/19 07/09/19 History Acetaminophen Tab [Tylenol Tab] 650 mg PO Q4H PRN 07/09/19 07/09/19 History Atorvastatin [Lipitor] 80 mg PO HS 07/09/19 07/09/19 History Furosemide [Lasix] 20 mg PO BID@0400,1000 07/09/19 07/09/19 History Metolazone [Zaroxolyn] 2.5 mg PO WESA 07/09/19 07/09/19 History Allergies Allergy/AdvReac Type Severity Reaction Status Date / Time No Known Allergies Allergy Verified 07/09/19 18:31 Physical Exam Vitals: Vital Signs Temp Pulse Pulse Resp BP BP Pulse Ox 07/10/19 06:00 98 F 75 20 168/76 97 07/10/19 00:22 146/55 07/09/19 22:00 97.5 F L 68 20 174/74 96 07/09/19 19:41 66 07/09/19 19:29 64 07/09/19 17:53 97.3 F L 58 L 20 172/70 99 Intake and Output 07/09/19 07/10/19 07/10/19 22:59 06:59 14:59 Intake Total 100 240 Output Total 265 325 Balance 100 -265 -85 Intake: Oral 100 240 Output: Urine 325 Post Void Residual 265 Other: Voiding Method Urinal Urinal # Voids 1 # Bowel Movements 0 Weight 107.048 kg 101.151 kg Results - Lab Results Most recent lab results Calcium 9.2 mg/dL (8.4-10.2) 07/10/19 09:15 07/10/19 09:15 07/10/19 09:15 Assessment and Plan Plan: Assessment: 1. Acute kidney injury secondary to ATN secondary to anemia. There is also concern for underlying progression of chronic kidney disease. Renal function stable. 2. Chronic kidney disease stage IV with baseline creatinine in the range of 3- 3.5. 3. Metabolic acidosis secondary to acute kidney injury. 4. Anemia of chronic kidney disease. Iron deficiency noted. No active ble eding. 5. Hypertension with chronic kidney disease. Controlled. 6. Chronic diastolic CHF with ejection fraction of 55-60%. 7. Mild volume overload. Plan: Maintain oral diuretics. Continue IV iron. Add oral sodium bicarbonate. Add Aranesp. No urgent need for renal replacement therapy at this time. Patient is interested in peritoneal dialysis down the road. Follow-up outpatient in 1-2 weeks. Thank you for the consultation. I will continue to follow the patient with you during his hospital stay.
[2019-07-10] MEDS ORDERED: SODIUM BICARBONATE TAB 650 MG TAB PO SCH (11:30)
--- NOTE | 2019-07-10 13:25 | P.CRDCN ---
History of Present Illness History of present illness: HISTORY OF PRESENTING ILLNESS This is a pleasant 89-year-old male past medical history significant for coronary artery disease status post PCI to the LAD and circumflex most recently in 2014, valvular heart disease status post TAVR, hypertension, COPD, atrial fibrillation on long-term anticoagulation, chronic kidney disease, obstructive sleep apnea, peripheral vascular disease status post right carotid endarterectomy and chronic diastolic heart failure. He follows in the office with Dr. Chu out of [place]. We have been asked to see in consultation for heart failure. He was sent in as a direct admit from his primary care physician's office secondary to weakness, shortness of breath and worsening renal function. He states he has noticed in increase in lower extremity edema and some shortness of breath over the previous couple of days. He denies symptoms of chest pain or palpitations. He states since coming to the hospital he feels much better and back to baseline. He was given one dose of IV Lasix per nephrology last evening. DIAGNOSTICS No EKG obtained on admission. Chest xray small pleural effusions and mild pulmonary vascular congestion consistent with mild heart failure. Laboratory reviewed, WBC 5.4, hemoglobin 8, platelets 131, INR 1.3, sodium 138, potassium 5, creatinine 4.44, and T proBNP 11,100. Current cardiac medications include Zaroxolyn 2.5 mg on Tuesday and Tuesday, hydralazine 75 mg 3 times a day, Coumadin 2.5 mg at bedtime, nifedipine XL 90 mg daily, Lasix 20 mg twice a day, Plavix 75 mg daily, carvedilol 6.25 mg twice a day, atorvastatin 80 mg daily and aspirin 81 mg daily. Most recent echocardiogram obtained April 2019 reveals preserved LV systolic function with ejection fraction 50-55%, severe concentric LVH, mild prostatic regurgitation of the bioprosthetic aortic valve with a mean gradient of 12 mmHg, mild MR, mild TR and mild pulmonary hypertension. REVIEW OF SYSTEMS At the time of my exam: CONSTITUTIONAL: Denies fever or chills. CARDIOVASCULAR: Denies chest pain, shortness of breath, orthopnea, PND or pal pitations. RESPIRATORY: Denies cough. GASTROINTESTINAL: Denies abdominal pain, diarrhea, constipation, nausea or vomiting. MUSCULOSKELETAL: Denies myalgias. NEUROLOGIC: Denies numbness, tingling or weakness. ENDOCRINE: Denies fatigue, weight change, polydipsia or polyurina. GENITOURINARY: Denies burning, hematuria or urgency with micturation. HEMATOLOGIC: Denies history of anemia or bleeding. PHYSICAL EXAMINATION Blood pressure 168/76 heart rate 75 afebrile and maintaining oxygen saturation on room air. CONSTITUTIONAL: No apparent distress. HEENT: Head is normocephalic. Pupils are equal, round. Sclerae anicteric. Mucous membranes of the mouth are moist. No JVD. No carotid bruit. CHEST EXAMINATION: Lungs are clear to auscultation. No chest wall tenderness is noted on palpation or with deep breathing. Diminished bilaterally. HEART EXAMINATION: Irregular rate and rhythm. S1, S2 heard. Systolic ejection murmur at the base, no gallops or rub. ABDOMEN: Soft, nontender. Positive bowel sounds. EXTREMITIES: 2+ peripheral pulses, 1+ bilateral lower extremity edema and no calf tenderness. NEUROLOGIC EXAMINATION: Patient is awake, alert and oriented x3. ASSESSMENT Acute on chronic diastolic heart failure, EF 50-55% History of coronary artery disease s/p PCI Chronic persistent atrial fibrillation maintained on coumadin Sub-therapeutic INR on admission, pharmacy dosing coumadin Valvular heart disease s/p TAVR COPD Acute on chronic renal failure Peripheral vascular disease s/p right carotid endartectomy PLAN He does have ongoing lower extremity edema, however he denies shortness of breath, PND or orthopnea. IV lasix dose given last night did facilitate some urine output. Clinically he is feeling better. Discontinue aspirin and continue coumadin and plavix. Nephrology is recommend peritoneal dialysis to be initiated as an outpatient. Would benefit from further diuresis, however pt would really like to go home. Recommend close follow up with his primary storage administrator. Thank you kindly for this consultation. Nurse Practitioner note has been reviewed, I agree with a documented findings and plan of care. Patient was seen and examined. Past Medical History Past Medical History: Atrial Fibrillation, Coronary Artery Disease (CAD), Chest Pain / Angina, Heart Failure, COPD, CVA/TIA, Hyperlipidemia, Hypertension, Myocardial Infarction ([place]), Osteoarthritis (OA), Pneumonia, Renal Disease, Sleep Apnea/CPAP/BIPAP, Vascular Disorder Additional Past Medical History / Comment(s): CKD stage IV, chronic anemia (iron defiency), hyperkalemia, VOLODYMYR with Cpap, TIA, arthritis in multiple joints, BPH with surgery, PVD, past ETOH but pt states he has not drank in 20 yrs. cdiff Last Myocardial Infarction Date:: 2010 History of Any Multi-Drug Resistant Organisms: None Reported Past Surgical History: Cardiac Valve Replacement, Heart Catheterization With Stent, Joint Replacement, Prostate Surgery, Tonsillectomy Additional Past Surgical History / Comment(s): 09/07/18 Aortic mechanical valve replacement and stent to LAD, previous PCI with stent, R caratid endartectomy with pericardial patch angioplasty, R total knee arthroplasty, R hip hemiarthroplasty, TURP, colonoscopy, bilateral cataract removals/lens implants. Past Anesthesia/Blood Transfusion Reactions: No Reported Reaction Date of Last Stent Placement:: 09/07/18 Past Psychological History: Anxiety, Depression Additional Psychological History / Comment(s): Pt resides with his friend. He lost his spouse to lung cancer about 5 yrs ago. He states he feels depressed ever since losing her but denies any plans of suicide. He states he has a large life insurance policy that would be void if he comitted suicide and there is no way he will allow that to happen. Pt has a walker and a cane. he drives. He has a CPap and oxygen at home. In the past, pt was in the [employer] and served on [employer]. Smoking Status: Never smoker Past Alcohol Use History: None Reported Additional Past Alcohol Use History / Comment(s): Pt states in the past he was an alcoholic but quit drinking 20 yrs ago. Past Drug Use History: None Reported - Past Family History Father Family Medical History: Chest Pain / Angina, Coronary Artery Disease (CAD), Myocardial Infarction ([place]) Mother Family Medical History: Dementia Medications and Allergies Home Medications Medication Instructions Recorded Confirmed Type Aspirin EC [Ecotrin Low Dose] 81 mg PO DAILY 04/08/19 07/09/19 History Clopidogrel [Plavix] 75 mg PO DAILY 04/18/19 07/09/19 History Budesonide [Pulmicort] 0.5 mg INHALATION RT-BID 04/19/19 07/09/19 History Docusate [Colace] 100 mg PO HS 04/19/19 07/09/19 History Ferrous Sulfate [Iron (65 MG 325 mg PO HS 04/19/19 07/09/19 History Elemental)] Loratadine [Claritin] 10 mg PO DAILY 04/19/19 07/09/19 History Warfarin [Coumadin] 2.5 mg PO HS 04/19/19 07/09/19 History Carvedilol [Coreg] 6.25 mg PO BID-W/MEALS tab 05/02/19 07/09/19 Rx Gabapentin [Neurontin] 100 mg PO BID #6 cap 05/02/19 07/09/19 Rx NIFEdipine XL [Procardia XL] 90 mg PO DAILY tab.er.24 05/02/19 07/09/19 Rx Pantoprazole [Protonix] 40 mg PO DAILY tablet. 05/02/19 07/09/19 Rx hydrALAZINE HCL [Apresoline] 75 mg PO TID tab 05/02/19 07/09/19 Rx ALPRAZolam [Xanax] 0.5 mg PO Q8H PRN 07/09/19 07/09/19 History ARIPiprazole [Abilify] 2 mg PO HS 07/09/19 07/09/19 History Acetaminophen Tab [Tylenol] 650 mg PO Q4H PRN 07/09/19 07/09/19 History Atorvastatin [Lipitor] 80 mg PO HS 07/09/19 07/09/19 History Furosemide [Lasix] 20 mg PO BID@0400,1000 07/09/19 07/09/19 History Metolazone [Zaroxolyn] 2.5 mg PO WESA 07/09/19 07/09/19 History Sodium Bicarbonate Tab 650 mg PO BID #28 tab 07/10/19 Rx predniSONE 10 mg PO DIRECTED #30 tab 07/10/19 Rx Allergies Allergy/AdvReac Type Severity Reaction Status Date / Time No Known Allergies Allergy Verified 07/09/19 18:31 Physical Exam Vitals: Vital Signs Temp Pulse Pulse Resp BP BP Pulse Ox 07/10/19 06:00 98 F 75 20 168/76 97 07/10/19 00:22 146/55 07/09/19 22:00 97.5 F L 68 20 174/74 96 07/09/19 19:41 66 07/09/19 19:29 64 07/09/19 17:53 97.3 F L 58 L 20 172/70 99 Intake and Output 07/09/19 07/10/19 07/10/19 22:59 06:59 14:59 Intake Total 100 240 Output Total 265 325 Balance 100 -265 -85 Intake: Oral 100 240 Output: Urine 325 Post Void Residual 265 Other: Voiding Method Urinal # Voids 1 # Bowel Movements 0 Weight 107.048 kg 101.151 kg Results 07/10/19 09:15 07/10/19 09:15 Cardiac Enzymes 07/09/19 07/10/19 Range/Units 20:00 09:15 AST 20 19 (17-59) U/L Coagulation 07/09/19 07/10/19 Range/Units 20:00 09:15 PT 13.0 H 13.5 H (9.0-12.0) sec CBC 07/09/19 07/10/19 Range/Units 20:00 09:15 WBC 7.6 5.4 (3.8-10.6) k/uL RBC 2.59 L 2.41 L (4.30-5.90) m/uL Hgb 8.3 L 8.0 L (13.0-17.5) gm/dL Hct 25.2 L 23.6 L (39.0-53.0) % Plt Count 146 L 131 L (150-450) k/uL Comprehensive Metabolic Panel 07/09/19 07/10/19 Range/Units 20:00 09:15 Sodium 139 138 (137-145) mmol/L Potassium 4.9 5.0 (3.5-5.1) mmol/L Chloride 108 H 107 (98-107) mmol/L Carbon Dioxide 20 L 18 L (22-30) mmol/L BUN 106 H* 110 H* (9-20) mg/dL Creatinine 4.39 H 4.44 H (0.66-1.25) mg/dL Glucose 111 H 176 H (74-99) mg/dL Calcium 9.2 9.2 (8.4-10.2) mg/dL AST 20 19 (17-59) U/L ALT 15 15 (4-49) U/L Alkaline Phosphatase 68 58 (38-126) U/L Total Protein 6.6 6.3 (6.3-8.2) g/dL Albumin 4.0 3.6 (3.5-5.0) g/dL Current Medications Generic Name Dose Route Start Last Admin Trade Name Freq PRN Reason Stop Dose Admin Acetaminophen 650 mg 07/09/19 18:44 Tylenol Tab PO Q4H PRN MILD Pain Albuterol/Ipratropium 3 ml 07/09/19 18:47 07/09/19 19:28 Duoneb 0.5 Mg-3 Mg/3 Ml Soln INHALATION 3 ml RT-QID PRN Administration Shortness Of Breath Or Wheezing Alprazolam 0.5 mg 07/09/19 18:44 07/09/19 21:33 Xanax PO 0.5 mg Q8H PRN Administration Anxiety Aripiprazole 2 mg 07/09/19 21:00 07/09/19 23:11 Abilify PO 2 mg HS ALICIA Administration Aspirin 81 mg 07/10/19 09:00 07/10/19 07:38 Aspirin PO 81 mg DAILY ALICIA Administration Atorvastatin Calcium 80 mg 07/09/19 21:00 07/09/19 21:29 Lipitor PO 80 mg HS ALICIA Administration Budesonide 0.5 mg 07/09/19 20:00 07/10/19 09:15 Pulmicort INHALATION Not Given RT-BID ALICIA Carvedilol 6.25 mg 07/10/19 07:30 07/10/19 07:40 Coreg PO 6.25 mg BID-W/MEALS ALICIA Administration Clopidogrel Bisulfate 75 mg 07/10/19 09:00 07/10/19 07:40 Plavix PO 75 mg DAILY ALICIA Administration Docusate Sodium 100 mg 07/09/19 21:00 07/09/19 21:29 Colace PO 100 mg HS ALICIA Administration Ferrous Sulfate 325 mg 07/09/19 21:00 07/09/19 21:29 Feosol PO 325 mg HS ALICIA Administration Furosemide 20 mg 07/10/19 09:00 07/10/19 07:39 Lasix PO 20 mg BID@0900,1600 ALICIA Administration Gabapentin 100 mg 07/09/19 21:00 07/10/19 07:39 Neurontin PO 100 mg BID ALICIA Administration Hydralazine HCl 75 mg 07/09/19 22:00 07/10/19 07:39 Apresoline PO 75 mg TID ALICIA Administration Ferric Sodium Gluconate 125 mg 110 mls @ 100 mls/hr 07/10/19 00:00 07/10/19 00:48 / Sodium Chloride IVPB 100 mls/hr DAILY@2100 ALICIA Administration Loratadine 10 mg 07/10/19 09:00 07/10/19 07:40 Claritin PO 10 mg DAILY ALICIA Administration Methylprednisolone Sodium Succinate 40 mg 07/09/19 19:00 07/10/19 07:47 Solu-Medrol IV 40 mg Q8HR ALICIA Administration Metolazone 2.5 mg 07/11/19 09:00 Zaroxolyn PO WESA [facility] Miscellaneous Information 0 each 07/09/19 19:10 Coumadin Per Pharmacy MISCELLANE DIRECTED PRN PER DOSING PROTOCOL Nifedipine 90 mg 07/10/19 09:00 07/10/19 07:38 Procardia Xl PO 90 mg DAILY [facility] Administration Pantoprazole Sodium 40 mg 07/10/19 07:30 07/10/19 07:40 Protonix PO 40 mg [id number] [facility] Administration Intake and Output 07/09/19 07/10/19 07/10/19 22:59 06:59 14:59 Intake Total 100 240 Output Total 265 325 Balance 100 -265 -85 Intake: Oral 100 240 Output: Urine 325 Post Void Residual 265 Other: Voiding Method Urinal # Voids 1 # Bowel Movements 0 Weight 107.048 kg 101.151 kg 07/10/19 09:15 07/10/19 09:15
[2019-07-10] MEDS ORDERED: DARBEPOETIN ALFA 40 MCG/0.4 ML SYRINGE SQ SCH (14:00)
[2019-07-10 14:01] VITALS: BP 149/64; PULSE 75; RESP 18; TEMP 97.7
--- NOTE | 2019-07-10 17:33 | P.CNPUL ---
History of Present Illness Consult date: 07/10/19 Reason for consult: dyspnea, COPD, obstructive sleep apnea Chief complaint: Generalized weakness History of present illness: This is a pleasant 89-year-old male well-known to me, admitted into the hospital with generalized weakness, shortness of breath and worsening renal function he has some shortness of breath but feels that stable, patient has severe degree of obstructive sleep apnea has been on CPAP on a regular basis, past medical history significant for coronary artery disease status post PCI to the LAD and circumflex most recently in 2014, valvular heart disease status post TAVR, hypertension, COPD, atrial fibrillation on long-term anticoagulation, chronic kidney disease, obstructive sleep apnea, peripheral vascular disease status post right carotid endarterectomy and chronic diastolic heart failure. He follows in the office with Dr. Chu out of [place]. He was sent in as a direct admit from his primary care physician's office secondary to weakness, shortness of breath and worsening renal function. He states he has noticed in increase in lower extremity edema and some shortness of breath over the previous couple of days. He denies symptoms of chest pain or palpitations denies any cough or sputum production does take nebulizer treatment as needed, He states since coming to the hospital he feels much better and back to baseline. He was given one dose of IV Lasix per nephrology last evening. Review of Systems All systems: negative Past Medical History Past Medical History: Atrial Fibrillation, Coronary Artery Disease (CAD), Chest Pain / Angina, Heart Failure, COPD, CVA/TIA, Hyperlipidemia, Hypertension, Myocardial Infarction ([place]), Osteoarthritis ([place]), Pneumonia, Renal Disease, Sleep Apnea/CPAP/BIPAP, Vascular Disorder Additional Past Medical History / Comment(s): CKD stage IV, chronic anemia (iron defiency), hyperkalemia, VOLODYMYR with Cpap, TIA, arthritis in multiple joints, BPH with surgery, PVD, past ETOH but pt states he has not drank in 20 yrs. cdiff Last Myocardial Infarction Date:: 2010 History of Any Multi-Drug Resistant Organisms: None Reported Past Surgical History: Cardiac Valve Replacement, Heart Catheterization With Stent, Joint Replacement, Prostate Surgery, Tonsillectomy Additional Past Surgical History / Comment(s): 09/07/18 Aortic mechanical valve replacement and stent to LAD, previous PCI with stent, R caratid endartectomy with pericardial patch angioplasty, R total knee arthroplasty, R hip hemiarthroplasty, TURP, colonoscopy, bilateral cataract removals/lens implants. Past Anesthesia/Blood Transfusion Reactions: No Reported Reaction Date of Last Stent Placement:: 09/07/18 Past Psychological History: Anxiety, Depression Additional Psychological History / Comment(s): Pt resides with his friend. He lost his spouse to lung cancer about 5 yrs ago. He states he feels depressed ever since losing her but denies any plans of suicide. He states he has a large life insurance policy that would be void if he comitted suicide and there is no way he will allow that to happen. Pt has a walker and a cane. he drives. He has a CPap and oxygen at home. In the past, pt was in the [employer] and served on [employer]. Smoking Status: Never smoker Past Alcohol Use History: None Reported Additional Past Alcohol Use History / Comment(s): Pt states in the past he was a n alcoholic but quit drinking 20 yrs ago. Past Drug Use History: None Reported - Past Family History Father Family Medical History: Chest Pain / Angina, Coronary Artery Disease (CAD), Myocardial Infarction ([place]) Mother Family Medical History: Dementia Medications and Allergies Home Medications Medication Instructions Recorded Confirmed Type Clopidogrel [Plavix] 75 mg PO DAILY 04/18/19 07/09/19 History Budesonide [Pulmicort] 0.5 mg INHALATION RT-BID 04/19/19 07/09/19 History Docusate [Colace] 100 mg PO HS 04/19/19 07/09/19 History Ferrous Sulfate [Iron (65 MG 325 mg PO HS 04/19/19 07/09/19 History Elemental)] Loratadine [Claritin] 10 mg PO DAILY 04/19/19 07/09/19 History Warfarin [Coumadin] 2.5 mg PO HS 04/19/19 07/09/19 History Carvedilol [Coreg] 6.25 mg PO BID-W/MEALS tab 05/02/19 07/09/19 Rx Gabapentin [Neurontin] 100 mg PO BID #6 cap 05/02/19 07/09/19 Rx NIFEdipine XL [Procardia XL] 90 mg PO DAILY tab.er.24 05/02/19 07/09/19 Rx Pantoprazole [Protonix] 40 mg PO DAILY tablet. 05/02/19 07/09/19 Rx hydrALAZINE HCL [Apresoline] 75 mg PO TID tab 05/02/19 07/09/19 Rx ALPRAZolam [Xanax] 0.5 mg PO Q8H PRN 07/09/19 07/09/19 History ARIPiprazole [Abilify] 2 mg PO HS 07/09/19 07/09/19 History Acetaminophen Tab [Tylenol] 650 mg PO Q4H PRN 07/09/19 07/09/19 History Atorvastatin [Lipitor] 80 mg PO HS 07/09/19 07/09/19 History Furosemide [Lasix] 20 mg PO BID@0400,1000 07/09/19 07/09/19 History Metolazone [Zaroxolyn] 2.5 mg PO WESA 07/09/19 07/09/19 History Sodium Bicarbonate Tab 650 mg PO BID #28 tab 07/10/19 Rx predniSONE 10 mg PO DIRECTED #30 tab 07/10/19 Rx Allergies Allergy/AdvReac Type Severity Reaction Status Date / Time No Known Allergies Allergy Verified 07/09/19 18:31 Physical Exam Vitals: Vital Signs Temp Pulse Pulse Resp BP BP Pulse Ox 07/10/19 13:47 97.7 F 75 18 149/64 97 07/10/19 12:05 68 07/10/19 11:56 68 07/10/19 06:00 98 F 75 20 168/76 97 07/10/19 00:22 146/55 07/09/19 22:00 97.5 F L 68 20 174/74 96 07/09/19 19:41 66 07/09/19 19:29 64 07/09/19 17:53 97.3 F L 58 L 20 172/70 99 Intake and Output 07/10/19 07/10/19 07/10/19 06:59 14:59 22:59 Intake Total 240 Output Total 265 1225 Balance -265 -985 Intake: Oral 240 Output: Urine 1225 Post Void Residual 265 Other: Voiding Method Urinal # Voids 1 3 # Bowel Movements 0 Weight 101.151 kg - Constitutional General appearance: average body habitus, disheveled, morbidly obese, no acute d istress - EENT Eyes: EOMI, PERRLA, normal appearance Ears: bilateral: normal - Neck Neck: normal ROM Carotids: bilateral: upstroke normal Thyroid: bilateral: normal size - Respiratory Respiratory: bilateral: CTA - Cardiovascular Rhythm: regular Heart sounds: normal: S1, S2 - Gastrointestinal General gastrointestinal: normal bowel sounds - Neurologic Neurologic: CNII-XII intact - Musculoskeletal Musculoskeletal: gait normal, generalized weakness, strength equal bilaterally - Psychiatric Psychiatric: A&O x's 3, appropriate affect, intact judgment & insight Results - Laboratory Findings CBC and BMP: 07/10/19 09:15 07/10/19 09:15 PT/INR, D-dimer PT 13.5 sec (9.0-12.0) H 07/10/19 09:15 INR 1.3 (<1.2) H 07/10/19 09:15 Abnormal lab findings: Abnormal Labs 07/09/19 07/09/19 07/09/19 20:00 20:00 20:00 RBC 2.59 L Hgb 8.3 L Hct 25.2 L Plt Count 146 L Lymphocytes # PT 13.0 H INR 1.3 H Chloride 108 H Carbon Dioxide 20 L BUN 106 H* Creatinine 4.39 H Glucose 111 H Iron 42 L % Saturation 14.33 L 07/10/19 07/10/19 07/10/19 09:15 09:15 09:15 RBC 2.41 L Hgb 8.0 L Hct 23.6 L Plt Count 131 L Lymphocytes # 0.5 L PT 13.5 H INR 1.3 H Chloride Carbon Dioxide 18 L BUN 110 H* Creatinine 4.44 H Glucose 176 H Iron % Saturation - Diagnostic Findings Chest x-ray: report reviewed, image reviewed (Bilateral very small pleural effusion with some interstitial edema) Assessment and Plan Assessment: Obstructive sleep apnea stable on CPAP and regular basis Moderate to severe COPD not exacerbation Shortness of breath and weakness due to mild congestive heart failure clears acute worsening or diastolic heart failure as well as chronic renal failure on did well with diuretics Acute on chronic renal failure stage IV with slight exacerbation Plan: Patient has been room air doing well wishes to go home agree with discharge planning if cleared by renal and cardiology services will follow on outpatient basis Time with Patient: Greater than 30
[2019-07-10] MEDS ORDERED: WARFARIN 2 MG TAB PO ONE (18:00)
--- NOTE | 2019-07-10 18:13 | P.DS ---
Providers Date of admission: 07/09/19 17:36 Expected date of discharge: 07/10/19 Attending physician: Benoit Fatima Consults: 07/09/19 18:48 Consult Physician Routine Consulting Provider: Jabari Watts Consult Reason/Comments: copd Do you want consulting provider notified?: Yes 07/09/19 22:29 Consult Physician Urgent Consulting Provider: Keenan Herrera Consult Reason/Comments: BUN 106 CREATNINE 4.39 Do you want consulting provider notified?: Yes 07/09/19 23:38 Consult Physician Routine Consulting Provider: Diego Phillips Consult Reason/Comments: chf Do you want consulting provider notified?: Yes Primary care physician: [facility] Course: Final Diagnoses. Acute COPD exacerbation Acute on chronic anemia Dizziness secondary to dehydration, Orthostatic hypotension secondary to dehydration Acute renal failure, ATN secondary to dehydration Chronic kidney disease, stage IV Chronic atrial fibrillation CAD with stents Depression Anxiety Yates course this is an 89-year-old gentleman admitted with acute COPD exacerbation, dehydration multiple other medical issues. Evaluated by nephrology, cardiology and pulmonary. Maintained on antibiotics, nebulized bronchodilators, steroids, PPI. Received hemodialysis. Antihypertensives adjusted. Significant clinical improvement. Cleared by all consults for discharge. Patient is being discharged home in a stable condition with guarded prognosis. EXAM: GENERAL: Alert and oriented 3, no acute distress Lungs: Bilateral bases diminished CVS1,S2 GI: Abdomen soft nontender, positive bowel sounds NEURO: No focal deficits The impression and plan of care has been dictated as directed. DrSebastian: I performed a history and examination of this patient, discussed the same with the dictator. I agree with the dictator's note ,documented as a scribe. Any additional findings or plans will be noted. Patient Condition at Discharge: Stable Plan - Discharge Summary New Discharge Prescriptions: New predniSONE 10 mg PO DIRECTED #30 tab Sodium Bicarbonate Tab 650 mg PO BID #28 tab Continue Clopidogrel [Plavix] 75 mg PO DAILY Warfarin [Coumadin] 2.5 mg PO HS Loratadine [Claritin] 10 mg PO DAILY Ferrous Sulfate [Iron (65 MG Elemental)] 325 mg PO HS Docusate [Colace] 100 mg PO HS Budesonide [Pulmicort] 0.5 mg INHALATION RT-BID hydrALAZINE HCL [Apresoline] 75 mg PO TID tab Carvedilol [Coreg] 6.25 mg PO BID-W/MEALS tab NIFEdipine XL [Procardia XL] 90 mg PO DAILY tab.er.24 Pantoprazole [Protonix] 40 mg PO DAILY tablet. Gabapentin [Neurontin] 100 mg PO BID #6 cap Acetaminophen Tab [Tylenol] 650 mg PO Q4H PRN PRN Reason: Pain ARIPiprazole [Abilify] 2 mg PO HS Atorvastatin [Lipitor] 80 mg PO HS Furosemide [Lasix] 20 mg PO BID@0400,1000 ALPRAZolam [Xanax] 0.5 mg PO Q8H PRN PRN Reason: Anxiety Metolazone [Zaroxolyn] 2.5 mg PO WESA Discontinued Aspirin EC [Ecotrin Low Dose] 81 mg PO DAILY Discharge Medication List Clopidogrel [Plavix] 75 mg PO DAILY 04/18/19 [History] Budesonide [Pulmicort] 0.5 mg INHALATION RT-BID 04/19/19 [History] Docusate [Colace] 100 mg PO HS 04/19/19 [History] Ferrous Sulfate [Iron (65 MG Elemental)] 325 mg PO HS 04/19/19 [History] Loratadine [Claritin] 10 mg PO DAILY 04/19/19 [History] Warfarin [Coumadin] 2.5 mg PO HS 04/19/19 [History] Carvedilol [Coreg] 6.25 mg PO BID-W/MEALS tab 05/02/19 [Rx] Gabapentin [Neurontin] 100 mg PO BID #6 cap 05/02/19 [Rx] NIFEdipine XL [Procardia XL] 90 mg PO DAILY tab.er.24 05/02/19 [Rx] Pantoprazole [Protonix] 40 mg PO DAILY tablet. 05/02/19 [Rx] hydrALAZINE HCL [Apresoline] 75 mg PO TID tab 05/02/19 [Rx] ALPRAZolam [Xanax] 0.5 mg PO Q8H PRN 07/09/19 [History] ARIPiprazole [Abilify] 2 mg PO HS 07/09/19 [History] Acetaminophen Tab [Tylenol] 650 mg PO Q4H PRN 07/09/19 [History] Atorvastatin [Lipitor] 80 mg PO HS 07/09/19 [History] Furosemide [Lasix] 20 mg PO BID@0400,1000 07/09/19 [History] Metolazone [Zaroxolyn] 2.5 mg PO WESA 07/09/19 [History] Sodium Bicarbonate Tab 650 mg PO BID #28 tab 07/10/19 [Rx] predniSONE 10 mg PO DIRECTED #30 tab 07/10/19 [Rx] Follow up Appointment(s)/Referral(s): Benoit Fatima MD [Primary Care Provider] - 07/11/19 11:00 am [facility] [NON-STAFF] - Keenan Herrera DO [STAFF PHYSICIAN] - 08/01/19 10:40 am Bradley Chu MD [REFERRING] - 1 Week Ambulatory/Diagnostic Orders: Prothrombin Time INR [LAB.AMB] Time Frame: 07/13/19, Location: None Selected Patient Instructions/Handouts: COPD (Chronic Obstructive Pulmonary Disease) (DC), Anemia (DC) Activity/Diet/Wound Care/Special Instructions: Weekly IV infusions to be arranged per PCP Discharge Disposition: HOME WITH HOME HEALTH SERVICES
[2019-07-11] MEDS ORDERED: METOLAZONE 2.5 MG TAB PO SCH (09:00)
== END 2019-07-10 14:44 | disposition home health service (06) | DRG 190 ==
LOC: 6NMEDSUR 17:36
PROVIDERS: ADMIT Family Medicine; ATTEND Family Medicine
DX: J44.1 Chronic obstructive pulmonary disease with (acute) exacerbation (principal); N17.0 Acute kidney failure with tubular necrosis; I50.33 Acute on chronic diastolic (congestive) heart failure; I13.0 Hypertensive heart and chronic kidney disease with heart failure and stage 1 through stage 4 chronic kidney disease, or unspecified chronic kidney disease; N18.4 Chronic kidney disease, stage 4 (severe); I48.19 Other persistent atrial fibrillation; E87.2 Acidosis; I95.1 Orthostatic hypotension; I73.9 Peripheral vascular disease, unspecified; D63.1 Anemia in chronic kidney disease; D50.9 Iron deficiency anemia, unspecified; E78.5 Hyperlipidemia, unspecified; E86.0 Dehydration; F32.9 Major depressive disorder, single episode, unspecified; F41.9 Anxiety disorder, unspecified; G47.33 Obstructive sleep apnea (adult) (pediatric); Z99.89 Dependence on other enabling machines and devices; I25.10 Atherosclerotic heart disease of native coronary artery without angina pectoris; I25.2 Old myocardial infarction; I27.20 Pulmonary hypertension, unspecified; N40.0 Benign prostatic hyperplasia without lower urinary tract symptoms; R79.1 Abnormal coagulation profile; Z79.01 Long term (current) use of anticoagulants; Z79.02 Long term (current) use of antithrombotics/antiplatelets; Z79.82 Long term (current) use of aspirin; Z79.899 Other long term (current) drug therapy; Z79.51 Long term (current) use of inhaled steroids; Z82.49 Family history of ischemic heart disease and other diseases of the circulatory system; Z86.73 Personal history of transient ischemic attack (TIA), and cerebral infarction without residual deficits; Z95.2 Presence of prosthetic heart valve; Z95.5 Presence of coronary angioplasty implant and graft; Z98.42 Cataract extraction status, left eye; Z98.41 Cataract extraction status, right eye; Z96.1 Presence of intraocular lens; Z96.651 Presence of right artificial knee joint; Z96.641 Presence of right artificial hip joint; Z99.81 Dependence on supplemental oxygen; Z87.01 Personal history of pneumonia (recurrent); F10.21 Alcohol dependence, in remission; I08.3 Combined rheumatic disorders of mitral, aortic and tricuspid valves; M15.9 Polyosteoarthritis, unspecified; Z82.0 Family history of epilepsy and other diseases of the nervous system; J30.9 Allergic rhinitis, unspecified
CPT/HCPCS: 71046; 80053; 83540; 83550; 83880; 84443; 85025; 85610; 93005; 94640